=== PATIENT | male | born 1935 | race Caucasian/White ===

== ENCOUNTER 2017-01-22 21:14 | Inpatient (IN) | payer OTHER, MEDICARE ==
[~2017-01-22] VITALS: Ht 182.9 cm; Wt 67.1 kg
--- NOTE | 2017-01-22 22:17 | ED DYSPNEA/ASTHMA COMPLAINT ---
History of Present Illness General Chief Complaint: Dyspnea (COPD, CHF, Other) Stated Complaint: BIBA SOB Source: patient, old records, EMS Exam Limitations: dyspnea Vital Signs & Intake/Output Vital Signs & Intake/Output Vital Signs Date Time Temp Pulse Resp B/P B/P Pulse O2 O2 Flow FiO2 Mean Ox Delivery Rate 01/29 0625 35 01/29 0314 35 01/29 0300 93 Ventilator 35% 01/29 0148 35 01/29 0000 96 Ventilator 35% 01/29 0000 97.0 62 14 98/50 96 Ventilator 35% 01/28 2216 35 01/28 2119 70 110/57 01/28 2000 91 Ventilator 35% 01/28 1915 35 01/28 1619 35 01/28 1600 95 Ventilator 35% 01/28 1600 98.5 64 30 114/58 95 Ventilator 35% 01/28 1332 35 01/28 1200 97 Ventilator 35% 01/28 1028 64 132/64 01/28 1028 61 132/64 18 0815 35 01/28 0800 98.4 75 19 122/60 99 Ventilator 35% 01/28 0800 99 Ventilator 35% ED Intake and Output 01/29 0000 01/28 1200 Intake Total 1580 963 Output Total 1450 200 Balance 130 763 Intake, IV 360 240 Intake, Oral 0 Intake, Other 80 Intake, Tube 670 428 Feeding Intake, Tube 470 295 Irrigant Number 1 1 Bowel Movements Output, Urine 1450 200 Allergies Coded Allergies: No Known Allergies (01/22/17) Reconcile Medications Amlodipine Besylate 10 MG TABLET 1 TAB PO DAILY HTN (Reported) Aripiprazole (Abilify) 10 MG TABLET 1 TAB PO DAILY MENTAL HEALTH (Reported) Aspirin (Aspirin*) 81 MG TAB.CHEW 1 TAB PO DAILY HEART (Reported) Atorvastatin Calcium (Lipitor) 80 MG TABLET 1 TAB PO DAILY HYPERLIPIDEMIA ( Reported) Carvedilol 3.125 MG TABLET 1 TAB PO BID HTN (Reported) Cholecalciferol (Vitamin D3) (Vitamin D3) 1,000 UNIT CAPSULE 2 CAP PO DAILY SUPPLEMENT (Reported) Docusate Sodium (Colace) 100 MG CAPSULE 1 CAP PO BID CONSTIPATION (Reported) Finasteride (Proscar) 5 MG TABLET 1 TAB PO DAILY BPH (Reported) Gabapentin (Neurontin) 400 MG CAPSULE 1 CAP PO TID NEUROPATHY (Reported) Ipratropium/Albuterol Sulfate (Combivent Respimat Inhal [place]) 20 MCG-100 MCG/ ACTUATION MIST.INHAL 1 PUFF INH/JANIS Q6 RESPIRATORY (Reported) Lisinopril (Prinivil) 10 MG TABLET 1 TAB PO DAILY HTN (Reported) Nicotine (Nicotine Patch) 21 MG/24 HOUR PATCH.TD24 1 PAT TOP DAILY SMOKING CESSATION (Reported) Sennosides (Senna) 8.6 MG TABLET 2 TAB PO DAILY CONSTIPATION (Reported) Sertraline HCl (Zoloft) 100 MG TABLET 2 TAB PO DAILY MENTAL HEALTH (Reported) Tamsulosin HCl 0.4 MG CAP.ER.24H 2 CAP PO DAILY BPH (Reported) Trazodone HCl 50 MG TABLET 3 TAB PO QPM SLEEP (Reported) Triage Note: PT BIBA FROM [facility]. PT C/O DIFFICULTY BREATHING. EMS RECEIVED POOR REPORT FROM [facility] STAFF REGARDING ONSET OF SYMPTOMS BUT STATED [facility] PERFORMED CHEST X-RAY. UPON EMS ARRIVAL, PT SPO2 70% ON 4LPM. EMS PLACED PT ON 15LPM. LS DIMINISHED AND RHONCHI THROUGHOUT. DR ESCOTO AT BEDSIDE AND RESPIRATORY CALLED. Triage Nurses Notes Reviewed? yes HPI: Patient presents for evaluation of severe dyspnea. The patient himself is unable to provide any history because of clinical condition. Past History Travel History Traveled to [place] past 21 day No Medical History Any Pertinent Medical History? see below for history Surgical History Surgical History: non-contributory Psychosocial History Tobacco Use: Refused to answer (unable to provide hx) Family History Hx Contributory? No Review of Systems Review of Systems Constitutional: Reports: no symptoms. EENTM: Reports: no symptoms. Respiratory: Reports: short of breath. Cardiovascular: Reports: no symptoms. GI: Reports: no symptoms. Genitourinary: Reports: no symptoms. Musculoskeletal: Reports: no symptoms. Skin: Reports: no symptoms. Neurological/Psychological: Reports: no symptoms. Hematologic/Endocrine: Reports: no symptoms. Immunologic/Allergic: Reports: no symptoms. All Other Systems: Reviewed and Negative Physical Exam Physical Exam Respiratory: see below Comments: Gen.: Well-nourished, well-developed, severe respiratory distress. Head: Normocephalic, atraumatic. Eyes: Normal inspection bilaterally Ears: Normal inspection bilaterally Nose: Normal inspection Throat/mouth : Tacky mucosa Neck: Supple, full range of motion, no goiter Heart: Regular rate and rhythm, no murmurs rubs or gallops Lungs: Severely diminished breath sounds over the right chest, diffuse thick rhonchi and crackles over the left chest Chest: Nontender Back: Normal range of motion Abdomen: Soft, nontender, nondistended, normal bowel sounds Extremities: Normal range of motion grossly, equal radial pulses, no cyanosis clubbing or edema Neurologic: Cranial nerves grossly intact, speech is clear Skin: warm and dry Psychiatric: Unable to assess Core Measures ACS in differential dx? No Severe Sepsis Present: No Septic Shock Present: No Progress Differential Diagnosis: AMI, bronchitis, CHF, COPD, pneumonia Plan of Care: Orders Procedure Date/time Status XRY-PORTABLE CHEST XRAY 01/29 0500 Active ICU LAB BUNDLE 01/29 0500 Complete CBC WITHOUT DIFFERENTIAL 01/29 0500 Complete VENTILATOR WEANING PARAMETERS 01/28 1115 Complete Restraint- Medical 01/28 0758 Active Recio, Insertion/Removal/Asses 01/28 0758 Active PHARMACY COMMUNICATION FORM 01/28 UNK Active Current Medications Sig/Fatou Start time Last Medication Dose Stop Time Status Admin Aripiprazole 10 MG 01/28 2200 AC 01/28 (Abilify) 2117 Sertraline HCl 200 MG 0 01/28 220 AC 01/28 (Zoloft) 2118 Trazodone HCl 150 MG QPM 01/27 2200 AC 01/28 (Desyrel) 212 Ascorbic Acid 250 MG DAILY 01/27 1918 AC 01/28 (Vitamin C) 1028 Zinc Sulfate 220 MG DAILY 01/27 1918 AC 01/28 (Zinc Sulfate) 1028 Multivitamins 1 TAB DAILY 01/27 1917 AC 01/28 (Theragran Vitamins) 1028 Ampicillin Sodium/ 1,500 MG Q6 01/27 1200 AC 01/29 Sulbactam Sodium 0600 (Unasyn) Sodium Chloride 100 ML (Normal Saline 0.9%) Amlodipine Besylate 10 MG DAILY 01/26 1000 AC 01/28 (Norvasc) 1028 Carvedilol 3.125 MG BID 01/26 0130 AC 01/28 (Coreg) 211 Albuterol Sulfate 3 ML TID 01/23 1000 AC 01/28 (Proventil) 191 Ipratropium [place] 2.5 ML TID 01/23 1000 AC 01/28 (Atrovent) 192 Pantoprazole Sodium 40 MG DAILY 01/23 1000 AC 01/28 (Protonix) 1029 Guaifenesin 10 ML Q4P PRN 01/23 0615 AC (Robitussin) Heparin Sodium 5,000 UNIT Q8 01/23 0600 AC 01/29 (Porcine) 0600 Acetaminophen 650 MG Q6P PRN 01/23 001 AC (Tylenol) Acetaminophen/ 1 TAB Q6P PRN 01/23 001 AC Hydrocodone Bitart (Vicodin) Oxycodone HCl 10 MG Q6P PRN 01/23 15 AC (Roxicodone) Laboratory Tests 01/29/17 0310: Anion Gap 9, Estimated GFR > 60, Glucose 117 H, Calcium 7.8 L, Phosphorus 3.4, Magnesium 1.6, Total Bilirubin 0.5, AST 34, ALT 47, Albumin 2.5 L, CBC w Diff NO MAN DIFF REQ, RBC 3.14 L, MCV 85.3, MCH 28.7, RDW 17.8 H, MPV 7.7, Lymphocytes % 16.7 L, Absolute Granulocytes 4.1, Absolute Lymphocytes 0.9 L, Absolute Monocytes 0.4, Absolute Eosinophils 0.2, Absolute Basophils 0, PUBS MCHC 33.6 Diagnostic Imaging: Discussed w/RAD: Radiology Read. CXR Impression: PATIENT: DEEP CASTILLO PRESENT AGE: 81 PATIENT ACCOUNT NO: [id number] : 37 LOCATION: [facility] ORDERING PHYSICIAN: OBEY ESCOTO MD SERVICE DATE: 01/22/17 EXAM TYPE: RAD - XRY-PORTABLE CHEST XRAY EXAMINATION: CHEST 1 VIEW CLINICAL INFORMATION: Enteric tube placement. COMPARISON: None. TECHNIQUE: An AP view of the chest is provided. FINDINGS: The cardiac silhouette is not enlarged. An enteric tube is in place. The tip cannot be discerned. The mediastinal and hilar contours are unremarkable. There are neither pleural effusions nor pneumothoraces. There is opacification at the right lung base. There is narrowing of the acromiohumeral distances bilaterally. The osseous structures are otherwise unremarkable. IMPRESSION: Enteric tube in place. Secondary to patient positioning and exposure level, the tip cannot be identified. Infiltrate at the right lung base concerning for pneumonia. Recommendation is for a followup chest series to be obtained following treatment and/or resolution of symptoms to assure resolution of this appearance. DICTATED BY: ALEXANDRA FLEMING MD DATE/TIME DICTATED:01/22/172313 FENCE INSTALLER HELPER:PRERNA DATE/TIME TRANSCRIBED:01/22/172313 CONFIDENTIAL, DO NOT COPY WITHOUT APPROPRIATE AUTHORIZATION. <Electronically signed in Other Vendor System> SIGNED BY: ALEXANDRA FLEMING MD 01/22/172318 Initial ED EKG: NSR, rate (82), incomplete rbbb Comments: 01/22/2017 10:14:50 PM Deep has been intubated by PA my direct supervision of the entire procedure. After intubation blood pressure dropped and IV fluids are being bolused. After 1/2 L of IV fluid, patient's peripheral pulses have improved and his skin remains warm and dry with good color. Unfortunately he also remains obtunded. 01/22/2017 11:34:45 PM given the appearance of the chest x-ray I elected to cover this patient for pneumonia. He does not meet Sirs criteria for septic shock. Departure Departure Disposition: STILL A PATIENT Condition: Critical Clinical Impression Primary Impression: Respiratory failure Qualifiers: Chronicity: unspecified Respiratory failure complication: hypoxia Qualified Code: J96.91 - Respiratory failure, unspecified with hypoxia Secondary Impressions: Acute kidney injury Dehydration Hypotension Qualifiers: Hypotension type: unspecified hypotension type Qualified Code: I95.9 - Hypotension, unspecified Pneumonia Qualifiers: Pneumonia type: due to unspecified organism Laterality: right Lung location: lower lobe of lung Qualified Code: J18.1 - Lobar pneumonia, unspecified organism Referrals: UNKNOWN (PCP) Departure Forms: Customer Survey General Discharge Information Admission Note Spoke With: HELENA SIMPSON MD Documentation of Exam: Documentation of any treatments & extenuating circumstances including Concerns Regarding Discharge (functional status, medication knowledge or non-compliance, living conditions, etc.) that warrant an admission rather than observation: Patient Has suffered acute hypoxic respiratory failure requiring intubation. He Is also suffering from acute kidney injury with hypotension. He requires intensive care on a ventilator and intravenous fluids with close monitoring of vital signs and clinical condition. He will require intravenous sedation while on the ventilator. He should be treated with intravenous antibiotics given the likelihood of pneumonia seen on chest x-ray. Intake and output should be recorded and treated accordingly. Pulmonary and renal consultations should be considered. Given this patient's advanced age and multiple medical issues he will require a multiple day hospitalization. Prognosis is grave. Procedures Intubation Intubation Method: orotracheal Tube Size (cm): 8.0 Medications: ETOMIDATE Breath Sounds After Intubation: equal Intubation Complications: no complications Post Intubation Xray? Yes Critical Care Note Critical Care Note Critical Care Time: 30-74 min
[2017-01-22 22:31] LABS: ABSOLUTE BASOPHIL COUNT 0 /CUMM (0.0-0.2); ABSOLUTE EOSINOPHIL COUNT 0 /CUMM (0.0-0.7); ABSOLUTE GRANULOCYTE CT 4.5 /CUMM (1.4-6.5); ABSOLUTE LYMPH COUNT 0.4 /CUMM (1.2-3.4); ABSOLUTE MONOCYTE COUNT 0.1 /CUMM (0.10-0.60); BASOPHIL % 0.1 % (0.0-2.0); EOSINOPHIL % 0.3 % (0-5); GRANULOCYTE % 90.6 % (42.2-75.2); HEMATOCRIT 30.1 % (42-52); MEAN CORPUSCULAR HGB CONC 33.7 G/DL (33.0-37.0); MEAN PLATELET VOLUME 8.2 FL (7.4-10.4); PLATELET COUNT 144 /CUMM (130-400); RED BLOOD CELL CT 3.51 /CUMM (4.70-6.10); WHITE BLOOD CELL COUNT 4.9 /CUMM (4.8-10.8)
--- NOTE | 2017-01-22 23:19 | RADIOLOGY REPORT ---
EXAMINATION: CHEST 1 VIEW CLINICAL INFORMATION: Enteric tube placement. COMPARISON: None. TECHNIQUE: An AP view of the chest is provided. FINDINGS: The cardiac silhouette is not enlarged. An enteric tube is in place. The tip cannot be discerned. The mediastinal and hilar contours are unremarkable. There are neither pleural effusions nor pneumothoraces. There is opacification at the right lung base. There is narrowing of the acromiohumeral distances bilaterally. The osseous structures are otherwise unremarkable. IMPRESSION: Enteric tube in place. Secondary to patient positioning and exposure level, the tip cannot be identified. Infiltrate at the right lung base concerning for pneumonia. Recommendation is for a followup chest series to be obtained following treatment and/or resolution of symptoms to assure resolution of this appearance.
--- NOTE | 2017-01-23 00:13 | History & Physical ---
JAVAD CHAVES,KARTHIK 01/23/17 0013: General Information and HPI MD Statement: I have seen and personally examined ASAD CASTILLO and documented this H&P. The patient is a 81 year old M who presented with a patient stated chief complaint of []. Source of Information: patient, old records Exam Limitations: clinical condition History of Present Illness: patient is a 81 y/o male with past medical history of cerebellar stroke , BPH , insomnia, hypercholesterolemia, seizure, dementia, coronary artery disease , history of pneumonia, COPD on 2 liters oxygen BIBA from SNF with c/o of difficulty in breathing. EMS found his Spo2 was 70% on 4L of Oxygen and EMS later increased O2 to 15 L.He was intubated by ED physician. Most of the information obtained from the Daughter over the phone. He was having fever with yellowish-green sputum , followed by pathology and decreased oxygen saturation. Chest x-ray was done which showed evidence of pneumonia so he was transferred to the emergency department. Allergies/Medications Allergies: Coded Allergies: No Known Allergies (01/22/17) Past History Travel History Traveled to [place] past 21 day No Medical History Neurological: dementia, TREMORS Cardiovascular: hypertension Respiratory: COPD Renal: benign prost hyperplasia Surgical History Surgical History: unobtainable Review of Systems Review of Systems Constitutional: Denies: no symptoms. Comments cannt comment as patient is intubated Exam & Diagnostic Data Last 24 Hrs of Vital Signs/I&O Vital Signs Date Time Temp Pulse Resp B/P Pulse O2 O2 Flow FiO2 Ox Delivery Rate 01/23 0421 97.3 85 20 84/50 01/23 0304 45 01/23 0251 50 01/23 0214 84 20 82/50 95 Ventilator 50% 01/23 0127 98.4 81 20 100/50 99 Ventilator 50% 01/23 0048 50 01/23 0042 60 01/23 0039 83 20 74/62 98 Ventilator 60% 01/23 0009 72 20 68/40 96 Ventilator 60% 01/22 2308 71 20 78/44 100 Ventilator 60% 01/22 2253 70 20 78/48 99 Ventilator 60% 01/22 2242 68 20 76/42 97 Ventilator 60% 01/22 2218 80 20 70/42 98 Ventilator 60% 01/22 2201 60 01/22 2157 74 20 42/26 96 Ventilator 60% 01/22 2146 81 50/30 04/12 2136 97 Non 100% ReBreather 01/22 2134 98.6 82 24 127/89 92 Non 100% ReBreather Intake & Output 01/23 0800 01/23 0000 01/22 1600 Intake Total Output Total Balance Patient 86.183 kg Weight Physical Exam General Appearance No Acute Distress Skin No Rashes, No Breakdown, No Significant Lesion Cardiovascular Normal S1, Normal S2 Lungs inspiratory crackles Abdomen Soft, No Tenderness Neurological able to respond command Extremities No Clubbing, No Cyanosis, No Edema Vascular weak pulses Last 24 Hrs of Labs/Robert: Laboratory Tests 01/23/17 0615: Troponin I Pending 01/23/17 0615: Lactic Acid Pending 01/23/17 06: Sodium Pending, Potassium Pending, Chloride Pending, Carbon Dioxide Pending, Anion Gap Pending, BUN Pending, Creatinine Pending, BUN/Creatinine Ratio Pending , Phosphorus Pending, Magnesium Pending, Total Bilirubin Pending, Direct Bilirubin Pending, AST Pending, ALT Pending, Alkaline Phosphatase Pending, Total Protein Pending, Albumin Pending, PT Pending, INR Pending, CBC w Diff Pending, WBC Pending, RBC Pending, Hgb Pending, Hct Pending, MCV Pending, MCH Pending, RDW Pending, Plt Count Pending, MPV Pending, PUBS MCHC Pending 01/23/17 0505: pH 7.35, pCO2 29 L, pO2 77 L, HCO3 16 L, ABG O2 Sat (Measured) 93.0 L, P-50 (Temp Corrected) Y, Carboxyhemoglobin 0.2 L, O2 Concentration % 45%, Temperature 98.9, Respiration Rate 20, O2 Delivery Method ESPRIT, Vent Mode AC, Expiratory Pressure 5, Tidal Volume 550, Phlebotomy Draw Site LEFT RADIAL 01/22/172325: Urine Color YEL, Urine Clarity HAZY H, Urine pH 5.5, Ur Specific [place] 1.025, Urine Protein 30 H, Urine Ketones TRACE H, Urine Nitrite NEG, Urine Bilirubin NEG, Urine Urobilinogen 0.2, Ur Leukocyte Esterase NEG, Ur Microscopic SEDIMENT EXAMINED, Urine RBC 1-3, Urine WBC 1-3 H, Ur Epithelial Cells FEW, Urine Hemoglobin MOD H, Urine Glucose NEG 01/22/172229: pH 7.40, pCO2 29 L, pO2 76 L, HCO3 17 L, ABG O2 Sat (Measured) 94.0 L, P-50 (Temp Corrected) N, Carboxyhemoglobin 0.3 L, O2 Concentration % 60%, Temperature 98.6, Respiration Rate 20, O2 Delivery Method ESPRIT VENT, Vent Mode AC, Expiratory Pressure 5, Tidal Volume 550, Phlebotomy Draw Site RIGHT RADIAL 01/22/172217: Anion Gap 13, Estimated GFR 17 L, BUN/Creatinine Ratio 15.4, Glucose 112 H, Lactic Acid 1.5, Calcium 8.4, Iron 17 L, TIBC 248 L, Ferritin 386.0, Troponin I 0.04, Dgp-Q-Uslublqlrlo Pept 1410 H, TSH 1.900, CBC w Diff MAN DIFF ORDERED, RBC 3.51 L, MCV 86.0, MCH 29.0, RDW 17.0 H, MPV 8.2, Gran % 90.6 H, Lymphocytes % 7.9 L, Monocytes % 1.1 L, Eosinophils % 0.3, Basophils % 0.1, Absolute Granulocytes 4.5, Segmented Neutrophils 83 H, Band Neutrophils 6 H, Absolute Lymphocytes 0.4 L, Lymphocytes 8 L, Monocytes 3, Absolute Monocytes 0.1 L, Absolute Eosinophils 0, Absolute Basophils 0, Platelet Estimate ADEQUATE , Poikilocytosis 1+, Anisocytosis 1+, Ovalocytes 1+, Elliptocytes FEW, PUBS MCHC 33.7 Microbiology 01/23 0300 UPPER RESP: Surveillance Culture - RECD 01/23 0300 GI: Surveillance Culture - RECD 01/23 253 URINE ROUT: Legionella Antigen - ORD 01/23 025 URINE ROUT: Streptococcus pneumoniae Antigen (M - ORD 01/23 0225 BLOOD: Blood Culture - RECD 01/23 0210 BLOOD: Blood Culture - RECD 01/23 0143 LOWER RESP: Respiratory Culture - RECD 01/23 0143 LOWER RESP: Gram Stain - RECD 01/23 0124 BLOOD: Blood Culture - RECD 01/22 2326 URINE ROUT: Urine Culture - RECD Diagnostic Data EKG Results Normal sinus rhythm, heart rate 82, incomplete right bundle branch block CXR Results Right lung base pneumonia Endotracheal tube is approximately 6.7 millimeters above the paco Assessment/Plan Assessment: patient is a 81 y/o male with past medical history of cerebellar stroke , BPH , insomnia, hypercholesterolemia, seizure, dementia, coronary artery disease , history of pneumonia, COPD on 2 liters oxygen BIBA from SNF with c/o of difficulty in breathing. EMS found his Spo2 was 70% on 4L of Oxygen and EMS later increased O2 to 15 L.He was intubated by ED physician. Vital signs at the time of admission-temperature 98.6, pulse 82, respiratory rate 24, blood pressure 127/89, SPO2 92% on nonrebreather. Chest x-ray -right lower lobe pneumonia, endotracheal tube in place Pertinent labs -hemoglobin 10.2, hematocrit 30.1, BUN 40, creatinine 2.2 Plan - Acute hypoxemic respiratory failure secondary to Right lower lobe pneumonia, septicemia with septicemic shock - * Patient presented with cough, fever, sputum, and become hypoxemic and lethargic. * ABG showed -pH 7.40, PCO2 29, PO2 76, HCO3 17, he was intubated in the emergency department and kept on ventilator with setting of FiO2 45%, assist control mode with inspiratory/expiratory pressure -15/5, TV-550. * We admitted the patient in ICU * His blood pressure remained 70/60 after 4 liters of fluid transfusion. We put the central line and started him on levofed 5cc/hr * We started patient on injection vancomycin/ceftaz. We will adjust the dose of vancomycin according to the creatinine. * Advised to follow a strict intake output charting * Watch for vital signs * We will place pulmonology consult and follow the recommendation * TRC/embolization Acute kidney injury, probably secondary to dehydration/septicemic shock/ATN - * We will do strict intake output charting * We will regularly monitor creatinine * If needed, we will consider nephrology consult Acute coronary syndrome, to rule out demand ischemia * We will regularly monitor EKG/troponins * If needed, then we will place cardiology consult * We'll follow echocardiogram Diet -nothing by mouth,, will consider an NG tube in the morning DVT prophylaxis - ALP S/Heparin CODE status -full code As Ranked By This Provider Problem List: 1. Acute hypoxemic respiratory failure 2. Cerebellar stroke 3. Dementia 4. Right lower lobe pneumonia 5. Septicemia 6. Septicemic shock Core Measures/Miscellaneous Acute Coronary Syndrome ACS Diagnosis: No Cerebrovascular Accident CVA/TIA Diagnosis: No Congestive Heart Failure CHF Diagnosis: No Venous Thromboembolism VTE Risk Factors: Age > 40, Immobility, paresis No Mech VTE prophylaxis d/t: No contraindications No VTE Pharm Prophylaxis d/t: No contraindications VTE Diagnosis: No VTE Type: NONE VTE Confirmed by (Test): NONE Severe Sepsis Severe Sepsis Present: Yes BC x2: Yes Lactic Acid x2: Yes IV ABX Broad Spectrum: Yes NS/LR Started: Yes Septic Shock Septic Shock Present: Yes BC x2: Yes Lactic Acid: Yes IV ABX Broad Spectrum: Yes Focused Exam Completed: Yes NS/LR 30ml/kg w/in 3hrs: Yes IV Vasopressors started: Yes Miscellaneous Documentation Attending Case Discussed With: HELENA SIMPSON MD Primary Care Physician: UNKNOWN Patient sees these Specialists PILOT SAFETY INSPECTOR Level of Patient Care: Critical Care (CRI) DYLLAN THURSTON 01/23/17 0018: General Information and HPI Allergies/Medications Home Med list Amlodipine Besylate 10 MG TABLET 1 TAB PO DAILY HTN (Reported) Aripiprazole (Abilify) 10 MG TABLET 1 TAB PO DAILY MENTAL HEALTH (Reported) Aspirin (Aspirin*) 81 MG TAB.CHEW 1 TAB PO DAILY HEART (Reported) Atorvastatin Calcium (Lipitor) 80 MG TABLET 1 TAB PO DAILY HYPERLIPIDEMIA ( Reported) Carvedilol 3.125 MG TABLET 1 TAB PO BID HTN (Reported) Cholecalciferol (Vitamin D3) (Vitamin D3) 1,000 UNIT CAPSULE 2 CAP PO DAILY SUPPLEMENT (Reported) Docusate Sodium (Colace) 100 MG CAPSULE 1 CAP PO BID CONSTIPATION (Reported) Finasteride (Proscar) 5 MG TABLET 1 TAB PO DAILY BPH (Reported) Gabapentin (Neurontin) 400 MG CAPSULE 1 CAP PO TID NEUROPATHY (Reported) Ipratropium/Albuterol Sulfate (Combivent Respimat Inhal [place]) 20 MCG-100 MCG/ ACTUATION MIST.INHAL 1 PUFF INH/JANIS Q6 RESPIRATORY (Reported) Lisinopril (Prinivil) 10 MG TABLET 1 TAB PO DAILY HTN (Reported) Nicotine (Nicotine Patch) 21 MG/24 HOUR PATCH.TD24 1 PAT TOP DAILY SMOKING CESSATION (Reported) Sennosides (Senna) 8.6 MG TABLET 2 TAB PO DAILY CONSTIPATION (Reported) Sertraline HCl (Zoloft) 100 MG TABLET 2 TAB PO DAILY MENTAL HEALTH (Reported) Tamsulosin HCl 0.4 MG CAP.ER.24H 2 CAP PO DAILY BPH (Reported) Trazodone HCl 50 MG TABLET 3 TAB PO QPM SLEEP (Reported) Resident Review Statement Resident Statement: examined this patient, discussed with internal combustion engineer, agreed with internal combustion engineer, discussed with family, reviewed EMR data (avail), discussed with nursing , discussed with case mgmt, reviewed images, amended to note Other Findings: 81-year-old male was brought in from [facility] with chief complaint of difficulty breathing. History is much limited as patient was intubated shortly after arrival in the ER. and is obtained from the patient's daughter Vanna. According to the patient's daughter, Mr. Orta has a history of coronary artery disease, COPD, hypertension, BPH, carotid stenosis, dementia, history of cerebellar stroke and was recently admitted to and discharged from seen one since for pneumonia. He was on 2 L of oxygen via nasal cannula while at the facility. Apparently this morning he was found to be febrile to 100.9 and desaturated to the 70s. He was also noted to bring up increase amount of productive greenish yellow sputum. He was also found to be lethargic, and after a chest x-ray was done he was transferred to [facility] for further evaluation. Of note patient has a history of leaky valves and follows up with a die set up worker at [place]. According to ER notes, a chest x-ray was performed at the facility and upon arrival of EMS he was found to be hypoxic to 70% on 4 L of O2. EMS placed the patient on 15 L and he was found to have diminished lung sounds with rhonchi bilaterally. Vitals at the time of arrival in the ER, blood pressure 127/89, respiratory rate 24, pulse 82, afebrile, saturating 92% on 100% nonrebreather. On physical exam, he is alert, responding to commands, intubated. HEENT revealed PERRLA, dry mucous membranes. Examination of the neck did not reveal any JVD or cervical lymphadenopathy. Cardiovascular exam revealed a grade 2/6 systolic murmur heard best at right sternal border. Respiratory exam pertinent for coarse and trasnmitted breath sounds bilaterally. Abdominal exam was benign and abdomen was soft, nondistended, and nontender with bowel sounds heard in all 4 quadrants. Examination of the extremities did not reveal any edema. Neuro exam was limited and pertinent for strength 5 out of 5 in all 4 extremities however patient. Labs pertinent for an H&H of 10.2/30.1, white blood cell count of 4900, with 6 bands and a left shift, with a platelet count of 144,000. Serum chemistries revealed hyponatremia with a sodium of 134, hyperkalemia with a potassium of 5.5 , bicarbonate of 22, normal anion gap of 13, BUN elevated to 54 and creatinine of 3.5. Serum glucose was elevated to 112, calcium was within normal limits at 8.4 and first set of troponin negative at 0.04 with a proBNP of 1410. ABGs revealed in pH of 7.4, PCO2 of 29, PO2 of 76, bicarbonate of 17. Chest x-ray revealed opacification of the right lung base, well the cardiac silhouette was not enlarged. An enteric tube is in place the tip of which cannot be discerned. The mediastinal and hilar contortions are unremarkable and there was no evidence of pleural effusion or pneumothoraces. EKG showed NSR, HR: 82, ? RBBB, NH: 152ms, QTc: 430ms, no ST-T changes In the ER, patient became hypotensive to 50/30 after intubation and received 2 L of normal saline boluses after which his blood pressure came up to 78/44. He received etomidate 20 mg IV 1 and was started on a propofol drip status post intubation. Assessment and plan Admit patient to ICU. - Respiratory #Acute hypoxemic respiratory failure Most likely secondary to pneumonia (HCAP vs aspiration PNA) versus CHF exacerbation Patient is s/p intubation. Send for LRC, BCX2, and urinary antigen for Strep Pneumo, and Legionella. Start on Vancomycin and Ceftaz fro HCAP with renally adjusted dose. R/O ACS with troponins and EKG @ 6:00am and 12:00pm. CRCU consult in am. - ID - ? Sepsis 2/2 PNA - Patient is presently afebrile, does not have leukocytosis, but does have left shift and 6 bands. Of note he does have radiological evidence of consolidation suggestive of PNA. - Check lactic acid, LFTs to further evaulate for end organ injury. - Cardiovascular # Hypotension - 2/2 dehydration versus having received Propofol. - Goal MAP of 65mmHg - Resuscittae with IVF's for now, if continues to remain hypotensive, consider starting on Levophed. Consent for placement of central venous catheter was obtained from his daughter Vanna over the phone. - Hold all antihypertensive agents for now. #R/O ACS - F/U Trop and EKG @ 6:00am and midnight - Echocardiogram to evaluate for RWMA # HLP - Holding Atorvastatin 80mg daily for now - Hematology # Anemia - Most likely iron deficiency - Guaic all stools - Check iron studies, TSH - Metabolic # RUTH - 2/2 dehydration versus sepsis - Hydrate with IVF's. - F/U repeat BEP in AM - If continues to worsen, consider renal US to r/o obstructive uropathy. - Avoid all nephrotoxic agents. - Alimentary - No active issues # GERD - Protonix for prophylaxis of stress ulcers - Neurological - Alert and responding to commands. - Continue a nd titrate Propofol for sedation to maintain SAS score of 3-4 - DVT propylaxis - Heparin 5000IU TID SC Code Status Full Code (confiormed with ) Please obtain records from [facility] for patient's recent hospitalization about a month ago. HELENA SIMPSON 01/23/17 0204: Attending MD Review Statement Attending Statement Attending MD Statement: examined this patient, discuss w/resident/PA/BOOK JOGGER, agreed w/resident/PA/BOOK JOGGER, discussed with family, reviewed EMR data (avail), reviewed images, amended to note Attending Assessment/Plan: CC: acute respiratory distress PMH: CAD, CVA with cerebellar stroke followed by marlena at baseline, carotid stenosis, vascular dementia, BPH, HLD, COPD, HTN, "leaky valve" Patient was resident of [facility], one month back developed acute respiratory distress and was admitted to [facility], and was diagnosed to have Pneumonia (was not intubated), then transferred to [facility] for acute rehab. Hx is obtained from Patient's daughter. According to her , he was not recovering to his baseline, having worseing of mental status on and off, and still requiring oxygen by CO. According to W10, patient acutely desaturated and was in respiratory distress, Tmax 100.9, CXR showing infiltrates , so was sent to ER. In ER, patient was in severe respiratory distress and was intubated at arrival. BP dropped after intubation and sedation. thick/Hector sputum coming out of ET tube. Vitals: T max: 98.6, HR 82, RR 24, hypotensive, saturating 98% on vent. On Exam : intubated, A, opens eyes to verbal instruction, 2 point restrain, DANE , tremers Vs chills, RS: bilateral breath sounds CVS: S1S2,2/6 systolic murmur in Mitral area. Abdo: soft, NT, ND, BS presnet. no obvious skin rash or inflammation. perpheral pulses palpable, warm to touch Labs: WBC 4.9, N 90%, band 6. HB 10.2, K 5.5, Sr. Cr. 3.5, lact 1.5, AG 13. ProBNP 1410, Trop 0.04 UA unremarkable AB.40/29/76/17 on 60% AC 550/20/5 CXR: 1. Enteric tube in place. Secondary to patient positioning and exposure level, the tip cannot be identified. 2. Infiltrate at the right lung base concerning for pneumonia. 3. Recommendation is for a followup chest series to be obtained following treatment and/or resolution of symptoms to assure resolution of this appearance. A and P Patient presented with acute respiratory distress, was tachypneic, decreased air entry on auscultation by ER physician, was intubated immediately after arrival. Chest x-ray suggestive of pneumonia, has bandemia, fever spike and fci off 100.9. Patient was recently hospitalized for similar symptoms and was diagnosed to have pneumonia at that time as well. And he was discharged to acute rehabilitation facility. Given acute worsening of symptoms, desaturation we will treat this as a new onset infiltrates and healthcare associated pneumonia, at the same time given his "leaky valves" cardiogenic origin of dyspnea cannot be denied, patient's proBNP is elevated but it's not as remarkable given his elevated creatinine and chest x-ray does not have vascular congestion. Patient appears to be in acute kidney injury. Patient became hypotensive after intubation, probably secondary to sepsis along with decreased intravascular volume in setting of positive intrathoracic pressures. As patient is intubated currently we have room for aggressive hydration without compromising breathing. We had detailed discussion with daughter and regarding critical illness, goals of care and CODE STATUS was addressed, family was everything to be done including central line, pressors and patient is full code. Problems #1 healthcare associated pneumonia #2 acute on chronic respiratory failure #3 acute kidney injury #4 hypotension #5 history of CAD, carotid stenosis, cerebellar stroke with baseline tremors, HLD, HTN Plan: - Admit to ICU - Close monitoring of vitals, strict I's and O's - Trend lactate, troponin. - Continue current vent settings at 550/20/5 AC mode titrate FiO2 according to O2 saturation goal less than 40%, repeat ABG at 5 AM, if patient desaturated, repeat ABG at that time, repeat chest x-ray at that time. Continue respiratory toilet, Mucinex 600 twice a day, albuterol Atrovent nebulization every 4 hours scheduled, TRC - Continue propofol for sedation - IV Protonix, elevate head end of the bed, oral care - Blood culture, UA urine culture, sputum culture, strep antigen, Legionella antigen - start vancomycin, Ceftaz, renally adjusted - Continue aggressive hydration patient already received 4 L boluses, continue 5th L bolus over 2 hour, followed by 150 mL per hour if blood pressure maintaining, map of greater than 65 if patient's blood pressure is not maintained after fifth-grader patient may require central line and Levophed. - 2-D echo in a.m. - Pulmonary consult - CODE STATUS discussed with family, full code. - Please Obtain records from [facility] about his recent hospitalization TTS 1 hr.
[2017-01-23] MEDS ORDERED: NEURONTIN400 M1 PO (01:06)
[2017-01-23] MEDS ORDERED: ASPIRIN81 M4 PO (01:06)
[2017-01-23] MEDS ORDERED: ZOLOFT100 M1 PO (01:07)
[2017-01-23] MEDS ORDERED: CARVEDILOL3.125 M1 PO (01:07)
[2017-01-23] MEDS ORDERED: PRINIVIL10 M1 PO (01:08)
[2017-01-23] MEDS ORDERED: ABILIFY10 M1 PO (01:08)
[2017-01-23] MEDS ORDERED: LIPITOR80 M1 PO (01:08)
[2017-01-23] MEDS ORDERED: AMLODIPINE BES2.5 M1 PO (01:09)
[2017-01-23] MEDS ORDERED: COLACE100 M1 PO (01:09)
[2017-01-23] MEDS ORDERED: TRAZODONE HCL50 M1 PO (01:09)
[2017-01-23] MEDS ORDERED: SENNA8.6 M3 PO (01:10)
[2017-01-23] MEDS ORDERED: NICOTINE PATCH1 EAC3 TOP (01:10)
[2017-01-23] MEDS ORDERED: VITAMIN D31000 UNI1 PO (01:11)
[2017-01-23] MEDS ORDERED: TAMSULOSIN HCL0.4 M1 PO (01:11)
[2017-01-23] MEDS ORDERED: PROSCAR5 M1 PO (01:11)
[2017-01-23] MEDS ORDERED: COMBIVENT RESPIM4 GM INH/SOL (01:15)
--- NOTE | 2017-01-23 02:38 | RADIOLOGY REPORT ---
EXAMINATION: CHEST 1 VIEW CLINICAL INFORMATION: Status post intubation. Please note that the prior requisition stated that an OG tube was placed. COMPARISON: 01/22/2017. TECHNIQUE: An AP view of the chest is provided. The exam is technically limited as the left lateral costophrenic angle is excluded from view. FINDINGS: Limited examination as stated above. The cardiac silhouette is not enlarged. An endotracheal tube is in place. The tip is approximately 6 cm above the paco. The mediastinal and hilar contours are unremarkable. There are neither pleural effusions nor pneumothoraces. There is persistent airspace disease at the right lung base. There is incomplete inclusion of the left lung base. The osseous structures are unremarkable. IMPRESSION: Limited study. Tip of the endotracheal tube is approximately 6 7 m above the paco. Persistent patchy opacification at the right lung base. Please note that the prior requisition dated "OG tube placement". No OG tube is identified
[2017-01-23 03:00] VITALS: BP 84/50
--- NOTE | 2017-01-23 03:21 | Admission Certification ---
Admission Certification Certification Statement - As attending physician, I certify that at the time of - admission, based on clinical presentation, severity of - symptoms, need for further diagnostic testing and - therapeutic interventions, and risk of adverse outcomes - without in-hospital treatment, in my clinical assessment, - this patient requires an acute hospital stay for a minimum - of two nights or longer. I have also considered psychsocial - factors such as support system, advanced age, financial - issues, cognitive issues, and failed out-patient treatments, - past re-admission history, safety of patient, and lack of - compliance as applicable. Specific rationale supporting this admission is: Healthcare associated pneumonia, hypotension, acute kidney injury, acute respiratory failure
--- NOTE | 2017-01-23 04:43 | RADIOLOGY REPORT ---
EXAMINATION: CHEST 1 VIEW CLINICAL INFORMATION: Line placement. COMPARISON: Multiple prior exams are reviewed. The most recent is from the same day obtained at 0219 hours. TECHNIQUE: An AP view of the chest was obtained at 0425 hours. FINDINGS: The exam is suboptimal in that the left lung base is excluded from view. The endotracheal tube is in unchanged position. A right central venous line has been placed. The tip overlies the mid to distal SVC. The cardiac silhouette is stable. There is persistent airspace disease at the right lung base. The osseous structures are stable. IMPRESSION: Endotracheal tube in place. Interval placement of right central venous line. The tip overlies the mid to distal SVC. Persistent right lung base airspace disease.
--- NOTE | 2017-01-23 04:45 | Proc Note Internal Medicine ---
Medicine Procedure Procedure Date: 01/23/17 Medical Procedure(s): central venous cath place Pre-Operative Diagnosis: Sepsis Post-Operative Diagnosis: same Estimated Blood Loss: scant Anesthesia: local monitored anesthesi Procedure Findings: Informed consent was obtained from the patient's daughter Vanna regarding the procedure. Risks and benefits of the procedure were explained extensively, she wished to proceed. First, a timeout was obtained, patient identifying data was checked and verified by members of the team and by myself; after the proper patient and procedure and procedural site was identified, we proceeded. The surgical area was cleaned with chlorhexidine scrub. Patient was draped in sterile fashion. Using ultrasound probe, the right internal jugular vein was isolated. 5 mL of local 1% lidocaine was used to numb the skin. Sidelinger technique used. Using a syringe the right IJ was punctured under ultrasound guidance. The syringe was again confirmed by the ultrasound. Over the syringe, guidewire was placed as a syringe was removed. Skin dilator was placed over the guidewire, a small incision was made to advance the dilator. The dilator was then removed. The 3 ports of the central line were flushed to make sure that all 3 ports were working appropriately. Over the guidewire, the central line was placed and advanced up to 15 cm. The central line was then secured by 4 anchor sutures. A Biopatch was applied. 3 hubs were applied to the central line and were flushed. A dry sterile Tegaderm was applied. Blood loss was scant, the patient handled the procedure extremely well. Dr. China Noel assisted, and Dr. Cota was present during the procedure in its entiriety. A STAT chest x-ray has been obtained, to confirm appropriate line placement, it is pending. We will follow.
[2017-01-23 06:53] LABS: ABSOLUTE BASOPHIL COUNT 0 /CUMM (0.0-0.2); ABSOLUTE EOSINOPHIL COUNT 0 /CUMM (0.0-0.7); ABSOLUTE GRANULOCYTE CT 5.6 /CUMM (1.4-6.5); ABSOLUTE LYMPH COUNT 0.5 /CUMM (1.2-3.4); ABSOLUTE MONOCYTE COUNT 0.2 /CUMM (0.10-0.60); BASOPHIL % 0.2 % (0.0-2.0); EOSINOPHIL % 0.3 % (0-5); GRANULOCYTE % 87.5 % (42.2-75.2); HEMATOCRIT 27.8 % (42-52); MEAN CORPUSCULAR HGB 28.6 PG (27.0-31.0); MEAN CORPUSCULAR HGB CONC 33.2 G/DL (33.0-37.0); MEAN CORPUSCULAR VOLUME 86.2 FL (80.0-94.0); MEAN PLATELET VOLUME 8.3 FL (7.4-10.4); PLATELET COUNT 116 /CUMM (130-400); RBC DISTRIBUTION WIDTH 17.4 % (11.5-14.5); RED BLOOD CELL CT 3.23 /CUMM (4.70-6.10); WHITE BLOOD CELL COUNT 6.4 /CUMM (4.8-10.8)
--- NOTE | 2017-01-23 07:17 | Cons- CRCU ---
UZIEL CHAVES,[facility] 01/23/17 0717: General Information and HPI History of Present Illness: Mr Valdovinos is a 81 year old gentlemen with a PMH of has a history of coronary artery disease, COPD, hypertension, BPH, carotid stenosis, dementia, history of cerebellar stroke and a recent admission to [facility] approximately 4 weeks ago where he was treated for pneumonia who presented to the emergency department on 01/22/2017 after he was found to be febrile (T Max 100.9) and desaturating while at extended care facility. The patient recently has been an occupant of [facility] was admitted to [facility] approximately 4 weeks ago after he had an episode of dyspnea and pneumonia. After his treatment [facility] recuperation. During the morning of 01/22/2017, the patient's grandson found that Mr. Valdovinos had decreased level of responsiveness, he reported this to the desk and found that the patient was febrile, desaturated down to the 70's while on 4 L of oxygen and had an increased sputum production. A chest x-ray done at [facility] showed evidence of infiltrate hence prompting him to be sent to the emergency department. EMS placed the patient on 15L of supplemental Oxygen. At the time of admission, patients blood pressure was 127/89. RR: 24. NE: 82. He was Afebrile and was places on a 100% no rebreather. The patient continued to be in respiratory distress and was intubated. Secretions from the OG tube revealed Thick and yecenia sputum. Some of the patient's history was obtained from his daughter Vanna. The patient's POA is his son Deep can be reached on [phone]. Allergies/Medications Allergies: Coded Allergies: No Known Allergies (01/22/17) Home Med List: Amlodipine Besylate 10 MG TABLET 1 TAB PO DAILY HTN (Reported) Aripiprazole (Abilify) 10 MG TABLET 1 TAB PO DAILY MENTAL HEALTH (Reported) Aspirin (Aspirin*) 81 MG TAB.CHEW 1 TAB PO DAILY HEART (Reported) Atorvastatin Calcium (Lipitor) 80 MG TABLET 1 TAB PO DAILY HYPERLIPIDEMIA ( Reported) Carvedilol 3.125 MG TABLET 1 TAB PO BID HTN (Reported) Cholecalciferol (Vitamin D3) (Vitamin D3) 1,000 UNIT CAPSULE 2 CAP PO DAILY SUPPLEMENT (Reported) Docusate Sodium (Colace) 100 MG CAPSULE 1 CAP PO BID CONSTIPATION (Reported) Finasteride (Proscar) 5 MG TABLET 1 TAB PO DAILY BPH (Reported) Gabapentin (Neurontin) 400 MG CAPSULE 1 CAP PO TID NEUROPATHY (Reported) Ipratropium/Albuterol Sulfate (Combivent Respimat Inhal Mounds) 20 MCG-100 MCG/ ACTUATION MIST.INHAL 1 PUFF INH/JANIS Q6 RESPIRATORY (Reported) Lisinopril (Prinivil) 10 MG TABLET 1 TAB PO DAILY HTN (Reported) Nicotine (Nicotine Patch) 21 MG/24 HOUR PATCH.TD24 1 PAT TOP DAILY SMOKING CESSATION (Reported) Sennosides (Senna) 8.6 MG TABLET 2 TAB PO DAILY CONSTIPATION (Reported) Sertraline HCl (Zoloft) 100 MG TABLET 2 TAB PO DAILY MENTAL HEALTH (Reported) Tamsulosin HCl 0.4 MG CAP.ER.24H 2 CAP PO DAILY BPH (Reported) Trazodone HCl 50 MG TABLET 3 TAB PO QPM SLEEP (Reported) Review of Systems Review of Systems Constitutional: Reports: no symptoms. Denies: chills, diaphoresis, fever. Past History Travel History Traveled to [place] past 21 day No Medical History Neurological: dementia, TREMORS Cardiovascular: hypertension Respiratory: COPD Renal: benign prost hyperplasia Surgical History Surgical History: unobtainable Psychosocial History Where Do You Live? Extended Care Facility Who Do You Live With? spouse Smoking Status: Former Smoker (70 Pack Years) ETOH Use: heavy use, Hx of heavy Use Functional Ability ADLs Needs Assist: dressing, eating, toileting, bathing. Ambulation: non-ambulatory IADLs Needs Assist: shopping, housework, finances, food prep, telephone, transportation, medication admin. Employment History Employment: Retired Exam & Diagnostic Data Last 24 Hrs of Vital Signs/I&O Vital Signs Date Time Temp Pulse Resp B/P Pulse O2 O2 Flow FiO2 Ox Delivery Rate 01/23 0949 Ventilator 45% 01/23 08 45 01/23 08 99.1 70 20 114/70 95 Ventilator 40% 01/23 0800 95 Ventilator 40% 01/23 0602 45 01/23 0421 97.3 85 20 84/50 01/23 0400 93 Ventilator 45% 01/23 0304 45 01/23 0300 97.3 85 24 84/50 93 Ventilator 45% 01/23 0251 50 01/23 0214 84 20 82/50 95 Ventilator 50% 01/23 0127 98.4 81 20 100/50 99 Ventilator 50% 01/23 0048 50 01/23 0042 60 01/23 0039 83 20 74/62 98 Ventilator 60% 01/23 0009 72 20 68/40 96 Ventilator 60% 01/22 2308 71 20 78/44 100 Ventilator 60% 01/22 2253 70 20 78/48 99 Ventilator 60% 01/22 2242 68 20 76/42 97 Ventilator 60% 01/22 2218 80 20 70/42 98 Ventilator 60% 01/22 2201 60 01/22 2157 74 20 42/26 96 Ventilator 60% 01/22 2146 81 50/30 01/22 2136 97 Non 100% ReBreather 01/22 2134 98.6 82 24 127/89 92 Non 100% ReBreather Intake & Output 01/23 1600 01/23 0800 01/23 0000 Intake Total 1312 Output Total 555 Balance 757 Intake, IV 1312 Output, Urine 555 Patient 67.585 kg 86.183 kg Weight Physical Exam General Appearance: no apparent distress, comfortable, sedated, intubated Head: atraumatic, normal appearance Eyes: Bilateral: normal appearance. Neck: normal inspection Respiratory: normal breath sounds, chest non-tender, no respiratory distress Cardiovascular: regular rate/rhythm, systolic murmur Gastrointestinal: normal bowel sounds, soft, non-tender, no organomegaly Extremities: no edema Last 48 Hrs of Labs/Robert: Laboratory Tests 01/23/17 0615: Troponin I Cancelled 01/23/17 0615: Lactic Acid Pending 01/23/17 0615: Anion Gap 9, Estimated GFR 29 L, BUN/Creatinine Ratio 18.2, Phosphorus 3.9, Magnesium 1.9, Total Bilirubin 0.6, Direct Bilirubin 0.4, AST 15 L, ALT 29, Alkaline Phosphatase 49, Troponin I 0.06, Total Protein 5.1 L, Albumin 2.5 L, PT 15.6 H, INR 1.49 H, CBC w Diff MAN DIFF ORDERED, RBC 3.23 L, MCV 86.2, MCH 28.6, RDW 17.4 H, MPV 8.3, Gran % 87.5 H, Lymphocytes % 8.2 L, Monocytes % 3.8, Eosinophils % 0.3, Basophils % 0.2, Absolute Granulocytes 5.6, Segmented Neutrophils 73, Band Neutrophils 15 H, Absolute Lymphocytes 0.5 L, Lymphocytes 8 L, Monocytes 4, Absolute Monocytes 0.2, Absolute Eosinophils 0, Absolute Basophils 0, Platelet Estimate DECREASED, Hypochromic-Microcytic 2+, Poikilocytosis 2+, Anisocytosis 2+, Ovalocytes 2+, Elliptocytes 2+, PUBS MCHC 33.2 01/23/17 0505: pH 7.35, pCO2 29 L, pO2 77 L, HCO3 16 L, ABG O2 Sat (Measured) 93.0 L, P-50 (Temp Corrected) Y, Carboxyhemoglobin 0.2 L, O2 Concentration % 45%, Temperature 98.9, Respiration Rate 20, O2 Delivery Method ESPRIT, Vent Mode AC, Expiratory Pressure 5, Tidal Volume 550, Phlebotomy Draw Site LEFT RADIAL 01/22/17 2326: Urine Color YEL, Urine Clarity HAZY H, Urine pH 5.5, Ur Specific Schlater 1.025, Urine Protein 30 H, Urine Ketones TRACE H, Urine Nitrite NEG, Urine Bilirubin NEG, Urine Urobilinogen 0.2, Ur Leukocyte Esterase NEG, Ur Microscopic SEDIMENT EXAMINED, Urine RBC 1-3, Urine WBC 1-3 H, Ur Epithelial Cells FEW, Urine Hemoglobin MOD H, Urine Glucose NEG 01/22/17 2230: pH 7.40, pCO2 29 L, pO2 76 L, HCO3 17 L, ABG O2 Sat (Measured) 94.0 L, P-50 (Temp Corrected) N, Carboxyhemoglobin 0.3 L, O2 Concentration % 60%, Temperature 98.6, Respiration Rate 20, O2 Delivery Method ESPRIT VENT, Vent Mode AC, Expiratory Pressure 5, Tidal Volume 550, Phlebotomy Draw Site RIGHT RADIAL 01/22/17 2218: Anion Gap 13, Estimated GFR 17 L, BUN/Creatinine Ratio 15.4, Glucose 112 H, Lactic Acid 1.5, Calcium 8.4, Iron 17 L, TIBC 248 L, Ferritin 386.0, Troponin I 0.04, Ssj-H-Erihcmatpth Pept 1410 H, TSH 1.900, CBC w Diff MAN DIFF ORDERED, RBC 3.51 L, MCV 86.0, MCH 29.0, RDW 17.0 H, MPV 8.2, Gran % 90.6 H, Lymphocytes % 7.9 L, Monocytes % 1.1 L, Eosinophils % 0.3, Basophils % 0.1, Absolute Granulocytes 4.5, Segmented Neutrophils 83 H, Band Neutrophils 6 H, Absolute Lymphocytes 0.4 L, Lymphocytes 8 L, Monocytes 3, Absolute Monocytes 0.1 L, Absolute Eosinophils 0, Absolute Basophils 0, Platelet Estimate ADEQUATE , Poikilocytosis 1+, Anisocytosis 1+, Ovalocytes 1+, Elliptocytes FEW, PUBS MCHC 33.7 Microbiology 01/23 615 URINE ROUT: Legionella Antigen - COMP 01/23 615 URINE ROUT: Streptococcus pneumoniae Antigen (M - COMP Diagnostic Data CXR Results C X Ray:01/22/2017 IMPRESSION: Enteric tube in place. Secondary to patient positioning and exposure level, the tip cannot be identified. Infiltrate at the right lung base concerning for pneumonia. Recommendation is for a followup chest series to be obtained following treatment and/or resolution of symptoms to assure resolution of this appearance. Assessment/Plan Impression/Plan: Mr. cuellar is a 81-year-old gentleman with past medical history of Problem List: #Likely due to multilobar gram-negative pneumonia #Acute kidney injury #Anemia #Coronary artery disease with elevated troponins #History of COPD #History of seizure disorder #History of stroke Recio day # 1 Currently Intubated. Day One Ventilator Settings: Rate 20. Peak Flow 65 TV: 550. PEEP 5. %O2. 45 Respiratory Continue broad-spectrum antibiotics of ceftazidime and vancomycin. Vancomycin 1 g per 24 hours. ceftazidime 1 g every 12 hours,these have been renally adjusted. Viral influenza: Negative Rapid quick strep Follow-up blood cultures. Follow-up chest x-ray obtained which confirmed OG tube placement. Cardiovascular Patient had to be started again on levo fed running at 2 MCG per minute. Continue Levothroid to maintain mean arterial pressure above 65. Initial EKG did not show any ST segment changes or acute changes on EKG. initial troponins were within normal limits however repeat troponin done this evening showed elevations of 0.19. A repeat has been ordered for 6 PM. Will continue trending troponins till peak. Cardiology has been consulted. Echocardiogram is ordered to assess ejection fraction. Heme Current WBC on admission: 4.9. Repeat Value: 6.4 H&H on admission 10.2 and 30.1 respectively. Repeat 9.2 and 27.8. Monitor CBC in am. Metabolic At the time of admission the patient was hyperkalemic with a potassium level of 5.5. Upon subsequent repeat of his labs these have normalized. All electrolytes remained within normal limits. We'll continue the patient on fluids normal saline running at 150 mL per hour. We monitored his BUN and creatinine in the event of elevations but these have improved. Cr 3.5-->1.8. BUN 54-->38 We'll continue to monitor and hold off on a nephrology consultation for now. Monitor ins and outs. Daily Weights. Alimentary NPO for now. Once patient is regains mentation consider Swallow Evaluation. Neurology Patient is alert and was able to contract this commands with his daughter this a.m. He was also able to face time with his while his daughter was prestent. Patient is able to follow basic commands. Other Records from [facility] have been received and are in the chart Diet: NPO IVF: Refer to Above DVT ppx ALPS + Heparin Sub Q Code Full, records from [facility] show, this patient is a full code, I have attempted to reach the POA, however have not received any call back. I personally spoke with the daughter Vanna this evening who has agreed to have a family meeting with her mother and her brother(likely over face time) tomorrow at 2 PM. Problem List: 1. Acute hypoxemic respiratory failure 2. Acute kidney injury 3. Dehydration Consult Acknowledgment - Thank you for your consult request. Jean-Paul MCDANIEL MD 01/23/17 0858: General Information and HPI Consulting Request Date of Consult: 01/23/17 Requested By: Dr. Cota Reason for Consult: CRCU management on mechanical ventilation Source of Information: old records Exam Limitations: unable to give history, intubated Allergies/Medications Current Medications: Current Medications Sig/Fatou Start time Last Medication Dose Route Stop Time Status Admin Acetaminophen 650 MG Q6P PRN 01/23 0015 AC PO Acetaminophen/ 1 TAB Q6P PRN 01/23 0015 AC Hydrocodone Bitart PO Azithromycin 500 MG ONCE ONE 01/22 2330 CAN Sodium Chloride 250 ML IV 01/23 0029 Ceftazidime 1,000 MG Q24H 01/23 0400 AC 01/23 IV 0430 Ceftriaxone Sodium 0 .STK-MED ONE 01/23 0031 CAN .ROUTE Ceftriaxone Sodium 1,000 MG ONCE ONE 01/22 2330 CAN IV 01/22 2331 Etomidate 20 MG ONCE ONE 01/22 2230 DC 01/22 IV 01/22 2231 2303 Guaifenesin 600 MG Q12 01/23 1000 CAN PO Guaifenesin 10 ML Q4P PRN 01/23 0615 AC PO Heparin Sodium 5,000 UNIT Q8 01/23 0600 AC 01/23 (Porcine) SC 0522 Lorazepam 0 .STK-MED ONE 01/22 2150 DC .ROUTE Non-Formulary 0 SEE ADMIN CRITERIA 01/22 2315 CAN Medication ANY Norepinephrine 4 MG Q24H 01/23 0330 AC 01/23 Sodium Chloride 250 ML IV 0421 Oxycodone HCl 10 MG Q6P PRN 01/23 0015 AC PO Pantoprazole Sodium 40 MG DAILY 01/23 1000 AC IV Propofol 1,000 MG Q24H 01/22 2330 AC 01/22 N/A 100 ML IV 2350 Sodium Chloride 500 ML BOLUS ONE 01/23 0315 CAN IV 01/23 0414 Sodium Chloride 1,000 ML BOLUS ONE 01/23 0315 DC 01/23 IV 01/23 0414 0422 Sodium Chloride 1,000 ML ONCE ONE 01/23 0130 DC 01/23 IV 01/23 0329 0146 Sodium Chloride 1,000 ML BOLUS ONE 01/23 0115 CAN IV 01/23 0214 Sodium Chloride 1,000 ML BOLUS ONE 01/23 0030 DC 01/23 IV 01/23 0129 0046 Sodium Chloride 1,000 ML BOLUS ONE 01/22 2300 DC 01/22 IV 01/22 2359 2303 Sodium Chloride 1,000 ML BOLUS ONE 01/22 2230 DC 01/22 IV 01/22 2329 2303 Sodium Chloride 1,000 ML BOLUS ONE 01/22 2230 CAN IV 01/23 0029 Vancomycin HCl 1,000 MG ONCE ONE 01/23 0045 DC 01/23 Sodium Chloride 250 ML IV 01/23 0144 0459 Assessment/Plan Other Findings/Comments: I have personally seen and examined the patient. I have reviewed the case with the housestaff and agree with the resident's assessment and plan as above. The patient is a 81 year old male with an extensive past medical history including a previous cerebellar stroke, BPH, HLD, seizure disorder, CAD, previous pneumonia, COPD on home oxygen at 2 lpm. The patient is a resident of [facility]. Proximally one month ago, the patient was admitted to [facility] and diagnosed with pneumonia, noting he did not require mechanical ventilation. He was transferred to [facility] for acute rehabilitation. As per the chart, the patient did not recover back to his baseline. He was experiencing worsening of his mental status and was requiring an increased amount of oxygen. The patient was noted to acutely desaturate and was found in respiratory distress with a temperature of 100.9. A chest x-ray was done, and demonstrated bilateral infiltrates. The patient was subsequent recently sent to the emergency department. In the ED, the patient was found to be in severe respiratory distress and was intubated on arrival. The patient's blood pressure dropped postintubation and following sedation requiring low-dose Levophed. The patient received aggressive IV fluid rehydration with 5 L of normal saline, noting he was found to have acute kidney injury. The patient was pancultured and started on vancomycin and ceftazidime for hospital acquired pneumonia. The patient remains on mechanical ventilation and is arousable to voice. He remains on low- dose Levophed. He has excellent urine output. Laboratory studies show anemia which is likely delusional. The patient also has thrombocytopenia which may be related to sepsis. INR is slightly elevated. Impression: 1. Respiratory failure secondary to multilobar lobar pneumonia. Aspiration needs to be excluded once the patient is extubated. 2. Hypotension related to volume depletion and sedation. 3. Acute kidney injury. 4. Anion gap metabolic acidosis which may be related to acute kidney injury. 5. Anemia without evidence of bleeding, may be dilutional. 6. Thrombocytopenia and elevated INR, rule out DIC. 7. History of seizures. 8. History of coronary artery disease, troponins are negative 2. 9. History of chronic respiratory failure/COPD, on home oxygen at 2 L/m. 10. History of dementia. Plan: * Continue current ventilator settings. * Check a chest x-ray this morning. * Continue to titrate oxygen down to maintain saturations greater than 92%. * TRC consult requested. * Attempt to wean Levophed down to off if able. * Decrease normal saline to 150 ML per hour. Monitor urine output closely. * Continue propofol, maintain SAS at 4. * Insert and OG tube and place intermittent wall suction. * Follow-up cultures. * Continue vancomycin and ceftazidime empirically. * Check a quick flu. * Obtain old records from [facility], particularly culture data. * Check follow-up labs today at 2 PM, follow-up electrolytes as well as renal function. * We'll consult nephrology if the patient's BUN and creatinine are not improving. * Please request cardiology consult, and an echocardiogram - patient has a history of CAD. * Continue DVT and GI prophylaxis. * The patient remains critically ill and requires close follow-up. I will update patient's family when available. Consult Acknowledgment - Thank you for your consult request.
[2017-01-23 07:20] LABS: PT 15.6 SEC (9.4-12.5)
[2017-01-23 08:00] VITALS: BP 114/70
--- NOTE | 2017-01-23 10:13 | RADIOLOGY REPORT ---
EXAMINATION: XR PORTABLE CHEST CLINICAL INFORMATION: Confirm tube placement. COMPARISON: CXR from 01/23/2017 at 4:25 AM TECHNIQUE: Portable AP view of the chest was obtained. FINDINGS: The right lateral chest is excluded from the [id number]. Tip of the endotracheal tube is approximately 6 cm above the paco. The enteric tube extends below the diaphragm and into the proximal stomach. The right IJ central catheter is in stable position in the mid SVC. Again noted are patchy airspace opacities in lower lobes. The upper lobes are relatively lucent; chronic pulmonary emphysema is suspected. Cardiac silhouette is normal in size. Thoracic aorta is calcified. The visualized bones are intact. IMPRESSION: 1. Patchy airspace opacities in lower lobes are unchanged. 2. Endotracheal tube is approximately 6 cm above the paco.
--- NOTE | 2017-01-23 15:41 | Cons- Cardiology ---
General Information and HPI Consulting Request Date of Consult: 01/23/17 Requested By: HELENA SIMPSON MD Reason for Consult: positive tropnins Exam Limitations: unable to give history History of Present Illness: A 81-year-old man with past medical history of coronary artery disease, CVA with cerebellar stroke, carotid stenosis, vascular dementia, BPH s/p TURP and H/O prostate cancer, hyperlipidemia, COPD not on home oxygen and chronic active smoker, hypertension BIBA from [facility] for severe respiratory distress and was intubated in ER. He was found to be in severe sepsis secondary to multilobar pneumonia and was resuscitated with IV fluids about 5 L. He was also started on Levophed. He was also started on IV vancomycin and ceftazidime for hospital-acquired pneumonia. Please note that patient was hospitalized in [place] about one month ago and was treated for pneumonia. He was discharged to [facility] but his respiratory status was not stable. Currently patient is intubated. He is alert and awake. He is answering questions by moving his head. He is denying any chest pain. He is asking to take tube out and feeling discomfort because of Recio catheter. He is also asking for water. Medical team is trying to get hold of his son for more information. Allergies/Medications Allergies: Coded Allergies: No Known Allergies (01/22/17) Home Med List: Amlodipine Besylate 10 MG TABLET 1 TAB PO DAILY HTN (Reported) Aripiprazole (Abilify) 10 MG TABLET 1 TAB PO DAILY MENTAL HEALTH (Reported) Aspirin (Aspirin*) 81 MG TAB.CHEW 1 TAB PO DAILY HEART (Reported) Atorvastatin Calcium (Lipitor) 80 MG TABLET 1 TAB PO DAILY HYPERLIPIDEMIA ( Reported) Carvedilol 3.125 MG TABLET 1 TAB PO BID HTN (Reported) Cholecalciferol (Vitamin D3) (Vitamin D3) 1,000 UNIT CAPSULE 2 CAP PO DAILY SUPPLEMENT (Reported) Docusate Sodium (Colace) 100 MG CAPSULE 1 CAP PO BID CONSTIPATION (Reported) Finasteride (Proscar) 5 MG TABLET 1 TAB PO DAILY BPH (Reported) Gabapentin (Neurontin) 400 MG CAPSULE 1 CAP PO TID NEUROPATHY (Reported) Ipratropium/Albuterol Sulfate (Combivent Respimat Inhal [place]) 20 MCG-100 MCG/ ACTUATION MIST.INHAL 1 PUFF INH/JANIS Q6 RESPIRATORY (Reported) Lisinopril (Prinivil) 10 MG TABLET 1 TAB PO DAILY HTN (Reported) Nicotine (Nicotine Patch) 21 MG/24 HOUR PATCH.TD24 1 PAT TOP DAILY SMOKING CESSATION (Reported) Sennosides (Senna) 8.6 MG TABLET 2 TAB PO DAILY CONSTIPATION (Reported) Sertraline HCl (Zoloft) 100 MG TABLET 2 TAB PO DAILY MENTAL HEALTH (Reported) Tamsulosin HCl 0.4 MG CAP.ER.24H 2 CAP PO DAILY BPH (Reported) Trazodone HCl 50 MG TABLET 3 TAB PO QPM SLEEP (Reported) Current Medications: Current Medications Sig/Fatou Start time Last Medication Dose Route Stop Time Status Admin Acetaminophen 650 MG Q6P PRN 01/23 0015 AC PO Acetaminophen/ 1 TAB Q6P PRN 01/23 0015 AC Hydrocodone Bitart PO Albuterol Sulfate 3 ML TID 01/23 1000 AC 01/23 INH 1333 Azithromycin 500 MG ONCE ONE 01/22 2330 CAN Sodium Chloride 250 ML IV 01/23 0029 Ceftazidime 1,000 MG Q12 01/23 2200 AC IV Ceftazidime 1,000 MG Q24H 01/23 0400 DC 01/23 IV 0430 Ceftriaxone Sodium 0 .STK-MED ONE 01/23 0031 CAN .ROUTE Ceftriaxone Sodium 1,000 MG ONCE ONE 01/22 2330 CAN IV 01/22 2331 Etomidate 20 MG ONCE ONE 01/22 2230 DC 01/22 IV 01/22 2231 2303 Guaifenesin 600 MG Q12 01/23 1000 CAN PO Guaifenesin 10 ML Q4P PRN 01/23 0615 AC PO Heparin Sodium 5,000 UNIT Q8 01/23 0600 AC 01/23 (Porcine) SC 1353 Ipratropium [place] 2.5 ML TID 01/23 1000 AC 01/23 INH 1333 Lorazepam 0 .STK-MED ONE 01/22 2150 DC .ROUTE Non-Formulary 0 SEE ADMIN CRITERIA 01/22 2315 CAN Medication ANY Norepinephrine 4 MG Q24H 01/23 1445 AC Sodium Chloride 250 ML IV Norepinephrine 4 MG Q24H 01/23 0330 DC 01/23 Sodium Chloride 250 ML IV 0421 Norepinephrine 4 MG .STK-MED ONE 01/23 0327 DC IV 01/23 0328 Oxycodone HCl 10 MG Q6P PRN 01/23 0015 AC PO Pantoprazole Sodium 40 MG DAILY 01/23 1000 AC 01/23 IV 0947 Propofol 1,000 MG Q24H 01/22 2330 AC 01/22 N/A 100 ML IV 2350 Sodium Chloride 1,000 ML Q6H 01/23 1000 AC 01/23 IV 01/23 2159 1013 Sodium Chloride 500 ML BOLUS ONE 01/23 0315 CAN IV 01/23 0414 Sodium Chloride 1,000 ML BOLUS ONE 01/23 0315 DC 01/23 IV 01/23 0414 0422 Sodium Chloride 1,000 ML ONCE ONE 01/23 0130 DC 01/23 IV 01/23 0329 0146 Sodium Chloride 1,000 ML BOLUS ONE 01/23 0115 CAN IV 01/23 0214 Sodium Chloride 1,000 ML BOLUS ONE 01/23 0030 DC 01/23 IV 01/23 0129 0046 Sodium Chloride 1,000 ML BOLUS ONE 01/22 2300 DC 01/22 IV 01/22 2359 2303 Sodium Chloride 1,000 ML BOLUS ONE 01/22 2230 DC 01/22 IV 01/22 2329 2303 Sodium Chloride 1,000 ML BOLUS ONE 01/22 2230 CAN IV 01/23 0029 Vancomycin HCl 1,000 MG DAILY 01/24 1000 CAN Sodium Chloride 250 ML IV Vancomycin HCl 1,000 MG DAILY 01/24 0400 AC Sodium Chloride 250 ML IV Vancomycin HCl 1,000 MG ONCE ONE 01/23 0045 DC 01/23 Sodium Chloride 250 ML IV 01/23 0144 0459 Review of Systems Review of Systems Constitutional: Reports: see HPI. Past History Travel History Traveled to [place] past 21 day No Medical History Neurological: dementia, TREMORS Cardiovascular: hypertension Respiratory: COPD Renal: benign prost hyperplasia Surgical History Surgical History: TURP Psychosocial History Where Do You Live? Extended Care Facility Who Do You Live With? spouse Smoking Status: Current Everyday Smoker (70 Pack Years) Exam & Diagnostic Data Vital Signs and I&O Vital Signs Date Time Temp Pulse Resp B/P Pulse O2 O2 Flow FiO2 Ox Delivery Rate 01/23 1439 45 01/23 1200 95 Ventilator 45% 01/23 1133 45 01/23 0949 Ventilator 45% 01/23 0825 45 01/23 0800 99.1 70 20 114/70 95 Ventilator 40% 01/23 0800 95 Ventilator 40% 01/23 0602 45 01/23 0421 97.3 85 20 84/50 01/23 0400 93 Ventilator 45% 01/23 0304 45 01/23 0300 97.3 85 24 84/50 93 Ventilator 45% 01/23 0251 50 01/23 0214 84 20 82/50 95 Ventilator 50% 01/23 0127 98.4 81 20 100/50 99 Ventilator 50% 01/23 0048 50 01/23 0042 60 / 0039 83 20 74/62 98 Ventilator 60% 01/23 0009 72 20 68/40 96 Ventilator 60% 01/22 2308 71 20 78/44 100 Ventilator 60% 01/22 2253 70 20 78/48 99 Ventilator 60% 01/22 2242 68 20 76/42 97 Ventilator 60% 01/22 2218 80 20 70/42 98 Ventilator 60% 01/22 2201 60 01/22 2157 74 20 42/26 96 Ventilator 60% 01/22 2146 81 50/30 01/22 2136 97 Non 100% ReBreather 01/22 2134 98.6 82 24 127/89 92 Non 100% ReBreather Intake & Output 01/23 1600 01/23 0800 01/23 0000 01/22 1600 01/22 0800 01/22 0000 Intake Total 638 1312 Output Total 520 555 Balance 118 757 Intake, IV 638 1312 Output, Urine 520 555 Patient 149 lb 190 lb Weight Physical Exam General Appearance: alert, awake, intubated Head: normal appearance Neck: supple Respiratory: decreased breath sounds Cardiovascular: regular rate/rhythm, systolic murmur Gastrointestinal: normal bowel sounds, soft, non-tender Extremities: no edema Diagnostic Data EKG Results EKG shows normal sinus rhythm with right bundle branch block. No previous EKG to compare CXR Results Chest x-ray showed infiltrate at the right lung base concerning for pneumonia Assessment/Plan Assessment/Plan A 81-year-old man with past medical history of coronary artery disease, CVA with cerebellar stroke, carotid stenosis, vascular dementia, BPH, hyperlipidemia, COPD, hypertension. He is in critical care unit, intubated because of respiratory failure secondary to hospital-acquired pneumonia. He was found to be in septic shock and resuscitated with IV fluids and was started on levo fed. He has been started on IV vancomycin and Ceftazidime. Currently he is alert and awake and answering questions by moving his head. He is on low-dose of Levophed , 4 mcg. His 2 sets of troponins are negative but his third one is positive, 0.19. His EKG that was done in [place] on December 17 was reviewed. His EKGs during this admission did not show any acute ST-T wave changes. Echocardiogram 01/23/2017 Fibrocalcific degeneration is present in the aortic valve. Marked thickening and calcification of the mitral leaflets is present. There is no significant valvular stenosis but mild mitral insufficiency appears to be present. A small pericardial effusion is present. The left ventricular chamber size and systolic function appear normal. Abnormal septal motion is present. Normal left ventricular ejection fraction estimated at 60-65%. The right heart structures were not optimally assessed. Mild tricuspid insufficiency is present with an estimated RV systolic pressure of 54 mmHg. Left ventricular diastolic dysfunction is present. His troponin elevation seems most likely demand ischemia in the setting of severe sepsis secondary to hospital-acquired pneumonia. PLAN * Monitor vitals closely * Taper down levo fed to off if tolerable. keep MAP >65 mmHg * Continue fluid resuscitation with closer monitoring of I's and O's * Trend troponins until peak * Watch for any arrhythmias on cafeteria monitor * Obtain more information from patient's son about his manager billing and previous cardiac workup * Will check electrolytes daily and replete accordingly * Echocardiogram was technically difficult and very limited study due to patient 's body habitus and clinical status so it would be reasonable to get a limited echocardiogram for better picture of aortic and mitral valve when patient stabilizes. Problem List: 1. Right lower lobe pneumonia Consult Acknowledgment - Thank you for your consult request.
--- NOTE | 2017-01-23 15:50 | ECHOCARDIOGRAM REPORT ---
ASAD CASTILLO Age: 81 : 1935 Gender: M Exam Date: 01/23/2017 10:53 Exam Location: [facility] Ht (in): 72 Wt (lb): 190 BSA: 2.10 BP: 98 / 52 Ordering Physician: DYLLAN THURSTON MD Referring Physician: DYLLAN THURSTON MD Technologist: Luis Conrad Room Number: 109 Indications: RESPIRATORY FAILURE Rhythm: Sinus Technical Quality: Poor, Very technically difficult study FINDINGS Left Ventricle Left ventricle not well visualized, grossly normal. Flattened septum in systole consistent with right ventricle pressure overload. Normal left ventricular ejection fraction estimated at 60-65%. Right Ventricle Right ventricle not well visualized. Right Atrium Right atrium not well visualized, grossly normal. Left Atrium Left atrial size at the upper limits of normal. Mitral Valve Thickened mitral valve without stenosis. Trace to mild mitral regurgitation. Aortic Valve Diffuse thickening (sclerosis) of the aortic valve cusps without reduced excursion. Tricuspid Valve Tricuspid valve not well visualized. Mild tricuspid regurgitation. Right ventricular systolic pressure estimated to be elevated at 54 mmHg. Pulmonic Valve Pulmonic valve not well visualized. Pericardium Small pericardial effusion. Great Vessels Aortic root and proximal ascending aorta not well visualized, grossly normal. CONCLUSIONS 1. This was a technically difficult and very limited study due to the patient's body habitus and clinical status. 2. Fibrocalcific degeneration is present in the aortic valve. The valve was not well visualized anatomically. I suspect that there is some valvular stenosis present but this was not optimally assessed on this examination. 3. Marked thickening and calcification of the mitral leaflets is present. There is no significant valvular stenosis but mild mitral insufficiency appears to be present. 4. A small pericardial effusion is present, 5. The left ventricular chamber size and systolic function appear normal. Abnormal septal motion is present. 6. THe right heart structures were not optimally assessed. Mild tricuspid insufficiency is present with an estimated RV systolic pressure of 54 mmHg. 7. Left ventricular diastolic dysfunction is present. 8. A followup study is suggested when the patient is more stable to reassess aortic and mitral valve function. Majo Davila M.D. (Electronically Signed) Final Date: 23 January 2017 15:49 MEASUREMENTS (Male / Female) Normal Values 2D ECHO LV Diastolic Diameter PLAX 4.0 cm 4.2 - 5.9 / 3.9 - 5.3 cm LV Systolic Diameter PLAX 1.8 cm 2.1 - 4.0 cm LV Fractional Shortening PLAX 55.0 % 25 - 46 % LV Ejection Fraction 2D Teich 86.1 % IVS Diastolic Thickness 1.4 cm LVPW Diastolic Thickness 1.1 cm LV Relative Wall Thickness 0.6 RV Internal Dim ED PLAX 3.2 cm 1.9 - 3.8 cm LVOT Diameter 1.6 cm Aortic Root Diameter 2.2 cm LA Systolic Diameter LX 3.5 cm 3.0 - 4.0 / 2.7 - 3.8 cm DOPPLER AV Peak Velocity 142.0 cm/s AV Peak Gradient 8.1 mmHg AV Mean Velocity 93.1 cm/s AV Mean Gradient 4.0 mmHg AV Velocity Time Integral 26.2 cm LVOT Peak Velocity 93.6 cm/s LVOT Peak Gradient 3.5 mmHg LVOT Mean Velocity 63.8 cm/s LVOT Mean Gradient 2.0 mmHg LVOT Velocity Time Integral 18.8 cm LVOT Stroke Volume 37.8 cm AV Area Cont Eq vti 1.4 cm AV Area Cont Eq pk 1.3 cm MV Peak Velocity 226.0 cm/s MV Peak Gradient 20.4 mmHg MV Mean Velocity 89.7 cm/s MV Mean Gradient 4.0 mmHg Mitral E Point Velocity 132.0 cm/s Mitral A Point Velocity 172.0 cm/s Mitral E to A Ratio 0.8 MV PHT Velocity 149.0 cm/s MV Deceleration [place] 362.0 cm/s MV Pressure Half Time 123.5 ms MV Area PHT 1.8 cm MV Deceleration Time 405.0 ms MR Peak Velocity 472.0 cm/s MR Peak Gradient 89.1 mmHg TR Peak Velocity 334.0 cm/s TR Peak Gradient 44.6 mmHg Right Atrial Pressure 10.0 mmHg Pulmonary Artery Systolic Pressu 54.6 mmHg Right Ventricular Systolic Press 54.6 mmHg PV Peak Velocity 149.0 cm/s PV Peak Gradient 8.9 mmHg PV Mean Velocity 120.0 cm/s PV Mean Gradient 6.0 mmHg PV Velocity Time Integral 29.2 cm
[2017-01-23 16:00] VITALS: BP 102/54
[2017-01-24] VITALS: BP 106/60
[2017-01-24 05:26] LABS: ABSOLUTE BASOPHIL COUNT 0 /CUMM (0.0-0.2); ABSOLUTE EOSINOPHIL COUNT 0.1 /CUMM (0.0-0.7); ABSOLUTE GRANULOCYTE CT 4.1 /CUMM (1.4-6.5); ABSOLUTE LYMPH COUNT 0.6 /CUMM (1.2-3.4); ABSOLUTE MONOCYTE COUNT 0.2 /CUMM (0.10-0.60); BASOPHIL % 0.1 % (0.0-2.0); EOSINOPHIL % 1.9 % (0-5); GRANULOCYTE % 81.7 % (42.2-75.2); MEAN CORPUSCULAR HGB 29.1 PG (27.0-31.0); MEAN CORPUSCULAR HGB CONC 34.2 G/DL (33.0-37.0); MEAN CORPUSCULAR VOLUME 84.9 FL (80.0-94.0); MEAN PLATELET VOLUME 9.2 FL (7.4-10.4); RBC DISTRIBUTION WIDTH 17.9 % (11.5-14.5); RED BLOOD CELL CT 2.83 /CUMM (4.70-6.10)
[2017-01-24 05:30] LABS: PLATELET COUNT 100 /CUMM (130-400)
--- NOTE | 2017-01-24 06:48 | PN- Resident CRCU ---
Subjective HPI/CRCU Issues: Mr. Valdovinos was seen and examined this morning. He is resting comfortably in bed. He appears to be more alert than our previous clinical interaction however still is mildly sedated with the use of propofol. He denies the presence of any acute symptoms and discomfort. Mentions briefly that he may be experiencing some GI discomfort however is unable to elicit more information. He is able to follow commands. He denies any fever, chills, nausea, vomiting. He is currently intubated. 24 Hour Events: No Events Objective Vital Signs & I&O Last 8 Hrs of Vitals and I&O: Sas: 4 BP: 81/42 - 120/62 RR: 20-24 HR NSR T: 98-99.2 Exam General Appearance: no apparent distress, alert, sedated, intubated Head: atraumatic, normal appearance Respiratory: Increased Breath Sounds. Limited Exam due to condition Cardiovascular: regular rate/rhythm, systolic murmur Gastrointestinal: normal bowel sounds, soft, non-tender Extremities: normal inspection, normal capillary refill, no edema Current Medications: Current Medications Sig/Fatou Start time Last Medication Dose Route Stop Time Status Admin Acetaminophen 650 MG Q6P PRN 01/23 0015 AC PO Acetaminophen/ 1 TAB Q6P PRN 01/23 0015 AC Hydrocodone Bitart PO Albuterol Sulfate 3 ML TID 01/23 1000 AC 01/23 INH 1859 Ceftazidime 1,000 MG Q12 01/23 2200 AC 01/23 IV 2124 Ceftazidime 1,000 MG Q24H 01/23 0400 DC 01/23 IV 0430 Guaifenesin 10 ML Q4P PRN 01/23 0615 AC PO Heparin Sodium 5,000 UNIT Q8 01/23 0600 AC 01/24 (Porcine) SC 0537 Ipratropium [place] 2.5 ML TID 01/23 1000 AC 01/23 INH 1855 Norepinephrine 4 MG Q24H 01/23 1445 AC 01/23 Sodium Chloride 250 ML IV 1430 Norepinephrine 4 MG Q24H 01/23 0330 DC 01/23 Sodium Chloride 250 ML IV 0421 Oxycodone HCl 10 MG Q6P PRN 01/23 0015 AC PO Pantoprazole Sodium 40 MG DAILY 01/23 1000 AC 01/23 IV 0947 Propofol 1,000 MG .STK-MED ONE 01/23 1419 DC IV 01/23 1420 Propofol 1,000 MG Q24H 01/22 2330 AC 01/24 N/A 100 ML IV 0220 Sodium Chloride 1,000 ML Q6H 01/23 1000 AC 01/24 IV 0538 Vancomycin HCl 1,000 MG DAILY 01/24 1000 CAN Sodium Chloride 250 ML IV Vancomycin HCl 1,000 MG DAILY 01/24 0400 AC 01/24 Sodium Chloride 250 ML IV 0347 CXR Findings: IMPRESSION: 1. Endotracheal tube 5 cm both paco. 2. The distal portion of the orogastric tube is not clearly visualized. If placement needs to be confirmed, recommend repeat exam of the lower chest and upper abdomen with more penetration. 3. Increased bibasilar edema, atelectasis, or consolidation and suspected small bilateral pleural effusions. DICTATED BY: NED ROBERTS MD Impression/Plan Impression/Problem List Impression: Mr Valdovinos is a 81 year old gentlemen with a PMH of has a history of coronary artery disease, COPD, hypertension, BPH, carotid stenosis, dementia, history of cerebellar stroke and a recent admission to approximately 4 weeks ago where he was treated for pneumonia who presented to the emergency department on 01/22/2017 after he was found to be febrile (T Max 100.9) and desaturating while at extended care facility Problem List: #Likely due to multilobar gram-negative pneumonia #Acute kidney injury #Anemia #Coronary artery disease with elevated troponins #History of COPD #History of seizure disorder #History of stroke Recio day # 2 Currently Intubated. Day Two Ventilator Settings: Rate 20. Peak Flow 75 TV: 550. PEEP 5. %O2. 40. PSV 60 Respiratory Continue broad-spectrum antibiotics of ceftazidime and vancomycin. Vancomycin 1 g per 24 hours. Ceftazidime 1 g every 12 hours,these have been renally adjusted. Viral influenza: Negative Follow-up blood cultures. Follow-up chest x-ray obtained which confirmed OG tube placement. We attempted to extubate the patient, however ABG after two hours, showed, parameters unacceptable. Extubation, unsuccessful. Cardiovascular Patient had to be started again on levo fed running at 2 MCG per minute. Continue Levothroid to maintain mean arterial pressure above 65. Initial EKG did not show any ST segment changes or acute changes on EKG. initial troponins were within normal limits however repeat troponin showed elevations of 0.19, repeat troponins this am: 1.69-->0.12. No EKG changes A Bilaterral Doppler study was done to rule out DVT. These have been negative. A repeat has been ordered for 6 PM. Will continue trending troponins till peak. Cardiology is on board. Echo done yeaterday, A followup study is suggested when the patient is more stable to reassess aortic and mitral valve function. Currently patient off pressors. Heme Current WBC on admission: 4.9. Repeat Value: 6.4 H&H on admission 10.2 and 30.1 respectively. Repeat 9.2 and 27.8, H/H: 8.2/24.0 Patient was guaiac negative. Monitor CBC in am. Metabolic At the time of admission the patient was hyperkalemic with a potassium level of 5.5. Upon subsequent repeat of his labs these have normalized. All electrolytes remained within normal limits. We'll continue the patient on fluids normal saline running at 150 mL per hour. We monitored his BUN and creatinine in the event of elevations but these have improved. Cr 3.5-->1.8--> 1.2. BUN 54-->38-->29 We'll continue to monitor and hold off on a nephrology consultation for now. Monitor ins and outs. Daily Weights. Alimentary NPO for now. Once patient is regains mentation consider Swallow Evaluation. Neurology Patient is alert and was able to contract this commands with his daughter this a.m. He was also able to face time with his while his daughter was prestent. Patient is able to follow basic commands. Other Records from [facility] have been received and are in the chart Diet: NPO IVF: Refer to Above DVT ppx ALPS + Heparin Sub Q Code Full Code Meeting held with , daughter and son (on Facetime) . Problem List: 1. Dementia 2. Acute hypoxemic respiratory failure 3. Hypotension 4. Acute kidney injury Pain Ratin Tomorrow's Labs & Rationales: CBC ICU C-XRay Plan DVT/Prophylaxis: pharmacological
[2017-01-24 08:00] VITALS: BP 100/50
--- NOTE | 2017-01-24 08:02 | RADIOLOGY REPORT ---
EXAMINATION: XR PORTABLE CHEST CLINICAL INFORMATION: Patient currently intubated. Confirm orogastric tube placement. COMPARISON: None TECHNIQUE: Portable AP view of the chest was obtained. FINDINGS: The endotracheal tube terminates proximally 5 cm above the paco. The distal portion of the orogastric tube is not clearly visualized and location is uncertain. On the previous examination was in the proximal stomach. A right internal jugular central venous catheter again terminates in the upper SVC. The heart is normal in size. There are increased bibasilar patchy opacities which may represent edema, atelectasis, or consolidation. Generalized hazy opacity over both lower lung coley could represent small bilateral pleural effusions. Moderate degenerative changes in both shoulders are redemonstrated. IMPRESSION: 1. Endotracheal tube 5 cm both paco. 2. The distal portion of the orogastric tube is not clearly visualized. If placement needs to be confirmed, recommend repeat exam of the lower chest and upper abdomen with more penetration. 3. Increased bibasilar edema, atelectasis, or consolidation and suspected small bilateral pleural effusions.
--- NOTE | 2017-01-24 10:32 | PN- CRCU ---
Subjective HPI/Critical Care Issues: The patient is awake and alert. He remains on mechanical ventilation. His BP is now stable off pressors. The patient indicates he wants the endotracheal tube out. The patient's troponin has been trending up. Objective Current Medications: Current Medications Sig/Fatou Start time Last Medication Dose Route Stop Time Status Admin Acetaminophen 650 MG Q6P PRN 01/23 0015 AC PO Acetaminophen/ 1 TAB Q6P PRN 01/23 0015 AC Hydrocodone Bitart PO Albuterol Sulfate 3 ML TID 01/23 1000 AC 01/24 INH 0902 Ceftazidime 1,000 MG Q12 01/23 2200 AC 01/24 IV 0949 Ceftazidime 1,000 MG Q24H 01/23 0400 DC 01/23 IV 0430 Guaifenesin 10 ML Q4P PRN 01/23 0615 AC PO Heparin Sodium 25,000 UNIT Q24H 01/24 0945 AC (Porcine) IV Sodium Chloride 500 ML Heparin Sodium 5,000 UNIT Q8 01/23 0600 AC 01/24 (Porcine) SC 0537 Ipratropium [place] 2.5 ML TID 01/23 1000 AC 01/24 INH 0902 Norepinephrine 4 MG Q24H 01/23 1445 DC 01/23 Sodium Chloride 250 ML IV 1430 Norepinephrine 4 MG Q24H 01/23 0330 DC 01/23 Sodium Chloride 250 ML IV 0421 Oxycodone HCl 10 MG Q6P PRN 01/23 0015 AC PO Pantoprazole Sodium 40 MG DAILY 01/23 1000 AC 01/24 IV 0949 Propofol 1,000 MG .STK-MED ONE 01/23 1419 DC IV 01/23 1420 Propofol 1,000 MG Q24H 01/22 2330 AC 01/24 N/A 100 ML IV 0220 Sodium Chloride 1,000 ML Q6H 01/23 1000 AC 01/24 IV 0538 Vancomycin HCl 1,000 MG DAILY 01/24 1000 CAN Sodium Chloride 250 ML IV Vancomycin HCl 1,000 MG DAILY 01/24 0400 AC 01/24 Sodium Chloride 250 ML IV 0347 Vital Signs & I&O Last 24 Hrs of Vitals and I&O: Vital Signs Date Time Temp Pulse Resp B/P Pulse O2 O2 Flow FiO2 Ox Delivery Rate 01/24 0820 40 01/24 0800 98.0 58 20 100/50 97 Ventilator 40% 01/24 0800 97 Ventilator 40% 01/24 0545 40 01/24 0400 98 Ventilator 40% 01/24 0310 40 01/24 0009 40 01/24 0000 98.8 74 22 106/60 94 Ventilator 40% 01/24 0000 94 Ventilator 40% 01/23 2228 40 01/23 2000 98 Ventilator 40% 01/23 1900 40 01/23 1600 45 01/23 1600 99.2 77 22 102/54 94 Ventilator 45% 01/23 1600 94 Ventilator 45% 01/23 1439 45 01/23 1430 70 81/47 01/23 1200 95 Ventilator 45% 01/23 1133 45 Intake & Output 01/24 1600 01/24 0800 01/24 0000 Intake Total 1235 1281 Output Total 695 460 Balance 540 821 Intake, IV 1235 1281 Output, 100 Gastric Drainage Output, Urine 595 460 Physical Exam General Appearance: no apparent distress, comfortable, sedated, intubated Head: atraumatic, normal appearance Neck: normal inspection, supple Respiratory: normal breath sounds, chest non-tender, no respiratory distress Cardiovascular: regular rate/rhythm, systolic murmur Gastrointestinal: normal bowel sounds, soft, non-tender, no organomegaly Extremities: no edema Results Last 24 Hrs of Lab Results: Laboratory Tests 01/24/17 0400: Anion Gap 7, Estimated GFR 58 L, BUN/Creatinine Ratio 24.2, Troponin I 1.69 *H, CBC w Diff NO MAN DIFF REQ, RBC 2.83 L, MCV 84.9, MCH 29.1, RDW 17.9 H, MPV 9.2, Gran % 81.7 H, Lymphocytes % 11.5 L, Monocytes % 4.8, Eosinophils % 1.9, Basophils % 0.1, Absolute Granulocytes 4.1, Absolute Lymphocytes 0.6 L, Absolute Monocytes 0.2, Absolute Eosinophils 0.1, Absolute Basophils 0, PUBS MCHC 34.2 01/23/17 1805: Troponin I 0.19 *H 01/23/17 1400: Sodium Cancelled, Potassium Cancelled, Chloride Cancelled, Carbon Dioxide Cancelled, Anion Gap Cancelled, BUN Cancelled, Creatinine Cancelled, BUN/ Creatinine Ratio Cancelled 01/23/17 1400: Sodium Cancelled, Potassium Cancelled, Chloride Cancelled, Carbon Dioxide Cancelled, Anion Gap Cancelled, BUN Cancelled, Creatinine Cancelled, BUN/ Creatinine Ratio Cancelled 01/23/17 1210: Anion Gap 10, Estimated GFR 37 L, BUN/Creatinine Ratio 21.1, Troponin I 0.19 *H Impression/Plan Impression/Plan Impression/Plan: 1. Respiratory failure secondary to multilobar lobar pneumonia. Aspiration needs to be excluded once the patient is extubated. 2. Hypotension related to volume depletion and sedation. 3. Acute kidney injury. 4. Anion gap metabolic acidosis which may be related to acute kidney injury. 5. Anemia without evidence of bleeding, may be dilutional. 6. Thrombocytopenia and elevated INR, rule out DIC. 7. History of seizures. 8. History of coronary artery disease, troponins are negative 2. 9. History of chronic respiratory failure/COPD, on home oxygen at 2 L/m. 10. History of dementia. 11. Positive troponin - differential diagnosis includes demand ischemia, non-ST elevation [place], and pulmonary embolism. The patient's respiratory status is improving making PE less likely. Recommendations: * Continue current ventilator settings. * Weaning trials, will extubate if parameters are acceptable. * Continue to titrate oxygen down to maintain saturations greater than 92%. * TRC consult requested. * Monitor off pressors. * Discontinue propofol. * Insert and OG tube and place intermittent wall suction. * Follow-up cultures. * Continue vancomycin and ceftazidime empirically. * Continue DVT and GI prophylaxis. * The patient remains critically ill and requires close follow-up.
--- NOTE | 2017-01-24 10:50 | ULTRASOUND REPORT ---
EXAMINATION: US TRIPLEX LOWER EXTREMITY, BILATERAL CLINICAL INFORMATION: Increased oxygen of the margins and positive troponins. Assess for deep vein thrombosis. COMPARISON: None. TECHNIQUE: Color-flow triplex imaging with spectral analysis and compression Doppler were performed on the bilateral lower extremities. FINDINGS: Respiratory variation, normal compression and augmented flow are noted throughout the bilateral lower extremities. The visualized common femoral veins, superficial femoral veins, profunda femoral veins, popliteal vein and midcalf peroneal and posterior tibial venous segments show no evidence of deep venous thrombosis. There are no focal fluid collections or pelvis side. IMPRESSION: 1. Normal triplex scan without evidence of deep venous thrombosis involving the bilateral lower extremities. 2. There are no focal fluid collections.
--- NOTE | 2017-01-24 12:52 | PN- Cardiology ---
Subjective Subjective: The patient remains intubated but alert and responsive. No obvious new symptoms. The troponin elevation noted. The patient's ECG remains unchanged. Objective Vital Signs and I&Os Vital Signs Date Time Temp Pulse Resp B/P Pulse O2 O2 Flow FiO2 Ox Delivery Rate 01/24 1218 40 01/24 1200 93 Ventilator 40% 01/24 0820 40 01/24 0800 98.0 58 20 100/50 97 Ventilator 40% 01/24 0800 97 Ventilator 40% 01/24 0545 40 01/24 0400 98 Ventilator 40% 01/24 0310 40 01/24 0009 40 01/24 0000 98.8 74 22 106/60 94 Ventilator 40% 01/24 0000 94 Ventilator 40% 01/23 2228 40 01/23 2000 98 Ventilator 40% 01/23 1900 40 01/23 1600 45 01/23 1600 99.2 77 22 102/54 94 Ventilator 45% 01/23 1600 94 Ventilator 45% 01/23 1439 45 01/23 1430 70 81/47 Intake & Output 01/24 1600 01/24 0800 01/24 0000 01/23 1600 01/23 0800 01/23 0000 Intake Total 1235 4151 403 4315 Output Total 695 460 520 555 Balance 540 821 118 757 Intake, IV 1235 4199 909 7900 Output, 100 Gastric Drainage Output, Urine 595 460 520 555 Patient 149 lb 190 lb Weight Physical Exam: General Appearance: alert, awake, intubated Head: normal appearance Neck: supple Respiratory: decreased breath sounds Cardiovascular: regular rate/rhythm, systolic murmur Gastrointestinal: normal bowel sounds, soft, non-tender Extremities: no edema Current Medications: Current Medications Sig/Fatou Start time Last Medication Dose Route Stop Time Status Admin Acetaminophen 650 MG Q6P PRN 01/23 0015 AC PO Acetaminophen/ 1 TAB Q6P PRN 01/23 0015 AC Hydrocodone Bitart PO Albuterol Sulfate 3 ML TID 01/23 1000 AC 01/24 INH 0902 Ceftazidime 1,000 MG Q12 01/23 2200 AC 01/24 IV 0949 Ceftazidime 1,000 MG Q24H 01/23 0400 DC 01/23 IV 0430 Guaifenesin 10 ML Q4P PRN 01/23 0615 AC PO Heparin Sodium 25,000 UNIT Q24H 01/24 0945 AC 01/24 (Porcine) IV 1030 Sodium Chloride 500 ML Heparin Sodium 5,000 UNIT Q8 01/23 0600 01/24 (Porcine) SC 0537 Ipratropium [place] 2.5 ML TID 01/23 1000 01/24 INH 0902 Norepinephrine 4 MG Q24H 01/24 1215 CAN Sodium Chloride 250 ML IV Norepinephrine 4 MG Q24H 01/23 1445 DC 01/23 Sodium Chloride 250 ML IV 1430 Oxycodone HCl 10 MG Q6P PRN 01/23 0015 AC PO Pantoprazole Sodium 40 MG DAILY 01/23 1000 AC 01/24 IV 0949 Propofol 1,000 MG Q24H 01/24 1215 AC 01/24 N/A 100 ML IV 1200 Propofol 1,000 MG .STK-MED ONE 01/23 1419 DC IV 01/23 1420 Propofol 1,000 MG Q24H 01/22 2330 DC 01/24 N/A 100 ML IV 0220 Sodium Chloride 1,000 ML Q6H 01/23 1000 AC 01/24 IV 0538 Vancomycin HCl 1,000 MG DAILY 01/24 0400 AC 01/24 Sodium Chloride 250 ML IV 0347 Results Last 48 Hrs of Labs/Mics: Laboratory Tests 01/24/17 1130: pH 7.33 L, pCO2 30 L, pO2 36 *L, HCO3 16 L, ABG O2 Sat (Measured) 60.0 L, P- 50 (Temp Corrected) N, Carboxyhemoglobin 1.4 L, O2 Concentration % 40%, Temperature 98.0, O2 Delivery Method T-PIECE, Phlebotomy Draw Site RIGHT RADIAL 01/24/17 1030: Troponin I 0.12 *H 01/24/17 0400: Anion Gap 7, Estimated GFR 58 L, BUN/Creatinine Ratio 24.2, Troponin I 1.69 *H, CBC w Diff NO MAN DIFF REQ, RBC 2.83 L, MCV 84.9, MCH 29.1, RDW 17.9 H, MPV 9.2, Gran % 81.7 H, Lymphocytes % 11.5 L, Monocytes % 4.8, Eosinophils % 1.9, Basophils % 0.1, Absolute Granulocytes 4.1, Absolute Lymphocytes 0.6 L, Absolute Monocytes 0.2, Absolute Eosinophils 0.1, Absolute Basophils 0, PUBS MCHC 34.2 01/23/17 1805: Troponin I 0.19 *H 01/23/17 1400: Sodium Cancelled, Potassium Cancelled, Chloride Cancelled, Carbon Dioxide Cancelled, Anion Gap Cancelled, BUN Cancelled, Creatinine Cancelled, BUN/ Creatinine Ratio Cancelled 01/23/17 1400: Sodium Cancelled, Potassium Cancelled, Chloride Cancelled, Carbon Dioxide Cancelled, Anion Gap Cancelled, BUN Cancelled, Creatinine Cancelled, BUN/ Creatinine Ratio Cancelled 01/23/17 1210: Anion Gap 10, Estimated GFR 37 L, BUN/Creatinine Ratio 21.1, Troponin I 0.19 *H 01/23/17 0615: Troponin I Cancelled 01/23/17 0615: Lactic Acid 1.1 01/23/17 0615: Anion Gap 9, Estimated GFR 29 L, BUN/Creatinine Ratio 18.2, Phosphorus 3.9, Magnesium 1.9, Total Bilirubin 0.6, Direct Bilirubin 0.4, AST 15 L, ALT 29, Alkaline Phosphatase 49, Troponin I 0.06, Total Protein 5.1 L, Albumin 2.5 L, PT 15.6 H, INR 1.49 H, CBC w Diff MAN DIFF ORDERED, RBC 3.23 L, MCV 86.2, MCH 28.6, RDW 17.4 H, MPV 8.3, Gran % 87.5 H, Lymphocytes % 8.2 L, Monocytes % 3.8, Eosinophils % 0.3, Basophils % 0.2, Absolute Granulocytes 5.6, Segmented Neutrophils 73, Band Neutrophils 15 H, Absolute Lymphocytes 0.5 L, Lymphocytes 8 L, Monocytes 4, Absolute Monocytes 0.2, Absolute Eosinophils 0, Absolute Basophils 0, Platelet Estimate DECREASED, Hypochromic-Microcytic 2+, Poikilocytosis 2+, Anisocytosis 2+, Ovalocytes 2+, Elliptocytes 2+, PUBS MCHC 33.2 01/23/17 0505: pH 7.35, pCO2 29 L, pO2 77 L, HCO3 16 L, ABG O2 Sat (Measured) 93.0 L, P-50 (Temp Corrected) Y, Carboxyhemoglobin 0.2 L, O2 Concentration % 45%, Temperature 98.9, Respiration Rate 20, O2 Delivery Method ESPRIT, Vent Mode AC, Expiratory Pressure 5, Tidal Volume 550, Phlebotomy Draw Site LEFT RADIAL 01/22/17 2326: Urine Color YEL, Urine Clarity HAZY H, Urine pH 5.5, Ur Specific [place] 1.025, Urine Protein 30 H, Urine Ketones TRACE H, Urine Nitrite NEG, Urine Bilirubin NEG, Urine Urobilinogen 0.2, Ur Leukocyte Esterase NEG, Ur Microscopic SEDIMENT EXAMINED, Urine RBC 1-3, Urine WBC 1-3 H, Ur Epithelial Cells FEW, Urine Hemoglobin MOD H, Urine Glucose NEG 01/22/17 2230: pH 7.40, pCO2 29 L, pO2 76 L, HCO3 17 L, ABG O2 Sat (Measured) 94.0 L, P-50 (Temp Corrected) N, Carboxyhemoglobin 0.3 L, O2 Concentration % 60%, Temperature 98.6, Respiration Rate 20, O2 Delivery Method ESPRIT VENT, Vent Mode AC, Expiratory Pressure 5, Tidal Volume 550, Phlebotomy Draw Site RIGHT RADIAL 01/22/172217: Anion Gap 13, Estimated GFR 17 L, BUN/Creatinine Ratio 15.4, Glucose 112 H, Lactic Acid 1.5, Calcium 8.4, Iron 17 L, TIBC 248 L, Ferritin 386.0, Troponin I 0.04, Ucw-E-Izunqcgbcwy Pept 1410 H, TSH 1.900, CBC w Diff MAN DIFF ORDERED, RBC 3.51 L, MCV 86.0, MCH 29.0, RDW 17.0 H, MPV 8.2, Gran % 90.6 H, Lymphocytes % 7.9 L, Monocytes % 1.1 L, Eosinophils % 0.3, Basophils % 0.1, Absolute Granulocytes 4.5, Segmented Neutrophils 83 H, Band Neutrophils 6 H, Absolute Lymphocytes 0.4 L, Lymphocytes 8 L, Monocytes 3, Absolute Monocytes 0.1 L, Absolute Eosinophils 0, Absolute Basophils 0, Platelet Estimate ADEQUATE , Poikilocytosis 1+, Anisocytosis 1+, Ovalocytes 1+, Elliptocytes FEW, PUBS MCHC 33.7 Microbiology 01/23 1033 NASOPHARYN: Influenza Virus A & B Rapid Smear - COMP 01/23 615 URINE ROUT: Legionella Antigen - COMP 01/23 615 URINE ROUT: Streptococcus pneumoniae Antigen (M - COMP 01/23 300 UPPER RESP: Surveillance Culture - COMP METH RESIST STAPH AUREUS 01/23 300 GI: Surveillance Culture - COMP Assessment/Plan Assessment/Plan Assessment: 1. Elevated troponin-the patient's morning troponin is increased again. Etiology unclear. Possibilities would include demand ischemia, true ischemia, Takotsubo cardiomyopathy, occult pulmonary embolus, etc. 2. Respiratory failure related to multilobar pneumonia; rule out possible aspiration 3. Hypertension 4. Acute renal insufficiency 5. Metabolic acidosis 6. Thrombocytopenia 7. History of seizures 8. Anemia 9. History of coronary artery disease 10. History of dementia Recommendations: -For now, I would continue to trend her troponins until decreasing -The patient's repeat ECG this morning showsan can change with a persistent right bundle-branch block -For now, in the absence of a clear etiology for the elevated troponin, I would consider adding IV heparin to the regimen. This will cover the patient for occult ischemia and for the possibility of occult pulmonary embolus. -Discuss with Dr. Singh and the medical house staff. -Please repeat ECG in the morning -Further plans after the above. Continue telemetry? Yes
[2017-01-24 16:00] VITALS: BP 112/58
[2017-01-24 23:00] VITALS: BP 153/78
[2017-01-25 05:38] LABS: ABSOLUTE BASOPHIL COUNT 0 /CUMM (0.0-0.2); ABSOLUTE EOSINOPHIL COUNT 0.2 /CUMM (0.0-0.7); ABSOLUTE GRANULOCYTE CT 5.7 /CUMM (1.4-6.5); ABSOLUTE LYMPH COUNT 0.9 /CUMM (1.2-3.4); ABSOLUTE MONOCYTE COUNT 0.4 /CUMM (0.10-0.60); BASOPHIL % 0.3 % (0.0-2.0); GRANULOCYTE % 78.5 % (42.2-75.2); HEMATOCRIT 27.5 % (42-52); MEAN CORPUSCULAR HGB 28.5 PG (27.0-31.0); MEAN CORPUSCULAR HGB CONC 33.3 G/DL (33.0-37.0); MEAN CORPUSCULAR VOLUME 85.7 FL (80.0-94.0); MEAN PLATELET VOLUME 8.4 FL (7.4-10.4); PLATELET COUNT 133 /CUMM (130-400); RBC DISTRIBUTION WIDTH 18.1 % (11.5-14.5); RED BLOOD CELL CT 3.21 /CUMM (4.70-6.10); WHITE BLOOD CELL COUNT 7.3 /CUMM (4.8-10.8)
--- NOTE | 2017-01-25 06:55 | RADIOLOGY REPORT ---
EXAMINATION: CHEST 1 VIEW CLINICAL INFORMATION: Enteric tube placement. COMPARISON: Multiple prior exams are reviewed. The most recent is from 01/24/2017. TECHNIQUE: An AP view of the chest is provided. FINDINGS: The cardiac silhouette is stable. Secondary to exposure level, the tip of the endotracheal tube is difficult to discern, but is likely in unchanged position. An enteric tube is also in place. Its tip cannot be discerned. A right central venous line is in unchanged position. There is persistence bibasilar opacification, improved from prior exam. The osseous structures are stable. IMPRESSION: Lines and tubes in place as stated above. Tips of the endotracheal tube and enteric tube cannot be discerned due to exposure level. Improved aeration with persistent bibasilar opacification.
[2017-01-25 07:00] VITALS: BP 187/100
--- NOTE | 2017-01-25 07:08 | PN- Resident CRCU ---
Subjective HPI/CRCU Issues: Mr. Valdovinos was seen and examined this morning. Resting in bed. Appears anxious and has labored breathing. He is currently sedated and has been started on the propofol again. Appears to express abdominal discomfort. Denies the presence of any chest pain or any chest discomfort. 24 Hour Events: Overnight patient had a hard time getting rest. His propofol was turned off at approximately 6 AM owing to our attempt to wean the patient, anticipated for later this am. SAS 4 HR: 58-95 Blood pressure Systolic 104-192 diastolic 56-93 Respiratory rate 18-35 O2 saturations 93% to 98% Objective Vital Signs & I&O Last 8 Hrs of Vitals and I&O: SAS 4 HR: 58-95 Blood pressure Systolic 104-192 diastolic 56-93 Respiratory rate 18-35 O2 saturations 93% to 98% Intake & Output 01/25 0800 Intake Total 1124 Output Total 565 Balance 559 Intake, IV 1124 Output, 50 Gastric Drainage Output, Urine 515 Exam General Appearance: anxious, sedated, intubated Neck: normal inspection Respiratory: decreased breath sounds Cardiovascular: regular rate/rhythm, murmur (Systolic) Gastrointestinal: soft, non-tender, Decreased Breath Sounds Extremities: normal inspection, no edema Weaning Parameters NIF: 35 Minute Volume: 8.45 Resp rate: 14 Vt: 589 Heart Rate: 67 Weaning Schedule Start Time: 0920 Minute Volume: 7.43 Resp Rate: 16 Vt: 500 Heart Rate: 67 End Time: 1030 Minute Volume: 8.95 Resp Rate: 23 Vt: 385 Heart Rate: 74 Current Medications: Current Medications Sig/Fatou Start time Last Medication Dose Route Stop Time Status Admin Acetaminophen 650 MG Q6P PRN 01/23 0015 AC PO Acetaminophen/ 1 TAB Q6P PRN 01/23 0015 AC Hydrocodone Bitart PO Albuterol Sulfate 3 ML TID 01/23 1000 AC 01/24 INH 1914 Ceftazidime 1,000 MG Q12 01/23 2200 AC 01/24 IV 2200 Guaifenesin 10 ML Q4P PRN 01/23 0615 AC PO Heparin Sodium 25,000 UNIT Q24H 01/24 0945 DC 01/24 (Porcine) IV 1030 Sodium Chloride 500 ML Heparin Sodium 5,000 UNIT Q8 01/23 0600 AC 01/25 (Porcine) SC 0519 Heparin Sodium/ 25,000 UNIT Q24H 01/24 1915 DC Dextrose IV Dextrose/Water 500 ML Ipratropium [place] 2.5 ML TID 01/23 1000 AC 01/24 INH 1914 Norepinephrine 4 MG Q24H 01/24 1215 CAN Sodium Chloride 250 ML IV Norepinephrine 4 MG Q24H 01/23 1445 DC 01/23 Sodium Chloride 250 ML IV 1430 Oxycodone HCl 10 MG Q6P PRN 01/23 0015 AC PO Pantoprazole Sodium 40 MG DAILY 01/23 1000 AC 01/24 IV 0949 Propofol 1,000 MG Q24H 01/24 1215 DC 01/25 N/A 100 ML IV 0257 Propofol 1,000 MG .STK-MED ONE 01/24 1158 DC IV 01/24 1159 Propofol 1,000 MG Q24H 01/22 2330 DC 01/24 N/A 100 ML IV 0220 Sodium Chloride 1,000 ML Q6H 01/23 1000 AC 01/25 IV 0339 Vancomycin HCl 1,000 MG DAILY 01/24 0400 AC 01/24 Sodium Chloride 250 ML IV 0347 Impression/Plan Impression/Problem List Impression: Mr Valdovinos is a 81 year old gentlemen with a PMH of has a history of coronary artery disease, COPD, hypertension, BPH, carotid stenosis, dementia, history of cerebellar stroke and a recent admission to [facility] approximately 4 weeks ago where he was treated for pneumonia who presented to the emergency department on 01/22/2017 after he was found to be febrile (T Max 100.9) and desaturating while at extended care facility Problem List: #Coronary artery disease with elevated troponins possibly attributed to demand ischemia #Respiratory failure likely due to multilobar pneumonia #Acute kidney injury #Anemia #History of COPD #History of seizure disorder #History of stroke Recio day # 3 Currently Intubated. Day Three Ventilator Settings: Rate 20. Peak Flow 85 TV: 550. PEEP 5. %O2. 35. PSV 5 Respiratory Continue broad-spectrum antibiotics of ceftazidime and vancomycin. Vancomycin 1 g per 24 hours. Ceftazidime 1 g every 12 hours,these have been renally adjusted. Viral influenza: Negativ Follow-up blood cultures. Follow-up chest x-ray obtained which confirmed OG tube placement. 01/24/2017. We attempted to extubate the patient, however ABG after two hours, showed, parameters unacceptable. Extubation, unsuccessful. Cardiovascular Patient had to be started again on levo fed running at 2 MCG per minute. Initial EKG did not show any ST segment changes or acute changes on EKG. initial troponins were within normal limits however repeat troponin showed elevations of 0.19, repeat troponins 01/24/2015: 1.69-->0.12. Troponins this morning did increase from 0.40-->0.47 we'll continue to trend troponins till they plateau. 10 AM EKG didn show some T-wave changes in V3. Subsequent EKGs have not shown any diffuse changes. ProBNP 12,700. Troponin: 0.40-->0.47-->0.40 A Bilaterral Doppler study was done to rule out DVT. These have been negative. Cardiology is on board. Echo done yeaterday, A followup study is suggested when the patient is more stable to reassess aortic and mitral valve function. Currently patient off pressors. Heme Current WBC on admission: 4.9. Repeat Value: 6.4 H&H on admission 10.2 and 30.1 respectively. Repeat 9.2 and 27.8, H/H: 8.2/ 24.0. H/H: 9.1/27.5. Patient was guaiac negative. Monitor CBC in am. Metabolic At the time of admission the patient was hyperkalemic with a potassium level of 5.5. Upon subsequent repeat of his labs these have normalized. We monitored his BUN and creatinine in the event of elevations but these have improved. Cr 3.5-->1.8--> 1.2-->1.0-->0.9. BUN 54-->38-->29-->21-->18 We'll continue to monitor and hold off on a nephrology consultation for now. Normal saline at 150 mL was reduced to 50 ml per hour and subsequently changed to D5 with perhaps of bicarbonate running at 15 mL/h an additional 25 mEq of bicarbonate IV was given. Patient likely developed metabolic acidosis. BEP at 1600 to assess fluid adjustment. Monitor ins and outs. Daily Weights. Alimentary NPO for now. Consider beginning tube feeds on 01/26/2017 Once patient is regains mentation consider Swallow Evaluation. Neurology Intubated and increased somnolence this am. Patient is able to follow basic commands. Other Records from [facility] have been received and are in the chart Diet: NPO IVF: Refer to Above DVT ppx ALPS + Heparin Sub Q Code Full Code Problem List: 1. Dementia 2. Acute hypoxemic respiratory failure 3. Hypotension 4. Acute kidney injury 5. Respiratory failure Pain Ratin Tomorrow's Labs & Rationales: CBC ICU Bundle C-Xray (confirmation of tube placement) Plan DVT/Prophylaxis: pharmacological
[2017-01-25 08:00] VITALS: BP 180/90
--- NOTE | 2017-01-25 10:25 | PN- Pulmonary ---
Subjective HPI/Critical Care Issues: Patient is partially sedated on propofol fall but has been tachypnea on mechanical ventilation straight rate is in the low 30s. Chest x-ray earlier this morning shows no evidence of congestive heart failure pneumothorax or misplaced endotracheal tube not well seen. She has developed progressive hypercarbic pleurae makes metabolic acidosis secondary to normal saline volume resuscitation. Objective Current Medications: Current Medications Sig/Fatou Start time Last Medication Dose Route Stop Time Status Admin Acetaminophen 650 MG Q6P PRN 01/23 0015 AC PO Acetaminophen/ 1 TAB Q6P PRN 01/23 0015 AC Hydrocodone Bitart PO Albuterol Sulfate 3 ML TID 01/23 1000 AC 01/25 INH 0819 Ceftazidime 1,000 MG Q12 01/23 2200 AC 01/24 IV 2200 Furosemide 20 MG ONCE ONE 01/25 0945 DC 01/25 IV 01/25 0946 0940 Guaifenesin 10 ML Q4P PRN 01/23 0615 AC PO Heparin Sodium 25,000 UNIT Q24H 01/24 0945 DC 01/24 (Porcine) IV 1030 Sodium Chloride 500 ML Heparin Sodium 5,000 UNIT Q8 01/23 0600 AC 01/25 (Porcine) SC 0519 Heparin Sodium/ 25,000 UNIT Q24H 01/24 1915 DC Dextrose IV Dextrose/Water 500 ML Ipratropium [place] 2.5 ML TID 01/23 1000 AC 01/25 INH 0819 Lorazepam 0.5 MG ONCE ONE 01/25 0945 DC 01/25 IV 01/25 0946 0940 Lorazepam 0.5 MG ONCE ONE 01/25 0900 DC 01/25 IV 01/25 0901 0902 Norepinephrine 4 MG Q24H 01/24 1215 CAN Sodium Chloride 250 ML IV Oxycodone HCl 10 MG Q6P PRN 01/23 0015 AC PO Pantoprazole Sodium 40 MG DAILY 01/23 1000 AC 01/24 IV 0949 Propofol 1,000 MG Q12H 01/25 0915 AC 01/25 N/A 100 ML IV 0755 Propofol 1,000 MG Q12H 01/25 0745 DC N/A 100 ML IV Propofol 1,000 MG Q24H 01/24 1215 DC 01/25 N/A 100 ML IV 0257 Propofol 1,000 MG .STK-MED ONE 01/24 1158 DC IV 01/24 1159 Propofol 1,000 MG Q24H 01/22 2330 DC 01/24 N/A 100 ML IV 0220 Sodium Chloride 1,000 ML Q20H 01/25 0930 AC IV Sodium Chloride 1,000 ML Q6H 01/23 1000 DC 01/25 IV 0339 Vancomycin HCl 1,000 MG DAILY 01/24 0400 AC 01/24 Sodium Chloride 250 ML IV 0347 Vital Signs & I&O Last 24 Hrs of Vitals and I&O: Vital Signs Date Time Temp Pulse Resp B/P Pulse O2 O2 Flow FiO2 Ox Delivery Rate 01/25 0810 35 01/25 0700 99.5 95 30 187/100 96 Ventilator 35% 01/25 0613 35 01/25 0400 96 Ventilator 35% 01/25 0321 35 01/25 0019 35 01/25 0000 95 Ventilator 35% 01/24 2300 97.7 96 25 153/78 93 Ventilator 35% 01/24 2231 35 01/24 2000 97 Ventilator 35% 01/24 1910 35 01/24 1620 40 01/24 1600 97.8 68 24 112/58 97 Ventilator 40% 01/24 1600 97 Ventilator 40% 01/24 1409 40 01/24 1218 40 01/24 1200 93 Ventilator 40% Intake & Output 01/25 1600 01/25 0800 01/25 0000 Intake Total 1124 1248 Output Total 565 490 Balance 559 758 Intake, IV 1124 1248 Output, 50 Gastric Drainage Output, Urine 515 490 Since saturation 35% 96% exam of his chest shows equal breath sounds bilaterally. No wheezes cardiac exam shows regular S1 and S2 abdomen is soft. Ventilatory parameters appear stable other than respiratory rate Impression/Plan Impression/Plan Impression/Plan: 81-year-old gentleman status post respiratory failure septic shock for staph pneumonia has developed worsening hyperchloremic metabolic acidosis and tachypnea. Recommendations: Continue sedation. DC IV normal saline. Begin D5W one half normal saline with 1-1/2 Amps of bicarbonate per liter. At 100 mL per hour. Repeat chest x-ray chest. If there are no findings to otherwise explain tachypnea would obtain CT angiogram to exclude pulmonary embolism. Extubation is not feasible at this time
--- NOTE | 2017-01-25 10:50 | Event Note ---
Event Note Event Note: Patient tachypnea has shown troponin has elevated the 0.4. Repeat chest x-ray suggests an kasie repeat BNP ment of congestive heart failure. Patient was given Lasix and is diuresing. In view of congestive heart failure and attempt to correct his hyperchloremic metabolic acidosis fluids will be changed to D5 3 amps of bicarbonate at 50 mL an hour with 25 mEq bicarbonate push. Majo Davila MD was called regarding reinstitution of heparin. Repeat BNP. Repeat electrolytes in 6 hours for further adjustment of fluids
--- NOTE | 2017-01-25 11:04 | RADIOLOGY REPORT ---
EXAMINATION: XR PORTABLE CHEST CLINICAL INFORMATION: Shortness of breath and dyspnea. Increased O2 requirements. COMPARISON: Chest 01/25/2017 performed earlier today. TECHNIQUE: Portable AP view of the chest was obtained. FINDINGS: The heart size is borderline normal. Increased bilateral perihilar vascular markings are noted suspicious for mild congestion. There is opacification slightly greater on the right. No pleural effusion seen on this exam. A nasogastric tube tip is below the diaphragm in stomach. Endotracheal tube tip is 6.5 cm above the paco. A right subclavian catheter tip remains in SVC. No pneumothorax. IMPRESSION: Suspect mild congestion in addition to bibasilar persistent opacification slightly greater on the right. Support lines and catheters are in satisfactory position. No major change from earlier exam performed today.
--- NOTE | 2017-01-25 14:33 | PN- Cardiology ---
Subjective Subjective: Events of the last 24 hours noted. Increased respiratory distress with elevated blood pressure, now improved following diuresis, etc. Troponin again minimally elevated at 0.4. ECG without dramatic changes except for subtle changes in the anterior ST-T abnormalities. Objective Vital Signs and I&Os Vital Signs Date Time Temp Pulse Resp B/P Pulse O2 O2 Flow FiO2 Ox Delivery Rate 01/25 1120 35 01/25 0810 35 01/25 0800 99.9 98 38 180/90 95 Ventilator 35% 01/25 0800 95 Ventilator 35% 01/25 0700 99.5 95 30 187/100 96 Ventilator 35% 01/25 0613 35 01/25 0400 96 Ventilator 35% 01/25 0321 35 01/25 0019 35 01/25 0000 95 Ventilator 35% 01/24 2300 97.7 96 25 153/78 93 Ventilator 35% 01/24 2231 35 01/24 2000 97 Ventilator 35% 01/24 1910 35 01/24 1620 40 01/24 1600 97.8 68 24 112/58 97 Ventilator 40% 01/24 1600 97 Ventilator 40% Intake & Output 01/25 1600 01/25 0800 01/25 0000 01/24 1600 01/24 0800 01/24 0000 Intake Total 1124 1248 1502 1235 1281 Output Total 565 490 475 695 460 Balance 785 111 2267 540 821 Intake, IV 1124 1248 1502 1235 1281 Output, 50 100 100 Gastric Drainage Output, Urine 515 490 375 595 460 Patient 148 lb 148 lb Weight Physical Exam: General Appearance: Intubated, sedated Head: normal Neck: supple, JVP normal, carotid shows normal bilaterally Respiratory: decreased breath sounds bilaterally Cardiovascular: regular rate/rhythm, systolic murmur unchanged Gastrointestinal: normal bowel sounds, soft, non-tender Extremities: no edema Current Medications: Current Medications Sig/Fatou Start time Last Medication Dose Route Stop Time Status Admin Acetaminophen 650 MG Q6P PRN 01/23 0015 AC PO Acetaminophen/ 1 TAB Q6P PRN 01/23 0015 AC Hydrocodone Bitart PO Albuterol Sulfate 3 ML TID 01/23 1000 AC 01/25 INH 1430 Ceftazidime 1,000 MG Q12 01/23 2200 AC 01/25 IV 1023 Furosemide 20 MG ONCE ONE 01/25 0945 DC 01/25 IV 01/25 0946 0940 Guaifenesin 10 ML Q4P PRN 01/23 0615 AC PO Heparin Sodium 25,000 UNIT Q24H 01/24 0945 DC 01/24 (Porcine) IV 1030 Sodium Chloride 500 ML Heparin Sodium 5,000 UNIT Q8 01/23 0600 AC 01/25 (Porcine) SC 1427 Heparin Sodium/ 25,000 UNIT Q24H 01/24 1915 DC Dextrose IV Dextrose/Water 500 ML Ipratropium [place] 2.5 ML TID 01/23 1000 AC 01/25 INH 1430 Lorazepam 1 MG ONCE ONE 01/25 1030 DC 01/25 IV 01/25 1031 1027 Lorazepam 0.5 MG ONCE ONE 01/25 0945 DC 01/25 IV 01/25 0946 0940 Lorazepam 0.5 MG ONCE ONE 01/25 0900 DC 01/25 IV 01/25 0901 0902 Oxycodone HCl 10 MG Q6P PRN 01/23 0015 AC PO Pantoprazole Sodium 40 MG DAILY 01/23 1000 AC 01/25 IV 1023 Polyethylene Glycol 17 GM DAILY 01/25 1158 AC 01/25 PO 1427 Propofol 1,000 MG Q12H 01/25 0915 AC 01/25 N/A 100 ML IV 0755 Propofol 1,000 MG Q12H 01/25 0745 DC N/A 100 ML IV Propofol 1,000 MG Q24H 01/24 1215 DC 01/25 N/A 100 ML IV 0257 Sodium Bicarbonate 150 MEQ Q20H 01/25 1130 AC 01/25 Dextrose/Water 850 ML IV 1136 Sodium Bicarbonate 25 MEQ ONCE ONE 01/25 1100 DC 01/25 IV 01/25 1101 1100 Sodium Bicarbonate 75 MEQ Q10H 01/25 1045 CAN Dextrose/Sodium 1,000 ML IV Chloride Sodium Chloride 1,000 ML Q20H 01/25 0930 DC 01/25 IV 0930 Sodium Chloride 1,000 ML Q6H 01/23 1000 DC 01/25 IV 0339 Vancomycin HCl 1,000 MG DAILY 01/24 0400 AC 01/25 Sodium Chloride 250 ML IV 1022 Results Last 48 Hrs of Labs/Mics: Laboratory Tests 01/25/17 1010: Troponin I 0.47 *H 01/25/17 1000: pH 7.34 L, pCO2 26 L, pO2 80, HCO3 14 L, ABG O2 Sat (Measured) 95.0 L, P-50 (Temp Corrected) N, Carboxyhemoglobin 0.3 L, O2 Concentration % 35%, Respiration Rate 20, O2 Delivery Method VENT, Vent Mode AC, Expiratory Pressure 5, Tidal Volume 550, Pressure Support 0, Phlebotomy Draw Site RIGHT RADIAL 01/25/17 0500: Anion Gap 13, Estimated GFR > 60, Glucose 78, Calcium 8.5, Phosphorus 2.9, Magnesium 1.7, Total Bilirubin 0.8, AST 26, ALT 42, Troponin I 0.40 *H, Albumin 2.7 L, CBC w Diff NO MAN DIFF REQ, RBC 3.21 L, MCV 85.7, MCH 28.5, RDW 18.1 H , MPV 8.4, Gran % 78.5 H, Lymphocytes % 12.4 L, Monocytes % 5.8, Eosinophils % 3.0, Basophils % 0.3, Absolute Granulocytes 5.7, Absolute Lymphocytes 0.9 L, Absolute Monocytes 0.4, Absolute Eosinophils 0.2, Absolute Basophils 0, PUBS MCHC 33.3 01/24/17 1130: pH 7.33 L, pCO2 30 L, pO2 36 *L, HCO3 16 L, ABG O2 Sat (Measured) 60.0 L, P- 50 (Temp Corrected) N, Carboxyhemoglobin 1.4 L, O2 Concentration % 40%, Temperature 98.0, O2 Delivery Method T-PIECE, Phlebotomy Draw Site RIGHT RADIAL 01/24/17 1030: Troponin I 0.12 *H 01/24/17 0400: Anion Gap 7, Estimated GFR 58 L, BUN/Creatinine Ratio 24.2, Troponin I 1.69 *H, CBC w Diff NO MAN DIFF REQ, RBC 2.83 L, MCV 84.9, MCH 29.1, RDW 17.9 H, MPV 9.2, Gran % 81.7 H, Lymphocytes % 11.5 L, Monocytes % 4.8, Eosinophils % 1.9, Basophils % 0.1, Absolute Granulocytes 4.1, Absolute Lymphocytes 0.6 L, Absolute Monocytes 0.2, Absolute Eosinophils 0.1, Absolute Basophils 0, PUBS MCHC 34.2 01/23/17 1805: Troponin I 0.19 *H Assessment/Plan Assessment/Plan Assessment: 1. Elevated troponin-the patient's morning troponin is increased again following the events of the last 12 hours. Again, the most likely etiology is demand ischemia, however, the possibility of underlying true ischemia, etc. cannot be excluded. 2. Respiratory failure related to multilobar pneumonia; rule out possible aspiration 3. Hypertension 4. Acute renal insufficiency 5. Metabolic acidosis 6. Thrombocytopenia 7. History of seizures 8. Anemia 9. History of coronary artery disease 10. History of dementia Recommendations: -For now, I would again continue to trend troponins until decreasing -Repeat ECG later today and again in the morning -At the present time, since this is likely demand ischemia, I would hesitate to institute IV heparin, especially in view of the patient's significant anemia. -Discussed with the medical house staff -If tolerated by the patient's blood pressure, I would attempt to give Lasix 20 mg IV daily for maintenance of a negative fluid balance. -Reassess in 24 hours Continue telemetry? Yes
[2017-01-25 16:00] VITALS: BP 152/72
[2017-01-26] VITALS: BP 162/82
[2017-01-26 05:02] LABS: ABSOLUTE BASOPHIL COUNT 0 /CUMM (0.0-0.2); ABSOLUTE EOSINOPHIL COUNT 0.2 /CUMM (0.0-0.7); ABSOLUTE GRANULOCYTE CT 2.9 /CUMM (1.4-6.5); ABSOLUTE LYMPH COUNT 0.7 /CUMM (1.2-3.4); ABSOLUTE MONOCYTE COUNT 0.3 /CUMM (0.10-0.60); BASOPHIL % 0.5 % (0.0-2.0); EOSINOPHIL % 5.9 % (0-5); GRANULOCYTE % 70.1 % (42.2-75.2); HEMATOCRIT 24.8 % (42-52); MEAN CORPUSCULAR HGB CONC 34.1 G/DL (33.0-37.0); MEAN CORPUSCULAR VOLUME 84.9 FL (80.0-94.0); MEAN PLATELET VOLUME 8.3 FL (7.4-10.4); PLATELET COUNT 143 /CUMM (130-400); RBC DISTRIBUTION WIDTH 17.6 % (11.5-14.5); RED BLOOD CELL CT 2.93 /CUMM (4.70-6.10); WHITE BLOOD CELL COUNT 4.2 /CUMM (4.8-10.8)
--- NOTE | 2017-01-26 07:40 | RADIOLOGY REPORT ---
EXAMINATION: XR PORTABLE CHEST CLINICAL INFORMATION: OG-tube placement. COMPARISON: Chest 01/25/2017. TECHNIQUE: Portable AP view of the chest was obtained. FINDINGS: Both lungs are fairly somewhat with interval improvement in the patchy opacity in both lower lobes. Size is normal. Pulmonary vascularity appears normal. Position of endotracheal tube, right jugular central line is normal. Orogastric tube tip is barely visible on this exam and. The tip appears to be at the GE junction. Recommend repeat exam. IMPRESSION: Improved bibasilar opacification and congestion. Endotracheal tube and right jugular central line are in satisfactory position. The exam is underpenetrated and the orogastric tube is not well visualized however I believe the tip is at the GE junction. Recommend repeat exam with chest and abdomen as one view.
--- NOTE | 2017-01-26 07:41 | PN- Resident CRCU ---
Subjective HPI/CRCU Issues: I saw and examined Mr. Valdovinos at beside today. He is sedated and intubated. appears comfortable. expresses no discomfort. respiratory rate is decreased to 14 and and tidal volume to 500 on the vent. no overnight events reported. Patient had an episode of juanita to 47 this am. 24 Hour Events: Laboratory Tests 01/26 01/26 01/26 0430 0115 0005 Blood Gas pH (7.35 - 7.45 PH) 7.52 H pCO2 (35 - 45 TORR) 23 L pO2 (80 - 100 TORR) 75 L HCO3 (21 - 28 MEQ/L) 18 L ABG O2 Sat (Measured) (>96.0 %) 95.0 L P-50 (Temp Corrected) Y Carboxyhemoglobin (1.5 - 5.0 %) 0.3 L O2 Concentration % 35% Temperature (97.0 - 100.0 FARH) 98.3 Respiration Rate (BPM) 16 O2 Delivery Method ESPRIT Vent Mode AC Expiratory Pressure (CMH2O/P) 5 Tidal Volume (CC) 550 Chemistry Sodium (137 - 145 mmol/L) 142 142 Potassium (3.5 - 5.1 mmol/L) 4.2 3.5 Chloride (98 - 107 mmol/L) 112 H 109 H Carbon Dioxide (22 - 30 mmol/L) 20 L 20 L Anion Gap (5 - 16) 10 12 BUN (9 - 20 mg/dL) 16 17 Creatinine (0.7 - 1.2 mg/dL) 0.9 0.9 Estimated GFR (>60 ml/min) > 60 > 60 BUN/Creatinine Ratio (7 - 25 %) 18.9 Glucose (65 - 99 mg/dL) 81 Calcium (8.4 - 10.2 mg/dL) 8.3 L Phosphorus (2.5 - 4.5 mg/dL) 3.1 Magnesium (1.6 - 2.3 mg/dL) 1.4 L Total Bilirubin (0.2 - 1.3 mg/dL) 0.7 AST (17 - 59 U/L) 46 ALT (21 - 72 U/L) 54 Albumin (3.5 - 5.0 g/dL) 2.3 L Hematology CBC w Diff NO MAN DIFF REQ WBC (4.8 - 10.8 /CUMM) 4.2 L RBC (4.70 - 6.10 /CUMM) 2.93 L Hgb (14.0 - 18.0 G/DL) 8.5 L Hct (42 - 52 %) 24.8 L MCV (80.0 - 94.0 FL) 84.9 MCH (27.0 - 31.0 PG) 29.0 RDW (11.5 - 14.5 %) 17.6 H Plt Count (130 - 400 /CUMM) 143 MPV (7.4 - 10.4 FL) 8.3 Gran % (42.2 - 75.2 %) 70.1 Lymphocytes % (20.5 - 51.1 %) 16.6 L Monocytes % (1.7 - 9.3 %) 6.9 Eosinophils % (0 - 5 %) 5.9 H Basophils % (0.0 - 2.0 %) 0.5 Absolute Granulocytes (1.4 - 6.5 /CUMM) 2.9 Absolute Lymphocytes (1.2 - 3.4 /CUMM) 0.7 L Absolute Monocytes (0.10 - 0.60 /CUMM) 0.3 Absolute Eosinophils (0.0 - 0.7 /CUMM) 0.2 Absolute Basophils (0.0 - 0.2 /CUMM) 0 PUBS MCHC (33.0 - 37.0 G/DL) 34.1 Miscellaneous Phlebotomy Draw Site RIGHT RADIAL 01/25 01/25 8074 1610 Blood Gas pH (7.35 - 7.45 PH) 7.48 H pCO2 (35 - 45 TORR) 24 L pO2 (80 - 100 TORR) 74 L HCO3 (21 - 28 MEQ/L) 18 L ABG O2 Sat (Measured) (>96.0 %) 95.0 L P-50 (Temp Corrected) Y Carboxyhemoglobin (1.5 - 5.0 %) 0.2 L O2 Concentration % 35% Temperature (97.0 - 100.0 FARH) 97.8 Respiration Rate (BPM) 20 O2 Delivery Method VENT Vent Mode CMV Expiratory Pressure (CMH2O/P) 5 Tidal Volume (CC) 550 Chemistry Sodium (137 - 145 mmol/L) 141 Potassium (3.5 - 5.1 mmol/L) 3.4 L Chloride (98 - 107 mmol/L) 110 H Carbon Dioxide (22 - 30 mmol/L) 17 L Anion Gap (5 - 16) 13 BUN (9 - 20 mg/dL) 18 Creatinine (0.7 - 1.2 mg/dL) 0.9 Estimated GFR (>60 ml/min) > 60 BUN/Creatinine Ratio (7 - 25 %) 20.0 Troponin I (<0.11 ng/ml) 0.40 *H Miscellaneous Phlebotomy Draw Site RIGHT RADIAL Vital Signs Date Time Temp Pulse Resp B/P Pulse O2 O2 Flow FiO2 Ox Delivery Rate 01/26 1048 65 158/74 01/26 1048 65 158/74 01/26 1041 35 01/26 0849 35 01/26 0553 35 01/26 0400 92 Ventilator 35% Objective Vital Signs & I&O Last 8 Hrs of Vitals and I&O: max Temp 98.3 NH 56-78 BP 126/62 to 170/75 RR 16-18 vent settin/550/35/5 - SO2 93-96% I 519 O 530 Exam General Appearance: well developed/nourished, no apparent distress, sedated, intubated Head: atraumatic, normal appearance Ears, Nose, Throat: hearing grossly normal Neck: normal inspection, supple Respiratory: chest non-tender, scattered rhonchi heard on both lungs Cardiovascular: regular rate/rhythm Gastrointestinal: soft, non-tender Extremities: normal capillary refill, no edema Cranial Nerves: normal hearing, PERRL Skin: intact, warm/dry Back: normal inspection Weaning Parameters NIF: 35 Minute Volume: 8.45 Resp rate: 14 Vt: 589 Heart Rate: 67 Weaning Schedule Start Time: 0920 Minute Volume: 7.43 Resp Rate: 16 Vt: 500 Heart Rate: 67 End Time: 1030 Minute Volume: 8.95 Resp Rate: 23 Vt: 385 Heart Rate: 74 Current Medications: Current Medications Sig/Fatou Start time Last Medication Dose Route Stop Time Status Admin Acetaminophen 650 MG Q6P PRN 01/23 0015 AC PO Acetaminophen/ 1 TAB Q6P PRN 01/23 0015 AC Hydrocodone Bitart PO Albuterol Sulfate 3 ML TID 01/23 1000 AC 01/26 INH 1332 Amlodipine Besylate 10 MG DAILY 01/26 1000 AC 01/26 PO 1048 Carvedilol 3.125 MG BID 01/26 0130 AC 01/26 PO 1048 Ceftazidime 1,000 MG Q12 01/23 2200 AC 01/26 IV 1048 Furosemide 20 MG ONCE ONE 01/26 1030 DC 01/26 IV 01/26 1031 1048 Guaifenesin 10 ML Q4P PRN 01/23 0615 AC PO Heparin Sodium 5,000 UNIT Q8 01/23 0600 AC 01/26 (Porcine) SC 1323 Ipratropium [place] 2.5 ML TID 01/23 1000 AC 01/26 INH 1332 Lorazepam 1 MG ONE PRN 01/26 1245 DC 01/26 IV 01/26 1800 1255 Magnesium Sulfate 1 GM Q2H 01/26 0545 DC 01/26 Dextrose/Water 100 ML IV 01/26 0944 0729 Oxycodone HCl 10 MG Q6P PRN 01/23 0015 AC PO Pantoprazole Sodium 40 MG DAILY 01/23 1000 AC 01/26 IV 1048 Polyethylene Glycol 17 GM DAILY 01/25 1158 AC 01/26 PO 1048 Potassium Chloride 20 MEQ Q1H 01/26 0115 DC 01/26 IV 01/26 0216 0222 Propofol 1,000 MG Q12H 01/25 0915 AC 01/26 N/A 100 ML IV 0557 Sodium Bicarbonate 150 MEQ Q20H 01/25 1130 DC 01/25 Dextrose/Water 850 ML IV 1136 Vancomycin HCl 1,000 MG DAILY 01/24 0400 AC 01/26 Sodium Chloride 250 ML IV 1048 Impression/Plan Impression/Problem List Impression: Mr Valdovinos is a 81 year old gentlemen with a PMH of has a history of coronary artery disease, COPD, hypertension, BPH, carotid stenosis, dementia, history of cerebellar stroke and a recent admission to [facility] approximately 4 weeks ago where he was treated for pneumonia who presented to the emergency department on 01/22/2017 after he was found to be febrile (T Max 100.9) and desaturating while at extended care facility. Problem List: #Coronary artery disease with elevated troponins possibly attributed to demand ischemia #Respiratory failure likely due to multilobar pneumonia #Acute kidney injury #Anemia #History of COPD #History of seizure disorder #History of stroke Recio day # 5 Currently Intubated. Day 4 Ventilator Settings: Rate 14. TV: 500. PEEP 5. FiO2 35. 0 Respiratory Continue broad-spectrum antibiotics of ceftazidime and vancomycin. Vancomycin 1 g per 24 hours. Ceftazidime 1 g every 12 hours,these have been renally adjusted. Viral influenza: Negativ Follow-up blood cultures. Follow-up chest x-ray obtained which confirmed OG tube placement. 01/24/2017. We attempted to extubate the patient, however ABG after two hours, showed, parameters unacceptable. Extubation, unsuccessful. Cardiovascular Patient had to be started again on levo fed running at 2 MCG per minute. Initial EKG did not show any ST segment changes or acute changes on EKG. initial troponins were within normal limits however repeat troponin showed elevations of 0.19, repeat troponins 01/24/2015: 1.69-->0.12. Troponins this morning did increase from 0.40-->0.47 we'll continue to trend troponins till they plateau. 10 AM EKG didn show some T-wave changes in V3. Subsequent EKGs have not shown any diffuse changes. ProBNP 12,700. Troponin: 0.40-->0.47-->0.40 A Bilaterral Doppler study was done to rule out DVT. These have been negative. Cardiology is on board. Echo done yeaterday, A followup study is suggested when the patient is more stable to reassess aortic and mitral valve function. Currently patient off pressors. * repeat EKG is unremarkable * per cardiology did not start IV heparin due to anemia * received IV lasix extra dose today as he received 2650 cc yesterday Heme Current WBC on admission: 4.9. Repeat Value: 6.4 H&H on admission 10.2 and 30.1 respectively. Repeat 9.2 and 27.8, H/H: 8.2/ 24.0. H/H: 8.5/24.8 Patient was guaiac negative. * Monitor CBC in am. Metabolic At the time of admission the patient was hyperkalemic with a potassium level of 5.5. Upon subsequent repeat of his labs these have normalized. We monitored his BUN and creatinine in the event of elevations but these have improved. Cr 3.5--> 0.9. BUN 54-->20 We'll continue to monitor and hold off on a nephrology consultation for now. Normal saline at 150 mL was reduced to 50 ml per hour and subsequently changed to D5 with perhaps of bicarbonate running at 15 mL/h an additional 25 mEq of bicarbonate IV was given. Patient likely developed metabolic acidosis. BEP at 1600 to assess fluid adjustment. * Monitor ins and outs. * Daily Weights. Alimentary started tube feeds today on 01/26/2017 Once patient is regains mentation consider Swallow Evaluation. Neurology Intubated and sedated. Patient is able to follow basic commands. Other Records from [facility] have been received and are in the chart Diet: NPO IVF: Refer to Above DVT ppx ALPS + Heparin Sub Q Code Full Code Problem List: 1. Acute kidney injury 2. Pneumonia 3. Dehydration 4. Hypotension 5. Cerebellar stroke 6. Septicemia Pain Ratin Tomorrow's Labs & Rationales: CBC (leukocytosis), ICU bundle (monitor electrolytes) Plan DVT/Prophylaxis: pharmacological
[2017-01-26 08:00] VITALS: BP 150/78
--- NOTE | 2017-01-26 10:44 | PN- CRCU ---
Subjective HPI/Critical Care Issues: Tachypnea has resolved with diuresis. Perchlorate anemia is improved. Patient now has a respiratory alkalosis and minute volume is being reduced. Decision has been made not to pursue anticoagulation in view of positive troponin. Objective Current Medications: Current Medications Sig/Fatou Start time Last Medication Dose Route Stop Time Status Admin Acetaminophen 650 MG Q6P PRN 01/23 0015 AC PO Acetaminophen/ 1 TAB Q6P PRN 01/23 0015 AC Hydrocodone Bitart PO Albuterol Sulfate 3 ML TID 01/23 1000 AC 01/26 INH 0855 Amlodipine Besylate 10 MG DAILY 01/26 1000 AC PO Carvedilol 3.125 MG BID 01/26 0130 AC 01/26 PO 0202 Ceftazidime 1,000 MG Q12 01/23 2200 AC 01/25 IV 2127 Furosemide 20 MG ONCE ONE 01/26 1030 DC IV 01/26 1031 Guaifenesin 10 ML Q4P PRN 01/23 0615 AC PO Heparin Sodium 5,000 UNIT Q8 01/23 0600 AC 01/26 (Porcine) SC 0520 Ipratropium [place] 2.5 ML TID 01/23 1000 AC 01/26 INH 0855 Magnesium Sulfate 1 GM Q2H 01/26 0545 DC 01/26 Dextrose/Water 100 ML IV 01/26 0944 0729 Oxycodone HCl 10 MG Q6P PRN 01/23 0015 AC PO Pantoprazole Sodium 40 MG DAILY 01/23 1000 AC 01/25 IV 1023 Polyethylene Glycol 17 GM DAILY 01/25 1158 AC 01/25 PO 1427 Potassium Chloride 20 MEQ Q1H 01/26 0115 DC 01/26 IV 01/26 0216 0222 Potassium Chloride 40 MEQ ONCE ONE 01/25 1800 DC 01/25 PO 01/25 1801 1816 Potassium Chloride 10 MEQ Q1H 01/25 1745 DC IV 01/25 1846 Propofol 1,000 MG Q12H 01/25 0915 AC 01/26 N/A 100 ML IV 0557 Sodium Bicarbonate 150 MEQ Q20H 01/25 1130 DC 01/25 Dextrose/Water 850 ML IV 1136 Sodium Bicarbonate 25 MEQ ONCE ONE 01/25 1100 DC 01/25 IV 01/25 1101 1100 Sodium Bicarbonate 75 MEQ Q10H 01/25 1045 CAN Dextrose/Sodium 1,000 ML IV Chloride Sodium Chloride 1,000 ML Q20H 01/25 0930 DC 01/25 IV 0930 Vancomycin HCl 1,000 MG DAILY 01/24 0400 AC 01/25 Sodium Chloride 250 ML IV 1022 Vital Signs & I&O Last 24 Hrs of Vitals and I&O: Vital Signs Date Time Temp Pulse Resp B/P Pulse O2 O2 Flow FiO2 Ox Delivery Rate 01/26 0849 35 01/26 0553 35 01/26 0400 92 Ventilator 35% 01/26 0312 35 01/26 0202 60 161/71 01/26 0010 35 01/26 0000 98.3 66 16 162/82 97 Ventilator 35% 01/26 0000 97 Ventilator 35% 01/25 2224 35 01/25 2000 99 Ventilator 35% 01/25 1956 35 01/25 1622 35 01/25 1600 97.2 71 22 152/72 96 Ventilator 35% 01/25 1600 96 Ventilator 35% 01/25 1436 35 01/25 1200 97 Ventilator 35% 01/25 1120 35 Intake & Output 01/26 1600 01/26 0800 01/26 0000 Intake Total 519 481 Output Total 530 620 Balance -11 -139 Intake, IV 479 481 Intake, Oral 0 Intake, Other 40 Number 0 Bowel Movements Output, 30 20 Gastric Drainage Output, Urine 500 600 Oxygen saturation 92% 35% FiO2 to have his chest showed scattered rhonchi cardiac exam shows a regular S1 and S2 abdomen is soft nontender. Impression/Plan Impression/Plan Impression/Plan: 81-year-old gentleman status post respiratory failure septic shock for staph pneumonia has improved CHF and hyperchloremic metabolic acidosis. Recommendations: Continue sedation. Minimize the fluids. Decreased respiratory rate to 14 and tidal volume to 500cc and repeat arterial blood gases in 1-2 hours. Continue negative fluid balance. Weaning does not appear feasible at this time would begin enteral nutrition
--- NOTE | 2017-01-26 14:27 | PN- Cardiology ---
Subjective Subjective: Clinically about the same. The nurses note that the patient has slightly increased respiratory distress today. No other significant changes. No new obvious cardiac issues. Objective Vital Signs and I&Os Vital Signs Date Time Temp Pulse Resp B/P Pulse O2 O2 Flow FiO2 Ox Delivery Rate 01/26 1327 35 01/26 1048 65 158/74 01/26 1048 65 158/74 01/26 1041 35 01/26 0849 35 01/26 0553 35 01/26 0400 92 Ventilator 35% 01/26 0312 35 01/26 0202 60 161/71 01/26 0010 35 01/26 0000 98.3 66 16 162/82 97 Ventilator 35% 01/26 0000 97 Ventilator 35% 01/25 2224 35 01/25 2000 99 Ventilator 35% 01/25 1956 35 01/25 1622 35 01/25 1600 97.2 71 22 152/72 96 Ventilator 35% 01/25 1600 96 Ventilator 35% 01/25 1436 35 Intake & Output 01/26 1600 01/26 0800 01/26 0000 01/25 1600 01/25 0800 01/25 0000 Intake Total 958 694 8004 1124 1248 Output Total 340 087 1593 565 490 Balance -11 -139 -1055 559 758 Intake, IV 906 252 7049 1124 1248 Intake, Oral 0 Intake, Other 40 Number 0 Bowel Movements Output, 30 20 100 50 Gastric Drainage Output, Urine 498 002 3997 515 490 Patient 148 lb Weight Current Medications: Current Medications Sig/Fatou Start time Last Medication Dose Route Stop Time Status Admin Acetaminophen 650 MG Q6P PRN 01/23 0015 AC PO Acetaminophen/ 1 TAB Q6P PRN 01/23 0015 AC Hydrocodone Bitart PO Albuterol Sulfate 3 ML TID 01/23 1000 AC 01/26 INH 1332 Amlodipine Besylate 10 MG DAILY 01/26 1000 AC 01/26 PO 1048 Carvedilol 3.125 MG BID 01/26 0130 AC 01/26 PO 1048 Ceftazidime 1,000 MG Q12 01/23 2200 AC 01/26 IV 1048 Furosemide 20 MG ONCE ONE 01/26 1030 DC 01/26 IV 01/26 1031 1048 Guaifenesin 10 ML Q4P PRN 01/23 0615 AC PO Heparin Sodium 5,000 UNIT Q8 01/23 06 AC 01/26 (Porcine) SC 1323 Ipratropium [place] 2.5 ML TID 01/23 1000 AC 01/26 INH 1332 Lorazepam 1 MG ONE PRN 01/26 1245 AC 01/26 IV 01/26 1800 1255 Magnesium Sulfate 1 GM Q2H 01/26 0545 DC 01/26 Dextrose/Water 100 ML IV 01/26 0944 0729 Oxycodone HCl 10 MG Q6P PRN 01/23 0015 AC PO Pantoprazole Sodium 40 MG DAILY 01/23 1000 AC 01/26 IV 1048 Polyethylene Glycol 17 GM DAILY 01/25 1158 AC 01/26 PO 1048 Potassium Chloride 20 MEQ Q1H 01/26 0115 DC 01/26 IV 01/26 0216 0222 Potassium Chloride 40 MEQ ONCE ONE 01/25 1800 DC 01/25 PO 01/25 1801 1816 Potassium Chloride 10 MEQ Q1H 01/25 1745 DC IV 01/25 1846 Propofol 1,000 MG Q12H 01/25 0915 AC 01/26 N/A 100 ML IV 0557 Sodium Bicarbonate 150 MEQ Q20H 01/25 1130 DC 01/25 Dextrose/Water 850 ML IV 1136 Vancomycin HCl 1,000 MG DAILY 01/24 0400 AC 01/26 Sodium Chloride 250 ML IV 1048 Results Last 48 Hrs of Labs/Mics: Laboratory Tests 01/26/17 1210: pH 7.49 H, pCO2 28 L, pO2 73 L, HCO3 21, ABG O2 Sat (Measured) 95.0 L, P-50 (Temp Corrected) N, Carboxyhemoglobin 0.3 L, O2 Concentration % 35%, Respiration Rate 14, O2 Delivery Method VENT, Vent Mode AC, Expiratory Pressure 5, Tidal Volume 500, Pressure Support 0, Phlebotomy Draw Site RIGHT RADIAL 01/26/17 0430: Anion Gap 10, Estimated GFR > 60, Glucose 81, Calcium 8.3 L, Phosphorus 3.1, Magnesium 1.4 L, Total Bilirubin 0.7, AST 46, ALT 54, Albumin 2.3 L, CBC w Diff NO MAN DIFF REQ, RBC 2.93 L, MCV 84.9, MCH 29.0, RDW 17.6 H, MPV 8.3, Gran % 70.1, Lymphocytes % 16.6 L, Monocytes % 6.9, Eosinophils % 5.9 H, Basophils % 0.5, Absolute Granulocytes 2.9, Absolute Lymphocytes 0.7 L, Absolute Monocytes 0.3, Absolute Eosinophils 0.2, Absolute Basophils 0, PUBS MCHC 34.1 01/26/17 0115: pH 7.52 H, pCO2 23 L, pO2 75 L, HCO3 18 L, ABG O2 Sat (Measured) 95.0 L, P- 50 (Temp Corrected) Y, Carboxyhemoglobin 0.3 L, O2 Concentration % 35%, Temperature 98.3, Respiration Rate 16, O2 Delivery Method ESPRIT, Vent Mode AC, Expiratory Pressure 5, Tidal Volume 550, Phlebotomy Draw Site RIGHT RADIAL 01/26/17 0005: Anion Gap 12, Estimated GFR > 60, BUN/Creatinine Ratio 18.9 01/25/17 1845: pH 7.48 H, pCO2 24 L, pO2 74 L, HCO3 18 L, ABG O2 Sat (Measured) 95.0 L, P- 50 (Temp Corrected) Y, Carboxyhemoglobin 0.2 L, O2 Concentration % 35%, Temperature 97.8, Respiration Rate 20, O2 Delivery Method VENT, Vent Mode CMV, Expiratory Pressure 5, Tidal Volume 550, Phlebotomy Draw Site RIGHT RADIAL 01/25/17 1610: Anion Gap 13, Estimated GFR > 60, BUN/Creatinine Ratio 20.0, Troponin I 0.40 *H 01/25/17 1010: Troponin I 0.47 *H, She-I-[id number] Pept 83108 H 01/25/17 1000: pH 7.34 L, pCO2 26 L, pO2 80, HCO3 14 L, ABG O2 Sat (Measured) 95.0 L, P-50 (Temp Corrected) N, Carboxyhemoglobin 0.3 L, O2 Concentration % 35%, Respiration Rate 20, O2 Delivery Method VENT, Vent Mode AC, Expiratory Pressure 5, Tidal Volume 550, Pressure Support 0, Phlebotomy Draw Site RIGHT RADIAL 01/25/17 0500: Anion Gap 13, Estimated GFR > 60, Glucose 78, Calcium 8.5, Phosphorus 2.9, Magnesium 1.7, Total Bilirubin 0.8, AST 26, ALT 42, Troponin I 0.40 *H, Albumin 2.7 L, CBC w Diff NO MAN DIFF REQ, RBC 3.21 L, MCV 85.7, MCH 28.5, RDW 18.1 H , MPV 8.4, Gran % 78.5 H, Lymphocytes % 12.4 L, Monocytes % 5.8, Eosinophils % 3.0, Basophils % 0.3, Absolute Granulocytes 5.7, Absolute Lymphocytes 0.9 L, Absolute Monocytes 0.4, Absolute Eosinophils 0.2, Absolute Basophils 0, PUBS MCHC 33.3 Assessment/Plan Assessment/Plan Assessment: 1. Elevated troponin-the patient's morning troponin is decreasing, the most likely etiology is demand ischemia, however, the possibility of underlying true ischemia, etc. cannot be excluded. 2. Respiratory failure related to multilobar pneumonia; rule out possible aspiration 3. Hypertension 4. Acute renal insufficiency 5. Metabolic acidosis 6. Thrombocytopenia 7. History of seizures 8. Anemia 9. History of coronary artery disease 10. History of dementia Recommendations: -Repeat ECG again in the morning -At the present time, since this is likely demand ischemia, I would hesitate to institute IV heparin, especially in view of the patient's significant anemia. -Discussed with the medical house staff -If tolerated by the patient's blood pressure, I would attempt to give Lasix 20 mg IV again today for maintenance of a negative fluid balance. Despite the fact that the patient diuresed well yesterday, the patient received more than 2500 mL input. -Reassess in 24 hours Continue telemetry? Yes
[2017-01-26 16:00] VITALS: BP 130/62
[2017-01-27] VITALS: BP 164/72
[2017-01-27 06:05] LABS: ABSOLUTE BASOPHIL COUNT 0 /CUMM (0.0-0.2); ABSOLUTE EOSINOPHIL COUNT 0.3 /CUMM (0.0-0.7); ABSOLUTE GRANULOCYTE CT 3.1 /CUMM (1.4-6.5); ABSOLUTE LYMPH COUNT 0.9 /CUMM (1.2-3.4); ABSOLUTE MONOCYTE COUNT 0.4 /CUMM (0.10-0.60); BASOPHIL % 0.3 % (0.0-2.0); GRANULOCYTE % 67.2 % (42.2-75.2); HEMATOCRIT 25.5 % (42-52); MEAN CORPUSCULAR HGB 28.3 PG (27.0-31.0); MEAN CORPUSCULAR HGB CONC 33.3 G/DL (33.0-37.0); MEAN PLATELET VOLUME 7.3 FL (7.4-10.4); PLATELET COUNT 168 /CUMM (130-400); RBC DISTRIBUTION WIDTH 17.9 % (11.5-14.5); WHITE BLOOD CELL COUNT 4.7 /CUMM (4.8-10.8)
--- NOTE | 2017-01-27 06:45 | PN- Resident CRCU ---
Subjective HPI/CRCU Issues: was seen and examined this morning. He is resting comfortably in bed. He continues to be sedated. Minimally responsive however able to follow verbal commands. Overnight there were no acute events. He is currently intubated. Objective Vital Signs & I&O Last 8 Hrs of Vitals and I&O: Blood pressure: 108/57 to 182/85 Respirations 28-14 Heart rate 84-60. NSR Temperature 98.1 - 97.9 Urine output 110-450 SAS between 3 and 5propofol 6.1-12.3 Exam General Appearance: well developed/nourished, no apparent distress, sedated, intubated Head: atraumatic Neck: normal inspection Respiratory: normal breath sounds Cardiovascular: regular rate/rhythm Gastrointestinal: normal bowel sounds, soft, non-tender, Hyperactive BS+ Extremities: normal inspection, normal capillary refill, no edema Weaning Parameters NIF: 35 Minute Volume: 8.45 Resp rate: 14 Vt: 589 Heart Rate: 67 Weaning Schedule Start Time: 0920 Minute Volume: 7.43 Resp Rate: 16 Vt: 500 Heart Rate: 67 End Time: 1030 Minute Volume: 8.95 Resp Rate: 23 Vt: 385 Heart Rate: 74 Current Medications: Current Medications Sig/Fatou Start time Last Medication Dose Route Stop Time Status Admin Acetaminophen 650 MG Q6P PRN 01/23 0015 AC PO Acetaminophen/ 1 TAB Q6P PRN 01/23 0015 AC Hydrocodone Bitart PO Albuterol Sulfate 3 ML TID 01/23 1000 AC 01/27 INH 0827 Amlodipine Besylate 10 MG DAILY 01/26 1000 AC 01/26 PO 1048 Ampicillin Sodium/ 1,500 MG Q6 01/27 1200 AC Sulbactam Sodium IV Sodium Chloride 100 ML Carvedilol 3.125 MG BID 01/26 0130 AC 01/26 PO 2305 Ceftazidime 1,000 MG Q12 01/23 2200 DC 01/26 IV 2305 Guaifenesin 10 ML Q4P PRN 01/23 0615 AC PO Heparin Sodium 5,000 UNIT Q8 01/23 0600 AC 01/27 (Porcine) SC 0551 Ipratropium [place] 2.5 ML TID 01/23 1000 AC 01/27 INH 0827 Lorazepam 1 MG ONCE ONE 01/27 0015 DC 01/27 IV 01/27 0016 0026 Lorazepam 1 MG ONE PRN 01/26 1245 DC 01/26 IV 01/26 1800 1255 Magnesium Oxide 400 MG ONE ONE 01/27 0930 DC PO 01/27 0931 Magnesium Oxide 400 MG ONE ONE 01/27 0745 CAN PO 01/27 0746 Oxycodone HCl 10 MG Q6P PRN 01/23 0015 AC PO Pantoprazole Sodium 40 MG DAILY 01/23 1000 AC 01/26 IV 1048 Polyethylene Glycol 17 GM DAILY 01/25 1158 AC 01/26 PO 1048 Potassium Chloride 20 MEQ ONCE ONE 01/27 1200 CAN PO 01/27 1201 Potassium Chloride 40 MEQ ONCE ONE 01/27 0930 DC PO 01/27 0931 Potassium Chloride 20 MEQ ONCE ONE 01/27 0745 CAN PO 01/27 0746 Potassium Chloride 20 MEQ Q1H 01/27 0730 DC IV 01/27 0831 Propofol 1,000 MG Q12H 01/25 0915 DC 01/27 N/A 100 ML IV 0400 Vancomycin HCl 1,000 MG DAILY 01/24 0400 DC 01/26 Sodium Chloride 250 ML IV 1048 CXR Findings: IMPRESSION: 1. Endotracheal tube tip 5 cm above the paco. 2. Enteric tube courses into the abdomen with tip not included. 3. Right jugular central venous line is in the proximal superior vena cava. No pneumothorax is seen. 4. Mild pulmonary edema with small bilateral pleural effusions and associated bibasilar atelectatic changes. Findings are slightly progressed compared to the prior exam. DICTATED BY: ADRIEL CHAVES,EUNICE Ramirez Impression/Plan Impression/Problem List Impression: Mr Valdovinos is a 81 year old gentlemen with a PMH of has a history of coronary artery disease, COPD, hypertension, BPH, carotid stenosis, dementia, history of cerebellar stroke and a recent admission to [facility] approximately 4 weeks ago where he was treated for pneumonia who presented to the emergency department on 01/22/2017 after he was found to be febrile (T Max 100.9) and desaturating while at extended care facility. Problem List: #Respiratory failure likely due to multilobar pneumonia #Coronary artery disease with elevated troponins possibly attributed to demand ischemia #Acute kidney injury #Anemia #History of COPD #History of seizure disorder #History of stroke Recio day # 5 Currently Intubated. Day 5 Ventilator Settings: Rate 14. TV: 500. PEEP 5. FiO2 35. PSV: 6 Respiratory Continue broad-spectrum antibiotics of ceftazidime and vancomycin. Vancomycin 1 g per 24 hours. Ceftazidime 1 g every 12 hours, these have been discontinued. Patient has been started on IV Unasyn 1500 mg every 6. Viral influenza: Negative Follow-up blood cultures. Follow-up chest x-ray obtained which confirmed OG tube placement. 01/24/2017. We attempted to extubate the patient, however ABG after two hours, showed, parameters unacceptable. Extubation, unsuccessful. 01/27/2017: We attempted to extubate the patient,unsuccessful.Will attempt again in the evening. Cardiovascular Patient had to be started again on levo fed running at 2 MCG per minute. Initial EKG did not show any ST segment changes or acute changes on EKG. initial troponins were within normal limits however repeat troponin showed elevations of 0.19, repeat troponins 01/24/2015: 1.69-->0.12. Troponins this morning did increase from 0.40-->0.47 we'll continue to trend troponins till they plateau. 10 AM EKG didn show some T-wave changes in V3. Subsequent EKGs have not shown any diffuse changes. ProBNP 12,700. Troponin: 0.40-->0.47-->0.40 A Bilaterral Doppler study was done to rule out DVT. These have been negative. Cardiology is on board. Echo done yeaterday, A followup study is suggested when the patient is more stable to reassess aortic and mitral valve function. Currently patient off pressors. 01/26/2017 Heparin was not started. Attempting to keep the patient negative fluid balance. Heme Current WBC on admission: 4.9. Repeat Value: 6.4 H&H on admission 10.2 and 30.1 respectively. Repeat 9.2 and 27.8, H/H: 8.2/ 24.0. H/H: 8.5/25.5 Patient was guaiac negative. Metabolic At the time of admission the patient was hyperkalemic with a potassium level of 5.5. Upon subsequent repeat of his labs these have normalized. We monitored his BUN and creatinine in the event of elevations but these have improved. Cr 3.5--> 0.8. BUN 54-->11 We'll continue to monitor and hold off on a nephrology consultation for now. Normal saline at 150 mL was reduced to 50 ml per hour and subsequently changed to D5 with perhaps of bicarbonate running at 15 mL/h an additional 25 mEq of bicarbonate IV was given. Patient likely developed metabolic acidosis. Patient is currently off fluids. Alimentary May advance to goal rate if not extubated. Once patient is regains mentation consider Swallow Evaluation. Neurology Intubated and sedated. Patient is able to follow basic commands. Other Records from [facility] have been received and are in the chart Diet: Tube Feeds, will advance to goal if not extubated. IVF: Refer to Above DVT ppx ALPS + Heparin Sub Q Code Full Code Problem List: 1. Dementia 2. Cerebellar stroke 3. Acute hypoxemic respiratory failure 4. Hypotension 5. Dehydration 6. Acute kidney injury 7. Respiratory failure Pain Ratin Tomorrow's Labs & Rationales: CBC ICU Plan DVT/Prophylaxis: pharmacological
[2017-01-27 08:00] VITALS: BP 128/60
--- NOTE | 2017-01-27 08:49 | RADIOLOGY REPORT ---
EXAMINATION: XR PORTABLE CHEST CLINICAL INFORMATION: On ventilator. Diuresis to decrease pulmonary edema. COMPARISON: Chest x-ray dated 01/26/2017 and multiple prior chest x-rays dating back to 01/22/2017. TECHNIQUE: Portable AP semierect view of the chest was obtained. FINDINGS: Endotracheal tube is in place with tip approximately 5 cm above the paco. An enteric tube is in place and is seen coursing into the abdomen with tip not included. A right jugular central venous line is in the proximal superior vena cava. Multiple EKG leads and the enteric tube are seen coiled over the chest, limiting assessment. Evaluation is also limited due to exclusion of the right CP angle from the image. The cardiac mediastinal silhouette is within normal limits in size. Prominence of the pulmonary arteries is seen, likely accentuated by patient rotation. There is, however, also pulmonary vascular indistinctness and some mild perihilar opacity present, consistent with pulmonary edema. Hazy opacities are seen in both lung bases, consistent with small layering pleural effusions. Superimposed atelectatic changes in the lung bases are suspected. Moderate degenerative changes are noted in the left acromioclavicular joint. IMPRESSION: 1. Endotracheal tube tip 5 cm above the paco. 2. Enteric tube courses into the abdomen with tip not included. 3. Right jugular central venous line is in the proximal superior vena cava. No pneumothorax is seen. 4. Mild pulmonary edema with small bilateral pleural effusions and associated bibasilar atelectatic changes. Findings are slightly progressed compared to the prior exam.
--- NOTE | 2017-01-27 08:53 | PN- CRCU ---
Subjective HPI/Critical Care Issues: Weekend events noted. The patient remains intubated on mechanical ventilation. He is minimally arousable, on propofol. The patient's oxygen level is down to 35%. He is afebrile and hemodynamically stable. He is tolerating tube feeds well. There were no overnight events reported. Objective Current Medications: Current Medications Sig/Fatou Start time Last Medication Dose Route Stop Time Status Admin Acetaminophen 650 MG Q6P PRN 01/23 0015 AC PO Acetaminophen/ 1 TAB Q6P PRN 01/23 0015 AC Hydrocodone Bitart PO Albuterol Sulfate 3 ML TID 01/23 1000 AC 01/27 INH 0827 Amlodipine Besylate 10 MG DAILY 01/26 1000 AC 01/26 PO 1048 Carvedilol 3.125 MG BID 01/26 0130 AC 01/26 PO 2305 Ceftazidime 1,000 MG Q12 01/23 2200 AC 01/26 IV 2305 Furosemide 20 MG ONCE ONE 01/26 1030 DC 01/26 IV 01/26 1031 1048 Guaifenesin 10 ML Q4P PRN 01/23 0615 AC PO Heparin Sodium 5,000 UNIT Q8 01/23 0600 AC 01/27 (Porcine) SC 0551 Ipratropium [place] 2.5 ML TID 01/23 1000 AC 01/27 INH 0827 Lorazepam 1 MG ONCE ONE 01/27 0015 DC 01/27 IV 01/27 0016 0026 Lorazepam 1 MG ONE PRN 01/26 1245 DC 01/26 IV 01/26 1800 1255 Magnesium Oxide 400 MG ONE ONE 01/27 0745 DC PO 01/27 0746 Magnesium Sulfate 1 GM Q2H 01/26 0545 DC 01/26 Dextrose/Water 100 ML IV 01/26 0944 0729 Oxycodone HCl 10 MG Q6P PRN 01/23 0015 AC PO Pantoprazole Sodium 40 MG DAILY 01/23 1000 AC 01/26 IV 1048 Polyethylene Glycol 17 GM DAILY 01/25 1158 AC 01/26 PO 1048 Potassium Chloride 20 MEQ ONCE ONE 01/27 1200 AC PO 01/27 1201 Potassium Chloride 20 MEQ ONCE ONE 01/27 0745 DC PO 01/27 0746 Potassium Chloride 20 MEQ Q1H 01/27 0730 DC IV 01/27 0831 Propofol 1,000 MG Q12H 01/25 0915 AC 01/27 N/A 100 ML IV 0400 Vancomycin HCl 1,000 MG DAILY 01/24 0400 AC 01/26 Sodium Chloride 250 ML IV 1048 Vital Signs & I&O Last 24 Hrs of Vitals and I&O: Vital Signs Date Time Temp Pulse Resp B/P Pulse O2 O2 Flow FiO2 Ox Delivery Rate 01/27 0818 35 01/27 0536 35 01/27 0400 94 Ventilator 35% 01/27 0222 35 01/27 0000 93 Ventilator 35% 01/27 0000 97.6 70 18 164/72 93 Ventilator 35% 01/26 2305 69 148/71 01/26 2250 35 01/26 2050 38 01/26 2000 98 Ventilator 35% 01/26 1632 35 01/26 1600 97.6 65 18 130/62 93 Ventilator 35% 01/26 1327 35 01/26 1048 65 158/74 01/26 1048 65 158/74 01/26 1041 35 01/26 0849 35 Intake & Output 01/27 1600 01/27 0800 01/27 0000 Intake Total 408 399 Output Total 1260 850 Balance -852 -451 Intake, IV 182 119 Intake, Tube 226 80 Feeding Intake, Tube 0 200 Irrigant Number 0 Bowel Movements Output, Urine 1260 850 Physical Exam General Appearance: no apparent distress, comfortable, sedated, intubated Head: atraumatic, normal appearance Neck: normal inspection, supple Respiratory: normal breath sounds, chest non-tender, no respiratory distress Cardiovascular: regular rate/rhythm, systolic murmur Gastrointestinal: normal bowel sounds, soft, non-tender, no organomegaly Extremities: no edema Results Last 24 Hrs of Lab Results: Laboratory Tests 01/27/17 0530: Anion Gap 10, Estimated GFR > 60, Glucose 88, Calcium 8.2 L, Phosphorus 4.2, Magnesium 1.6, Total Bilirubin 0.6, AST 27, ALT 49, Albumin 2.4 L, CBC w Diff NO MAN DIFF REQ, RBC 3.00 L, MCV 85.0, MCH 28.3, RDW 17.9 H, MPV 7.3 L, Gran % 67.2, Lymphocytes % 18.2 L, Monocytes % 8.3, Eosinophils % 6.0 H, Basophils % 0.3, Absolute Granulocytes 3.1, Absolute Lymphocytes 0.9 L, Absolute Monocytes 0.4, Absolute Eosinophils 0.3, Absolute Basophils 0, PUBS MCHC 33.3 01/26/17 1210: pH 7.49 H, pCO2 28 L, pO2 73 L, HCO3 21, ABG O2 Sat (Measured) 95.0 L, P-50 (Temp Corrected) N, Carboxyhemoglobin 0.3 L, O2 Concentration % 35%, Respiration Rate 14, O2 Delivery Method VENT, Vent Mode AC, Expiratory Pressure 5, Tidal Volume 500, Pressure Support 0, Phlebotomy Draw Site RIGHT RADIAL Impression/Plan Impression/Plan Impression/Plan: 1. Respiratory failure secondary to multilobar lobar pneumonia, sputum culture positive for MSSA. Aspiration needs to be excluded once the patient is extubated. 2. Fluid overload, improved. 3. Acute kidney injury, resolved. 4. Positive troponin. 5. Anemia without evidence of bleeding, may be dilutional, serum iron low. 6. History of chronic respiratory failure/COPD, on home oxygen at 2 L/m. 7. History of seizures. Recommendations: * Continue current ventilator settings. * Weaning trials to continue, will extubate if parameters are acceptable. * Continue to titrate oxygen down to maintain saturations greater than 92%. * Discontinue propofol. * Continue tube feeds, advance to goal if the patient is not extubated today. * Discontinue vancomycin and ceftazidime. * Start IV Unasyn. * Continue DVT and GI prophylaxis - vent bundle at all times. * The patient remains critically ill and requires close follow-up.
--- NOTE | 2017-01-27 11:44 | PN- Cardiology ---
Subjective Subjective: The patient remains intubated. He is awake and alert on the ventilator. He is not able to give any history. Objective Vital Signs and I&Os Vital Signs Date Time Temp Pulse Resp B/P Pulse O2 O2 Flow FiO2 Ox Delivery Rate 01/27 0818 35 01/27 0800 95 Ventilator 35% 01/27 0536 35 01/27 0400 94 Ventilator 35% 01/27 0222 35 01/27 0000 93 Ventilator 35% 01/27 0000 97.6 70 18 164/72 93 Ventilator 35% 01/26 2305 69 148/71 01/26 2250 35 01/26 2050 38 01/26 2000 98 Ventilator 35% 01/26 1632 35 01/26 1600 97.6 65 18 130/62 93 Ventilator 35% 01/26 1327 35 Intake & Output 01/27 1600 01/27 0800 01/27 0000 01/26 1600 01/26 0800 01/26 0000 Intake Total 408 399 828 519 481 Output Total 0999 130 2704 530 620 Balance -852 -451 -1172 -11 -139 Intake, IV 182 119 568 479 481 Intake, Oral 0 0 Intake, Other 260 40 Intake, Tube 226 80 Feeding Intake, Tube 0 200 Irrigant Number 0 0 0 Bowel Movements Output, 200 30 20 Gastric Drainage Output, Urine 3457 029 0583 500 600 Physical Exam: Gen: NAD HEENT: normal Lungs: Movement on the ventilator, normal resp. effort Heart: RRR, S1, S2, 2/6 systolic murmur Abdomen: Soft, nontender, no masses Extremities: No clubbing, cyanosis, or edema. Neuro: Alert and oriented x 3, cranial nerves intact Current Medications: Current Medications Sig/Fatou Start time Last Medication Dose Route Stop Time Status Admin Acetaminophen 650 MG Q6P PRN 01/23 0015 AC PO Acetaminophen/ 1 TAB Q6P PRN 01/23 0015 AC Hydrocodone Bitart PO Albuterol Sulfate 3 ML TID 01/23 1000 AC 01/27 INH 0827 Amlodipine Besylate 10 MG DAILY 01/26 1000 AC 01/26 PO 1048 Ampicillin Sodium/ 1,500 MG Q6 01/27 1200 AC Sulbactam Sodium IV Sodium Chloride 100 ML Carvedilol 3.125 MG BID 01/26 0130 AC 01/26 PO 2305 Ceftazidime 1,000 MG Q12 01/23 2200 DC 01/26 IV 2305 Guaifenesin 10 ML Q4P PRN 01/23 0615 AC PO Heparin Sodium 5,000 UNIT Q8 01/23 0600 AC 01/27 (Porcine) SC 0551 Ipratropium [place] 2.5 ML TID 01/23 1000 AC 01/27 INH 0827 Lorazepam 1 MG ONCE ONE 01/27 0015 DC 01/27 IV 01/27 0016 0026 Lorazepam 1 MG ONE PRN 01/26 1245 DC 01/26 IV 01/26 1800 1255 Magnesium Oxide 400 MG ONE ONE 01/27 0930 DC PO 01/27 0931 Magnesium Oxide 400 MG ONE ONE 01/27 0745 CAN PO 01/27 0746 Oxycodone HCl 10 MG Q6P PRN 01/23 0015 AC PO Pantoprazole Sodium 40 MG DAILY 01/23 1000 AC 01/26 IV 1048 Polyethylene Glycol 17 GM DAILY 01/25 1158 AC 01/26 PO 1048 Potassium Chloride 20 MEQ ONCE ONE 01/27 1200 CAN PO 01/27 1201 Potassium Chloride 40 MEQ ONCE ONE 01/27 0930 DC PO 01/27 0931 Potassium Chloride 20 MEQ ONCE ONE 01/27 0745 CAN PO 01/27 0746 Potassium Chloride 20 MEQ Q1H 01/27 0730 DC IV 01/27 0831 Propofol 1,000 MG Q12H 01/25 0915 DC 01/27 N/A 100 ML IV 0400 Vancomycin HCl 1,000 MG DAILY 01/24 0400 DC 01/26 Sodium Chloride 250 ML IV 1048 Results Last 48 Hrs of Labs/Mics: Laboratory Tests 01/27/17 0530: Anion Gap 10, Estimated GFR > 60, Glucose 88, Calcium 8.2 L, Phosphorus 4.2, Magnesium 1.6, Total Bilirubin 0.6, AST 27, ALT 49, Albumin 2.4 L, CBC w Diff NO MAN DIFF REQ, RBC 3.00 L, MCV 85.0, MCH 28.3, RDW 17.9 H, MPV 7.3 L, Gran % 67.2, Lymphocytes % 18.2 L, Monocytes % 8.3, Eosinophils % 6.0 H, Basophils % 0.3, Absolute Granulocytes 3.1, Absolute Lymphocytes 0.9 L, Absolute Monocytes 0.4, Absolute Eosinophils 0.3, Absolute Basophils 0, PUBS MCHC 33.3 01/26/17 1210: pH 7.49 H, pCO2 28 L, pO2 73 L, HCO3 21, ABG O2 Sat (Measured) 95.0 L, P-50 (Temp Corrected) N, Carboxyhemoglobin 0.3 L, O2 Concentration % 35%, Respiration Rate 14, O2 Delivery Method VENT, Vent Mode AC, Expiratory Pressure 5, Tidal Volume 500, Pressure Support 0, Phlebotomy Draw Site RIGHT RADIAL 01/26/17 0430: Anion Gap 10, Estimated GFR > 60, Glucose 81, Calcium 8.3 L, Phosphorus 3.1, Magnesium 1.4 L, Total Bilirubin 0.7, AST 46, ALT 54, Albumin 2.3 L, CBC w Diff NO MAN DIFF REQ, RBC 2.93 L, MCV 84.9, MCH 29.0, RDW 17.6 H, MPV 8.3, Gran % 70.1, Lymphocytes % 16.6 L, Monocytes % 6.9, Eosinophils % 5.9 H, Basophils % 0.5, Absolute Granulocytes 2.9, Absolute Lymphocytes 0.7 L, Absolute Monocytes 0.3, Absolute Eosinophils 0.2, Absolute Basophils 0, PUBS MCHC 34.1 01/26/17 0115: pH 7.52 H, pCO2 23 L, pO2 75 L, HCO3 18 L, ABG O2 Sat (Measured) 95.0 L, P- 50 (Temp Corrected) Y, Carboxyhemoglobin 0.3 L, O2 Concentration % 35%, Temperature 98.3, Respiration Rate 16, O2 Delivery Method ESPRIT, Vent Mode AC, Expiratory Pressure 5, Tidal Volume 550, Phlebotomy Draw Site RIGHT RADIAL 01/26/17 0005: Anion Gap 12, Estimated GFR > 60, BUN/Creatinine Ratio 18.9 01/25/17 1845: pH 7.48 H, pCO2 24 L, pO2 74 L, HCO3 18 L, ABG O2 Sat (Measured) 95.0 L, P- 50 (Temp Corrected) Y, Carboxyhemoglobin 0.2 L, O2 Concentration % 35%, Temperature 97.8, Respiration Rate 20, O2 Delivery Method VENT, Vent Mode CMV, Expiratory Pressure 5, Tidal Volume 550, Phlebotomy Draw Site RIGHT RADIAL 01/25/17 1610: Anion Gap 13, Estimated GFR > 60, BUN/Creatinine Ratio 20.0, Troponin I 0.40 *H Recent Imaging Studies: Chest x-ray: 1. Endotracheal tube tip 5 cm above the paco. 2. Enteric tube courses into the abdomen with tip not included. 3. Right jugular central venous line is in the proximal superior vena cava. No pneumothorax is seen. 4. Mild pulmonary edema with small bilateral pleural effusions and associated bibasilar atelectatic changes. Findings are slightly progressed compared to the prior exam. Assessment/Plan Assessment/Plan Assessment: 1. Mild troponin elevation, likely demand ischemia 2. Respiratory failure related to multilobar pneumonia; rule out possible aspiration 3. Hypertension 4. Acute renal insufficiency 5. Metabolic acidosis 6. Thrombocytopenia 7. History of seizures 8. Anemia 9. History of coronary artery disease 10. History of dementia Plan: * Would give an additional 20 mg of IV Lasix today. * Monitor input and output * Check basic metabolic profile daily. Continue telemetry? Yes
[2017-01-27 15:33] VITALS: BP 130/76
[2017-01-28] VITALS: BP 100/60
[2017-01-28 04:45] LABS: ABSOLUTE BASOPHIL COUNT 0 /CUMM (0.0-0.2); ABSOLUTE EOSINOPHIL COUNT 0.2 /CUMM (0.0-0.7); ABSOLUTE GRANULOCYTE CT 3.4 /CUMM (1.4-6.5); ABSOLUTE MONOCYTE COUNT 0.4 /CUMM (0.10-0.60); BASOPHIL % 0.7 % (0.0-2.0); EOSINOPHIL % 4.4 % (0-5); GRANULOCYTE % 67.5 % (42.2-75.2); HEMATOCRIT 28.1 % (42-52); MEAN CORPUSCULAR HGB 28.4 PG (27.0-31.0); MEAN CORPUSCULAR HGB CONC 33.5 G/DL (33.0-37.0); MEAN CORPUSCULAR VOLUME 84.9 FL (80.0-94.0); MEAN PLATELET VOLUME 7.4 FL (7.4-10.4); PLATELET COUNT 179 /CUMM (130-400); RBC DISTRIBUTION WIDTH 17.3 % (11.5-14.5); RED BLOOD CELL CT 3.31 /CUMM (4.70-6.10); WHITE BLOOD CELL COUNT 5.1 /CUMM (4.8-10.8)
--- NOTE | 2017-01-28 06:55 | PN- Resident CRCU ---
Subjective HPI/CRCU Issues: Mr. Valdovinos was seen and examined this morning. He is resting comfortably in bed. Overnight there were no acute issues reported. He is off sedation. He is alert and able to follow verbal and motor commands. He is unable to elicit that he is in any pain or discomfort. He remains intubated. 24 Hour Events: No Events reported Objective Vital Signs & I&O Last 8 Hrs of Vitals and I&O: BP: 164/76-99/51 Respiratory rate: 12-35 Heart rate between 58 and 84. Normal sinus rhythm. T: 98.3. Urine output between 10-600 mL per hour. Exam General Appearance: well developed/nourished, alert, awake, intubated Neck: normal inspection Respiratory: Increased breath sounds Cardiovascular: regular rate/rhythm Gastrointestinal: normal bowel sounds, soft, non-tender Extremities: normal inspection, normal capillary refill Cranial Nerves: normal hearing Skin: intact Weaning Parameters NIF: 35 Minute Volume: 9.98 Resp rate: 20 Vt: 499 Heart Rate: 66 Weaning Schedule Start Time: 09 Minute Volume: 12.6 Resp Rate: 27 Vt: 467 Heart Rate: 67 End Time: 1033 Minute Volume: 13.4 Resp Rate: 25 Vt: 536 Heart Rate: 72 Start Time: 1033 Resp Rate: 20 Heart Rate: 71 End Time: 1105 Resp Rate: 40 Heart Rate: 72 Current Medications: Current Medications Sig/Fatou Start time Last Medication Dose Route Stop Time Status Admin Acetaminophen 650 MG Q6P PRN 01/23 0015 AC PO Acetaminophen/ 1 TAB Q6P PRN 01/23 0015 AC Hydrocodone Bitart PO Albuterol Sulfate 3 ML TID 01/23 1000 AC 01/28 INH 0811 Amlodipine Besylate 10 MG DAILY 01/26 1000 AC 01/28 PO 1028 Ampicillin Sodium/ 1,500 MG Q6 01/27 1200 AC 01/28 Sulbactam Sodium IV 0541 Sodium Chloride 100 ML Aripiprazole 10 MG DAILY 01/27 1828 AC 01/27 PO 2147 Ascorbic Acid 250 MG DAILY 01/27 1918 AC 01/28 PO 1028 Carvedilol 3.125 MG BID 01/26 0130 AC 01/28 PO 1028 Furosemide 20 MG ONCE ONE 01/27 1215 DC 01/27 IV 01/27 1216 1245 Guaifenesin 10 ML Q4P PRN 01/23 0615 AC PO Heparin Sodium 5,000 UNIT Q8 01/23 0600 AC 01/28 (Porcine) SC 0541 Ipratropium [place] 2.5 ML TID 01/23 1000 AC 01/28 INH 0811 Magnesium Oxide 400 MG ONE ONE 01/28 0900 DC 01/28 PO 01/28 0901 1028 Multivitamins 1 TAB DAILY 01/27 1917 AC 01/28 PO 1028 Oxycodone HCl 10 MG Q6P PRN 01/23 0015 AC PO Pantoprazole Sodium 40 MG DAILY 01/23 1000 AC 01/28 IV 1029 Polyethylene Glycol 17 GM DAILY 01/25 1158 AC 01/27 PO 1148 Potassium Chloride 20 MEQ Q1H 01/28 0530 DC 01/28 IV 01/28 0631 0720 Sertraline HCl 200 MG DAILY 01/27 1829 AC 01/27 PO 2148 Trazodone HCl 150 MG QPM 01/27 2200 AC 01/27 PO 2154 Zinc Sulfate 220 MG DAILY 01/27 1918 AC 01/28 PO 1028 CXR Findings: IMPRESSION: 1. Endotracheal tube tip approximately 6 cm above the paco. 2. Enteric tube tip projected over the gastric fundus in the left upper quadrant. 3. Right jugular central venous line in the SVC. 4. Improved aeration in left lung base with residual opacities most consistent with subsegmental atelectasis. DICTATED BY: ADRIEL CHAVES,UENICE Ramirez Impression/Plan Impression/Problem List Impression: Mr Valdovinos is a 81 year old gentlemen with a PMH of has a history of coronary artery disease, COPD, hypertension, BPH, carotid stenosis, dementia, history of cerebellar stroke and a recent admission to [facility] approximately 4 weeks ago where he was treated for pneumonia who presented to the emergency department on 01/22/2017 after he was found to be febrile (T Max 100.9) and desaturating while at extended care facility. Problem List: #Respiratory failure likely due to multilobar pneumonia #Coronary artery disease with elevated troponins possibly attributed to demand ischemia #Acute kidney injury #Anemia #History of COPD #History of seizure disorder #History of stroke Recio day # 6 Currently Intubated. Day 6 Ventilator Settings: Rate 14. TV: 500. PEEP 5. Peak flow is 60. PSV: 6 % O2 35. Respiratory Continue broad-spectrum antibiotics of ceftazidime and vancomycin. Vancomycin 1 g per 24 hours. Ceftazidime 1 g every 12 hours, these have been discontinued. Patient has been started on IV Unasyn 1500 mg every 6. Patient to received a total of seven days of coverage. Today is day: 6 out of 7. Viral influenza: Negative Follow-up blood cultures. Follow-up chest x-ray obtained which confirmed OG tube placement. 01/24/2017. We attempted to extubate the patient, however ABG after two hours, showed, parameters unacceptable. Extubation, unsuccessful. 01/27/2017: We attempted to extubate the patient,unsuccessful and needed to be placed back on mechanical ventilation. 01/28/2017: We attempted to extubate the patient, unsuccessful. Cardiovascular Patient had to be started again on levo fed running at 2 MCG per minute. Initial EKG did not show any ST segment changes or acute changes on EKG. initial troponins were within normal limits however repeat troponin showed elevations of 0.19, repeat troponins 01/24/2015: 1.69-->0.12. Troponins this morning did increase from 0.40-->0.47 we'll continue to trend troponins till they plateau. 10 AM EKG didn show some T-wave changes in V3. Subsequent EKGs have not shown any diffuse changes. ProBNP 12,700. Troponin: 0.40-->0.47-->0.40 A Bilaterral Doppler study was done to rule out DVT. These have been negative. Cardiology is on board. Echo done yeaterday, A followup study is suggested when the patient is more stable to reassess aortic and mitral valve function. Heme Current WBC on admission: 4.9. Repeat Value: 6.4 H&H on admission 10.2 and 30.1 respectively. Repeat 9.2 and 27.8, H/H: 8.2/ 24.0. H/H: 9.4/28.1 Patient was guaiac negative. Metabolic At the time of admission the patient was hyperkalemic with a potassium level of 5.5. Upon subsequent repeat of his labs these have normalized. We monitored his BUN and creatinine in the event of elevations but these have improved. Cr 3.5--> 0.8. BUN 54-->13. We'll continue to monitor and hold off on a nephrology consultation for now. Normal saline at 150 mL was reduced to 50 ml per hour and subsequently changed to D5 with perhaps of bicarbonate running at 15 mL/h an additional 25 mEq of bicarbonate IV was given. Patient likely developed metabolic acidosis. Patient is currently off fluids. One time IV Lasix 20 mg was adminstered in attempt to improve fluid balance, this was confirmed with the critical care tipping machine operator automatic. Alimentary Once patient is extubated consider Swallow Evaluation. Neurology Intubated and alert. We began the patient on Sertaline 200 mg and Aripiprazole 10 mg, on 01/27/2017. These were the patients home medications. Patient is able to follow basic commands. Other [facility] from [facility] have been received and are in the chart Diet: Tube Feeds, currently at goal rate. IVF: Refer to Above DVT ppx ALPS + Heparin Sub Q Code Full Code Problem List: 1. Right lower lobe pneumonia 2. Dementia 3. Cerebellar stroke 4. Acute hypoxemic respiratory failure 5. Acute kidney injury 6. Pneumonia Pain Ratin Tomorrow's Labs & Rationales: CBC: ICU Bundle: Plan DVT/Prophylaxis: pharmacological
--- NOTE | 2017-01-28 07:24 | RADIOLOGY REPORT ---
EXAMINATION: XR PORTABLE CHEST CLINICAL INFORMATION: Patient currently intubated. Please confirm orogastric tube placement. COMPARISON: Multiple prior chest x-rays, most recent of which is dated 01/27/2017. TECHNIQUE: Portable AP semierect view of the chest was obtained. FINDINGS: Endotracheal tube is in place with tip approximately 5.8 cm above the paco. Enteric tube is in place with tip projected over the gastric fundus in the left upper quadrant. Right jugular central venous line is in place with tip in the proximal SVC. Cardiovascular silhouette is within normal limits in size. Calcification of the aortic arch is seen. There is improved aeration in the left lung base with persistent mild linear opacities seen, most consistent with subsegmental atelectasis. Remainder of the lungs clear. Right CP angle excluded from exam. No significant effusion. No pneumothorax. Osteopenia and multilevel degenerative changes in the spine are noted. There may be compression deformity in the mid lumbar spine, poorly assessed on this exam. Mild gaseous distention of bowel loops in the upper abdomen is seen. IMPRESSION: 1. Endotracheal tube tip approximately 6 cm above the paco. 2. Enteric tube tip projected over the gastric fundus in the left upper quadrant. 3. Right jugular central venous line in the SVC. 4. Improved aeration in left lung base with residual opacities most consistent with subsegmental atelectasis.
[2017-01-28 08:00] VITALS: BP 122/60
--- NOTE | 2017-01-28 08:54 | PN- CRCU ---
Subjective HPI/Critical Care Issues: The patient is awake, and remains intubated, on mechanical ventilation. He is off sedation. His oxygen levels are stable on 35%. The patient trialed well yesterday on CPAP, however at the end of the trial, he became hypertensive with an increased respiratory rate, requiring that he be placed back on mechanical ventilation. He is tolerating tube feeds well. He had multiple stools yesterday but no report of diarrhea. He is following commands and denies any discomfort. Objective Current Medications: Current Medications Sig/Fatou Start time Last Medication Dose Route Stop Time Status Admin Acetaminophen 650 MG Q6P PRN 01/23 0015 AC PO Acetaminophen/ 1 TAB Q6P PRN 01/23 0015 AC Hydrocodone Bitart PO Albuterol Sulfate 3 ML TID 01/23 1000 AC 01/28 INH 0811 Amlodipine Besylate 10 MG DAILY 01/26 1000 AC 01/27 PO 1148 Ampicillin Sodium/ 1,500 MG Q6 01/27 1200 AC 01/28 Sulbactam Sodium IV 0541 Sodium Chloride 100 ML Aripiprazole 10 MG DAILY 01/27 1828 AC 01/27 PO 2147 Ascorbic Acid 250 MG DAILY 01/27 1918 AC 01/27 PO 2147 Carvedilol 3.125 MG BID 01/26 0130 AC 01/27 PO 2150 Ceftazidime 1,000 MG Q12 01/23 2200 DC 01/26 IV 2305 Furosemide 20 MG ONCE ONE 01/27 1215 DC 01/27 IV 01/27 1216 1245 Guaifenesin 10 ML Q4P PRN 01/23 0615 AC PO Heparin Sodium 5,000 UNIT Q8 01/23 0600 AC 01/28 (Porcine) SC 0541 Ipratropium [place] 2.5 ML TID 01/23 1000 AC 01/28 INH 0811 Magnesium Oxide 400 MG ONE ONE 01/27 0930 DC 01/27 PO 01/27 0931 1148 Magnesium Oxide 400 MG ONE ONE 01/27 0745 CAN PO 01/27 0746 Multivitamins 1 TAB DAILY 01/27 1917 AC 01/27 PO 2147 Oxycodone HCl 10 MG Q6P PRN 01/23 0015 AC PO Pantoprazole Sodium 40 MG DAILY 01/23 1000 AC 01/27 IV 1149 Polyethylene Glycol 17 GM DAILY 01/25 1158 AC 01/27 PO 1148 Potassium Chloride 20 MEQ Q1H 01/28 0530 DC 01/28 IV 01/28 0631 0720 Potassium Chloride 20 MEQ ONCE ONE 01/27 1200 CAN PO 01/27 1201 Potassium Chloride 40 MEQ ONCE ONE 01/27 0930 DC 01/27 PO 01/27 0931 1148 Potassium Chloride 20 MEQ ONCE ONE 01/27 0745 CAN PO 01/27 0746 Propofol 1,000 MG Q12H 01/25 0915 DC 01/27 N/A 100 ML IV 0400 Sertraline HCl 200 MG DAILY 01/27 1829 AC 01/27 PO 2148 Trazodone HCl 150 MG QPM 01/27 2200 AC 01/27 PO 2154 Vancomycin HCl 1,000 MG DAILY 01/24 0400 DC 01/26 Sodium Chloride 250 ML IV 1048 Zinc Sulfate 220 MG DAILY 01/27 1918 AC 01/27 PO 2147 Vital Signs & I&O Last 24 Hrs of Vitals and I&O: Vital Signs Date Time Temp Pulse Resp B/P Pulse O2 O2 Flow FiO2 Ox Delivery Rate 01/28 0602 35 01/28 0400 93 Ventilator 35% 01/28 0336 35 01/28 0042 35 01/28 0000 96 Ventilator 35% 01/28 0000 97.6 60 14 100/60 96 Ventilator 35% 01/27 2246 35 01/27 2150 76 140/74 01/27 2000 94 Ventilator 35% 01/27 1950 35 01/27 1640 35 01/27 1547 100 Ventilator 35% 01/27 1533 97.6 82 10 130/76 100 Ventilator 35% 01/27 1344 35 01/27 1200 98 Ventilator 35% 01/27 1148 72 140/67 01/27 1148 69 140/67 01/27 1105 35 Intake & Output 01/28 1600 01/28 0800 01/28 0000 Intake Total 963 613 Output Total 200 1300 Balance 763 -687 Intake, IV 240 100 Intake, Oral 0 Intake, Tube 428 313 Feeding Intake, Tube 295 200 Irrigant Number 1 2 Bowel Movements Output, Urine 200 1300 Physical Exam General Appearance: no apparent distress, comfortable, sedated, intubated Head: atraumatic, normal appearance Neck: normal inspection, supple Respiratory: normal breath sounds, chest non-tender, no respiratory distress Cardiovascular: regular rate/rhythm, systolic murmur Gastrointestinal: normal bowel sounds, soft, non-tender, no organomegaly Extremities: no edema Results Last 24 Hrs of Lab Results: Laboratory Tests 01/28/17 0430: Anion Gap 10, Estimated GFR > 60, BUN/Creatinine Ratio 16.3, Magnesium 1.6, CBC w Diff NO MAN DIFF REQ, RBC 3.31 L, MCV 84.9, MCH 28.4, RDW 17.3 H, MPV 7.4, Gran % 67.5, Lymphocytes % 18.9 L, Monocytes % 8.5, Eosinophils % 4.4, Basophils % 0.7, Absolute Granulocytes 3.4, Absolute Lymphocytes 1.0 L, Absolute Monocytes 0.4, Absolute Eosinophils 0.2, Absolute Basophils 0, PUBS MCHC 33.5 Diagnostic Data CXR Findings: 1. Endotracheal tube tip approximately 6 cm above the paco. 2. Enteric tube tip projected over the gastric fundus in the left upper quadrant. 3. Right jugular central venous line in the SVC. 4. Improved aeration in left lung base with residual opacities most consistent with subsegmental atelectasis. Impression/Plan Impression/Plan Impression/Plan: 1. Respiratory failure secondary to multilobar lobar pneumonia, sputum culture positive for MSSA. Aspiration needs to be excluded once the patient is extubated. 2. Fluid overload, improved. 3. Acute kidney injury, resolved. 4. Positive troponin. 5. Anemia without evidence of bleeding, may be dilutional, serum iron low. 6. History of chronic respiratory failure/COPD, on home oxygen at 2 L/m. 7. History of seizures. Recommendations: * Continue current ventilator settings. * Electrolyte repletion underway. * Weaning trials to continue, will extubate if parameters are acceptable. * Maintain oxygen saturations greater than 92%. * Monitor off sedation. * Continue tube feeds at goal. * IV Unasyn - complete 7 day course of total antibiotics. * Continue DVT and GI prophylaxis - vent bundle at all times. * If the patient is not extubated today, will get him out of bed to chair. * Continue all supportive care.
--- NOTE | 2017-01-28 12:57 | PN- Cardiology ---
Subjective Subjective: The patient remains intubated. He is off sedation. Weaning trials yesterday were unsuccessful, and he was placed back on mechanical ventilation. He is receiving tube feeds. He is awake and follows commands. Objective Vital Signs and I&Os Vital Signs Date Time Temp Pulse Resp B/P Pulse O2 O2 Flow FiO2 Ox Delivery Rate 01/28 1028 64 132/64 01/28 1028 61 132/64 01/28 0815 35 01/28 0800 98.4 75 19 122/60 99 Ventilator 35% 01/28 0800 99 Ventilator 35% 01/28 0602 35 01/28 0400 93 Ventilator 35% 01/28 0336 35 01/28 0042 35 01/28 0000 96 Ventilator 35% 01/28 0000 97.6 60 14 100/60 96 Ventilator 35% 01/27 2246 35 01/27 2150 76 140/74 01/27 2000 94 Ventilator 35% 01/27 1950 35 01/27 1640 35 01/27 1547 100 Ventilator 35% 01/27 1533 97.6 82 10 130/76 100 Ventilator 35% 01/27 1344 35 Intake & Output 01/28 1600 01/28 0800 01/28 0000 01/27 1600 01/27 0800 01/27 0000 Intake Total 963 613 382 408 399 Output Total 200 1300 1200 1260 850 Balance 763 -687 -818 -852 -451 Intake, IV 240 100 152 182 119 Intake, Oral 0 0 Intake, Other 90 Intake, Tube 428 313 140 226 80 Feeding Intake, Tube 295 200 0 200 Irrigant Number 1 2 1 0 Bowel Movements Output, Urine 200 1300 1200 1260 850 Physical Exam: Gen: NAD HEENT: normal Lungs: Movement on the ventilator, normal resp. effort Heart: RRR, S1, S2, 2/6 systolic murmur Abdomen: Soft, nontender, no masses Extremities: No clubbing, cyanosis, or edema. Neuro: Alert and oriented x 3, cranial nerves intact Current Medications: Current Medications Sig/Fatou Start time Last Medication Dose Route Stop Time Status Admin Acetaminophen 650 MG Q6P PRN 01/23 0015 AC PO Acetaminophen/ 1 TAB Q6P PRN 01/23 0015 AC Hydrocodone Bitart PO Albuterol Sulfate 3 ML TID 01/23 1000 AC 01/28 INH 0811 Amlodipine Besylate 10 MG DAILY 01/26 1000 AC 01/28 PO 1028 Ampicillin Sodium/ 1,500 MG Q6 01/27 1200 AC 01/28 Sulbactam Sodium IV 1229 Sodium Chloride 100 ML Aripiprazole 10 MG DAILY 01/27 1828 AC 01/27 PO 2147 Ascorbic Acid 250 MG DAILY 01/27 1918 AC 01/28 PO 1028 Carvedilol 3.125 MG BID 01/26 0130 AC 01/28 PO 1028 Guaifenesin 10 ML Q4P PRN 01/23 0615 AC PO Heparin Sodium 5,000 UNIT Q8 01/23 0600 AC 01/28 (Porcine) SC 0541 Ipratropium [place] 2.5 ML TID 01/23 1000 AC 01/28 INH 0811 Magnesium Oxide 400 MG ONE ONE 01/28 0900 DC 01/28 PO 01/28 0901 1028 Multivitamins 1 TAB DAILY 01/27 191 AC 01/28 PO 1028 Oxycodone HCl 10 MG Q6P PRN 01/23 0015 AC PO Pantoprazole Sodium 40 MG DAILY 01/23 1000 AC 01/28 IV 1029 Polyethylene Glycol 17 GM DAILY 01/25 1158 DC 01/27 PO 1148 Potassium Chloride 20 MEQ Q1H 01/28 0530 DC 01/28 IV 01/28 0631 0720 Sertraline HCl 200 MG DAILY 01/27 182 AC 01/27 PO 2148 Trazodone HCl 150 MG QPM 01/27 2200 AC 01/27 PO 2154 Zinc Sulfate 220 MG DAILY 01/27 191 AC 01/28 PO 1028 Results Last 48 Hrs of Labs/Mics: Laboratory Tests 01/28/17 0430: Anion Gap 10, Estimated GFR > 60, BUN/Creatinine Ratio 16.3, Magnesium 1.6, CBC w Diff NO MAN DIFF REQ, RBC 3.31 L, MCV 84.9, MCH 28.4, RDW 17.3 H, MPV 7.4, Gran % 67.5, Lymphocytes % 18.9 L, Monocytes % 8.5, Eosinophils % 4.4, Basophils % 0.7, Absolute Granulocytes 3.4, Absolute Lymphocytes 1.0 L, Absolute Monocytes 0.4, Absolute Eosinophils 0.2, Absolute Basophils 0, PUBS MCHC 33.5 01/27/17 0530: Anion Gap 10, Estimated GFR > 60, Glucose 88, Calcium 8.2 L, Phosphorus 4.2, Magnesium 1.6, Total Bilirubin 0.6, AST 27, ALT 49, Albumin 2.4 L, CBC w Diff NO MAN DIFF REQ, RBC 3.00 L, MCV 85.0, MCH 28.3, RDW 17.9 H, MPV 7.3 L, Gran % 67.2, Lymphocytes % 18.2 L, Monocytes % 8.3, Eosinophils % 6.0 H, Basophils % 0.3, Absolute Granulocytes 3.1, Absolute Lymphocytes 0.9 L, Absolute Monocytes 0.4, Absolute Eosinophils 0.3, Absolute Basophils 0, PUBS MCHC 33.3 Recent Imaging Studies: Chest x-ray: 1. Endotracheal tube tip approximately 6 cm above the paco. 2. Enteric tube tip projected over the gastric fundus in the left upper quadrant. 3. Right jugular central venous line in the SVC. 4. Improved aeration in left lung base with residual opacities most consistent with subsegmental atelectasis. Assessment/Plan Assessment/Plan Assessment: 1. Mild troponin elevation, likely demand ischemia 2. Respiratory failure related to multilobar pneumonia; rule out possible aspiration 3. Hypertension 4. Acute renal insufficiency 5. Metabolic acidosis 6. Thrombocytopenia 7. History of seizures 8. Anemia 9. History of coronary artery disease 10. History of dementia Plan: * Continue current medications. * Weaning from ventilator as per pulmonary. * Would hold Lasix today. * Repeat basic metabolic profile in the morning. Continue telemetry? Yes
[2017-01-28 16:00] VITALS: BP 114/58
[2017-01-29] VITALS: BP 98/50
[2017-01-29 03:43] LABS: ABSOLUTE BASOPHIL COUNT 0 /CUMM (0.0-0.2); ABSOLUTE EOSINOPHIL COUNT 0.2 /CUMM (0.0-0.7); ABSOLUTE GRANULOCYTE CT 4.1 /CUMM (1.4-6.5); ABSOLUTE LYMPH COUNT 0.9 /CUMM (1.2-3.4); ABSOLUTE MONOCYTE COUNT 0.4 /CUMM (0.10-0.60); HEMATOCRIT 26.8 % (42-52); MEAN CORPUSCULAR HGB 28.7 PG (27.0-31.0); MEAN CORPUSCULAR HGB CONC 33.6 G/DL (33.0-37.0); MEAN CORPUSCULAR VOLUME 85.3 FL (80.0-94.0); MEAN PLATELET VOLUME 7.7 FL (7.4-10.4); PLATELET COUNT 188 /CUMM (130-400); RBC DISTRIBUTION WIDTH 17.8 % (11.5-14.5); RED BLOOD CELL CT 3.14 /CUMM (4.70-6.10); WHITE BLOOD CELL COUNT 5.7 /CUMM (4.8-10.8)
--- NOTE | 2017-01-29 06:05 | PN- Resident CRCU ---
Subjective HPI/CRCU Issues: Mr. Valdovinos was seen and examined this morning. He is resting in bed. He appears alert and oriented. He is able to follow motor and verbal commands. Able to assess that the patient is currently pain-free. Denies any fever chills, nausea , vomiting. Mr Valdovinos is currently intubated. Objective Vital Signs & I&O Last 8 Hrs of Vitals and I&O: T: 97-98.4 HR: 60-75 SR RR: 14-34 BP: 89/49 - 156/75 %Saturation: 91-98 Urine output: Shift I: 800-1500 Shift II: 1600-2300ml Shift III: 150ml Exam General Appearance: well developed/nourished, no apparent distress, alert, awake Neck: normal inspection Respiratory: normal breath sounds, Increased Breathsounds. L>R Cardiovascular: regular rate/rhythm Gastrointestinal: normal bowel sounds, soft, non-tender Extremities: normal inspection, normal capillary refill, normal range of motion Cranial Nerves: normal hearing, normal speech Weaning Parameters NIF: 49 Minute Volume: 10.6 Resp rate: 17 Vt: 620 Heart Rate: 72 Weaning Schedule Start Time: 1909 Minute Volume: 13.9 Resp Rate: 23 Vt: 605 Heart Rate: 78 End Time: 2009 Minute Volume: 9.28 Resp Rate: 28 Vt: 330 Heart Rate: 67 Start Time: 1114 Minute Volume: 8.30 Resp Rate: 24 Vt: 340 Heart Rate: 67 End Time: 1228 Minute Volume: 8.00 Resp Rate: 26 Vt: 311 Heart Rate: 72 Current Medications: Current Medications Sig/Fatou Start time Last Medication Dose Route Stop Time Status Admin Acetaminophen 650 MG Q6P PRN 01/23 0015 AC PO Acetaminophen/ 1 TAB Q6P PRN 01/23 0015 AC Hydrocodone Bitart PO Albuterol Sulfate 3 ML TID 01/23 1000 AC 01/28 INH 191 Amlodipine Besylate 10 MG DAILY 01/26 1000 AC 01/28 PO 1028 Ampicillin Sodium/ 1,500 MG Q6 01/27 1200 AC 01/29 Sulbactam Sodium IV 0600 Sodium Chloride 100 ML Aripiprazole 10 MG 2200 01/28 2200 AC 01/28 PO 2117 Aripiprazole 10 MG DAILY 01/27 182 DC 01/27 PO 214 Ascorbic Acid 250 MG DAILY 01/27 1918 AC 01/28 PO 1028 Carvedilol 3.125 MG BID 01/26 0130 AC 01/28 PO 2119 Furosemide 20 MG ONCE ONE 01/28 1615 DC 01/28 IV 01/28 1616 1627 Guaifenesin 10 ML Q4P PRN 01/23 0615 AC PO Heparin Sodium 5,000 UNIT Q8 01/23 0600 AC 01/29 (Porcine) SC 0600 Ipratropium [place] 2.5 ML TID 01/23 1000 AC 01/28 INH 1923 Magnesium Oxide 400 MG ONE ONE 01/29 0800 DC PO 01/29 0801 Magnesium Oxide 400 MG ONE ONE 01/28 0900 DC 01/28 PO 01/28 0901 1028 Multivitamins 1 TAB DAILY 01/27 1917 AC 01/28 PO 1028 Oxycodone HCl 10 MG Q6P PRN 01/23 0015 AC PO Pantoprazole Sodium 40 MG DAILY 01/23 1000 AC 01/28 IV 1029 Phosphate 250 MG ONCE ONE 01/29 0800 DC PO 01/29 0801 Polyethylene Glycol 17 GM DAILY 01/25 1158 DC 01/27 PO 1148 Potassium Chloride 20 MEQ ONCE ONE 01/29 0800 DC PO 01/29 0801 Sertraline HCl 200 MG 2200 01/28 2200 AC 01/28 PO 2119 Sertraline HCl 200 MG DAILY 01/27 1829 DC 01/27 PO 2148 Trazodone HCl 150 MG QPM 01/27 2200 AC 01/28 PO 2122 Zinc Sulfate 220 MG DAILY 01/27 1918 AC 01/28 PO 1028 CXR Findings: IMPRESSION: 1. Endotracheal tube tip approximately 6 cm above the paco. 2. Enteric tube tip projected over the gastric fundus in the left upper quadrant. 3. Right jugular central venous line in the SVC. 4. Improved aeration in left lung base with residual opacities most consistent with subsegmental atelectasis. DICTATED BY: ADRIEL CHAVES,EUNICE Ramirez Impression/Plan Impression/Problem List Impression: Mr Valdovinos is a 81 year old gentlemen with a PMH of has a history of coronary artery disease, COPD, hypertension, BPH, carotid stenosis, dementia, history of cerebellar stroke and a recent admission to [facility] approximately 4 weeks ago where he was treated for pneumonia who presented to the emergency department on 01/22/2017 after he was found to be febrile (T Max 100.9) and desaturating while at extended care facility. Problem List: #Respiratory failure likely due to multilobar pneumonia #Coronary artery disease with elevated troponins possibly attributed to demand ischemia #Acute kidney injury #Anemia #History of COPD #History of seizure disorder #History of stroke Right IJ Line day #7 Recio day # 7 Currently Intubated. Day 7 Ventilator Settings: Rate 14. TV: 500. PEEP 5. Peak flow is 55. PSV: 6. % O2 35. Respiratory Continue broad-spectrum antibiotics of ceftazidime and vancomycin. Vancomycin 1 g per 24 hours. Ceftazidime 1 g every 12 hours, these have been discontinued. Patient has been started on IV Unasyn 1500 mg every 6. Patient to received a total of seven days of coverage. Today is day: 7 out of 7. Will discontinue antibiotics. Viral influenza: Negative Follow-up blood cultures: negative. Follow-up chest x-ray obtained which confirmed OG tube placement. 01/24/2017. We attempted to extubate the patient, however ABG after two hours, showed, parameters unacceptable. Extubation, unsuccessful. 01/27/2017: We attempted to extubate the patient,unsuccessful and needed to be placed back on mechanical ventilation. 01/28/2017: We attempted to extubate the patient, unsuccessful. 01/29/2017: We attempted to extubate the patient, did well on the T piece, ABG shortly after: pH: 7.51, pCO2: 33 HCO: 26. Patient started on Solumederol 40 mg IV Q8. Cardiovascular Since patients admission. Patient had to be started again on levo fed running at 2 MCG per minute. Initial EKG did not show any ST segment changes or acute changes on EKG. initial troponins were within normal limits however repeat troponin showed elevations of 0.19, repeat troponins 01/24/2015: 1.69-->0.12. Troponins this morning did increase from 0.40-->0.47 we'll continue to trend troponins till they plateau. 10 AM EKG didn show some T-wave changes in V3. Subsequent EKGs have not shown any diffuse changes. ProBNP 12,700. Troponin: 0.40-->0.47-->0.40 A Bilaterral Doppler study was done to rule out DVT. These have been negative. Cardiology is on board. Echo done yeaterday, A followup study is suggested when the patient is more stable to reassess aortic and mitral valve function. Heme Current WBC on admission: 4.9. Repeat Value: 6.4 H&H on admission 10.2 and 30.1 respectively. Repeat 9.2 and 27.8, H/H: 8.2/ 24.0. H/H: 9.0/26.8 Patient was guaiac negative. Metabolic At the time of admission the patient was hyperkalemic with a potassium level of 5.5. Upon subsequent repeat of his labs these have normalized. We monitored his BUN and creatinine in the event of elevations but these have improved. Cr 3.5-->0.8 . BUN 54-->14. We'll continue to monitor and hold off on a nephrology consultation for now. Normal saline at 150 mL was reduced to 50 ml per hour and subsequently changed to D5 with perhaps of bicarbonate running at 15 mL/h an additional 25 mEq of bicarbonate IV was given. Patient likely developed metabolic acidosis. Patient is currently off fluids. 01/29/2017. One time IV Lasix 20 mg was adminstered in attempt to improve fluid balance, this was confirmed with the critical care hvac/r service technician. Alimentary Once patient is extubated consider Swallow Evaluation. Neurology Intubated and alert. We began the patient on Sertaline 200 mg and Aripiprazole 10 mg, on 01/27/2017. These were the patients home medications. Continue. Patient is able to follow basic commands. Other Records from [facility] have been received and are in the chart Diet: Tube Feeds, currently at goal rate, discontinued, awaiting swallow evaluation recomendations. DVT ppx ALPS + Heparin Sub Q Code Full Code Problem List: 1. Right lower lobe pneumonia 2. Dementia 3. Acute hypoxemic respiratory failure 4. Pneumonia Pain Ratin Tomorrow's Labs & Rationales: CBC ICU C-Xray Plan DVT/Prophylaxis: pharmacological
[2017-01-29 08:00] VITALS: BP 140/80
--- NOTE | 2017-01-29 09:09 | PN- CRCU ---
Subjective HPI/Critical Care Issues: The patient remains on mechanical ventilation. The patient requested to go back on vent yesterday am after 5 minutes of CPAP. Last evening He desaturated after 1 hour of weaning and was placed back on the vent. He is awake and following commands. He continues to tolerate tube feeds well. Objective Current Medications: Current Medications Sig/Fatou Start time Last Medication Dose Route Stop Time Status Admin Acetaminophen 650 MG Q6P PRN 01/23 0015 AC PO Acetaminophen/ 1 TAB Q6P PRN 01/23 0015 AC Hydrocodone Bitart PO Albuterol Sulfate 3 ML TID 01/23 1000 AC 01/29 INH 0828 Amlodipine Besylate 10 MG DAILY 01/26 1000 AC 01/28 PO 1028 Ampicillin Sodium/ 1,500 MG Q6 01/27 1200 AC 01/29 Sulbactam Sodium IV 0600 Sodium Chloride 100 ML Aripiprazole 10 MG 0 01/28 2200 AC 01/28 PO 2118 Aripiprazole 10 MG DAILY 01/27 1828 DC 01/27 PO 2147 Ascorbic Acid 250 MG DAILY 01/27 1918 AC 01/28 PO 1028 Carvedilol 3.125 MG BID 01/26 0130 AC 01/28 PO 2119 Furosemide 20 MG ONCE ONE 01/28 1615 DC 01/28 IV 01/28 1616 1627 Guaifenesin 10 ML Q4P PRN 01/23 0615 AC PO Heparin Sodium 5,000 UNIT Q8 01/23 0600 AC 01/29 (Porcine) SC 0600 Ipratropium [place] 2.5 ML TID 01/23 1000 AC 01/29 INH 0827 Magnesium Oxide 400 MG ONE ONE 01/29 0800 DC PO 01/29 0801 Magnesium Oxide 400 MG ONE ONE 01/28 0900 DC 01/28 PO 01/28 0901 1028 Multivitamins 1 TAB DAILY 01/27 1917 AC 01/28 PO 1028 Oxycodone HCl 10 MG Q6P PRN 01/23 0015 AC PO Pantoprazole Sodium 40 MG DAILY 01/23 1000 AC 01/28 IV 1029 Phosphate 250 MG ONCE ONE 01/29 0800 DC PO 01/29 0801 Polyethylene Glycol 17 GM DAILY 01/25 1158 DC 01/27 PO 1148 Potassium Chloride 20 MEQ ONCE ONE 01/29 0800 DC PO 01/29 0801 Sertraline HCl 200 MG 2200 01/28 2200 AC 01/28 PO 2118 Sertraline HCl 200 MG DAILY 01/27 182 DC 01/27 PO 2148 Trazodone HCl 150 MG QPM 01/27 2200 AC 01/28 PO 212 Zinc Sulfate 220 MG DAILY 01/27 1918 AC 01/28 PO 1028 Vital Signs & I&O Last 24 Hrs of Vitals and I&O: Vital Signs Date Time Temp Pulse Resp B/P B/P Pulse O2 O2 Flow FiO2 Mean Ox Delivery Rate 01/29 0625 35 01/29 0314 35 01/29 0300 93 Ventilator 35% 01/29 0148 35 01/29 0000 96 Ventilator 35% 01/29 0000 97.0 62 14 98/50 96 Ventilator 35% 01/28 2216 35 01/28 2119 70 110/57 01/28 2000 91 Ventilator 35% 01/28 1915 35 01/28 1619 35 01/28 1600 95 Ventilator 35% 01/28 1600 98.5 64 30 114/58 95 Ventilator 35% 01/28 1332 35 01/28 1200 97 Ventilator 35% 01/28 1028 64 132/64 01/28 1028 61 132/64 Intake & Output 01/29 1600 01/29 0800 01/29 0000 Intake Total 897 815 Output Total 150 1200 Balance 747 -385 Intake, IV 260 120 Intake, Oral 0 Intake, Other 80 Intake, Tube 437 440 Feeding Intake, Tube 200 175 Irrigant Number 1 1 Bowel Movements Output, Urine 150 1200 Physical Exam General Appearance: no apparent distress, comfortable, sedated, intubated Head: atraumatic, normal appearance Neck: normal inspection, supple Respiratory: faint wheezing Cardiovascular: regular rate/rhythm, systolic murmur Gastrointestinal: normal bowel sounds, soft, non-tender, no organomegaly Extremities: no edema Results Last 24 Hrs of Lab Results: Laboratory Tests 01/29/17 0310: Anion Gap 9, Estimated GFR > 60, Glucose 117 H, Calcium 7.8 L, Phosphorus 3.4, Magnesium 1.6, Total Bilirubin 0.5, AST 34, ALT 47, Albumin 2.5 L, CBC w Diff NO MAN DIFF REQ, RBC 3.14 L, MCV 85.3, MCH 28.7, RDW 17.8 H, MPV 7.7, Lymphocytes % 16.7 L, Absolute Granulocytes 4.1, Absolute Lymphocytes 0.9 L, Absolute Monocytes 0.4, Absolute Eosinophils 0.2, Absolute Basophils 0, PUBS MCHC 33.6 Impression/Plan Impression/Plan Impression/Plan: 1. Respiratory failure secondary to multilobar lobar pneumonia, sputum culture positive for MSSA. R/O aspiration. 2. Fluid overload. 3. Acute kidney injury, resolved. 4. Positive troponin. 5. Anemia without evidence of bleeding, may be dilutional, serum iron low. 6. History of chronic respiratory failure/COPD, on home oxygen at 2 L/m. 7. History of seizures. Recommendations: * Weaning trials to continue, will extubate if parameters are acceptable. * Albuterol and atrovent nebs every 4 hours. * Start Solumedrol 40 mg IV q 8 hours. * Electrolyte repletion underway. * Maintain oxygen saturations greater than 92%. * Monitor off sedation. * Continue tube feeds at goal. * IV Unasyn - complete 7 day course of total antibiotics. * Continue DVT and GI prophylaxis - vent bundle at all times. * If the patient is not extubated today, will get him out of bed to chair. * Continue all supportive care.
--- NOTE | 2017-01-29 11:58 | RADIOLOGY REPORT ---
EXAMINATION: XR PORTABLE CHEST CLINICAL INFORMATION: Intubated, confirm OG tube placement. COMPARISON: 01/28/2017 TECHNIQUE: Portable AP view of the chest was obtained. FINDINGS: The endotracheal tube tip is approximately 5 cm from the paco. There is an enteric tube in place, the tip of the tube is outside the field of view of the current film but does appear to be below the level of the diaphragm. There is a right IJ approach central venous catheter with tip in the distal SVC. The cardiomediastinal silhouette is stable. There are scattered areas of atelectasis, most prominent in the lung bases. No pneumothorax is appreciated. Degenerative changes in the spine and shoulders. Diffuse osteopenia. IMPRESSION: Endotracheal tube tip approximately 5 cm from the paco. The enteric tube tip appears to be below the level of diaphragm, out of the field of view of the current film. Bibasilar atelectasis.
[2017-01-29 16:00] VITALS: BP 150/64
[2017-01-30] VITALS: BP 112/606
[2017-01-30 04:49] LABS: ABSOLUTE BASOPHIL COUNT 0 /CUMM (0.0-0.2); ABSOLUTE EOSINOPHIL COUNT 0 /CUMM (0.0-0.7); ABSOLUTE GRANULOCYTE CT 4.3 /CUMM (1.4-6.5); ABSOLUTE LYMPH COUNT 0.7 /CUMM (1.2-3.4); ABSOLUTE MONOCYTE COUNT 0.2 /CUMM (0.10-0.60); BASOPHIL % 0.4 % (0.0-2.0); EOSINOPHIL % 0.5 % (0-5); GRANULOCYTE % 81.9 % (42.2-75.2); MEAN CORPUSCULAR HGB 28.7 PG (27.0-31.0); MEAN CORPUSCULAR HGB CONC 33.5 G/DL (33.0-37.0); MEAN CORPUSCULAR VOLUME 85.7 FL (80.0-94.0); MEAN PLATELET VOLUME 8.5 FL (7.4-10.4); PLATELET COUNT 222 /CUMM (130-400); RBC DISTRIBUTION WIDTH 17.6 % (11.5-14.5); WHITE BLOOD CELL COUNT 5.2 /CUMM (4.8-10.8)
--- NOTE | 2017-01-30 06:53 | PN- Resident CRCU ---
Subjective HPI/CRCU Issues: Mr. Valdovinos was seen and examined this morning. He is resting comfortably in bed. He is alert and oriented to time place and person. He endorses no issues overnight. Occasional non productive cough and periodic dyspnea. Patient currently states that he feels great having been extubated. He denies any fever , chills, nausea, vomiting. 24 Hour Events: Patient was uncooperative at 4.00 am on. 01/30. Attempted to take off oxygen. Vitals were stable. Heart rate was sinus rhythm 60s to 80s. Objective Vital Signs & I&O Last 8 Hrs of Vitals and I&O: T: 94.6-97.9 HR: 52-83 NSR/BBB BP: 104/62-180/94 %Sat: 91-98%. 3LNC Urine: Shift I: 275 Shift II 350 Shift III: 490 Intake & Output 01/30 0800 Intake Total 50 Output Total 490 Balance -440 Intake, IV 50 Output, Urine 490 Exam General Appearance: well developed/nourished, no apparent distress, alert, awake , comfortable Neck: normal inspection Respiratory: normal breath sounds, chest non-tender, no respiratory distress Cardiovascular: regular rate/rhythm Gastrointestinal: normal bowel sounds, soft, non-tender Extremities: normal inspection, normal capillary refill Cranial Nerves: normal hearing, normal speech Skin: intact, normal color Weaning Parameters NIF: 24 Minute Volume: 9.36 Resp rate: 9 Vt: 433 Heart Rate: 71 Weaning Schedule Start Time: 0855 Minute Volume: 9.36 Resp Rate: 9 Vt: 433 Heart Rate: 71 End Time: 1014 Minute Volume: 8.76 Resp Rate: 14 Vt: 325 Heart Rate: 79 Start Time: 1015 Minute Volume: 8.30 Resp Rate: 24 Vt: 340 Heart Rate: 77 End Time: 1205 Minute Volume: 8.00 Resp Rate: 26 Vt: 311 Heart Rate: 72 Current Medications: Current Medications Sig/Fatou Start time Last Medication Dose Route Stop Time Status Admin Acetaminophen 650 MG Q6P PRN 01/23 0015 AC PO Acetaminophen/ 1 TAB Q6P PRN 01/23 0015 DC Hydrocodone Bitart PO Albuterol Sulfate 3 ML TID 01/29 1600 AC 01/29 INH 1840 Albuterol Sulfate 3 ML Q4 01/29 1400 DC INH Albuterol Sulfate 3 ML TID 01/23 1000 DC 01/29 INH 0828 Amlodipine Besylate 10 MG DAILY 01/26 1000 AC 01/29 PO 1127 Ampicillin Sodium/ 1,500 MG Q6 01/27 1200 DC 01/29 Sulbactam Sodium IV 01/29 2300 1832 Sodium Chloride 100 ML Aripiprazole 10 MG 2200 01/28 2200 AC 01/29 PO 2129 Ascorbic Acid 250 MG DAILY 01/27 1918 AC 01/29 PO 1127 Carvedilol 3.125 MG BID 01/26 0130 AC 01/29 PO 2128 Guaifenesin 10 ML Q4P PRN 01/23 0615 AC PO Heparin Sodium 5,000 UNIT Q8 01/23 0600 AC 01/30 (Porcine) SC 0519 Ipratropium [place] 2.5 ML TID 01/23 1000 AC 01/29 INH 1840 Magnesium Oxide 400 MG ONE ONE 01/29 0800 DC 01/29 PO 01/29 0801 1128 Methylprednisolone 40 MG Q8 01/29 1400 AC 01/30 IV 0519 Multivitamins 1 TAB DAILY 01/27 191 AC 01/29 PO 1127 Nicotine 14 MG DAILY 01/29 1718 AC 01/29 TOP 1831 Oxycodone HCl 10 MG Q6P PRN 01/23 0015 DC PO Pantoprazole Sodium 40 MG DAILY 01/23 1000 AC 01/29 IV 1017 Phosphate 250 MG ONCE ONE 01/29 0800 DC 01/29 PO 01/29 0801 1128 Potassium Chloride 20 MEQ ONCE ONE 01/29 0800 DC 01/29 PO 01/29 0801 1128 Sertraline HCl 200 MG 2200 01/28 2200 AC 01/29 PO 2129 Trazodone HCl 150 MG QPM 01/27 2200 AC 01/29 PO 2128 Zinc Sulfate 220 MG DAILY 01/27 1918 AC 01/29 PO 1128 Impression/Plan Impression/Problem List Impression: Mr Valdovinos is a 81 year old gentlemen with a PMH of has a history of coronary artery disease, COPD, hypertension, BPH, carotid stenosis, dementia, history of cerebellar stroke and a recent admission to [facility] approximately 4 weeks ago where he was treated for pneumonia who presented to the emergency department on 01/22/2017 after he was found to be febrile (T Max 100.9) and desaturating while at extended care facility. Problem List: #Respiratory failure likely due to multilobar pneumonia #Coronary artery disease with elevated troponins possibly attributed to demand ischemia #Acute kidney injury #Anemia #History of COPD #History of seizure disorder #History of stroke Right IJ Line day #8 --> consider d/c Bai day # 7--> consider d/c Respiratory Continue broad-spectrum antibiotics of ceftazidime and vancomycin. Vancomycin 1 g per 24 hours. Ceftazidime 1 g every 12 hours, these have been discontinued. Patient has been started on IV Unasyn 1500 mg every 6. Patient to received a total of seven days of coverage. Today is day: 7 out of 7. Will discontinue antibiotics. Viral influenza: Negative Follow-up blood cultures: negative. Follow-up chest x-ray obtained which confirmed OG tube placement. 01/24/2017. We attempted to extubate the patient, however ABG after two hours, showed, parameters unacceptable. Extubation, unsuccessful. 01/27/2017: We attempted to extubate the patient,unsuccessful and needed to be placed back on mechanical ventilation. 01/28/2017: We attempted to extubate the patient, unsuccessful. 01/29/2017: We attempted to extubate the patient, did well on the T piece, ABG shortly after: pH: 7.51, pCO2: 33 HCO: 26. Patient started on, Continue Solumederol 40 mg IV Q8. Cardiovascular Initial EKG did not show any ST segment changes or acute changes on EKG. initial troponins were within normal limits however repeat troponin showed elevations of 0.19, repeat troponins 01/24/2015: 1.69-->0.12. Troponins this morning did increase from 0.40-->0.47 we'll continue to trend troponins till they plateau. 10 AM EKG didn show some T-wave changes in V3. Subsequent EKGs have not shown any diffuse changes. ProBNP 12,700. Troponin: 0.40-->0.47-->0.40 A Bilaterral Doppler study was done to rule out DVT. These have been negative. Cardiology is on board. Echo done yeaterday, A followup study is suggested when the patient is more stable to reassess aortic and mitral valve function. Heme Current WBC on admission: 4.9. Repeat Value: 6.4 H&H on admission 10.2 and 30.1 respectively. Repeat 9.2 and 27.8, H/H: 8.2/ 24.0. H/H: 10.1/30.0 Patient was guaiac negative. Metabolic At the time of admission the patient was hyperkalemic with a potassium level of 5.5. Upon subsequent repeat of his labs these have normalized. We monitored his BUN and creatinine in the event of elevations but these have improved. Cr 3.5-->0.8 . BUN 54-->14. We will discontinue the bai today. We'll continue to monitor and hold off on a nephrology consultation for now. Normal saline at 150 mL was reduced to 50 ml per hour and subsequently changed to D5 with perhaps of bicarbonate running at 15 mL/h an additional 25 mEq of bicarbonate IV was given. Patient likely developed metabolic acidosis. Patient is currently off fluids. 01/29/2017. One time IV Lasix 20 mg was adminstered in attempt to improve fluid balance, this was confirmed with the critical care flower planter. Alimentary Patient is tolerating a by mouth intake well. He is currently being evaluated by speech therapy. They have recommended a pured and regular diet. Neurology We began the patient on Sertaline 200 mg and Aripiprazole 10 mg, on 01/27/2017. These were the patients home medications. Continue. Patient is able to follow basic commands. Other Records from [facility] have been received and are in the chart Diet: Regular Diet. DVT ppx ALPS + Heparin Sub Q Code Full Code Problem List: 1. Septicemia 2. Right lower lobe pneumonia 3. Dehydration 4. Acute kidney injury 5. Respiratory failure Pain Ratin Tomorrow's Labs & Rationales: CBC ICU Plan DVT/Prophylaxis: pharmacological ICU Plan DVT/Prophylaxis: pharmacological
[2017-01-30 08:00] VITALS: BP 164/76
--- NOTE | 2017-01-30 09:09 | PN- CRCU ---
Subjective HPI/Critical Care Issues: The patient is awake and alert. He is doing well post extubation. He denies any shortness of breath. He has a minimal cough. The patient's oxygen saturations are in the high 90s on 3 L nasal cannula. He has excellent urine output. The patient feels markedly improved and denies any new complaints. Objective Current Medications: Current Medications Sig/Fatou Start time Last Medication Dose Route Stop Time Status Admin Acetaminophen 650 MG Q6P PRN 01/23 0015 AC PO Acetaminophen/ 1 TAB Q6P PRN 01/23 0015 DC Hydrocodone Bitart PO Albuterol Sulfate 3 ML TID 01/29 1600 AC 01/30 INH 0759 Albuterol Sulfate 3 ML Q4 01/29 1400 DC INH Albuterol Sulfate 3 ML TID 01/23 1000 DC 01/29 INH 0828 Amlodipine Besylate 10 MG DAILY 01/26 1000 AC 01/29 PO 1127 Ampicillin Sodium/ 1,500 MG Q6 01/27 1200 DC 01/29 Sulbactam Sodium IV 01/29 2300 1832 Sodium Chloride 100 ML Aripiprazole 10 MG 0 01/28 2200 AC 01/29 PO 2129 Ascorbic Acid 250 MG DAILY 01/27 1918 AC 01/29 PO 1127 Carvedilol 3.125 MG BID 01/26 0130 AC 01/29 PO 2128 Guaifenesin 10 ML Q4P PRN 01/23 0615 AC PO Heparin Sodium 5,000 UNIT Q8 01/23 0600 AC 01/30 (Porcine) SC 0519 Ipratropium [place] 2.5 ML TID 01/23 1000 AC 01/30 INH 0758 Magnesium Oxide 400 MG ONE ONE 01/30 0800 DC PO 01/30 0801 Methylprednisolone 40 MG Q8 01/29 1400 AC 01/30 IV 0519 Multivitamins 1 TAB DAILY 01/27 1917 AC 01/29 PO 1127 Nicotine 14 MG DAILY 01/29 1718 AC 01/29 TOP 1831 Oxycodone HCl 10 MG Q6P PRN 01/23 0015 DC PO Pantoprazole Sodium 40 MG DAILY 01/23 1000 AC 01/29 IV 1017 Sertraline HCl 200 MG 2200 01/28 2200 AC 01/29 PO 2129 Trazodone HCl 150 MG QPM 01/27 2200 AC 01/29 PO 2128 Zinc Sulfate 220 MG DAILY 01/27 1918 AC 01/29 PO 1128 Vital Signs & I&O Last 24 Hrs of Vitals and I&O: Vital Signs Date Time Temp Pulse Resp B/P B/P Pulse O2 O2 Flow FiO2 Mean Ox Delivery Rate 01/30 0400 95 Nasal 3.0L Cannula 01/30 0000 96 Nasal 3.0L Cannula 01/30 0000 96.6 54 20 112/606 96 Nasal 3.0L Cannula 01/29 2128 74 20 146/71 01/29 2000 94 Nasal 3.0L Cannula 01/29 1840 94 Nasal 3.0L Cannula 01/29 1600 95 Nasal 3.0L Cannula 01/29 1600 97.6 80 22 150/64 94 Nasal 3.0L Cannula 01/29 1326 94 Nasal 2.0L Cannula 01/29 1219 95 Aerosol 35% Mask 01/29 1200 95 Aerosol 35% Mask 01/29 1127 72 155/75 01/29 1127 72 155/75 01/29 0908 35 Intake & Output 01/30 1600 01/30 0800 01/30 0000 Intake Total 50 190 Output Total 490 350 Balance -440 -160 Intake, IV 50 100 Intake, Oral 90 Output, Urine 490 350 Physical Exam General Appearance: no apparent distress, comfortable, sedated, intubated Head: atraumatic, normal appearance Neck: normal inspection, supple Respiratory: faint wheezing Cardiovascular: regular rate/rhythm, systolic murmur Gastrointestinal: normal bowel sounds, soft, non-tender, no organomegaly Extremities: no edema Impression/Plan Impression/Plan Impression/Plan: 1. Respiratory failure, improved, now off mechanical ventilation. 2. Fluid overload. 3. Acute kidney injury, resolved. 4. Positive troponin. 5. Anemia without evidence of bleeding, may be dilutional, serum iron low. 6. History of chronic respiratory failure/COPD, on home oxygen at 2 L/m. 7. History of seizures. 8. Hypertension with fluctuations in blood pressure. Recommendations: * Discontinue IJ and Recio catheter. * Wean supplemental oxygen down to off if able. Keep saturations greater than 92%. * Albuterol and atrovent nebs every 4 hours. * Continue Solumedrol 40 mg IV q 8 hours. * IV Unasyn - complete 7 day course of total antibiotics. * PT consult, out of bed to chair. * Advance diet as tolerated, maintain the patient on aspiration precautions. * Change Protonix to oral form. * Continue DVT prophylaxis. * Downgrade to telemetry.
[2017-01-30 16:00] VITALS: BP 160/80
--- NOTE | 2017-01-30 16:44 | PN- Cardiology ---
Subjective Subjective: Extubated and sitting comfortably in bed. He denies any specific complaints and is feeling better. Objective Vital Signs and I&Os Vital Signs Date Time Temp Pulse Resp B/P B/P Pulse O2 O2 Flow FiO2 Mean Ox Delivery Rate 01/30 0905 80 164/76 01/30 0904 80 164/76 01/30 0815 96 Nasal 3.0L Cannula 01/30 0800 95 Nasal 2.0L Cannula 01/30 0800 98.0 78 18 164/76 95 Nasal 2.0L Cannula 01/30 0400 95 Nasal 3.0L Cannula 01/30 0000 96 Nasal 3.0L Cannula 01/30 0000 96.6 54 20 112/606 96 Nasal 3.0L Cannula 01/29 2128 74 20 146/71 01/29 2000 94 Nasal 3.0L Cannula 01/29 1840 94 Nasal 3.0L Cannula Intake & Output 01/30 1600 01/30 0800 01/30 0000 01/29 1600 01/29 0800 01/29 0000 Intake Total 300 50 190 346 897 815 Output Total 700 490 350 808 995 6391 Balance -400 -440 -160 71 747 -385 Intake, IV 50 100 171 260 120 Intake, Oral 300 90 0 0 Intake, Other 120 80 Intake, Tube 55 437 440 Feeding Intake, Tube 200 175 Irrigant Number 1 1 1 1 Bowel Movements Output, Urine 700 490 350 [phone] Physical Exam: General Appearance: alert, awake, comfortable Head: normal appearance Neck: supple, JVP normal, Carotids normal bilaterally Respiratory: Bilateral rhonchi Cardiovascular: regular rate/rhythm, systolic murmur unchanged Gastrointestinal: normal bowel sounds, soft, non-tender Extremities: no edema Current Medications: Current Medications Sig/Fatou Start time Last Medication Dose Route Stop Time Status Admin Acetaminophen 650 MG Q6P PRN 01/23 0015 AC PO Acetaminophen/ 1 TAB Q6P PRN 01/23 15 DC Hydrocodone Bitart PO Albuterol Sulfate 3 ML TID 01/29 1600 AC 01/30 INH 1340 Amlodipine Besylate 10 MG DAILY 01/26 1000 AC 01/30 PO 0905 Ampicillin Sodium/ 1,500 MG Q6 01/27 1200 DC 01/29 Sulbactam Sodium IV 01/29 2300 1832 Sodium Chloride 100 ML Aripiprazole 10 MG 0 01/28 220 AC 01/29 PO 2129 Ascorbic Acid 250 MG DAILY 01/27 1918 AC 01/30 PO 0905 Carvedilol 3.125 MG BID 01/26 0130 AC 01/30 PO 0904 Guaifenesin 10 ML Q4P PRN 01/23 0615 AC PO Heparin Sodium 5,000 UNIT Q8 01/23 0600 AC 01/30 (Porcine) SC 0519 Ipratropium [place] 2.5 ML TID 01/23 1000 AC 01/30 INH 1340 Magnesium Oxide 400 MG ONE ONE 01/30 0800 DC 01/30 PO 01/30 0801 0904 Methylprednisolone 40 MG Q8 01/29 1400 AC 01/30 IV 0519 Multivitamins 1 TAB DAILY 01/27 1917 AC 01/30 PO 0904 Nicotine 14 MG DAILY 01/29 1718 AC 01/30 TOP 0904 Omeprazole 40 MG DAILY AC 01/31 0700 AC PO Oxycodone HCl 10 MG Q6P PRN 01/23 0015 DC PO Pantoprazole Sodium 40 MG DAILY 01/23 1000 DC 01/30 IV 0905 Sertraline HCl 200 MG 2200 01/28 2200 AC 01/29 PO 2129 Trazodone HCl 150 MG QPM 01/27 2200 AC 01/29 PO 2128 Zinc Sulfate 220 MG DAILY 01/27 191 AC 01/30 PO 0905 Results Last 48 Hrs of Labs/Mics: Laboratory Tests 01/30/17 0340: Anion Gap 8, Estimated GFR > 60, Glucose 108 H, Calcium 8.5, Phosphorus 4.1, Magnesium 1.9, Total Bilirubin 0.6, AST 43, ALT 51, Albumin 3.1 L, CBC w Diff NO MAN DIFF REQ, RBC 3.50 L, MCV 85.7, MCH 28.7, RDW 17.6 H, MPV 8.5, Gran % 81.9 H, Lymphocytes % 13.9 L, Monocytes % 3.3, Eosinophils % 0.5, Basophils % 0.4, Absolute Granulocytes 4.3, Absolute Lymphocytes 0.7 L, Absolute Monocytes 0.2, Absolute Eosinophils 0, Absolute Basophils 0, PUBS MCHC 33.5 01/29/17 1138: pH 7.51 H, pCO2 33 L, pO2 76 L, HCO3 26, ABG O2 Sat (Measured) 95.0 L, P-50 (Temp Corrected) N, Carboxyhemoglobin 0.2 L, O2 Concentration % 35%, Temperature 97.0, O2 Delivery Method T-PIECE, Phlebotomy Draw Site LEFT RADIAL 01/29/17 0310: Anion Gap 9, Estimated GFR > 60, Glucose 117 H, Calcium 7.8 L, Phosphorus 3.4, Magnesium 1.6, Total Bilirubin 0.5, AST 34, ALT 47, Albumin 2.5 L, CBC w Diff NO MAN DIFF REQ, RBC 3.14 L, MCV 85.3, MCH 28.7, RDW 17.8 H, MPV 7.7, Lymphocytes % 16.7 L, Absolute Granulocytes 4.1, Absolute Lymphocytes 0.9 L, Absolute Monocytes 0.4, Absolute Eosinophils 0.2, Absolute Basophils 0, PUBS MCHC 33.6 Assessment/Plan Assessment/Plan Assessment: 1. Elevated troponin-likely related to demand ischemia. 2. Respiratory failure related to multilobar pneumonia; rule out possible aspiration 3. Hypertension 4. Acute renal insufficiency 5. Metabolic acidosis 6. Thrombocytopenia 7. History of seizures 8. Anemia 9. History of coronary artery disease 10. History of dementia Recommendations: -Continue to monitor for now. - COntinue current respiratory care. - Followup labs pending Continue telemetry? Yes
[2017-01-30 20:00] VITALS: BP 130/80
[2017-01-30 23:14] VITALS: BP 120/82
--- NOTE | 2017-01-31 07:34 | PN- Housestaff ---
ALLYN CHAVES,AIDAN 01/31/17 0733: Subjective Follow-up For: Acute hypoxic respiratory failure NSTEMI Tele-Events Since Last Visit: sinus chachoay, sinus rhythm 58-68, PVC's Subjective: I saw and examined the patient today morning He is lying in the bed. Appears communicting and answering questions appropriately. He offersn no complaints, denies any pain/shortness of breath. However in the evening I noticed he is very confused, further nurse informed that he was not oriented well throughout the day. Review of Systems Constitutional: Reports: see HPI. Comments: ROS negative except the above. Objective Last 24 Hrs of Vital Signs/I&O Vital Signs Date Time Temp Pulse Resp B/P B/P Pulse O2 O2 Flow FiO2 Mean Ox Delivery Rate 01/31 0000 95 Nasal 2.0L Cannula 01/30 2314 97.9 62 20 120/82 92 Nasal 1.5L Cannula 01/30 2133 81 18 130/80 01/31 2000 96.8 87 18 130/80 92 Nasal 2.0L Cannula 01/30 2000 92 Nasal 2.0L Cannula 01/30 1911 95 Nasal 2.0L Cannula 01/30 1600 94 Head Box 2.0L () 01/30 1600 98.0 78 22 160/80 94 Nasal 2.0L Cannula 01/30 0905 80 164/76 01/30 0904 80 164/76 01/30 0815 96 Nasal 3.0L Cannula 01/30 0800 95 Nasal 2.0L Cannula 01/30 0800 98.0 78 18 164/76 95 Nasal 2.0L Cannula Intake & Output 01/31 0800 01/31 0000 01/30 1600 Intake Total 300 Output Total 750 700 Balance -750 -400 Intake, Oral 300 Number 1 Bowel Movements Output, Urine 750 700 Physical Exam General Appearance: Alert, Cooperative Skin: No Rashes, No Breakdown HEENT: Atraumatic, PERRLA, EOMI Neck: Supple Cardiovascular: Normal S1, Normal S2 Lungs: Clear to Auscultation, Normal Air Movement Abdomen: Normal Bowel Sounds, Soft, No Tenderness Neurological: Normal Tone, Sensation Intact, Cranial Nerves 3-12 NL Extremities: No Clubbing, No Cyanosis, No Edema Current Medications: Current Medications Sig/Fatou Start time Last Medication Dose Route Stop Time Status Admin Acetaminophen 650 MG Q6P PRN 01/23 0015 AC PO Albuterol Sulfate 3 ML TID 01/29 1600 AC 01/30 INH 1907 Amlodipine Besylate 10 MG DAILY 01/26 1000 AC 01/30 PO 0905 Aripiprazole 10 MG 01/28 2200 AC 01/30 PO 2131 Ascorbic Acid 250 MG DAILY 01/27 1918 AC 01/30 PO 0905 Carvedilol 3.125 MG BID 01/26 0130 AC 01/30 PO 2133 Guaifenesin 10 ML Q4P PRN 01/23 0615 AC PO Heparin Sodium 5,000 UNIT Q8 01/23 0600 AC 01/31 (Porcine) SC 0658 Ipratropium [place] 2.5 ML TID 01/23 1000 AC 01/30 INH 1907 Magnesium Oxide 400 MG ONE ONE 01/30 0800 DC 01/30 PO 01/30 0801 0904 Methylprednisolone 40 MG Q8 01/29 1400 AC 01/31 IV 0658 Multivitamins 1 TAB DAILY 01/27 1917 AC 01/30 PO 0904 Nicotine 14 MG DAILY 01/29 1718 AC 01/30 TOP 0904 Omeprazole 40 MG DAILY AC 01/31 0700 AC PO Pantoprazole Sodium 40 MG DAILY 01/23 1000 DC 01/30 IV 0905 Sertraline HCl 200 MG 0 01/28 2200 AC 01/30 PO 2133 Trazodone HCl 150 MG QPM 01/27 2200 AC 01/30 PO 2132 Zinc Sulfate 220 MG DAILY 01/27 191 AC 01/30 PO 0905 Last 24 Hrs of Lab/Robert Results Last 24 Hrs of Labs/Mics: Laboratory Tests 01/31/17 0635: Sodium Pending, Potassium Pending, Chloride Pending, Carbon Dioxide Pending, Anion Gap Pending, BUN Pending, Creatinine Pending, Glucose Pending, Calcium Pending, Phosphorus Pending, Magnesium Pending, Total Bilirubin Pending, AST Pending, ALT Pending, Albumin Pending, CBC w Diff Pending, WBC Pending, RBC Pending, Hgb Pending, Hct Pending, MCV Pending, MCH Pending, RDW Pending, Plt Count Pending, MPV Pending, PUBS MCHC Pending Lines/Diet/Fluids Lines: peripheral lines Assessment/Plan Assessment: Mr Valdovinos is a 81 year old gentlemen with a PMH of has a history of CAD, COPD, HTN, BPH, carotid stenosis, dementia, history of cerebellar stroke and a recent admission to [facility] approximately 4 weeks ago where he was treated for pneumonia presented to the ER on 01/22/2017 after he was found to be febrile (T Max 100.9) and desaturating while at extended care facility. Initially admitted to ICU requiring intubation for acute hypoxic respiratory failure secondary to multilobar pneumonia requiring central line with pressors and arterial line. It was intially complicated with hypotension secondary to sedation (etomidate) followed by aggressvie hydration leading to fluid overload and demand ischaemia (trops elevated in a flat curve max of 0.47). Fluid overload is corrected with IV diuresis, D5 and bicarbonate IV. Cardiology was consulted and they deffred IV heparin in view its secondary to demand. His cultures grew MRSA - treated with IV vanco and IV ceftaz followed by IV unasyn for a total of 7days. Hypotension resulted in hypoperfusion of kidneys with eventual Acute kidney injury which was eventually corrected with fluids. Weaning trials are succesful on 01/29/17. Transfered to [facility] overnight Plan Acute hypoxic respiratory failure secondary to multilobar pneumonia * Currently on 2-3L oxygen, trying to wean off * OFF antibiotics (completed 7day course). * Today converted IV solumedrol to oral prednisone 40mg reducing 10mg at a time every day. * trying to wean off oxygen * Pulmonary on board. Plan to discharge to [facility] Chronic and stable conditions CAD - continue Aspirin 81mg, carvedilol 3.125mg BID Depression - Sertraline 200mg and Aripiprazole 10mg Hypertension - On amlodipine 10mg and lisinopril 10mg daily BPH - continue finasteride and tamsulosin daily COPD - TRC and nebs - Ipratropium/Albuterol Diet - started on ground and thin liquids today DVT Prophylaxis * SC heparin 5000units Code Status * Full code Problem List: 1. Respiratory failure 2. Pneumonia 3. Acute kidney injury 4. Dehydration 5. Hypotension 6. Acute hypoxemic respiratory failure 7. Cerebellar stroke Pain Ratin Pain Location: n/a Pain Goal: Pain 4 or less Pain Plan: tylenol prn Tomorrow's Labs & Rationales: bep to monitor GLADYS Brown MD 01/31/17 1125: Attending MD Review Statement Attending Statement Attending MD Statement: examined this patient, discuss w/resident/PA/METAL FABRICATING INSPECTOR, agreed w/resident/PA/METAL FABRICATING INSPECTOR, reviewed EMR data (avail) Attending Assessment/Plan: 81M PMH cerebellar stroke, BPH , HLD, seizure, dementia, CAD, COPD on 2L home oxygen admitted initially to ICU with acute hypoxemic respiratory failure requiring intubation and mechanical ventilation, now extubated, with bilateral lower lobe pneumonia and sputum cultures growing MSSA, treated initially with Vancomycin and Ceftazidime followed by Unasyn alone, completed 7 days of antibiotic therapy, now on IV Solumedrol and stable. Today patient reports he feels well, breathing is comfortable, no complaints. He is saturating well on 2L NC. Lungs are clear to auscultation. Plan - Continue on telemetry - Follow pulmonary recommendations - Discontinue Solumedrol - Start Prednisone 40mg daily - TRC/nebulizer treatments - No further antibiotics - Continue home medications - PT eval - DVT PPx
[2017-01-31 07:37] LABS: ABSOLUTE BASOPHIL COUNT 0 /CUMM (0.0-0.2); ABSOLUTE EOSINOPHIL COUNT 0 /CUMM (0.0-0.7); ABSOLUTE GRANULOCYTE CT 5.2 /CUMM (1.4-6.5); ABSOLUTE MONOCYTE COUNT 0.3 /CUMM (0.10-0.60); BASOPHIL % 0.3 % (0.0-2.0); EOSINOPHIL % 0.5 % (0-5); GRANULOCYTE % 79.4 % (42.2-75.2); MEAN CORPUSCULAR HGB 28.5 PG (27.0-31.0); MEAN CORPUSCULAR HGB CONC 33.3 G/DL (33.0-37.0); MEAN CORPUSCULAR VOLUME 85.6 FL (80.0-94.0); MEAN PLATELET VOLUME 7.8 FL (7.4-10.4); PLATELET COUNT 333 /CUMM (130-400); RBC DISTRIBUTION WIDTH 17.3 % (11.5-14.5); RED BLOOD CELL CT 4.16 /CUMM (4.70-6.10); WHITE BLOOD CELL COUNT 6.5 /CUMM (4.8-10.8)
[2017-01-31 08:02] LABS: HEMATOCRIT 35.6 % (42-52)
--- NOTE | 2017-01-31 08:09 | Transfer of Care Summary ---
Hospital Course Course Hospital Course: Mr Valdovinos is a 81 year old gentlemen with a PMH of has a history of coronary artery disease, COPD, hypertension, BPH, carotid stenosis, dementia, history of cerebellar stroke and a recent admission to [facility] approximately 4 weeks ago where he was treated for pneumonia who presented to the emergency department on 01/22/2017 after he was found to be febrile (T Max 100.9) and desaturating while at extended care facility. The following is his Problem List: #Respiratory failure likely due to multilobar pneumonia #Coronary artery disease with elevated troponins possibly attributed to demand ischemia #Acute kidney injury #Resolved #Anemia #History of COPD #History of seizure disorder #History of stroke Respiratory Patient was initially on ceftazidime and vancomycin. He was subsequently changed to IV Unasyn and administered for a total of 7 days of antibiotics. was the last antibiotic administration. Viral influenza: Negative. Blood cultures: negative. Patient was attempted to be extubated on multiple attempts. We were successful at extubation on 01/29/2007. We have continued the patient on Solu-Medrol 40 mg IV every 8. Cardiovascular Initial EKG did not show any ST segment changes or acute changes on EKG. the patient did have some positive troponins and was followed closely with cardiology. He was initially started on IV heparin however discontinued owing to his troponins due to demand ischemia. A bilateral Doppler study was also done to rule out DVT. A follow up Echo when the patient is more stable to reassess aortic and mitral valve function. Heme Patient's H&H remained stable. A guaiac test was done which was negative. Metabolic At the time of admission the patient was hyperkalemic with a potassium level of 5.5. Upon subsequent repeat of his labs these normalized. The patient did have evidence of a RUTH on admission however upon further repeat seems that any renal failure has resolved. On 01/25/2017 the patient developed metabolic acidosis owing to fluid overload. He was diuresed with 20 mg of Lasix and his fluids were switched from normal saline to D5 with bicarbonate. Neurology We began the patient on Sertaline 200 mg and Aripiprazole 10 mg, on 01/27/2017. These were the patients home medications. Please continue. The team may want to consider a psychiatry consult to ensure these medications effacious. Other The patient was recenlty discharged from [facility] approximately one month ago. Records from [facility] have been received and are in the patients chart Diet: Regular Diet. DVT ppx ALPS + Heparin Sub Q Code Full Code Assessment/Plan: Mr Valdovinos is a 81 year old gentlemen with a PMH of has a history of coronary artery disease, COPD, hypertension, BPH, carotid stenosis, dementia, history of cerebellar stroke and a recent admission to [facility] approximately 4 weeks ago where he was treated for pneumonia who presented to the emergency department on 01/22/2017 after he was found to be febrile (T Max 100.9) and desaturating while at extended care facility. At the time of admission the patient had to be intubated and was treated for multilobar pneumonia with vancomycin and ceftazidime. Following a prolonged intubation the patient was successfully extubated 01/29/2017. His antibiotics have been switched. He is currently now on the telemetry service monitoring for any arrhythmias. Follow up: 1)We have continued the patient on Solu-Medrol 40 mg IV every 8. 2) A follow up Echo when the patient is more stable to reassess aortic and mitral valve function. 3) The team may want to consider a psychiatry consult to ensure his mood stabilizing medications are effacious. Patient's Francia can be kept informed of progress on [phone].
[2017-01-31 08:42] VITALS: BP 160/70
--- NOTE | 2017-01-31 09:16 | PN- Pulmonary ---
Subjective HPI/Critical Care Issues: The patient is awake and appears comfortable. He is much more oriented today. The patient reports that he is feeling well. He is less short of breath. He denies any chest pain, chest congestion, sputum production, nausea, vomiting or abdominal pain. He offers no new complaints today. Objective Current Medications: Current Medications Sig/Fatou Start time Last Medication Dose Route Stop Time Status Admin Acetaminophen 650 MG Q6P PRN 01/23 0015 AC PO Albuterol Sulfate 3 ML TID 01/29 1600 AC 01/31 INH 0826 Amlodipine Besylate 10 MG DAILY 01/26 1000 AC 01/31 PO 0903 Aripiprazole 10 MG 2200 01/28 2200 AC 01/30 PO 2131 Ascorbic Acid 250 MG DAILY 01/27 191 AC 01/31 PO 0903 Carvedilol 3.125 MG BID 01/26 0130 AC 01/31 PO 0902 Guaifenesin 10 ML Q4P PRN 01/23 0615 AC PO Heparin Sodium 5,000 UNIT Q8 01/23 0600 AC 01/31 (Porcine) SC 0658 Ipratropium [place] 2.5 ML TID 01/23 1000 AC 01/31 INH 0826 Methylprednisolone 40 MG Q8 01/29 1400 AC 01/31 IV 0658 Multivitamins 1 TAB DAILY 01/27 1917 AC 01/31 PO 0903 Nicotine 14 MG DAILY 01/29 1718 AC 01/31 TOP 0902 Omeprazole 40 MG DAILY AC 01/31 0700 AC PO Pantoprazole Sodium 40 MG DAILY 01/23 1000 DC 01/30 IV 0905 Sertraline HCl 200 MG 0 01/28 2200 AC 01/30 PO 2133 Trazodone HCl 150 MG QPM 01/27 2200 AC 01/30 PO 2132 Zinc Sulfate 220 MG DAILY 01/27 191 AC 01/31 PO 0903 Vital Signs & I&O Last 24 Hrs of Vitals and I&O: Vital Signs Date Time Temp Pulse Resp B/P B/P Pulse O2 O2 Flow FiO2 Mean Ox Delivery Rate 01/31 0903 154/70 01/31 0902 154/70 01/31 0842 98.0 75 20 160/70 94 Nasal 2.0L Cannula 01/31 0831 95 Nasal 2.0L Cannula 01/31 0808 94 Nasal 3.0L Cannula 01/31 0000 95 Nasal 2.0L Cannula 01/304 97.9 62 20 120/82 92 Nasal 1.5L Cannula 01/303 81 18 130/80 01/31 2000 96.8 87 18 130/80 92 Nasal 2.0L Cannula 01/31 2000 92 Nasal 2.0L Cannula 01/30 1911 95 Nasal 2.0L Cannula 01/30 1600 94 Head Box 2.0L () 01/31 1600 98.0 78 22 160/80 94 Nasal 2.0L Cannula Intake & Output 01/31 1600 01/31 0800 01/31 0000 Intake Total Output Total 175 750 Balance -175 -750 Number 1 Bowel Movements Output, Urine 175 750 Physical Exam General Appearance: no apparent distress, comfortable, sedated, intubated Head: atraumatic, normal appearance Neck: normal inspection, supple Respiratory: faint wheezing Cardiovascular: regular rate/rhythm, systolic murmur Gastrointestinal: normal bowel sounds, soft, non-tender, no organomegaly Extremities: no edema Results Last 24 Hrs of Lab Results: Laboratory Tests 01/31/17 0635: Anion Gap 11, Estimated GFR > 60, Glucose 94, Calcium 9.1, Phosphorus 4.9 H, Magnesium 2.1, Total Bilirubin 0.7, AST 45, ALT 58, Albumin 3.6, CBC w Diff NO MAN DIFF REQ, RBC 4.16 L, MCV 85.6, MCH 28.5, RDW 17.3 H, MPV 7.8, Gran % 79.4 H, Lymphocytes % 15.9 L, Monocytes % 3.9, Eosinophils % 0.5, Basophils % 0.3, Absolute Granulocytes 5.2, Absolute Lymphocytes 1.0 L, Absolute Monocytes 0.3, Absolute Eosinophils 0, Absolute Basophils 0, PUBS MCHC 33.3 Impression/Plan Impression/Plan Impression/Plan: 1. Respiratory failure, improved, now off mechanical ventilation. 2. Fluid overload. 3. Acute kidney injury, resolved. 4. Positive troponin. 5. Anemia without evidence of bleeding, may be dilutional, serum iron low. 6. History of chronic respiratory failure/COPD, on home oxygen at 2 L/m. 7. History of seizures. 8. Hypertension with fluctuations in blood pressure. Recommendations: * Wean supplemental oxygen down to off if able. Keep saturations greater than 92%. * Albuterol and atrovent nebs every 4 hours. * Change to Prednisone 40 mg daily and taper off rapidly. Decrease by 10 mg daily, down to off. * Antibiotic course completed, monitor off antibiotics. * PT/increase activity, out of bed to chair. * Diet as tolerated, maintain the patient on aspiration precautions. * Continue DVT prophylaxis. * Telemetry monitoring.
[2017-01-31 16:03] VITALS: BP 152/80
--- NOTE | 2017-01-31 16:55 | Patient Discharge Instructions ---
Discharge Instructions General Discharge Information You were seen/treated for: Pneumonia requiring intubation NSTEMI Acute kidney injury Special Instructions: Please follow up with your in a week Please follow up with your PCP in a week Diet Recommended Diet: Heart Healthy Activity Activity Self Limited: Yes Acute Coronary Syndrome Inclusion Criteria At DC or during hospital stay patient has or had the following: ACS DIAGNOSIS No Discharge Core Measures Meds if any: Prescribed or Continued at Discharge Meds if any: NOT Prescribed or Continued at Discharge Congestive Heart Failure Inclusion Criteria At DC or during hospital stay patient has or had the following: CHF DIAGNOSIS No Discharge Core Measures Meds if any: Prescribed or Continued at Discharge Meds if any: NOT Prescribed or Continued at Discharge Cerebrovascular accident Inclusion Criteria At DC or during hospital stay patient has or had the following: CVA/TIA Diagnosis No Discharge Core Measures Meds if any: Prescribed or Continued at Discharge Meds if any: NOT Prescribed or Continued at Discharge Venous thromboembolism Inclusion Criteria VTE Diagnosis No VTE Type NONE VTE Confirmed by (Test) NONE Discharge Core Measures - Per Current guidelines, there needs to be overlap - treatment for the first 5 days of Warfarin therapy. - If discharged on Warfarin prior to 5 days of - overlap therapy, the patient will need to be - assessed for post discharge needs including - *Post discharge parental anticoagulation - *Warfarin and/or parental anticoagulation education - *Follow up date to check INR post discharge At least 5 days overlap therapy as Inpatient No Meds if any: Prescribed or Continued at Discharge Note: Overlap Therapy is Warfarin and Anticoagulant Meds if any: NOT Prescribed or Continued at Discharge
[2017-02-01 01:39] VITALS: BP 134/90
[2017-02-01 08:17] LABS: ABSOLUTE BASOPHIL COUNT 0 /CUMM (0.0-0.2); ABSOLUTE EOSINOPHIL COUNT 0.1 /CUMM (0.0-0.7); ABSOLUTE GRANULOCYTE CT 3.7 /CUMM (1.4-6.5); ABSOLUTE LYMPH COUNT 1.5 /CUMM (1.2-3.4); ABSOLUTE MONOCYTE COUNT 0.5 /CUMM (0.10-0.60); BASOPHIL % 0.3 % (0.0-2.0); EOSINOPHIL % 2.3 % (0-5); GRANULOCYTE % 62.8 % (42.2-75.2); HEMATOCRIT 31.7 % (42-52); MEAN CORPUSCULAR HGB 28.6 PG (27.0-31.0); MEAN CORPUSCULAR HGB CONC 33.7 G/DL (33.0-37.0); MEAN CORPUSCULAR VOLUME 84.9 FL (80.0-94.0); MEAN PLATELET VOLUME 7.7 FL (7.4-10.4); PLATELET COUNT 292 /CUMM (130-400); RBC DISTRIBUTION WIDTH 17.5 % (11.5-14.5); RED BLOOD CELL CT 3.73 /CUMM (4.70-6.10); WHITE BLOOD CELL COUNT 5.8 /CUMM (4.8-10.8)
[2017-02-01 08:24] VITALS: BP 152/72
--- NOTE | 2017-02-01 08:52 | PN- Housestaff ---
Subjective Follow-up For: Acute hypoxic respiratory failure, 2/2 PNA NSTEMI Complaints: no complaints Tele-Events Since Last Visit: sr, sb, hr 54-61, pr 0.18, bbb Subjective: patient followed up today, offers no complaints, doesn't seem to be confused, no events overnight Review of Systems Constitutional: Reports: no symptoms. Objective Last 24 Hrs of Vital Signs/I&O Vital Signs Date Time Temp Pulse Resp B/P B/P Pulse O2 O2 Flow FiO2 Mean Ox Delivery Rate 02/01 1506 97.9 64 18 152/72 02/01 0830 64 152/72 02/01 0829 64 152/72 02/01 0828 64 152/72 02/01 0824 97.9 54 18 152/72 93 Nasal 2.0L Cannula 02/01 0800 Nasal 2.0L Cannula 02/01 0740 99 Nasal 4.0L Cannula 02/01 0139 97.8 78 20 134/90 97 Nasal 4.0L Cannula 02/01 0000 95 Nasal 3.0L Cannula Intake & Output 02/01 1600 02/01 0800 02/01 0000 Intake Total 240 240 240 Output Total Balance 240 240 240 Intake, Oral 240 240 240 Physical Exam General Appearance: Alert, Oriented X3, Cooperative, No Acute Distress Other Physical Findings: Skin: No Rashes, No Breakdown HEENT: Atraumatic, PERRLA, EOMI Neck: Supple Cardiovascular: Normal S1, Normal S2 Lungs: Clear to Auscultation, Normal Air Movement Abdomen: Normal Bowel Sounds, Soft, No Tenderness Neurological: Normal Tone, Sensation Intact, Cranial Nerves 3-12 NL Extremities: No Clubbing, No Cyanosis, No Edema Current Medications: Current Medications Sig/Fatou Start time Last Medication Dose Route Stop Time Status Admin Acetaminophen 650 MG Q6P PRN 01/23 0015 DCD PO Albuterol Sulfate 3 ML TID 01/29 1600 DCD 02/01 INH 1348 Amlodipine Besylate 10 MG DAILY 01/26 1000 DCD 02/01 PO 0829 Aripiprazole 10 MG 2200 01/28 2200 DCD 01/31 PO 204 Ascorbic Acid 250 MG DAILY 01/27 1918 DCD 02/01 PO 0830 Aspirin 81 MG DAILY 02/01 1000 DCD 02/01 PO 0828 Carvedilol 3.125 MG BID 01/26 0130 DCD 02/01 PO 0828 Ferrous Sulfate 325 MG BID 02/01 1104 DCD 02/01 PO 1310 Guaifenesin 10 ML Q4P PRN 01/23 0615 DCD PO Heparin Sodium 5,000 UNIT Q8 01/23 0600 DCD 02/01 (Porcine) SC 1309 Ipratropium [place] 2.5 ML TID 01/23 1000 DCD 02/01 INH 1348 Lisinopril 10 MG DAILY 02/01 1000 DCD 02/01 PO 0830 Multivitamins 1 TAB DAILY 01/27 191 DCD 02/01 PO 0830 Nicotine 14 MG DAILY 01/29 1718 DCD 02/01 TOP 0829 Omeprazole 40 MG DAILY AC 01/31 0700 DCD 02/01 PO 0625 Prednisone 10 MG DAILY 02/07 1000 CAN PO 02/09 0959 Prednisone 20 MG DAILY 02/05 1000 CAN PO 02/07 0959 Prednisone 10 MG DAILY 02/04 1000 DCD PO 02/04 1001 Prednisone 30 MG DAILY 02/03 1000 CAN PO 02/05 0959 Prednisone 20 MG DAILY 02/03 1000 DCD PO 02/03 1001 Prednisone 30 MG DAILY 02/02 1000 DCD PO 02/02 1001 Prednisone 40 MG DAILY 02/01 1000 CAN PO 02/03 0959 Prednisone 40 MG DAILY 02/01 1000 CAN PO 02/05 0959 Prednisone 40 MG DAILY 02/01 1000 DC 02/01 PO 02/01 1001 0830 Sertraline HCl 200 MG 2200 01/28 2200 DCD 01/31 PO 2044 Trazodone HCl 150 MG QPM 01/27 2200 DCD 01/31 PO 2045 Zinc Sulfate 220 MG DAILY 01/27 1918 DCD 02/01 PO 0830 Last 24 Hrs of Lab/Robert Results Last 24 Hrs of Labs/Mics: Laboratory Tests 02/01/17 1120: PT 14.1 H, INR 1.35 H 02/01/17 0640: Anion Gap 9, Estimated GFR > 60, BUN/Creatinine Ratio 16.0, CBC w Diff NO MAN DIFF REQ, RBC 3.73 L, MCV 84.9, MCH 28.6, RDW 17.5 H, MPV 7.7, Gran % 62.8, Lymphocytes % 25.5, Monocytes % 9.1, Eosinophils % 2.3, Basophils % 0.3, Absolute Granulocytes 3.7, Absolute Lymphocytes 1.5, Absolute Monocytes 0.5, Absolute Eosinophils 0.1, Absolute Basophils 0, PUBS MCHC 33.7 Assessment/Plan Assessment: Mr Valdovinos is a 81 year old gentlemen with a PMH of has a history of coronary artery disease, COPD, hypertension, BPH, carotid stenosis, dementia, history of cerebellar stroke and a recent admission to [facility] approximately 4 weeks ago where he was treated for pneumonia who presented to the emergency department on 01/22/2017 after he was found to be febrile (T Max 100.9) and desaturating while at extended care facility. The following is his Problem List: #Respiratory failure likely due to multilobar pneumonia #Coronary artery disease with elevated troponins possibly attributed to demand ischemia #Acute kidney injury #Resolved #Anemia #History of COPD #History of seizure disorder #History of stroke Acute hypoxic respiratory failure secondary to multilobar pneumonia Patient was initially on ceftazidime and vancomycin. He was subsequently changed to IV Unasyn and administered for a total of 7 days of antibiotics. was the last antibiotic administration. Viral influenza: Negative. Blood cultures: negative. Patient was attempted to be extubated on multiple attempts. We were successful at extubation on 01/29/2007. Patient received IV steroids and later was changed to oral steroids. He is doing better and can be discharged to [facility] today with further plans of care as instructed in discharge instructions and W10. Patient is to take additional steroids for 3 more days as instructed. COPD - TRC and nebs - Ipratropium/Albuterol Anemia hb- 10.7, hct 31.7, but low iron, also low tibc, so patient started on ferrous sulfate upon discharge as well CAD, ruled out ACS Initial EKG did not show any ST segment changes or acute changes on EKG. the patient did have some positive troponins and was followed closely with cardiology. He was initially started on IV heparin however discontinued owing to his troponins due to demand ischemia. A bilateral Doppler study was also done to rule out DVT. A follow up Echo when the patient was more stable to reassess aortic and mitral valve function. Continue Aspirin 81mg, carvedilol 3.125mg BID HTN- On amlodipine 10mg and lisinopril 10mg daily RUTH, resolved At the time of admission the patient was hyperkalemic with a potassium level of 5.5. Upon subsequent repeat of his labs these normalized. The patient did have evidence of a RUTH on admission however upon further repeat seems that any renal failure has resolved. On 01/25/2017 the patient developed metabolic acidosis owing to fluid overload. He was diuresed with 20 mg of Lasix and his fluids were switched from normal saline to D5 with bicarbonate. BPH - continue finasteride and tamsulosin daily Depression We began the patient on Sertaline 200 mg and Aripiprazole 10 mg, on 01/27/2017. These were the patients home medications. Please continue. Of note, the patient was recenlty discharged from [facility] approximately one month ago. Records from [facility] were reviewed. Diet: Regular Diet. DVT ppx: ALPS + Heparin Sub Q Code: Full Code Problem List: 1. Acute hypoxemic respiratory failure 2. Pneumonia 3. CAD (coronary artery disease) 4. COPD (chronic obstructive pulmonary disease) 5. Depression 6. HTN (hypertension) 7. BPH (benign prostatic hyperplasia) Pain Ratin Pain Location: - Pain Goal: Pain 4 or less Pain Plan: prn Tomorrow's Labs & Rationales: -
[2017-02-01] MEDS ORDERED: FERROUS SULFAT325 M2 PO (11:06)
--- NOTE | 2017-02-01 11:37 | PN- Pulmonary ---
Subjective HPI/Critical Care Issues: pt seen and examined doing well no complaints this am afebrile mildly hypertensive Objective Current Medications: Current Medications Sig/Fatou Start time Last Medication Dose Route Stop Time Status Admin Acetaminophen 650 MG Q6P PRN 01/23 0015 AC PO Albuterol Sulfate 3 ML TID 01/29 1600 AC 02/01 INH 0735 Amlodipine Besylate 10 MG DAILY 01/26 1000 AC 02/01 PO 0829 Aripiprazole 10 MG 2200 01/28 2200 AC 01/31 PO 2045 Ascorbic Acid 250 MG DAILY 01/27 1918 AC 02/01 PO 0830 Aspirin 81 MG DAILY 02/01 1000 AC 02/01 PO 0828 Carvedilol 3.125 MG BID 01/26 0130 AC 02/01 PO 0828 Ferrous Sulfate 325 MG BID 02/01 1104 AC PO Guaifenesin 10 ML Q4P PRN 01/23 0615 AC PO Heparin Sodium 5,000 UNIT Q8 01/23 0600 AC 02/01 (Porcine) SC 0626 Ipratropium [place] 2.5 ML TID 01/23 1000 AC 02/01 INH 0735 Lisinopril 10 MG DAILY 02/01 1000 AC 02/01 PO 0830 Multivitamins 1 TAB DAILY 01/27 1917 AC 02/01 PO 0830 Nicotine 14 MG DAILY 01/29 1718 AC 02/01 TOP 0829 Omeprazole 40 MG DAILY AC 01/31 0700 AC 02/01 PO 0625 Prednisone 10 MG DAILY 02/07 1000 CAN PO 02/09 0959 Prednisone 20 MG DAILY 02/05 1000 CAN PO 02/07 0959 Prednisone 10 MG DAILY 02/04 1000 AC PO 02/04 1001 Prednisone 30 MG DAILY 02/03 1000 CAN PO 02/05 0959 Prednisone 20 MG DAILY 02/03 1000 AC PO 02/03 1001 Prednisone 30 MG DAILY 02/02 1000 AC PO 02/02 1001 Prednisone 40 MG DAILY 02/01 1000 CAN PO 02/03 0959 Prednisone 40 MG DAILY 02/01 1000 CAN PO 02/05 0959 Prednisone 40 MG DAILY 02/01 1000 DC 02/01 PO 02/01 1001 0830 Sertraline HCl 200 MG 2200 01/280 AC 01/31 PO 2044 Trazodone HCl 150 MG QPM 01/27 2200 AC 01/31 PO 2045 Zinc Sulfate 220 MG DAILY 01/27 1918 AC 02/01 PO 0830 Vital Signs & I&O Last 24 Hrs of Vitals and I&O: Vital Signs Date Time Temp Pulse Resp B/P B/P Pulse O2 O2 Flow FiO2 Mean Ox Delivery Rate 02/01 0830 64 152/72 02/01 0829 64 152/72 02/01 0828 64 152/72 02/01 0824 97.9 54 18 152/72 93 Nasal 2.0L Cannula 02/01 0800 Nasal 2.0L Cannula 02/01 0740 99 Nasal 4.0L Cannula 02/01 0139 97.8 78 20 134/90 97 Nasal 4.0L Cannula 02/01 0000 95 Nasal 3.0L Cannula 01/31 2045 74 150/80 01/31 1958 95 Nasal 2.0L Cannula 01/31 1715 94 Nasal 3.0L Cannula 01/31 1603 98.0 87 18 152/80 93 Nasal 2.5L Cannula Intake & Output 02/01 1600 02/01 0800 02/01 0000 Intake Total 240 240 Output Total Balance 240 240 Intake, Oral 240 240 Exam Other Physical Findings: gen awake and comfortable heent ncat cvs s1, s2, +murmur lungs rare rhonchi abd soft bs+ ext without edema Results Last 24 Hrs of Lab Results: Laboratory Tests 02/01/17 1120: PT Pending, INR Pending 02/01/17 0640: Anion Gap 9, Estimated GFR > 60, BUN/Creatinine Ratio 16.0, CBC w Diff NO MAN DIFF REQ, RBC 3.73 L, MCV 84.9, MCH 28.6, RDW 17.5 H, MPV 7.7, Gran % 62.8, Lymphocytes % 25.5, Monocytes % 9.1, Eosinophils % 2.3, Basophils % 0.3, Absolute Granulocytes 3.7, Absolute Lymphocytes 1.5, Absolute Monocytes 0.5, Absolute Eosinophils 0.1, Absolute Basophils 0, PUBS MCHC 33.7 Impression/Plan Impression/Plan Impression/Plan: Impression 81 year old man * Improved acute on chronic respiratory failure secondary to fluid overload * anemia * COPD appears stablized, on home oxygen 2LNC per chart * htn Plan - trc/nebs - reduce o2 as needed, assess home o2 needs - out of bed and assess strength for dc planning/PT - prednisone taper as ordered DVT prophylaxis at all times
[2017-02-01 11:56] LABS: PT 14.1 SEC (9.4-12.5)
--- NOTE | 2017-02-01 13:51 | Discharge Summary ---
See Addendum Visit Information Visit Dates Admission Date: 01/22/17 Discharge Date: 02/01/17 Hospital Course Course Attending Physician: LARISSA CHAVES,GLADYS Primary Care Physician: UNKNOWN Hospital Course: Mr Valdovinos is a 81 year old gentlemen with a PMH of has a history of coronary artery disease, COPD, hypertension, BPH, carotid stenosis, dementia, history of cerebellar stroke and a recent admission to [facility] approximately 4 weeks ago where he was treated for pneumonia who presented to the emergency department on 01/22/2017 after he was found to be febrile (T Max 100.9) and desaturating while at extended care facility. The following is his Problem List: #Respiratory failure likely due to multilobar pneumonia #Coronary artery disease with elevated troponins possibly attributed to demand ischemia #Acute kidney injury #Resolved #Anemia #History of COPD #History of seizure disorder #History of stroke Respiratory Patient was initially on ceftazidime and vancomycin. He was subsequently changed to IV Unasyn and administered for a total of 7 days of antibiotics. was the last antibiotic administration. Viral influenza: Negative. Blood cultures: negative. Patient was attempted to be extubated on multiple attempts. We were successful at extubation on 01/29/2007. Patient received IV steroids and later was changed to oral steroids. Patient is to take additional steroids for 3 more days as instructed. Cardiovascular Initial EKG did not show any ST segment changes or acute changes on EKG. the patient did have some positive troponins and was followed closely with cardiology. He was initially started on IV heparin however discontinued owing to his troponins due to demand ischemia. A bilateral Doppler study was also done to rule out DVT. A follow up Echo when the patient was more stable to reassess aortic and mitral valve function. Hematologic Patient's H&H remained stable. A guaiac test was done which was negative. Metabolic At the time of admission the patient was hyperkalemic with a potassium level of 5.5. Upon subsequent repeat of his labs these normalized. The patient did have evidence of a RUTH on admission however upon further repeat seems that any renal failure has resolved. On 01/25/2017 the patient developed metabolic acidosis owing to fluid overload. He was diuresed with 20 mg of Lasix and his fluids were switched from normal saline to D5 with bicarbonate. Neurology We began the patient on Sertaline 200 mg and Aripiprazole 10 mg, on 01/27/2017. These were the patients home medications. Please continue. Other The patient was recenlty discharged from [facility] approximately one month ago. Records from [facility] were reviewed. Diet: Regular Diet. DVT ppx: ALPS + Heparin Sub Q Code: Full Code Allergies: Coded Allergies: No Known Allergies (01/22/17) Significant Procedures: Latest chest x-ray; IMPRESSION: Endotracheal tube tip approximately 5 cm from the paco. The enteric tube tip appears to be below the level of diaphragm, out of the field of view of the current film. Bibasilar atelectasis. DICTATED BY: PAM CHAVES,DEYSI Kasper DATE/TIME DICTATED:01/29/17849 MACHINE LEARNING INTERN:PRERNA DATE/TIME TRANSCRIBED:01/29/17849 CONCLUSIONS 1. This was a technically difficult and very limited study due to the patient's body habitus and clinical status. 2. Fibrocalcific degeneration is present in the aortic valve. The valve was not well visualized anatomically. I suspect that there is some valvular stenosis present but this was not optimally assessed on this examination. 3. Marked thickening and calcification of the mitral leaflets is present. There is no significant valvular stenosis but mild mitral insufficiency appears to be present. 4. A small pericardial effusion is present, 5. The left ventricular chamber size and systolic function appear normal. Abnormal septal motion is present. 6. THe right heart structures were not optimally assessed. Mild tricuspid insufficiency is present with an estimated RV systolic pressure of 54 mmHg. 7. Left ventricular diastolic dysfunction is present. 8. A followup study is suggested when the patient is more stable to reassess aortic and mitral valve function. Disposition Summary Disposition Principal Diagnosis: 1. Respiratory failure, improved, now off mechanical ventilation. 2. Fluid overload. 3. Acute kidney injury, resolved. 4. Positive troponin. 5. Anemia without evidence of bleeding, may be dilutional, serum iron low. 6. History of chronic respiratory failure/COPD, on home oxygen at 2 L/m. 7. History of seizures. 8. Hypertension with fluctuations in blood pressure. Additional Diagnosis: as above Discharge Disposition: SNF Discharge Instructions General Discharge Information Code Status: Full Code Patient's Diet: Regular diet Patient's Activity: As tolerated Follow-Up Instructions/Appts: Please follow up with your in a week. Please follow up with your PCP in a week. History done to emergency if symptoms worsen. Medications at Discharge Discharge Medications: Continue taking these medications: Aspirin (Aspirin*) 81 MG TAB.CHEW 1 Tablet ORAL DAILY Days = 30 Comments: Last Taken: 02/01/17 Time: 08 Gabapentin (Neurontin) 400 MG CAPSULE 1 Capsule ORAL THREE TIMES DAILY Days = 30 Comments: Last Taken: NOT GIVEN IN HOSPITAL Time: Sertraline HCl (Zoloft) 100 MG TABLET 2 Tablet ORAL DAILY Days = 30 Comments: Last Taken: 01/31/17 Time: 2044 Carvedilol (Carvedilol) 3.125 MG TABLET 1 Tablet ORAL TWICE DAILY Days = 30 Comments: Last Taken: 02/01/17 Time: 829 Lisinopril (Prinivil) 10 MG TABLET 1 Tablet ORAL DAILY Days = 30 Comments: Last Taken: 02/01/17 Time: 829 Atorvastatin Calcium (Lipitor) 80 MG TABLET 1 Tablet ORAL DAILY Days = 30 Comments: Last Taken: NOT GIVEN IN HOSPITAL Time: Aripiprazole (Abilify) 10 MG TABLET 1 Tablet ORAL DAILY Days = 30 Comments: Last Taken: 01/31/17 Time: 2044 Amlodipine Besylate (Amlodipine Besylate) 10 MG TABLET 1 Tablet ORAL DAILY Days = 30 Comments: Last Taken: 02/01/17 Time: 829 Trazodone HCl (Trazodone HCl) 50 MG TABLET 3 Tablet ORAL Every night Days = 30 Comments: Last Taken: 01/31/17 Time: 2044 Docusate Sodium (Colace) 100 MG CAPSULE 1 Capsule ORAL TWICE DAILY Days = 30 Comments: Last Taken: NOT GIVEN IN HOSPITAL Time: Sennosides (Senna) 8.6 MG TABLET 2 Tablet ORAL DAILY Days = 30 Comments: Last Taken: NOT GIVEN IN HOSPITAL Time: Nicotine (Nicotine Patch) 21 MG/24 HOUR PATCH.TD24 1 Patch On the skin DAILY Days = 30 Comments: Last Taken: 02/01/17 Time: 0830 Finasteride (Proscar) 5 MG TABLET 1 Tablet ORAL DAILY Days = 30 Comments: Last Taken: NOT GIVEN IN HOSPITAL Time: Tamsulosin HCl (Tamsulosin HCl) 0.4 MG CAP.ER.24H 2 Capsule ORAL DAILY Days = 30 Comments: Last Taken: NOT GIVEN IN HOSPITAL Time: Cholecalciferol (Vitamin D3) (Vitamin D3) 1,000 UNIT CAPSULE 2 Capsule ORAL DAILY Days = 30 Comments: Last Taken: NOT GIVEN IN HOSPITAL Time: Ipratropium/Albuterol Sulfate (Combivent Respimat Inhal [place]) 20 MCG-100 MCG/ ACTUATION MIST.INHAL 1 PUFF Inhale Solution EVERY SIX HOURS Days = 30 Comments: Last Taken: NOT GIVEN IN HOSPITAL Time: Start taking the following new medications: Ferrous Sulfate (Ferrous Sulfate) 325 MG (65 MG IRON) TABLET.DR 1 Tablet ORAL TWICE DAILY Qty = 60 No Refills Comments: Last Taken: 02/01/17 Time: 1310 Prednisone (Prednisone) 10 MG TABLET 1 Tablet ORAL SEE INSTRUCTIONS Qty = 6 No Refills Instructions: TAKE THREE TABS ON 02/02/17, THEN TAKE TWO TABS ON 02/03/17, THEN TAKE ONE TAB ON 02/04/17, THEN STOP. Comments: Last Taken: 02/01/17 Time: 0830 Copies To: VIOLETA CHAVES,Jean-Paul SRIVASTAVA Attending MD Review Statement Documenting Attending: ARELIS CHAVES,CESILIA Powell Other Findings: please see my separate attending note for more details
[2017-02-01] MEDS ORDERED: PREDNISONE10 M2 PO (14:05)
[2017-02-01 15:06] VITALS: BP 152/72
--- NOTE | 2017-02-01 17:46 | PN- Att Addend ---
Attending MD Review Statement Attending Statement Attending MD Statement: examined this patient, discuss w/resident/PA/CATTLE SPRAYER, agreed w/resident/PA/CATTLE SPRAYER, reviewed EMR data (avail), discussed w/case mgmt Attending Assessment/Plan: Laboratory Tests 02/01/17 1120: PT 14.1 H, INR 1.35 H 02/01/17 0640: Anion Gap 9, Estimated GFR > 60, BUN/Creatinine Ratio 16.0, CBC w Diff NO MAN DIFF REQ, RBC 3.73 L, MCV 84.9, MCH 28.6, RDW 17.5 H, MPV 7.7, Gran % 62.8, Lymphocytes % 25.5, Monocytes % 9.1, Eosinophils % 2.3, Basophils % 0.3, Absolute Granulocytes 3.7, Absolute Lymphocytes 1.5, Absolute Monocytes 0.5, Absolute Eosinophils 0.1, Absolute Basophils 0, PUBS MCHC 33.7 Vital Signs Date Time Temp Pulse Resp B/P B/P Pulse O2 O2 Flow FiO2 Mean Ox Delivery Rate 02/01 1506 97.9 64 18 152/72 02/01 0830 64 152/72 02/01 0829 64 152/72 02/01 0828 64 152/72 02/01 0824 97.9 54 18 152/72 93 Nasal 2.0L Cannula 02/01 0800 Nasal 2.0L Cannula 02/01 0740 99 Nasal 4.0L Cannula 02/01 0139 97.8 78 20 134/90 97 Nasal 4.0L Cannula 02/01 0000 95 Nasal 3.0L Cannula 01/31 2045 74 150/80 01/31 1958 95 Nasal 2.0L Cannula Patient seen and examined at bedside. Discussed with patient family at bedside the care plan. Patient is being discharged back to subacute rehabilitation today further rehabilitation. Patient was admitted to the hospital for bilateral lower lobe pneumonia and acute hypoxic respiratory failure. It seems to be resolving and the patient will be discharged in stable condition. Patient was also found to have low serum iron and and so was started on iron supplementation at the time of discharge.
== END 2017-02-01 16:35 | DRG 870 ==
LOC: ENRESERVDT → ENRESERVTM → ERH 21:14 → ERHI 23:47 → 1NO 23:47 → CRI 23:47 → 1NO 01-30 22:12 → ENPENDDIS 02-01 14:10 → 1NO 02-01 16:35
PROVIDERS: Emergency Medicine; Internal Medicine; Internal Medicine Infectious Disease; Ophthalmology; Student in an Organized Health Care Education/Training Program; ADMIT Internal Medicine
PROC: 5A1955Z Respiratory Ventilation, Greater than 96 Consecutive Hours (ICD-10-PCS; principal; 2017-01-22)
PROC: 0BH17EZ Insertion of Endotracheal Airway into Trachea, Via Natural or Artificial Opening (ICD-10-PCS; principal; 2017-01-22)
PROC: 02HV33Z Insertion of Infusion Device into Superior Vena Cava, Percutaneous Approach (ICD-10-PCS; 2017-01-23)
DX: A41.9 Sepsis, unspecified organism (principal); J96.21 Acute and chronic respiratory failure with hypoxia; R65.21 Severe sepsis with septic shock; J15.20 Pneumonia due to staphylococcus, unspecified; E87.2 Acidosis; J44.9 Chronic obstructive pulmonary disease, unspecified; D69.6 Thrombocytopenia, unspecified; N17.9 Acute kidney failure, unspecified; F03.90 Unspecified dementia, unspecified severity, without behavioral disturbance, psychotic disturbance, mood disturbance, and anxiety; I24.8 Other forms of acute ischemic heart disease; I51.81 Takotsubo syndrome; I95.9 Hypotension, unspecified; N40.0 Benign prostatic hyperplasia without lower urinary tract symptoms; E78.00 Pure hypercholesterolemia, unspecified; I25.10 Atherosclerotic heart disease of native coronary artery without angina pectoris; I10 Essential (primary) hypertension; I65.29 Occlusion and stenosis of unspecified carotid artery; Z86.73 Personal history of transient ischemic attack (TIA), and cerebral infarction without residual deficits; Z87.891 Personal history of nicotine dependence
CPT/HCPCS: 1NP; 87184; CCU; ERO; 36415; 81001; 82436; 87040; 87070; 87071; 87086; 87147; 87449; 87450; 87804; 87804-59; 93005; 93010; 93306; 93970; 94799; 96361; 96374; 97110-GO; 97161-GP; 97530-GO; 99291; J0401; J0456; J0696; J0713; J1644; J1940; J2060; J2920; J3370; J3490; J7040; J7042; J7060; J7512

== ENCOUNTER 2017-03-06 13:07 | Inpatient (IN) | payer OTHER, MEDICARE ==
[~2017-03-06] VITALS: Ht 165.1 cm; Wt 69.6 kg
[~2017-03-06 13:07] MED LIST: ABILIFY10 M1 PO; AMLODIPINE BES2.5 M1 PO; ASPIRIN81 M4 PO; CARVEDILOL3.125 M1 PO; COLACE100 M1 PO; COMBIVENT RESPIM4 GM INH/SOL; FERROUS SULFAT325 M2 PO; LIPITOR80 M1 PO; NEURONTIN400 M1 PO; NICOTINE PATCH1 EAC3 TOP; PREDNISONE10 M2 PO; PRINIVIL10 M1 PO; PROSCAR5 M1 PO; SENNA8.6 M3 PO; TAMSULOSIN HCL0.4 M1 PO; TRAZODONE HCL50 M1 PO; VITAMIN D31000 UNI1 PO; ZOLOFT100 M1 PO
--- NOTE | 2017-03-06 13:10 | NUR ---
PT BIBA FROM ECF WITH C/O LEFT SIDED FACIAL DROOP AND LEFT SIDED DEFICIT. PT LAST SEEN NORMAL AT 1130. PER ECF, PT WAS UNRESPONSIVE AND SLUMPED OVER IN CHAIR WHEN FOUND AT 1300. UPON ARRIVAL IN ED, PT TAKEN DIRECTLY TO CT SCAN THEN PLACED IN RM [address] ESCOTO AT BEDSIDE. IN ED, PT ANSWERING YES AND NO APPROPRIATELY, WHEN TOLD TO SMILE AND SHOW HIS TEETH PT STATES "I DON'T HAVE ANY TEETH".
--- NOTE | 2017-03-06 13:19 | ED NEURO DEFICIT/STROKE ---
History of Present Illness General Chief Complaint: Neuro Symptoms/ Deficit Stated Complaint: BIBA FOR CVA Source: EMS Exam Limitations: unable to give history Vital Signs & Intake/Output Vital Signs & Intake/Output Vital Signs Date Time Temp Pulse Resp B/P B/P Pulse O2 O2 Flow FiO2 Mean Ox Delivery Rate 03/07 1036 95 Nasal 3.0L Cannula 03/07 0800 96.1 66 25 120/60 96 Nasal 3.0L Cannula 03/07 0800 94 Nasal 3.0L Cannula 03/07 0611 87 Nasal 5.0L Cannula 03/07 0400 92 Nasal 3.0L Cannula 03/07 0000 94 Nasal 3.0L Cannula 03/07 0000 97.2 62 19 92/62 94 Nasal 3.0L Cannula 03/06 2216 Nasal 2.0L Cannula 03/06 2123 99 Nasal 4.0L Cannula 03/06 2020 95.9 61 16 87/52 100 Nasal 4.0L Cannula 03/06 1809 66 20 83/48 96 Nasal 4.0L Cannula 03/06 1651 97.2 73 20 74/41 95 Nasal 4.0L Cannula 03/06 1525 78 18 78/44 95 Nasal 4.0L Cannula 03/06 1501 79/40 03/06 1430 81/47 03/06 1415 70 20 86/50 93 03/06 1400 98.0 72 20 83/46 94 Nasal 4.0L Cannula 03/06 1338 18 93 Nasal 5.0L Cannula 03/06 1328 98.2 66 20 74/48 91 Nasal 5.0L Cannula ED Intake and Output 03/07 0000 03/06 1200 Intake Total 1142.9 Output Total 250 Balance 892.9 Intake, IV 1142.9 Intake, Oral 0 Number 0 Bowel Movements Output, Urine 250 Patient 153 lb Weight Weight Bed scale Measurement Method Allergies Coded Allergies: No Known Allergies (01/22/17) Reconcile Medications Amlodipine Besylate 2.5 MG TABLET 1 TAB PO DAILY HTN (Reported) Aripiprazole (Abilify) 10 MG TABLET 1 TAB PO DAILY MENTAL HEALTH (Reported) Aspirin (Aspirin*) 81 MG TAB.CHEW 1 TAB PO DAILY HEART (Reported) Atorvastatin Calcium (Lipitor) 80 MG TABLET 1 TAB PO 1700 CHOLESTEROL ( Reported) Carvedilol 3.125 MG TABLET 1 TAB PO BID HTN (Reported) Finasteride (Proscar) 5 MG TABLET 1 TAB PO DAILY BPH (Reported) Gabapentin (Neurontin) 400 MG CAPSULE 1 CAP PO TID NEUROPATHY (Reported) Ipratropium/Albuterol Sulfate (Combivent Respimat Inhal [place]) 20 MCG-100 MCG/ ACTUATION MIST.INHAL 1 PUFF INH/JANIS Q6 RESPIRATORY (Reported) Lisinopril (Prinivil) 10 MG TABLET 1 TAB PO DAILY HTN (Reported) Sertraline HCl (Zoloft) 100 MG TABLET 2 TAB PO DAILY MENTAL HEALTH (Reported) Tamsulosin HCl 0.4 MG CAP.ER.24H 2 CAP PO DAILY BPH (Reported) Tramadol HCl 50 MG TABLET 1 TAB PO TIDPRN PRN PRIOR TO CPI [place] (Reported) Trazodone HCl 50 MG TABLET 3 TAB PO QPM SLEEP (Reported) Triage Nurses Notes Reviewed? yes HPI: Patient presents for evaluation of an episode of unresponsiveness and the possibility of a CVA. The patient himself is unable to provide substantial history. According to the ECF documentation patient was found unresponsive in his wheelchair after last being seen just after 11:00 this morning. According to EMS he was "unresponsive" when they arrived but began responding during transit. Upon presentation to the emergency deartment the patient appears alert and is interactive with examination and questioning. He denies and acute medical complaint currently. Admittedly he often has a somewhat blank stare with no tremors or signs of seizures. Past History Medical History Any Pertinent Medical History? see below for history Neurological: dementia, TREMORS Cardiovascular: hypertension Respiratory: COPD Renal: benign prost hyperplasia History of MRSA: Yes History of VRE: No History of CDIFF: No Influenza Vaccine: 07/13/16 Surgical History Surgical History: non-contributory Psychosocial History Who do you live with Other (see notes) What is your primary language Swedish Family History Hx Contributory? No Review of Systems Review of Systems Constitutional: Reports: no symptoms. EENTM: Reports: no symptoms. Respiratory: Reports: no symptoms. Cardiovascular: Reports: no symptoms. GI: Reports: no symptoms. Genitourinary: Reports: no symptoms. Musculoskeletal: Reports: no symptoms. Skin: Reports: no symptoms. Neurological/Psychological: Reports: no symptoms. Hematologic/Endocrine: Reports: no symptoms. Immunologic/Allergic: Reports: no symptoms. All Other Systems: Reviewed and Negative Physical Exam Physical Exam General Appearance: SEE BELOW Cranial Nerves: SEE BELOW Comments: Gen.: Well-nourished, well-developed, no acute respiratory distress. Head: Normocephalic, atraumatic. Eyes: Normal inspection bilaterally Ears: Normal inspection bilaterally Nose: Normal inspection Throat/mouth : Tacky mucosa, poor dentition Neck: Supple, full range of motion, no goiter Heart: Regular rate and rhythm, systolic murmur throughout precordium Lungs: Clear to auscultation bilaterally with normal air entry Chest: Nontender Back: Normal range of motion Abdomen: Soft, nontender, nondistended, normal bowel sounds Extremities: Normal range of motion grossly, equal radial pulses with slow upstroke, no cyanosis clubbing or edema, no Babinski sign Neurologic: Cranial nerves grossly intact, speech is clear Skin: warm and dry Psychiatric: Calm, cooperative, no apparent delusions or hallucinations Core Measures CVA/TIA Diagnosis: No Severe Sepsis Present: No Septic Shock Present: No Progress Differential Diagnosis: SYNCOPE, cva, DEHYDRATION, ACIDOSIS/ELECTROLYTE ABNORMALITY Plan of Care: Orders Procedure Date/time Status CBC WITHOUT DIFFERENTIAL 03/08 0500 Active BASIC ELECTROLYTES PLUS BUN&CR 03/08 0500 Active Nothing by Mouth 03/07 B Active Transfer patient to 03/07 0921 Active PHARMACY COMMUNICATION FORM 03/07 0908 Active THERAPIST ORDERS 03/07 0644 Complete THERAPIST ORDERS 03/07 0613 Complete THERAPIST ORDERS 03/07 0605 Complete MAGNESIUM 03/07 0500 Complete HEPATIC FUNCTION PANEL 03/07 0500 Complete CBC WITHOUT DIFFERENTIAL 03/07 0500 Complete BASIC ELECTROLYTES PLUS BUN&CR 03/07 0500 Complete ECHOCARDIOGRAM 03/07 UNK Active RT: Evaluation 03/06 2214 Active TROPONIN LEVEL 03/06 2100 Complete BASIC ELECTROLYTES PLUS BUN&CR 03/06 2100 Complete EKG 03/06 2100 Active Wound Care/Dressing 03/06 2000 Active Weight 03/06 2000 Complete VTE Mechanical Prophylaxis 03/06 2000 Active Vital Signs 03/06 2000 Active Turn and Reposition 03/06 2000 Active Drains/Tubes 03/06 2000 Complete Teach/Educate 03/06 2000 Active Skin Integrity Protocol 03/06 2000 Active Skin/Pressure Ulcer Assess (Sk 03/06 2000 Active Precautions 03/06 2000 Active Pain Treatment and Response 03/06 2000 Active Nutritional Intake, Monitor 03/06 2000 Active Isolation 03/06 2000 Active CIWA 03/06 2000 Complete Patient Care Conference 03/06 2000 Active Activity/Ambulation 03/06 2000 Active VRE ACTIVE SURVIELLANCE 03/06 175 Active ACTIVE SURVEILLANCE NARES 03/06 1758 Active TROPONIN LEVEL 03/06 1700 Complete PROTHROMBIN TIME 03/06 1700 Complete MAGNESIUM 03/06 1700 Complete HEPATIC FUNCTION PANEL 03/06 1700 Complete BASIC ELECTROLYTES PLUS BUN&CR 03/06 1700 Complete EKG 03/06 1700 Active TRC EVALUATION (GEN) 03/06 1641 Active Pathway - chart 03/06 1641 Active House Staff 03/06 1641 Active Patient Data 03/06 1641 Active Vital Signs 03/06 1634 Active Code Status 03/06 1634 Active Add-on Test (ER Only) 03/06 1633 Active Add-on Test (ER Only) 03/06 1616 Active Patient Data 03/06 1603 Active Admit to inpatient 03/06 1559 Active CULTURE,URINE 03/06 1534 Active STREP PNEUMO URINARY ANTIGEN 03/06 1534 Active LEGIONELLA URINARY ANTIGEN 03/06 1534 Active LOWER RESPIRATORY CULTURE 03/06 1534 Active BLOOD CULTURE 03/06 1529 Active LACTIC ACID 03/06 1529 Complete PHOSPHORUS 03/06 1337 Complete MAGNESIUM 03/06 1337 Complete B-TYPE NATRIURETIC PEP (BNP) 03/06 1337 Complete Saline Lock 03/06 1334 Active URINE DRUG SCREEN FOR ER ONLY 03/06 1334 Complete URINALYSIS 03/06 1334 Complete TSH REFLEX 03/06 1334 Complete TROPONIN LEVEL 03/06 1334 Complete ETHANOL 03/06 1334 Complete COMPREHENSIVE METABOLIC PANEL 03/06 1334 Complete CBC WITHOUT DIFFERENTIAL 03/06 1334 Complete EKG 03/06 1334 Active FingerStick- Glucose 03/06 1309 Complete SWALLOW EVALUATION 03/06 UNK Active OXYGEN SETUP CHG 03/06 UNK Complete OXYGEN 03/06 UNK Complete OXYGEN TRANSPORT 03/06 UNK Complete OXYGEN SETUP (GEN) 03/06 UNK Complete VTE Mechanical Prophylaxis 03/06 UNK Active Vital Signs 03/06 UNK Complete Precautions 03/06 UNK Active Intake & Output 03/06 UNK Active Hemoccult 03/06 UNK Active Recio, Insertion/Removal/Asses 03/06 UNK Active Current Medications Sig/Fatou Start time Last Medication Dose Stop Time Status Admin Vancomycin HCl 1,000 MG DAILY@1700 03/07 1700 AC Sodium Chloride 250 ML (Normal Saline 0.9%) Aripiprazole 10 MG DAILY 03/07 1000 AC (Abilify) Aspirin 81 MG DAILY 03/07 1000 AC (Aspirin) Sertraline HCl 200 MG DAILY 03/07 1000 AC (Zoloft) Sodium Chloride 1,000 ML Q13H 03/07 0745 AC 03/07 (Normal Saline 0.9%) 0806 Ceftazidime 1,000 MG IQ8 03/07 0000 AC 03/07 (Fortaz) 0740 Albuterol Sulfate 3 ML Q4P PRN 03/06 2245 AC (Proventil) Gabapentin 400 MG TID 03/06 2200 AC (Neurontin) Heparin Sodium 5,000 UNIT Q8 03/06 2200 AC 03/07 (Porcine) 0638 Trazodone HCl 150 MG QPM 03/06 2200 CAN (Desyrel) Atorvastatin Calcium 80 MG 1700 03/06 1700 AC (Lipitor) Gentamicin Sulfate 80 MG ONCE ONE 03/06 1600 CAN (Gentamicin) 03/06 1629 Dextrose/Water 100 ML (D5W) Laboratory Tests 03/07/17 0356: Anion Gap 9, Estimated GFR > 60, BUN/Creatinine Ratio 35.0 H, Magnesium 2.1, Total Bilirubin 0.4, Direct Bilirubin 0.3, AST 18, ALT 29, Alkaline Phosphatase 62, Total Protein 5.3 L, Albumin 2.5 L, CBC w Diff NO MAN DIFF REQ, RBC 2.95 L, MCV 86.5, MCH 28.8, RDW 18.9 H, MPV 8.6, Gran % 76.8 H, Lymphocytes % 15.5 L, Monocytes % 4.7, Eosinophils % 2.7, Basophils % 0.3, Absolute Granulocytes 5.9, Absolute Lymphocytes 1.2, Absolute Monocytes 0.4, Absolute Eosinophils 0.2, Absolute Basophils 0, PUBS MCHC 33.3 03/06/17 2100: Anion Gap 9, Estimated GFR 58 L, BUN/Creatinine Ratio 30.8 H, Troponin I 0.35 *H 03/06/17 1829: Lactic Acid Cancelled 03/06/17 1645: Lactic Acid 0.9 03/06/17 1645: Anion Gap 9, Estimated GFR 49 L, BUN/Creatinine Ratio 30.0 H, Magnesium 2.2, Total Bilirubin 0.3, Direct Bilirubin 0.3, AST 18, ALT 38, Alkaline Phosphatase 62, Troponin I 0.38 *H, Total Protein 5.4 L, Albumin 2.6 L, PT 13.6 H, INR 1.30 H 03/06/17 1421: Urine Opiates Screen 114.00, Methadone Screen 43, Barbiturate Screen < 60, Ur Phencyclidine Scrn < 6.00, Amphetamines Screen < 100, U Benzodiazepines Scrn 137 , Urine Cocaine Screen < 50, Urine Cannabis Screen < 5.00, Urinalysis LIGHT H, Urine Color YEL, Urine Clarity CLEAR, Urine pH 6.0, Ur Specific [place] 1.025, Urine Protein TRACE H, Urine Ketones NEG, Urine Nitrite NEG, Urine Bilirubin NEG, Urine Urobilinogen 0.2, Ur Leukocyte Esterase NEG, Ur Microscopic SEDIMENT EXAMINED, Urine RBC RARE, Urine WBC RARE, Ur Epithelial Cells FEW, Urine Crystals RARE [place] OX, Urine Bacteria FEW H, Hyaline Casts MOD H, Urine Mucus FEW, Urine Hemoglobin NEG, Urine Glucose NEG 03/06/17 1337: Anion Gap 9, Estimated GFR 45 L, BUN/Creatinine Ratio 29.3 H, Glucose 100 H, Calcium 8.5, Phosphorus 4.8 H, Magnesium 2.3, Total Bilirubin 0.5, AST 23, ALT 35, Alkaline Phosphatase 71, Troponin I 0.31 *H, Get-W-Lwswagadrzj Pept 2840 H, Total Protein 6.2 L, Albumin 3.2 L, Globulin 3.0, Albumin/Globulin Ratio 1.1, TSH &T3 &Free T4 Intrp 1.770, CBC w Diff MAN DIFF ORDERED, RBC 3.35 L, MCV 85.1 , MCH 28.7, RDW 18.3 H, MPV 8.1, Gran % 84.8 H, Lymphocytes % 6.6 L, Monocytes % 8.2, Eosinophils % 0.1, Basophils % 0.3, Absolute Granulocytes 10.3 H, Segmented Neutrophils 74, Band Neutrophils 16 H, Absolute Lymphocytes 0.8 L , Lymphocytes 5 L, Monocytes 5, Absolute Monocytes 1.0 H, Absolute Eosinophils 0, Absolute Basophils 0, Platelet Estimate ADEQUATE, Polychromasia 1+, Hypochromic-Microcytic 1+, Poikilocytosis 2+, Anisocytosis 1+, Ovalocytes 1+, Fco Cells RARE, PUBS MCHC 33.7, Fld Total RBCs Counted 100, Serum Alcohol < 10.0 Microbiology 03/06 2100 UPPER RESP: Surveillance Culture - RECD 03/06 2100 GI: Surveillance Culture - RECD 03/06 1720 BLOOD: Blood Culture - RECD 03/06 1645 BLOOD: Blood Culture - RECD 03/06 1641 URINE ROUT: Urine Culture - CAN Cancelled: Cancelled via OE: Per Decision 03/06 1610 URINE ROUT: Legionella Antigen - RES 03/06 1610 URINE ROUT: Streptococcus pneumoniae Antigen (M - RES 03/06 1610 URINE ROUT: Urine Culture - RES 03/06 1534 LOWER RESP: Respiratory Culture - COLB 03/06 153 LOWER RESP: Gram Stain - COLB Diagnostic Imaging: Discussed w/RAD: CT Scan. Radiology Impression: PATIENT: ASAD CASTILLO PRESENT AGE: 81 PATIENT ACCOUNT NO: [id number] : 37 LOCATION: [facility] ORDERING PHYSICIAN: MANDO BOLDEN MD SERVICE DATE: 03/06/17 EXAM TYPE: CAT - CT HEAD WO IV CONTRAST EXAMINATION: CT HEAD WITHOUT CONTRAST CLINICAL INFORMATION: Slurred speech. Assess for CVA. COMPARISON: None. TECHNIQUE: Contiguous axial imaging was performed from the skull base to vertex without intravenous administration of contrast. DLP: 633.7 mGy-cm FINDINGS: There is no evidence of acute intracranial hemorrhage or definite acute territorial infarction. There are sequelae of an age-indeterminate infarct in the posteromedial right cerebellar hemisphere. 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 There is extensive low attenuation in the periventricular and subcortical white matter, consistent with chronic microvascular ischemic disease. No abnormal mass effect or midline shift is seen. Overall, nathan to white matter differentiation is well preserved. No extra- axial fluid collections are identified. The ventricles and sulci commensurately prominent consistent with moderate diffuse volume loss. There appear to be sequelae of bilateral lens extractions. The osseous structures and soft tissues are normal. There are moderate atheromatous calcifications of the cavernous internal carotid and vertebral arteries bilaterally. The visualized mastoid air cells appear well-aerated. There is a small cyst in the left posterolateral sphenoid sinus. IMPRESSION: 1. There are no acute bleeds, collections or masses. 2. There are sequelae of an age-indeterminate infarct in the posteromedial right cerebellar hemisphere. 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 3. An acute infarct cannot be excluded on the basis of this study. 4. This critical result was discussed with Mando Bolden by telephone on 03/06/2017 at 1:20 PM and it was ascertained that the content and urgency of the report was understood at the time of direct communication. DICTATED BY: KAMRAN RICARDO MD DATE/TIME DICTATED:03/06/171318 GEOTHERMAL SYSTEM INSTALLER:RPERNA DATE/TIME TRANSCRIBED:03/06/171318 CONFIDENTIAL, DO NOT COPY WITHOUT APPROPRIATE AUTHORIZATION. <Electronically signed in Other Vendor System> SIGNED BY: KAMRAN RICARDO MD 03/06/17 1328 CXR Impression: PATIENT: ASAD CASTILLO PRESENT AGE: 81 PATIENT ACCOUNT NO: [id number] : 37 LOCATION: [facility] ORDERING PHYSICIAN: MANDO BOLDEN MD SERVICE DATE: 03/06/17 EXAM TYPE: RAD - XRY-PORTABLE CHEST XRAY EXAMINATION: XR PORTABLE CHEST CLINICAL INFORMATION: CHF with left lethargy. COMPARISON: 01/29/2017 TECHNIQUE: Portable frontal view of the chest was obtained. FINDINGS: Compared to the previous study, all tubes have been removed. There is mild cardiac enlargement. There may be some mild CHF with upper zone redistribution and interstitial edema. Increased opacity in the right infrahilar area and in the retrocardiac region medially could be superimposed infiltrates or edema. IMPRESSION: Cardiomegaly with question of mild CHF and superimposed infiltrates. DICTATED BY: DAMION APPLE MD DATE/TIME DICTATED:1410 GEOTHERMAL SYSTEM INSTALLER:PRERNA DATE/TIME TRANSCRIBED:03/06/171410 CONFIDENTIAL, DO NOT COPY WITHOUT APPROPRIATE AUTHORIZATION. <Electronically signed in Other Vendor System> SIGNED BY: DAMION APPLE MD 03/06/17 1538 Initial ED EKG: NSR, RBBB Prior EKG: unchanged Comments: I Do not feel the patient is a candidate for TPA given the improving symptoms and the lack of focal neurologic findings upon presentation. His presentation I feel is more consistent with a syncopal episode as opposed to a CVA. 03/06/2017 1:19:18 PM PER RADIOLOGIST: PRIOR INFARCTS, OTHERWISE NO APPARENT ACUTE FINDINGS. 03/06/2017 3:23:24 PM patient's troponin is elevated and continues to be hypotensive after a liter of IV fluids. There appears to be no clinical focus of infection at this point so I doubt septic shock. Patient's creatinine is elevated above baseline raising the suspicion of dehydration. Patient's EKG shows no ST segment elevations consistent with acute myocardial infarction. 03/06/2017 3:45:59 PM patient's case discussed with Dr. Marcelo. Patient to be admitted to the intensive care unit. Blood cultures, lactic acid have been ordered. Since my discussion with Dr. Marcelo, patient's chest x-ray report has returned. Patient's chest x-ray raises the possibility of infiltrates. I will order antibiotics as well. Departure Departure Disposition: STILL A PATIENT Condition: Guarded Clinical Impression Primary Impression: Hypotension Qualifiers: Hypotension type: other hypotension type Qualified Code: I95.89 - Other hypotension Secondary Impressions: Acute kidney injury Anemia Qualifiers: Anemia type: unspecified type Qualified Code: D64.9 - Anemia, unspecified Bandemia Dehydration Referrals: MAX PARNELL MD (PCP/Family) Departure Forms: Customer Survey General Discharge Information Admission Note Spoke With: DAVID MARCELO MD Documentation of Exam: Documentation of any treatments & extenuating circumstances including Concerns Regarding Discharge (functional status, medication knowledge or non-compliance, living conditions, etc.) that warrant an admission rather than observation: Patient presents lethargic with low blood pressure. Chest x-ray reveals infiltrates potentially signifying pneumonia, and subsequent septic shock. Patient also shows acute kidney injury raises the possibility of dehydration. Has been initiated with IV fluid boluses and antibiotics. I feel this patient cannot be treated as an outpatient under the circumstances and now requires intensive unit care with close clinical monitoring of clinical condition and vital signs. Culture results should be monitored and treated accordingly. IV fluid should be administered and renal functions monitored. Given this patient' s advanced age and multiple medical comorbidities I feel his treatment in recovery will be prolonged and complicated. He will require a multiple day hospitalization. Critical Care Note Critical Care Note Critical Care Time: 30-74 min
--- NOTE | 2017-03-06 13:28 | CT SCAN REPORT ---
EXAMINATION: CT HEAD WITHOUT CONTRAST CLINICAL INFORMATION: Slurred speech. Assess for CVA. COMPARISON: None. TECHNIQUE: Contiguous axial imaging was performed from the skull base to vertex without intravenous administration of contrast. DLP: 633.7 mGy-cm FINDINGS: There is no evidence of acute intracranial hemorrhage or definite acute territorial infarction. There are sequelae of an age-indeterminate infarct in the posteromedial right cerebellar hemisphere. 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 There is extensive low attenuation in the periventricular and subcortical white matter, consistent with chronic microvascular ischemic disease. No abnormal mass effect or midline shift is seen. Overall, nathan to white matter differentiation is well preserved. No extra-axial fluid collections are identified. The ventricles and sulci commensurately prominent consistent with moderate diffuse volume loss. There appear to be sequelae of bilateral lens extractions. The osseous structures and soft tissues are normal. There are moderate atheromatous calcifications of the cavernous internal carotid and vertebral arteries bilaterally. The visualized mastoid air cells appear well-aerated. There is a small cyst in the left posterolateral sphenoid sinus. IMPRESSION: 1. There are no acute bleeds, collections or masses. 2. There are sequelae of an age-indeterminate infarct in the posteromedial right cerebellar hemisphere. 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 3. An acute infarct cannot be excluded on the basis of this study. 4. This critical result was discussed with Mando Bolden by telephone on 03/06/2017 at 1:20 PM and it was ascertained that the content and urgency of the report was understood at the time of direct communication.
--- NOTE | 2017-03-06 13:39 | NUR ---
IV INITIATED, LABS DRAWN AND SENT. PCXR AT BEDSIDE.
[2017-03-06 13:42] LABS: ABSOLUTE BASOPHIL COUNT 0 /CUMM (0.0-0.2); ABSOLUTE EOSINOPHIL COUNT 0 /CUMM (0.0-0.7); ABSOLUTE GRANULOCYTE CT 10.3 /CUMM (1.4-6.5); ABSOLUTE LYMPH COUNT 0.8 /CUMM (1.2-3.4); BASOPHIL % 0.3 % (0.0-2.0); EOSINOPHIL % 0.1 % (0-5); GRANULOCYTE % 84.8 % (42.2-75.2); HEMATOCRIT 28.5 % (42-52); MEAN CORPUSCULAR HGB 28.7 PG (27.0-31.0); MEAN CORPUSCULAR HGB CONC 33.7 G/DL (33.0-37.0); MEAN CORPUSCULAR VOLUME 85.1 FL (80.0-94.0); MEAN PLATELET VOLUME 8.1 FL (7.4-10.4); PLATELET COUNT 223 /CUMM (130-400); RBC DISTRIBUTION WIDTH 18.3 % (11.5-14.5); RED BLOOD CELL CT 3.35 /CUMM (4.70-6.10); WHITE BLOOD CELL COUNT 12.2 /CUMM (4.8-10.8)
--- NOTE | 2017-03-06 13:52 | NUR ---
PT HAS SORE TO BUTTOCKS WHICH IS COVERED WITH DRESSING PLACED BY ECF. PT ALSO HAS ? SKIN TEAR ON LEFT FOREARM WHICH IS COVERED BY DRESSING PLACED BY ECF. EKG COMPLETED AND SHOWN TO DR ESCOTO
--- NOTE | 2017-03-06 14:10 | NUR ---
URINE SPECIMEN REQUESTED. PT HAS URINAL IN PLACE
[2017-03-06] MEDS ORDERED: TRAMADOL HCL50 M1 PO (14:11)
--- NOTE | 2017-03-06 14:16 | NUR ---
CRITICAL TEST RESULTS [id number] ASAD CASTILLO 81 M TESTS AND RESULTS: TROPONIN 0.31 Results received and read back by: BLANCA RUSSELL Results received date and time: 03/06/17 1416 The following provider was notified of the results, and read the results back: Notified date and time: 03/06/17 at 1416
--- NOTE | 2017-03-06 14:21 | NUR ---
PT STRAIGHT CATHED FOR 100 CC DARK YELLOW URINE. SPECIMEN SENT TO LAB. PT TOLERATED WELL
--- NOTE | 2017-03-06 14:54 | NUR ---
DR ESCOTO AWARE OF PT'S BP. REST OF 500 BOLUS INFUSING
--- NOTE | 2017-03-06 15:07 | NUR ---
REQUESTED OF MD TO ADMIT PT, AWAITS CALL TO/FROM CARDS AND THEN HOSPITALIST.
--- NOTE | 2017-03-06 15:38 | RADIOLOGY REPORT ---
EXAMINATION: XR PORTABLE CHEST CLINICAL INFORMATION: CHF with left lethargy. COMPARISON: 01/29/2017 TECHNIQUE: Portable frontal view of the chest was obtained. FINDINGS: Compared to the previous study, all tubes have been removed. There is mild cardiac enlargement. There may be some mild CHF with upper zone redistribution and interstitial edema. Increased opacity in the right infrahilar area and in the retrocardiac region medially could be superimposed infiltrates or edema. IMPRESSION: Cardiomegaly with question of mild CHF and superimposed infiltrates.
--- NOTE | 2017-03-06 15:50 | NUR ---
ICU HOUSESTAFF IN TO SEE PT. 2ND LITER NS HUNG BOLUS. GILES INSERTED WITHOUT DIFF. PT ALERT ORIENTED, PER DR. RIDER WILL CHANGE LAB REDRAW TO 1630 INSTEAD OF 1530, 1700 AND 1830.
--- NOTE | 2017-03-06 15:52 | History & Physical ---
JAI CHAVES,BETHANY 03/06/17 1552: General Information and HPI MD Statement: I have seen and personally examined DEEP VALDOVINOS and documented this H&P. The patient is a 81 year old M who presented with a patient stated chief complaint of unresponsiveness. Source of Information: old records, W10, [facility] Exam Limitations: clinical condition, confusion, poor historian History of Present Illness: Mr. Valdovinos is a 81 year old male with PMH CAD, CVA with cerebellar stroke followed by baseline tremors, carotid stenosis, history of seizures, vascular dementia, BPH, HLD, COPD on 2 L home O2, anemia, essential HTN, "leaky valve" and major depressive disorder who was transported from [facility] this afternoon due to an episode of unresponsiveness. [facility] was contacted to provide this history as patient's clinical condition and history of dementia are limitations. According to the Nurse Roberta from [facility], patient was last seen well around 11 AM this morning. After lunch around 12:30 PM, the JOCKEY AGENT noticed that Deep was unresponsive to voice, tactile stimuli or shaking. Eye exam revealed fixed pupils; neuro exam was otherwise unremarkable at that time. During this episode, his oxygen saturations were noted to be low to 88%. EMS was contacted, noticed further dropping of his oxyge saturations to the 70's and increased his O2 via nasal cannula from 2 L to 3 L. Patient was noted to become more interactive on his ride to the hopsital and is altert on present history taking. Of note, [facility] reports patient recently was treated for pneumonia. Review of systems is limited due to patient condition but patient denied all questions, including no chest pain, shortness of breath, fever or buring on urination. Patient is not independant at [facility] ([facility] and requires assitance for ADLs/IADLs. He is non-ambulatory at baseline. He tolerates a mechanical soft diet with nectar thickened liquids. Patient was previously admitted to [place] on January 23 of this year for acute hypoxic respiratory failure and sepsis secondary to multilobular pneumonia at which time he was intubated. He was discharged to a long-term facility. Of note, reports that patient has baseline non- reactive pupils. Code status of DNR/DNI confirmed with family and patient WILL NOT HAVE CENTRAL LINE/PRESSORS. Allergies/Medications Allergies: Coded Allergies: No Known Allergies (01/22/17) Home Med list Amlodipine Besylate 2.5 MG TABLET 1 TAB PO DAILY HTN (Reported) Aripiprazole (Abilify) 10 MG TABLET 1 TAB PO DAILY MENTAL HEALTH (Reported) Aspirin (Aspirin*) 81 MG TAB.CHEW 1 TAB PO DAILY HEART (Reported) Atorvastatin Calcium (Lipitor) 80 MG TABLET 1 TAB PO 1700 CHOLESTEROL ( Reported) Carvedilol 3.125 MG TABLET 1 TAB PO BID HTN (Reported) Finasteride (Proscar) 5 MG TABLET 1 TAB PO DAILY BPH (Reported) Gabapentin (Neurontin) 400 MG CAPSULE 1 CAP PO TID NEUROPATHY (Reported) Ipratropium/Albuterol Sulfate (Combivent Respimat Inhal Manteca) 20 MCG-100 MCG/ ACTUATION MIST.INHAL 1 PUFF INH/JANIS Q6 RESPIRATORY (Reported) Lisinopril (Prinivil) 10 MG TABLET 1 TAB PO DAILY HTN (Reported) Sertraline HCl (Zoloft) 100 MG TABLET 2 TAB PO DAILY MENTAL HEALTH (Reported) Tamsulosin HCl 0.4 MG CAP.ER.24H 2 CAP PO DAILY BPH (Reported) Tramadol HCl 50 MG TABLET 1 TAB PO TIDPRN PRN PRIOR TO CPI TX (Reported) Trazodone HCl 50 MG TABLET 3 TAB PO QPM SLEEP (Reported) Compliance With Home Meds: UNKNOWN Past History Travel History Traveled to [place] past 21 day No Medical History Neurological: dementia, TREMORS Cardiovascular: hypertension Respiratory: COPD Renal: benign prost hyperplasia History of MRSA: Yes History of VRE: No History of CDIFF: No Influenza Vaccine: 07/13/16 Surgical History Surgical History: non-contributory Past Family/Social History Psychosocial History Where do you live? [facility] Who Do You Live With? spouse Primary Language: Slovak Functional Ability ADLs Needs Assist: dressing, eating, toileting, bathing. Ambulation: non-ambulatory IADLs Needs Assist: shopping, housework, finances, food prep, telephone, transportation, medication admin. Review of Systems Review of Systems Constitutional: Reports: see HPI. Denies: fever. EENTM: Denies: visual changes, nasal congestion. Cardiovascular: Denies: chest pain, palpitations. Respiratory: Denies: cough, short of breath. GI: Denies: abdominal pain, nausea, changes in stool. Genitourinary: Denies: dysuria. Exam & Diagnostic Data Last 24 Hrs of Vital Signs/I&O Vital Signs Date Time Temp Pulse Resp B/P B/P Pulse O2 O2 Flow FiO2 Mean Ox Delivery Rate 03/06 1525 78 18 78/44 95 Nasal 4.0L Cannula 03/06 1501 79/40 03/06 1430 81/47 03/06 1415 70 20 86/50 93 03/06 1400 98.0 72 20 83/46 94 Nasal 4.0L Cannula 03/06 1338 18 93 Nasal 5.0L Cannula 03/06 1328 98.2 66 20 74/48 91 Nasal 5.0L Cannula Intake & Output 03/06 1600 03/06 0800 03/06 0000 Intake Total 1000 Output Total 100 Balance 900 Intake, IV 1000 Output, Urine 100 Patient 141 lb Weight Weight Bed scale Measurement Method Physical Exam General Appearance Lethargic and disoriented Skin No Significant Lesion Skin Temp/Moisture Exam: Warm/Dry Sepsis Skin Exam (color): Normal for Ethnicity HEENT Atraumatic, EOMI, Dry mucous membranes, Pinpoint pupils mildly reactive Neck Supple, No JVD, No thryomegaly Lymphatic Cervical nl Cardiovascular Regular Rate, Normal S1, Normal S2, +Systolic murmur Lungs Normal Air Movement, Rhonchi bilateral bases, no wheezing Abdomen Normal Bowel Sounds, Soft, No Tenderness, No Masses Neurological Normal Tone, No facial dropp, all extremities moving, unable to comply with neurological exam/muscle strength testing 2/2 clinical condition Extremities No Clubbing, No Cyanosis, No Edema, No Tenderness/Swelling Vascular Pulses Symmetrical Last 24 Hrs of Labs/Robert: Laboratory Tests 03/06/17 1421: Urine Opiates Screen 114.00, Methadone Screen 43, Barbiturate Screen < 60, Ur Phencyclidine Scrn < 6.00, Amphetamines Screen < 100, U Benzodiazepines Scrn 137 , Urine Cocaine Screen < 50, Urine Cannabis Screen < 5.00, Urinalysis LIGHT H, Urine Color YEL, Urine Clarity CLEAR, Urine pH 6.0, Ur Specific Edwards 1.025, Urine Protein TRACE H, Urine Ketones NEG, Urine Nitrite NEG, Urine Bilirubin NEG, Urine Urobilinogen 0.2, Ur Leukocyte Esterase NEG, Ur Microscopic SEDIMENT EXAMINED, Urine RBC RARE, Urine WBC RARE, Ur Epithelial Cells FEW, Urine Crystals RARE CA OX, Urine Bacteria FEW H, Hyaline Casts MOD H, Urine Mucus FEW, Urine Hemoglobin NEG, Urine Glucose NEG 03/06/17 1337: Anion Gap 9, Estimated GFR 45 L, BUN/Creatinine Ratio 29.3 H, Glucose 100 H, Calcium 8.5, Total Bilirubin 0.5, AST 23, ALT 35, Alkaline Phosphatase 71, Troponin I 0.31 *H, Total Protein 6.2 L, Albumin 3.2 L, Globulin 3.0, Albumin/ Globulin Ratio 1.1, TSH &T3 &Free T4 Intrp 1.770, CBC w Diff MAN DIFF ORDERED, RBC 3.35 L, MCV 85.1, MCH 28.7, RDW 18.3 H, MPV 8.1, Gran % 84.8 H, Lymphocytes % 6.6 L, Monocytes % 8.2, Eosinophils % 0.1, Basophils % 0.3, Absolute Granulocytes 10.3 H, Segmented Neutrophils 74, Band Neutrophils 16 H, Absolute Lymphocytes 0.8 L, Lymphocytes 5 L, Monocytes 5, Absolute Monocytes 1.0 H, Absolute Eosinophils 0, Absolute Basophils 0, Platelet Estimate ADEQUATE , Polychromasia 1+, Hypochromic-Microcytic 1+, Poikilocytosis 2+, Anisocytosis 1 +, Ovalocytes 1+, Fco Cells RARE, PUBS MCHC 33.7, Fld Total RBCs Counted 100, Serum Alcohol < 10.0 Microbiology 03/06 1534 URINE ROUT: Legionella Antigen - ORD 03/06 153 URINE ROUT: Streptococcus pneumoniae Antigen (M - ORD 03/06 153 URINE ROUT: Urine Culture - ORD 03/06 153 LOWER RESP: Respiratory Culture - ORD 03/06 153 LOWER RESP: Gram Stain - ORD 03/06 152 BLOOD: Blood Culture - ORD 03/06 152 BLOOD: Blood Culture - ORD Diagnostic Data EKG Results NSR HR 66 bpm, RBBB. CXR Results IMPRESSION: Cardiomegaly with question of mild CHF and superimposed infiltrates. Other Results CT Head: IMPRESSION: 1. There are no acute bleeds, collections or masses. 2. There are sequelae of an age-indeterminate infarct in the posteromedial right cerebellar hemisphere. 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 3. An acute infarct cannot be excluded on the basis of this study. Assessment/Plan Assessment: Mr. Valdovinos is a 81 year old male with PMH CAD, CVA with cerebellar stroke followed by baseline tremors, carotid stenosis, history of seizures, vascular dementia, BPH, HLD, COPD on 2 L home O2, anemia, essential HTN, "leaky valve" and major depressive disorder who was transported from [facility] this afternoon due to an episode of unresponsiveness. Patient was noted to be hypoxic , hypotensive and altered on arrival to the emergency room. In the ED: Vital signs showed T 98.2, HR 66, RR 20, BP 74/48, O2 91% on 5 L NC. Labs were significant for WBC 12.2 with 16 bands and 84.8% granulocytes, H&H 9.6 /28.5, Plt 223, Na 136, K 5.4, Cl 104, HCO3 22, BUN 44/1.5, Glu 100, AST 23, ALT 71, Trop 0.31, TSH 1.77, UA unremarkable, Utox normal. CXR showed cardiomegaly with questionable mild CHF and superimposed infiltrates. Head CT showed no acute bleeds/massess. Age indeterminate infarct in posteromedial right cerebellar hemisphere and chronic infarcts bilaterally. EKG showed NSR HR 66 bpm and RBBB. Patient is admitted to the ICU and the following is the management: 1. Severe sepsis with leukocytosis and bandemia * Source likely pulmonary (aspiration pneumonia as he has experienced this before vs HCAP), however abdominal remains on the differentia * WBC 12.2 with 16 bands, hypotension, hypoxia on admission * 2 liter boluses given now after patient has received 700 cc bolus in ED * Panculture, follow up results * IV ceftazidime 1 g Q8 and IV vancomycin Q12 * Aspiration precuations * Continue supplemental O2 as needed to maintain O2 saturation >92% * Monitor for fevers 2. Acute on chronic hypoxic respiratory failure * O2 sat dropped to 70's at nursing facility and noted to be low to 91% on 5 L ( only on 2 at home) * 2/2 pneumonia, aspiration vs HCAP * Antibiotics as above, follow up culture results * Continue supplemental O2 * TRC evaluation 3. Hyperkalemia * K 5.4 on admission, likely 2/2 RUTH * Continue IVF * Trend ICU bundle * No EKG changes appreciated, continuous bus monitor 4. RUTH * Likely prerenal with hypovolemia 2/2 sepsis * Continue hydration * Hold nephrotoxins * Monitor renal function closely 5. Positive troponin * First troponin 0.[address]/T changes from prior EKG * Trend trop/ekg, next at 5 pm and 11 pm * Cardiology consult with Dr. Lola MD who has seen patient in the past * Note, patient had a recent echo 01/23/17 which showed fibrocalcific degeneration of aortic valve, normal LV function, abnormal septal motion, left ventricular systolic dysfunction * Continue ASA 81 mg PO daily, lipitor 80 mg PO daily 6. Encephalopathy in the setting of vascular dementia * Likely 2/2 severe sepsis and hypotension * Monitor closely * Keep NPO while patient altered * Hold trazodone while mental status below baseline 7. History of HTN * Hold antihypertensives in setting of sepsis with hypotension * Fluid hydration * Vital signs Q shift DNR/DNI NPO DVTP: Heparin SC and ALPS As Ranked By This Provider Problem List: 1. Anemia Qualifiers Anemia type: unspecified type Qualified Code: D64.9 - Anemia, unspecified 2. Bandemia 3. BPH (benign prostatic hyperplasia) 4. HTN (hypertension) 5. Depression 6. COPD (chronic obstructive pulmonary disease) 7. CAD (coronary artery disease) 8. Dementia 9. Cerebellar stroke 10. Acute hypoxemic respiratory failure 11. Hypotension Qualifiers Hypotension type: other hypotension type Qualified Code: I95.89 - Other hypotension 12. Dehydration 13. Acute kidney injury Core Measures/Miscellaneous Acute Coronary Syndrome ACS Diagnosis: No Cerebrovascular Accident CVA/TIA Diagnosis: No Congestive Heart Failure CHF Diagnosis: No Venous Thromboembolism VTE Risk Factors: Acute medical illness, Age > 40, Immobility, paresis No [facility] VTE prophylaxis d/t: No contraindications No VTE Pharm Prophylaxis d/t: No contraindications VTE Diagnosis: No VTE Type: NONE VTE Confirmed by (Test): NONE Severe Sepsis Severe Sepsis Present: No BC x2: Yes Lactic Acid x2: Yes IV ABX Broad Spectrum: Yes Septic Shock Septic Shock Present: No BC x2: Yes Lactic Acid: Yes IV ABX Broad Spectrum: Yes Focused Exam Completed: Yes NS/LR 30ml/kg w/in 3hrs: Yes IV Vasopressors started: Yes Miscellaneous Documentation Attending Case Discussed With: Dr. Davian MD Primary Care Physician: MAX PARNELL MD Patient sees these Specialists [facility]kn Level of Patient Care: Critical Care (CRI) RAINER CHAVES,WIN 03/06/17 1632: Resident Review Statement Resident Statement: examined this patient, discussed with campus recruiting internship Other Findings: This is a 81-year-old gentleman whose medical issues include previous cerebellar stroke, BPH, hypercholesterolemia, seizure, dementia, CAD, previous admission at [facility] in December 2016 where he was intubated secondary to hypoxic respiratory failure pneumonia who currently lives in a residential presents to the emergency room via ambulance for altered mental status. Due to the patient' s advanced dementia and current medical illnesses, the history was obtained from the residential staff who stated that the patient was altered after breakfast and was hypoxic placed on nasal cannula with slight improvement in his oxygen saturations and subsequently was brought to the emergency room for evaluation. There was some concern for stroke however a CAT scan of the head was negative. Assessment- 1. Severe sepsis, likely secondary to aspiration pneumonia 2. Leukocytosis with bandemia likely secondary to the above 3. Hyponatremia 4. Hyperkalemia 5. Acute kidney injury 6. Positive troponin, likely secondary to demand ischemia 7. U tox positive for opiates 8. Hypotension secondary to sepsis 9. History of hyperlipidemia 10. History of anxiety and depression 11. History of dementia Plan- ICU admission Vitals per protocol Recio catheter placement Panculture IV vancomycin and Fortaz IV fluid resuscitation Check labs after fluid resuscitation Check thyroid studies, magnesium Trend troponin and EKG TRC evaluation Hold antihypertensive medications Subcutaneous heparin for DVT prophylaxis Nothing by mouth for now, pending swallow eval DNR/DNI Goals of care meeting was held at bedside with patient's Mrs. Francia Valdovinos , Jerad Marcelo MD and myself. Both the patient and Mrs. Valdovinos came to the conclusion that Mr. Valdovinos should be treated only with IV fluids and antibiotics, he is DNR/DNI, they do not want to pursue central line or pressors. JERAD MARCELO MD 03/06/17 1706: Attending MD Review Statement Attending Statement Attending MD Statement: examined this patient, discuss w/resident/PA/DIRECTOR OF OCCUPATIONAL HEALTH, agreed w/resident/PA/DIRECTOR OF OCCUPATIONAL HEALTH, discussed with family, reviewed EMR data (avail), discussed with nursing, discussed with case mgmt, reviewed images, amended to note Attending Assessment/Plan: Impression 81 year old man * hypotension - hypovolemia or severe sepsis * ams improved - likely due to volume depletion * ruth - prerenal most likely cause * troponinemia - can be demand ischemia Plan -discussion was held with patient, and housestaff -dnr/dni, no pressors or central lines or surgical intervetion -broad spectrum abx -cardiology input -repeat echo -f/u all labs -f/u all imaging -iv hydration TTS 45 min
--- NOTE | 2017-03-06 16:20 | NUR ---
ICU STAFF IN SPEAKING WITH . PT TO CT.
--- NOTE | 2017-03-06 16:50 | NUR ---
LABS DRAWN LACTIC, TROP, LYTES, CBC AND PTT WEELL 1ST BLOOD CULTURES. DR. BRYSON IN ROOM.
--- NOTE | 2017-03-06 16:51 | NUR ---
REMAINS ALERT, MENTATING NO CP LUNGS WITH SCATTERED RHONCHI, BP REMAIBNS LOW 74/42 AFTER 2ND LITER NS HUNG. MENTATING WELL. URIMETER WITH 18CCS OUT,.
[2017-03-06 16:58] LABS: PT 13.6 SEC (9.4-12.5)
--- NOTE | 2017-03-06 17:06 | CT SCAN REPORT ---
EXAMINATION: CT CHEST WITHOUT CONTRAST CT ABDOMEN AND PELVIS WITHOUT CONTRAST CLINICAL INFORMATION: Sepsis of unknown origin. Aspiration pneumonia. COMPARISON: Portable chest 03/06/2017. TECHNIQUE: Multidetector volumetric CT imaging of the chest, abdomen and pelvis was obtained without IV contrast. No oral contrast. Coronal and sagittal reformatted images performed at CT scanner. DLP: 490.58 mGy-cm. FINDINGS: CT CHEST: LUNGS: There is bibasilar airspace disease, greater on right than left lung lower lobe. There is emphysematous lucency of lungs. MEDIASTINUM: There is mediastinal lymphadenopathy. Enlarged lymph node measuring 1.5 cm at the level of the paco in the pretracheal retrovascular space. Subcarinal lymph node measuring 1.2 cm. Shotty lymph nodes at the AP window. There is vascular wall calcifications of the aorta and the origin of great vessels. Calcification of the mitral valve annulus. Calcification of the coronary arteries. PLEURA: There is no pleural effusion. No pleural mass or thickening. AXILLA: No lymphadenopathy. CT ABDOMEN AND PELVIS: LIVER, GALLBLADDER, AND BILIARY TREE: The liver is normal in size, shape, and attenuation. No focal hepatic lesion or biliary ductal dilatation is present. The gallbladder is unremarkable with no evidence of radiopaque gallstones, gallbladder wall thickening, or obvious pericholecystic inflammatory changes. PANCREAS: No acute change of the pancreas. No mass. No pancreatic duct dilatation. SPLEEN: Spleen normal in size and contour. No focal lesion. ADRENAL GLANDS: Adrenal glands are normal in size. No focal mass. KIDNEYS AND URETERS: There is mild cortical thinning of the kidneys. There is vascular calcification of the renal arteries. There is a pedunculated cyst at the lower pole of the right kidney measuring 5.5 cm and a cyst at the medial upper pole of left kidney measuring 1.6 cm. No renal or ureteral calculus. No hydronephrosis. BLADDER: Recio catheter within the bladder. GASTROINTESTINAL TRACT: Large volume of stool scattered throughout the colon. No acute change of the bowel. There is diverticula of the left colon but no diverticulitis. No bowel wall thickening or edema. No bowel obstruction. The appendix is not seen. There is no inflammation of the mesentery. MESENTERY: No focal inflammation. No free fluid. No free air. ABDOMINAL WALL: No significant hernia is appreciated. LYMPH NODES: Normal. VASCULAR: Extensive vascular calcifications of the aorta and major branch vessels. 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 PELVIC VISCERA: Unremarkable. OSSEOUS STRUCTURES: Multilevel degenerative change of the spine with disc height narrowing and endplate spurs and facet joint arthrosis. IMPRESSION: 1. Bibasilar airspace disease right greater than left. There is mediastinal lymphadenopathy, could be reactive. 2. No acute abnormality of the abdomen or pelvis. Diverticulosis of colon but no acute change of the bowel.
--- NOTE | 2017-03-06 17:09 | NUR ---
EKG DONE AND PLACED IN CHART SERO PAGED AND AWARE
--- NOTE | 2017-03-06 18:20 | NUR ---
CRITICAL TEST RESULTS [id number] ASAD CASTILLO 81 M TESTS AND RESULTS: TROP 0.38 Results received and read back by: DUKE HEIN Results received date and time: 03/06/171840 DR. RIDER AWARE AT 1840
--- NOTE | 2017-03-06 18:32 | NUR ---
AWAITS ICU BED. 1ST ADMISSION AWAITS BED.
--- NOTE | 2017-03-06 19:55 | NUR ---
PT HAS A BED 104-01
--- NOTE | 2017-03-06 20:17 | NUR ---
REPORT GIVEN TO MAC SERRANO ON CRITICAL CARE.
--- NOTE | 2017-03-06 21:47 | NUR ---
AT 2056 PT ARRIVED FROM ER AWAKE ORIENTED TO PERSON, PLACE, KNEW IT WAS 2016 BUT NOT MONTH AND DAY, ABLE TO FOLLOW COMMANDS, STRONG HAND GRASPS, SLIGHT LEFT SIDED FACIAL DROOP NOTED, SPEECH IS CLEAR. HR SB W/BBB 58, MANUAL BP 88/62 NO IVF HANGING ON ARRIVAL, NOTIFIED MD HALL AND NS @100ML HANGING. PT ON 4LNC SAT 98% IEW NOTED BILATERALLY WITH NPC, NO DISTRESS NOTED. GILES IN PLACE WITH CLEAR NESTOR COLORED URINE. PT WITH DRESSING TO COCCYX AND LEFT FOREARM FROM [facility]CF WILL MEASURE AND PLACE WOUND CONSULT, NO OTHER SKIN BREAKDOWN NOTED. FAMILY AT BEDSIDE AND DISCUSSED POC. PT GIVEN CALL ESCOTO INSTRUCTIONS.
--- NOTE | 2017-03-06 23:17 | NUR ---
PT MANUAL BP 82/60 HR 60'S. PT EASILY AROUSABLE. NOTIFIED MD HALL, NORMAL SALINE 500ML OVER 1 HOUR ORDERED.
[2017-03-07] VITALS: BP 92/62
[2017-03-07 05:12] LABS: ABSOLUTE BASOPHIL COUNT 0 /CUMM (0.0-0.2); ABSOLUTE EOSINOPHIL COUNT 0.2 /CUMM (0.0-0.7); ABSOLUTE GRANULOCYTE CT 5.9 /CUMM (1.4-6.5); ABSOLUTE LYMPH COUNT 1.2 /CUMM (1.2-3.4); ABSOLUTE MONOCYTE COUNT 0.4 /CUMM (0.10-0.60); BASOPHIL % 0.3 % (0.0-2.0); EOSINOPHIL % 2.7 % (0-5); GRANULOCYTE % 76.8 % (42.2-75.2); HEMATOCRIT 25.5 % (42-52); MEAN CORPUSCULAR HGB 28.8 PG (27.0-31.0); MEAN CORPUSCULAR HGB CONC 33.3 G/DL (33.0-37.0); MEAN CORPUSCULAR VOLUME 86.5 FL (80.0-94.0); MEAN PLATELET VOLUME 8.6 FL (7.4-10.4); PLATELET COUNT 177 /CUMM (130-400); RBC DISTRIBUTION WIDTH 18.9 % (11.5-14.5); RED BLOOD CELL CT 2.95 /CUMM (4.70-6.10); WHITE BLOOD CELL COUNT 7.7 /CUMM (4.8-10.8)
--- NOTE | 2017-03-07 06:32 | NUR ---
AFTER NS BOLUS PT MANUAL BP 92/62, CONTINUE WITH MAINTENANCE IVF NS @100ML/HR.
--- NOTE | 2017-03-07 06:33 | NUR ---
PT BP OVERNIGHT 100'S TO 118'S. THIS AM PT BEGAN TO DESAT TO 85%, INCREASED 02 FROM 3LNC TO 5LNC WITH NO CHANGE, PT NOT IN ANY DISTRESS OR C/O OF DIFFICULTY BREATHING. RESPIRTORY TO BEDSIDE PT PLACED ON 50% VM SAT INCREASED TO 95-97%. LUNGS ARE RHONCHEROUS WITH SCATTERED WHEEZING, PT COUGHED UP MODERATE AMOUNT OF THICK YELLOW SPUTUM AND SUCTIONED OUT WITH YANKOUR, PLACED PT BACK ON 3LNC AND 02 SAT REMAINS AT 94-95%.
--- NOTE | 2017-03-07 06:54 | PN- Resident CRCU ---
Subjective HPI/CRCU Issues: Patient seen and examined at bedside this AM. He reports he feels well and denies any complaints. He does believe it is 1971 but is oriented to place. He has been afebrile overnight and no events reported by evening team. 24 Hour Events: hospital monitor shows no overnight events. Vital signs last 24 hours: T 96.4-97.2, HR 56-70, RR 18-25, BP 74-118/46-62, O2 88-99% on 3 L NC. Total intake: 1249 cc last 24 hours Total output last 24 hours: 500 cc Objective Vital Signs & I&O Last 8 Hrs of Vitals and I&O: T 96.4-97.2, HR 56-70, RR 18-25, BP 74-118/46-62, O2 88-99% on 3 L NC. Exam General Appearance: well developed/nourished, no apparent distress, awake, comfortable Head: atraumatic, normal appearance Ears, Nose, Throat: normal ENT inspection, moist mucus membranes Neck: normal inspection, full range of motion Respiratory: no respiratory distress, Rhonchi bilateral bases Cardiovascular: regular rate/rhythm, systolic murmur Gastrointestinal: normal bowel sounds, soft, non-tender Extremities: normal inspection, no edema Cranial Nerves: normal hearing, normal speech Skin: normal color, warm/dry Nutrition Nutrition: NPO Current Medications: Current Medications Sig/Fatou Start time Last Medication Dose Route Stop Time Status Admin Albuterol Sulfate 3 ML Q4P PRN 03/06 2245 AC INH Aripiprazole 10 MG DAILY 03/07 1000 AC PO Aspirin 81 MG DAILY 03/07 1000 AC PO Aspirin 325 MG ONCE ONE 03/06 1645 DC PO 03/06 1646 Atorvastatin Calcium 80 MG 1700 03/06 1700 AC PO Ceftazidime 1,000 MG IQ8 03/07 0000 AC 03/07 IV 0740 Ceftazidime 0 .STK-MED ONE 03/06 1721 DC .ROUTE Ceftazidime 1,000 MG ONCE ONE 03/06 1600 DC 03/06 IV 03/06 1601 1700 Gabapentin 400 MG TID 03/06 2200 AC PO Gentamicin Sulfate 80 MG ONCE ONE 03/06 1600 CAN Dextrose/Water 100 ML IV 03/06 1629 Heparin Sodium 5,000 UNIT Q8 03/06 2200 AC 03/07 (Porcine) SC 0638 Sertraline HCl 200 MG DAILY 03/07 1000 AC PO Sodium Chloride 1,000 ML Q13H 03/07 0745 AC 03/07 IV 0806 Sodium Chloride 500 ML BOLUS ONE 03/06 2315 DC / IV 03/07 0014 2311 Sodium Chloride 1,000 ML ONCE ONE 03/06 1645 DC / IV 03/07 0244 2112 Sodium Chloride 1,000 ML BOLUS ONE 03/06 1530 DC / IV 03/06 1629 1553 Sodium Chloride 1,000 ML BOLUS ONE 03/06 1530 DC 05/ IV 03/06 1629 1655 Sodium Chloride 500 ML BOLUS ONE 03/06 1500 DC / IV 03/06 1559 1502 Sodium Chloride 500 ML BOLUS ONE 03/06 1500 DC 03/06 IV 03/06 1729 1502 Trazodone HCl 150 MG QPM 03/06 2200 CAN PO Vancomycin HCl 1,000 MG Q24 03/07 1000 AC Sodium Chloride 250 ML IV Vancomycin HCl 1,000 MG ONCE ONE 03/06 1600 DC 03/06 Sodium Chloride 250 ML IV 03/[address] Scan Findings: Chest/abdomen/pelvis CT: IMPRESSION: 1. Bibasilar airspace disease right greater than left. There is mediastinal lymphadenopathy, could be reactive. 2. No acute abnormality of the abdomen or pelvis. Diverticulosis of colon but no acute change of the bowel. Head cT: IMPRESSION: 1. There are no acute bleeds, collections or masses. 2. There are sequelae of an age-indeterminate infarct in the posteromedial right cerebellar hemisphere. 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 3. An acute infarct cannot be excluded on the basis of this study. Impression/Plan Impression/Problem List Impression: Mr. Valdovinos is a 81 year old male with PMH CAD, CVA with cerebellar stroke followed by baseline tremors, carotid stenosis, history of seizures, vascular dementia, BPH, HLD, COPD on 2 L home O2, anemia, essential HTN, "leaky valve" and major depressive disorder who was transported from [facility] this afternoon due to an episode of unresponsiveness. Patient was noted to be hypoxic , hypotensive and altered on arrival to the emergency room. In the ED: Vital signs showed T 98.2, HR 66, RR 20, BP 74/48, O2 91% on 5 L NC. Labs were significant for WBC 12.2 with 16 bands and 84.8% granulocytes, H&H 9.6 /28.5, Plt 223, Na 136, K 5.4, Cl 104, HCO3 22, BUN 44/1.5, Glu 100, AST 23, ALT 71, Trop 0.31, TSH 1.77, UA unremarkable, Utox normal. CXR showed cardiomegaly with questionable mild CHF and superimposed infiltrates. Head CT showed no acute bleeds/massess. Age indeterminate infarct in posteromedial right cerebellar hemisphere and chronic infarcts bilaterally. EKG showed NSR HR 66 bpm and RBBB. Patient is admitted to the ICU and the following is the management: 1. Severe sepsis with leukocytosis and bandemia * WBC 12.2 with 16 bands, hypotension, hypoxia on admission * Source likely pulmonary (aspiration pneumonia as he has experienced this before vs HCAP), as CT chest showed bibasilar airspace disease R>L * Continue IVF with NS at 75 cc/h * Panculture, follow up results (NGTD) * IV ceftazidime 1 g Q8 and IV vancomycin Q12 for broad spectrum coverage pending culture results * Aspiration precuations * Continue supplemental O2 as needed to maintain O2 saturation >92% * Monitor for fevers 2. Acute on chronic hypoxic respiratory failure * O2 sat dropped to 70's at nursing facility and noted to be low to 91% on 5 L ( only on 2 at home) * 2/2 pneumonia, aspiration vs HCAP * Antibiotics as above, follow up culture results * Continue supplemental O2 * TRC evaluation 3. Hyperkalemia, IMPROVED * K 5.4 on admission, likely 2/2 RUTH * Continue IVF * Trend ICU bundle * No EKG changes appreciated, continuous awake overnight monitor 4. RUTH, IMPROVED * Likely prerenal with hypovolemia 2/2 sepsis * Continue hydration * Hold nephrotoxins * Monitor renal function closely 5. Positive troponin * Likely demand supply mismatch in the setting of sepsis * Troponins 0.31--> 0.39--> 0.[address]/T changes from prior EKG * Cardiology consult with Dr. Lola MD who has seen patient in the past, f/u recommendations * Note, patient had a recent echo 01/23/17 which showed fibrocalcific degeneration of aortic valve, normal LV function, abnormal septal motion, left ventricular systolic dysfunction * Repeat echo in setting of hypotension * Continue ASA 81 mg PO daily, lipitor 80 mg PO daily 6. Encephalopathy in the setting of vascular dementia, IMPROVING * Likely 2/2 severe sepsis and hypotension * Swallow eval pending, follow up recommendations * Hold trazodone while mental status below baseline 7. History of HTN * Hold antihypertensives in setting of sepsis with hypotension * Fluid hydration * Vital signs Q shift DNR/DNI NPO DVTP: Heparin SC and ALPS Problem List: 1. Anemia 2. Bandemia 3. BPH (benign prostatic hyperplasia) 4. HTN (hypertension) 5. Depression 6. COPD (chronic obstructive pulmonary disease) 7. CAD (coronary artery disease) 8. Hypotension 9. Pneumonia Pain Ratin Tomorrow's Labs & Rationales: CBC (leukocytosis, anemia) BEP (hyperchloremia) Plan DVT/Prophylaxis: pharmacological (Heparin SC)
[2017-03-07 08:00] VITALS: BP 120/60
--- NOTE | 2017-03-07 09:00 | Admission Certification ---
Admission Certification Certification Statement - As attending physician, I certify that at the time of - admission, based on clinical presentation, severity of - symptoms, need for further diagnostic testing and - therapeutic interventions, and risk of adverse outcomes - without in-hospital treatment, in my clinical assessment, - this patient requires an acute hospital stay for a minimum - of two nights or longer. I have also considered psychsocial - factors such as support system, advanced age, financial - issues, cognitive issues, and failed out-patient treatments, - past re-admission history, safety of patient, and lack of - compliance as applicable. Specific rationale supporting this admission is: hypotension - hypovolemia vs severe sepsis, icu monitoring
--- NOTE | 2017-03-07 09:04 | PN- CRCU ---
See Addendum Subjective HPI/Critical Care Issues: pt seen and examined afebrile hemodynamically stable after hydration 96% on 3LNC on broad spectrum abx wbc resolved creatinine resolved Objective Current Medications: Current Medications Sig/Fatou Start time Last Medication Dose Route Stop Time Status Admin Albuterol Sulfate 3 ML Q4P PRN 03/06 2245 AC INH Aripiprazole 10 MG DAILY 03/07 1000 AC PO Aspirin 81 MG DAILY 03/07 1000 AC PO Aspirin 325 MG ONCE ONE 03/06 1645 DC PO 03/06 1646 Atorvastatin Calcium 80 MG 1700 03/06 1700 AC PO Ceftazidime 1,000 MG IQ8 03/07 0000 AC 03/07 IV 0740 Ceftazidime 0 .STK-MED ONE 03/06 1721 DC .ROUTE Ceftazidime 1,000 MG ONCE ONE 03/06 1600 DC 03/06 IV 03/06 1601 1700 Gabapentin 400 MG TID 03/06 2200 AC PO Gentamicin Sulfate 80 MG ONCE ONE 03/06 1600 CAN Dextrose/Water 100 ML IV 03/06 1629 Heparin Sodium 5,000 UNIT Q8 03/06 2200 AC 03/07 (Porcine) SC 0638 Sertraline HCl 200 MG DAILY 03/07 1000 AC PO Sodium Chloride 1,000 ML Q13H 03/07 0745 AC 03/07 IV 0806 Sodium Chloride 500 ML BOLUS ONE 03/06 2315 DC 03/06 IV 03/07 0014 2311 Sodium Chloride 1,000 ML ONCE ONE 03/06 1645 DC 03/06 IV 03/07 0244 2112 Sodium Chloride 1,000 ML BOLUS ONE 03/06 1530 DC 03/06 IV 03/06 1629 1553 Sodium Chloride 1,000 ML BOLUS ONE 03/06 1530 DC 03/06 IV 03/06 1629 1655 Sodium Chloride 500 ML BOLUS ONE 03/06 1500 DC 03/06 IV 03/06 1559 1502 Sodium Chloride 500 ML BOLUS ONE 03/06 1500 DC 03/06 IV 03/06 1729 1502 Trazodone HCl 150 MG QPM 03/06 2200 CAN PO Vancomycin HCl 1,000 MG Q24 03/07 1000 AC Sodium Chloride 250 ML IV Vancomycin HCl 1,000 MG ONCE ONE 03/06 1600 DC 03/06 Sodium Chloride 250 ML IV 03/06 1659 1718 Vital Signs & I&O Last 24 Hrs of Vitals and I&O: Vital Signs Date Time Temp Pulse Resp B/P B/P Pulse O2 O2 Flow FiO2 Mean Ox Delivery Rate 03/07 0800 96.1 66 25 120/60 96 Nasal 3.0L Cannula 03/07 0800 94 Nasal 3.0L Cannula 03/07 0611 87 Nasal 5.0L Cannula 03/07 0400 92 Nasal 3.0L Cannula 03/07 0000 94 Nasal 3.0L Cannula 03/07 0000 97.2 62 19 92/62 94 Nasal 3.0L Cannula 03/06 2216 Nasal 2.0L Cannula 03/06 2123 99 Nasal 4.0L Cannula 03/06 2020 95.9 61 16 87/52 100 Nasal 4.0L Cannula 03/06 1809 66 20 83/48 96 Nasal 4.0L Cannula 03/06 1651 97.2 73 20 74/41 95 Nasal 4.0L Cannula 03/06 1525 78 18 78/44 95 Nasal 4.0L Cannula 03/06 1501 79/40 03/06 1430 81/47 03/06 1415 70 20 86/50 93 03/06 1400 98.0 72 20 83/46 94 Nasal 4.0L Cannula 03/06 1338 18 93 Nasal 5.0L Cannula 03/06 1328 98.2 66 20 74/48 91 Nasal 5.0L Cannula Intake & Output 03/07 1600 03/07 0800 03/07 0000 Intake Total 1105.6 142.9 Output Total 350 150 Balance 755.6 -7.1 Intake, IV 1105.6 142.9 Intake, Oral 0 0 Number 0 0 Bowel Movements Output, Urine 350 150 Patient 153 lb Weight Weight Bed scale Measurement Method Exam Other Physical Findings: gen awake and alert heent ncat cvs s1, s2 lungs rare rhonchi abd soft bs+ ext without edema Results Last 24 Hrs of Lab Results: Laboratory Tests 03/07/17 0356: Anion Gap 9, Estimated GFR > 60, BUN/Creatinine Ratio 35.0 H, Magnesium 2.1, Total Bilirubin 0.4, Direct Bilirubin 0.3, AST 18, ALT 29, Alkaline Phosphatase 62, Total Protein 5.3 L, Albumin 2.5 L, CBC w Diff NO MAN DIFF REQ, RBC 2.95 L, MCV 86.5, MCH 28.8, RDW 18.9 H, MPV 8.6, Gran % 76.8 H, Lymphocytes % 15.5 L, Monocytes % 4.7, Eosinophils % 2.7, Basophils % 0.3, Absolute Granulocytes 5.9, Absolute Lymphocytes 1.2, Absolute Monocytes 0.4, Absolute Eosinophils 0.2, Absolute Basophils 0, PUBS MCHC 33.3 03/06/17 2100: Anion Gap 9, Estimated GFR 58 L, BUN/Creatinine Ratio 30.8 H, Troponin I 0.35 *H 03/06/17 1829: Lactic Acid Cancelled 03/06/17 1645: Lactic Acid 0.9 03/06/17 1645: Anion Gap 9, Estimated GFR 49 L, BUN/Creatinine Ratio 30.0 H, Magnesium 2.2, Total Bilirubin 0.3, Direct Bilirubin 0.3, AST 18, ALT 38, Alkaline Phosphatase 62, Troponin I 0.38 *H, Total Protein 5.4 L, Albumin 2.6 L, PT 13.6 H, INR 1.30 H 03/06/17 1421: Urine Opiates Screen 114.00, Methadone Screen 43, Barbiturate Screen < 60, Ur Phencyclidine Scrn < 6.00, Amphetamines Screen < 100, U Benzodiazepines Scrn 137 , Urine Cocaine Screen < 50, Urine Cannabis Screen < 5.00, Urinalysis LIGHT H, Urine Color YEL, Urine Clarity CLEAR, Urine pH 6.0, Ur Specific [place] 1.025, Urine Protein TRACE H, Urine Ketones NEG, Urine Nitrite NEG, Urine Bilirubin NEG, Urine Urobilinogen 0.2, Ur Leukocyte Esterase NEG, Ur Microscopic SEDIMENT EXAMINED, Urine RBC RARE, Urine WBC RARE, Ur Epithelial Cells FEW, Urine Crystals RARE CA OX, Urine Bacteria FEW H, Hyaline Casts MOD H, Urine Mucus FEW, Urine Hemoglobin NEG, Urine Glucose NEG 03/06/17 1337: Anion Gap 9, Estimated GFR 45 L, BUN/Creatinine Ratio 29.3 H, Glucose 100 H, Calcium 8.5, Phosphorus 4.8 H, Magnesium 2.3, Total Bilirubin 0.5, AST 23, ALT 35, Alkaline Phosphatase 71, Troponin I 0.31 *H, Asb-B-Nbwomqujghl Pept 2840 H, Total Protein 6.2 L, Albumin 3.2 L, Globulin 3.0, Albumin/Globulin Ratio 1.1, TSH &T3 &Free T4 Intrp 1.770, CBC w Diff MAN DIFF ORDERED, RBC 3.35 L, MCV 85.1 , MCH 28.7, RDW 18.3 H, MPV 8.1, Gran % 84.8 H, Lymphocytes % 6.6 L, Monocytes % 8.2, Eosinophils % 0.1, Basophils % 0.3, Absolute Granulocytes 10.3 H, Segmented Neutrophils 74, Band Neutrophils 16 H, Absolute Lymphocytes 0.8 L , Lymphocytes 5 L, Monocytes 5, Absolute Monocytes 1.0 H, Absolute Eosinophils 0, Absolute Basophils 0, Platelet Estimate ADEQUATE, Polychromasia 1+, Hypochromic-Microcytic 1+, Poikilocytosis 2+, Anisocytosis 1+, Ovalocytes 1+, Carbon Cells RARE, PUBS MCHC 33.7, Fld Total RBCs Counted 100, Serum Alcohol < 10.0 Impression/Plan Impression/Plan Impression/Plan: Impression 81 year old man * hypotension - hypovolemia or severe sepsis - likely underlying pneumonia suggested by bibasilar airspace disease * ams improved - likely due to volume depletion * jamarcus - RESOLVED - likely from dehydration * troponinemia - can be demand ischemia Plan -discussion was held with patient, and housestaff -dnr/dni, no pressors or central lines or surgical intervetion -broad spectrum abx -cardiology input -repeat echo -f/u all labs -iv hydration -will require repeat imaging in future TTS 35 min DG to tele
--- NOTE | 2017-03-07 10:33 | NUR ---
@0800-PT AWAKE, ALERT. ORIENTED TO PERSON ONLY. FORGETFUL AND PULLING AT O2 TUBING. FOLLOWS SOME COMMANDS. AFEBRILE. CONT ON NC 3L-O2SAT 94%. RHONCHI. PROD COUGH. NSR HR 60S. BP STABLE. IVF CHANGED TO NS INFUSING AT 75ML/HR. ECHO ORD FOR THIS AM. GILES IN PLACE, ADEQUATE OUTPUT. SPECIALTY MATTRESS ORD FOR OPEN AREA NOTED TO COCCYX-NEW DUODERM PLACED. SKIN TEAR NOTED TO LFA-PREHOSP. NEW BACITRACIN DSG APPLIED. AWAITING SWALLOW EVAL THIS AM. NPO AT THIS TIME. BM X 2, GUIAC NEG. IV ABX ADMINISTERED. CONT TO MONITOR, CALL ESCOTO WITHIN REACH.
--- NOTE | 2017-03-07 10:37 | NUR ---
@0900-PT DOWNGRADED TO TELE.
--- NOTE | 2017-03-07 12:46 | NUR ---
@1100-PT BECOMING MORE FORGETFUL, ATTEMPTING TO GET OOB, PULL AT O2 TUBING AND GILES CATH. REORIENTED. BED ALARM IN PLACE. HOUSESTAFF AWARE. WILL REACH OUT TO . CONT TO MONITOR. PT UNABLE TO TAKE AM MEDS DUE TO NPO PENDING SWALLOW EVAL. CALL ESCOTO WITHIN REACH.
--- NOTE | 2017-03-07 12:52 | Cons- Cardiology ---
General Information and HPI Consulting Request Date of Consult: 03/07/17 Requested By: DAVID BRYSON MD Reason for Consult: Hypertension; elevated troponin Source of Information: old records Exam Limitations: dementia History of Present Illness: The patient is a 81-year-old white male. His past history significant for coronary artery disease, prior cerebellar stroke, carotid artery disease, prior history of seizures, dementia, hyperlipidemia, COPD, hypertension, etc. The patient is currently a resident of [facility]. He was transported to [place] and admitted following an episode of unresponsiveness. At that time, his oxygen saturations were noted to be low. He was apparently being treated for pneumonia at the [facility]. As far as we can discern, there was no evidence of any other cardiovascular symptoms. The patient was admitted to the ICU for further treatment and evaluation of sepsis with probable pneumonia, hypotension, acute renal insufficiency and mildly elevated troponin. l Allergies/Medications Allergies: Coded Allergies: No Known Allergies (01/22/17) Home Med List: Amlodipine Besylate 2.5 MG TABLET 1 TAB PO DAILY HTN (Reported) Aripiprazole (Abilify) 10 MG TABLET 1 TAB PO DAILY MENTAL HEALTH (Reported) Aspirin (Aspirin*) 81 MG TAB.CHEW 1 TAB PO DAILY HEART (Reported) Atorvastatin Calcium (Lipitor) 80 MG TABLET 1 TAB PO 1700 CHOLESTEROL ( Reported) Carvedilol 3.125 MG TABLET 1 TAB PO BID HTN (Reported) Finasteride (Proscar) 5 MG TABLET 1 TAB PO DAILY BPH (Reported) Gabapentin (Neurontin) 400 MG CAPSULE 1 CAP PO TID NEUROPATHY (Reported) Ipratropium/Albuterol Sulfate (Combivent Respimat Inhal [place]) 20 MCG-100 MCG/ ACTUATION MIST.INHAL 1 PUFF INH/JANIS Q6 RESPIRATORY (Reported) Lisinopril (Prinivil) 10 MG TABLET 1 TAB PO DAILY HTN (Reported) Sertraline HCl (Zoloft) 100 MG TABLET 2 TAB PO DAILY MENTAL HEALTH (Reported) Tamsulosin HCl 0.4 MG CAP.ER.24H 2 CAP PO DAILY BPH (Reported) Tramadol HCl 50 MG TABLET 1 TAB PO TIDPRN PRN PRIOR TO CPI [place] (Reported) Trazodone HCl 50 MG TABLET 3 TAB PO QPM SLEEP (Reported) Past History Travel History Traveled to [place] past 21 day No Medical History Neurological: dementia, TREMORS INSOMNIA EENT: NONE Cardiovascular: CAD, hypertension, CEREBELLAR STROKE SYNDROM HYPERCHOLESTEROLEMIA STENOSIS Respiratory: COPD, 02 DEPENDENT Gastrointestinal: NONE Hepatic: NONE Renal: benign prost hyperplasia Musculoskeletal: NONE Psychiatric: MAJOR DEPRESSIVE DISORDER Endocrine: NONE Blood Disorders: anemia Cancer(s): NONE Surgical History Surgical History: non-contributory Psychosocial History Where Do You Live? [facility] Who Do You Live With? spouse Primary Language: Lao Smoking Status: Former Smoker Functional Ability ADLs Needs Assist: dressing, eating, toileting, bathing. Ambulation: non-ambulatory IADLs Needs Assist: shopping, housework, finances, food prep, telephone, transportation, medication admin. Exam & Diagnostic Data Vital Signs and I&O Vital Signs Date Time Temp Pulse Resp B/P B/P Pulse O2 O2 Flow FiO2 Mean Ox Delivery Rate 03/07 1036 95 Nasal 3.0L Cannula 03/07 0800 96.1 66 25 120/60 96 Nasal 3.0L Cannula 03/07 0800 94 Nasal 3.0L Cannula 03/07 0611 87 Nasal 5.0L Cannula 03/07 0400 92 Nasal 3.0L Cannula 03/07 0000 94 Nasal 3.0L Cannula 03/07 0000 97.2 62 19 92/62 94 Nasal 3.0L Cannula 03/06 2216 Nasal 2.0L Cannula 03/06 2123 99 Nasal 4.0L Cannula 03/06 2020 95.9 61 16 87/52 100 Nasal 4.0L Cannula 03/06 1809 66 20 83/48 96 Nasal 4.0L Cannula 03/06 1651 97.2 73 20 74/41 95 Nasal 4.0L Cannula 03/06 1525 78 18 78/44 95 Nasal 4.0L Cannula 03/06 1501 79/40 03/06 1430 81/47 03/06 1415 70 20 86/50 93 03/06 1400 98.0 72 20 83/46 94 Nasal 4.0L Cannula 03/06 1338 18 93 Nasal 5.0L Cannula 03/06 1328 98.2 66 20 74/48 91 Nasal 5.0L Cannula Intake & Output 03/07 1600 03/07 0800 03/07 0000 03/06 1600 03/06 0800 03/06 0000 Intake Total 1105.6 142.9 1000 Output Total 350 150 100 Balance 755.6 -7.1 900 Intake, IV 1105.6 142.9 1000 Intake, Oral 0 0 Number 0 0 Bowel Movements Output, Urine 350 150 100 Patient 153 lb 141 lb Weight Weight Bed scale Bed scale Measurement Method Physical Exam: General Appearance Lethargic and disoriented Skin No Significant Lesion but arousable HEENT Atraumatic, EOMI, Dry mucous membranes, Pinpoint pupils mildly reactive Neck Supple, No JVD, No thryomegaly, carotids normal bilaterally Cardiovascular Regular Rate, Normal S1, Normal S2, 2/6 Systolic murmur Lungs Normal Air Movement, Rhonchi bilateral bases, no wheezing Abdomen Normal Bowel Sounds, Soft, No Tenderness, No Masses Neurological Normal/grossly nonfocal Extremities No Clubbing, No Cyanosis, No Edema, No Tenderness/Swelling Vascular Pulses Symmetrical Labs/Robert Results: Laboratory Tests 03/07 03/06 03/06 0356 2100 1829 Chemistry Sodium (137 - 145 mmol/L) 141 138 Potassium (3.5 - 5.1 mmol/L) 4.5 4.7 Chloride (98 - 107 mmol/L) 112 H 110 H Carbon Dioxide (22 - 30 mmol/L) 19 L 18 L Anion Gap (5 - 16) 9 9 BUN (9 - 20 mg/dL) 35 H 37 H Creatinine (0.7 - 1.2 mg/dL) 1.0 1.2 Estimated GFR (>60 ml/min) > 60 58 L BUN/Creatinine Ratio (7 - 25 %) 35.0 H 30.8 H Lactic Acid Cancelled Magnesium (1.6 - 2.3 mg/dL) 2.1 Total Bilirubin (0.2 - 1.3 mg/dL) 0.4 Direct Bilirubin (< 0.4 mg/dL) 0.3 AST (17 - 59 U/L) 18 ALT (21 - 72 U/L) 29 Alkaline Phosphatase (< 127 U/L) 62 Troponin I (<0.11 ng/ml) 0.35 *H Total Protein (6.3 - 8.2 g/dL) 5.3 L Albumin (3.5 - 5.0 g/dL) 2.5 L Hematology CBC w Diff NO MAN DIFF REQ WBC (4.8 - 10.8 /CUMM) 7.7 RBC (4.70 - 6.10 /CUMM) 2.95 L Hgb (14.0 - 18.0 G/DL) 8.5 L Hct (42 - 52 %) 25.5 L MCV (80.0 - 94.0 FL) 86.5 MCH (27.0 - 31.0 PG) 28.8 RDW (11.5 - 14.5 %) 18.9 H Plt Count (130 - 400 /CUMM) 177 MPV (7.4 - 10.4 FL) 8.6 Gran % (42.2 - 75.2 %) 76.8 H Lymphocytes % (20.5 - 51.1 %) 15.5 L Monocytes % (1.7 - 9.3 %) 4.7 Eosinophils % (0 - 5 %) 2.7 Basophils % (0.0 - 2.0 %) 0.3 Absolute Granulocytes (1.4 - 6.5 /CUMM) 5.9 Absolute Lymphocytes (1.2 - 3.4 /CUMM) 1.2 Absolute Monocytes (0.10 - 0.60 /CUMM) 0.4 Absolute Eosinophils (0.0 - 0.7 /CUMM) 0.2 Absolute Basophils (0.0 - 0.2 /CUMM) 0 PUBS MCHC (33.0 - 37.0 G/DL) 33.3 03/06 03/06 03/06 1645 1645 1421 Chemistry Sodium (137 - 145 mmol/L) 137 Potassium (3.5 - 5.1 mmol/L) 4.7 Chloride (98 - 107 mmol/L) 108 H Carbon Dioxide (22 - 30 mmol/L) 19 L Anion Gap (5 - 16) 9 BUN (9 - 20 mg/dL) 42 H Creatinine (0.7 - 1.2 mg/dL) 1.4 H Estimated GFR (>60 ml/min) 49 L BUN/Creatinine Ratio (7 - 25 %) 30.0 H Lactic Acid (0.7 - 2.1 mmol/L) 0.9 Magnesium (1.6 - 2.3 mg/dL) 2.2 Total Bilirubin (0.2 - 1.3 mg/dL) 0.3 Direct Bilirubin (< 0.4 mg/dL) 0.3 AST (17 - 59 U/L) 18 ALT (21 - 72 U/L) 38 Alkaline Phosphatase (< 127 U/L) 62 Troponin I (<0.11 ng/ml) 0.38 *H Total Protein (6.3 - 8.2 g/dL) 5.4 L Albumin (3.5 - 5.0 g/dL) 2.6 L Coagulation PT (9.4 - 12.5 SEC) 13.6 H INR (0.90 - 1.17) 1.30 H Toxicology Urine Opiates Screen (>2000 NG/ML) 114.00 Methadone Screen (>300 NG/ML) 43 Barbiturate Screen (>200 NG/ML) < 60 Ur Phencyclidine Scrn (>25 NG/ML) < 6.00 Amphetamines Screen (>1000 NG/ML) < 100 U Benzodiazepines Scrn (>200 NG/ML) 137 Urine Cocaine Screen (>300 NG/ML) < 50 Urine Cannabis Screen (>50 NG/ML) < 5.00 Urines Urinalysis LIGHT H Urine Color (YEL,AMB,STR) YEL Urine Clarity (CLEAR) CLEAR Urine pH (5.0 - 8.0) 6.0 Ur Specific [place] (1.001 - 1.035) 1.025 Urine Protein (NEG,<30 MG/DL) TRACE H Urine Ketones (NEG) NEG Urine Nitrite (NEG) NEG Urine Bilirubin (NEG) NEG Urine Urobilinogen (0.1 - 1.0 EU/dl) 0.2 Ur Leukocyte Esterase (NEG) NEG Ur Microscopic SEDIMENT EXAMINED Urine RBC (0 - 5 /HPF) RARE Urine WBC (0 - 2 /HPF) RARE Ur Epithelial Cells (NONE,FEW) FEW Urine Crystals RARE CA OX Urine Bacteria (NEG/NONE) FEW H Hyaline Casts (0/LPF) MOD H Urine Mucus (FEW,NONE) FEW Urine Hemoglobin (NEG) NEG Urine Glucose (N MG/DL) NEG 03/06 1337 Chemistry Sodium (137 - 145 mmol/L) 136 L Potassium (3.5 - 5.1 mmol/L) 5.4 H Chloride (98 - 107 mmol/L) 104 Carbon Dioxide (22 - 30 mmol/L) 22 Anion Gap (5 - 16) 9 BUN (9 - 20 mg/dL) 44 H Creatinine (0.7 - 1.2 mg/dL) 1.5 H Estimated GFR (>60 ml/min) 45 L BUN/Creatinine Ratio (7 - 25 %) 29.3 H Glucose (65 - 99 mg/dL) 100 H Calcium (8.4 - 10.2 mg/dL) 8.5 Phosphorus (2.5 - 4.5 mg/dL) 4.8 H Magnesium (1.6 - 2.3 mg/dL) 2.3 Total Bilirubin (0.2 - 1.3 mg/dL) 0.5 AST (17 - 59 U/L) 23 ALT (21 - 72 U/L) 35 Alkaline Phosphatase (< 127 U/L) 71 Troponin I (<0.11 ng/ml) 0.31 *H Oug-I-Exxhfrpiyhm Pept (<125 pg/mL) 2840 H Total Protein (6.3 - 8.2 g/dL) 6.2 L Albumin (3.5 - 5.0 g/dL) 3.2 L Globulin (1.9 - 4.2 gm/dL) 3.0 Albumin/Globulin Ratio (1.1 - 2.2 %) 1.1 TSH &T3 &Free T4 Intrp (0.27 - 4.20 uIU/mL) 1.770 Hematology CBC w Diff MAN DIFF ORDERED WBC (4.8 - 10.8 /CUMM) 12.2 H RBC (4.70 - 6.10 /CUMM) 3.35 L Hgb (14.0 - 18.0 G/DL) 9.6 L Hct (42 - 52 %) 28.5 L MCV (80.0 - 94.0 FL) 85.1 MCH (27.0 - 31.0 PG) 28.7 RDW (11.5 - 14.5 %) 18.3 H Plt Count (130 - 400 /CUMM) 223 MPV (7.4 - 10.4 FL) 8.1 Gran % (42.2 - 75.2 %) 84.8 H Lymphocytes % (20.5 - 51.1 %) 6.6 L Monocytes % (1.7 - 9.3 %) 8.2 Eosinophils % (0 - 5 %) 0.1 Basophils % (0.0 - 2.0 %) 0.3 Absolute Granulocytes (1.4 - 6.5 /CUMM) 10.3 H Segmented Neutrophils (42.2 - 75.2 %) 74 Band Neutrophils (0.0 - 5.0 %) 16 H Absolute Lymphocytes (1.2 - 3.4 /CUMM) 0.8 L Lymphocytes (20.5 - 51.1 %) 5 L Monocytes (1.7 - 9.3 %) 5 Absolute Monocytes (0.10 - 0.60 /CUMM) 1.0 H Absolute Eosinophils (0.0 - 0.7 /CUMM) 0 Absolute Basophils (0.0 - 0.2 /CUMM) 0 Platelet Estimate (ADEQUATE) ADEQUATE Polychromasia 1+ Hypochromic-Microcytic 1+ Poikilocytosis 2+ Anisocytosis 1+ Ovalocytes 1+ Fco Cells RARE PUBS MCHC (33.0 - 37.0 G/DL) 33.7 Other Body Source Fld Total RBCs Counted (%) 100 Toxicology Serum Alcohol (<10 MG/DL) < 10.0 Diagnostic Data Other Results Chest CT: IMPRESSION: 1. Bibasilar airspace disease right greater than left. There is mediastinal lymphadenopathy, could be reactive. 2. No acute abnormality of the abdomen or pelvis. Diverticulosis of colon but no acute change of the bowel. Assessment/Plan Assessment/Plan Assessment: 1. Mildly elevated troponin-at the moment, in the absence of any other acute findings, I suspect this is related to underlying sepsis and demand ischemia. 2. Acute on chronic hypoxic respiratory failure 3. Sepsis with probable pneumonia, possible aspiration 4. Hyperkalemia 5. Acute renal insufficiency-likely related to dehydration and sepsis 6. Dementia with mental status changes 7. History of hypertension 8. Normocytic anemia . COPD 10. History of cerebellar stroke Recommendations: -For now, I will continue management as per the medical team. -Echocardiogram pending -Once stable, the patient should likely be monitor on [address] [place] [address] telemetry for now. -Further plans after the echocardiogram is reviewed. -At the moment, I do not believe any aggressive intervention is necessary in this patient's case. Consult Acknowledgment - Thank you for your consult request.
--- NOTE | 2017-03-07 14:01 | ECHOCARDIOGRAM REPORT ---
ASAD CASTILLO Age: 81 : 1935 Gender: M Exam Date: 03/07/2017 11:57 Exam Location: [facility] Ht (in): 65 Wt (lb): 153 BSA: 1.80 BP: / Ordering Physician: BETHANY VERGARA MD Referring Physician: BETHANY VERGARA MD Technologist: Elie Gomez EVELIO Room Number: 104 Indications: HYPOTENSION Rhythm: Sinus Technical Quality: Fair, Technically difficult study FINDINGS Left Ventricle Normal size left ventricle. No obvious regional wall motion abnormalities. Normal left ventricular ejection fraction estimated at 55-60%. Right Ventricle Mild right ventricular dilatation. Right Atrium Mild right atrial dilatation. Left Atrium Left atrial dilatation. Mitral Valve Severe thickening/calcification of the anterior mitral valve leaflet. Mitral annular calcification. Mild mitral stenosis. Aortic Valve Trileaflet aortic valve. Diffuse thickening of the aortic valve cusps with reduced excursion. [id number] aortic stenosis. Mild aortic regurgitation. Tricuspid Valve Tricuspid valve not well visualized, grossly normal. Moderate-to- severe tricuspid regurgitation. Right ventricular systolic pressure estimated to be elevated at 60 mmHg. Pulmonic Valve Pulmonic valve not well visualized, grossly normal. Pericardium Minimal pericardial effusion (normal variant). Great Vessels Aortic root and proximal ascending aorta not well visualized, grossly normal. CONCLUSIONS 1. This was a technically difficult and limited study due to the patient's body habitus. 2. Fibrocalcific degeneration is present with moderate to severe aortic stenosis (PG 50 mmHg; MG 30 mmHg; WREO 0.8 cm2) and mild aortic insufficiency. 3. Significant thickening and calcification of the mitral leaflets is present with anular calcification and mild mitral stenosis (PDG 16 mmHg; MDG 6 mmHg; MVA 1.8 cm2) with mild mitral insufficiency and left atrial enlargement. 4. A physiologic pericardial effusion is present. 5. The left ventricular chamber size and systolic function are normal with no obvious resting wall motion abnormalities. 6. Mild enlargement of the right heart chambers is noted with mild tricuspid insufficiency and pulmonary hypertension with an estimated RV systolic pressure of 60 mmHg. Majo Davila M.D. (Electronically Signed) Final Date: 07 Mar 2017 13:59 MEASUREMENTS (Male / Female) Normal Values 2D ECHO LV Diastolic Diameter PLAX 4.5 cm 4.2 - 5.9 / 3.9 - 5.3 cm LV Systolic Diameter PLAX 3.0 cm 2.1 - 4.0 cm LV Fractional Shortening PLAX 33.3 % 25 - 46 % LV Ejection Fraction 2D Teich 62.1 % IVS Diastolic Thickness 1.1 cm LVPW Diastolic Thickness 1.0 cm LV Relative Wall Thickness 0.5 RV Internal Dim ED PLAX 3.5 cm 1.9 - 3.8 cm LVOT Diameter 1.7 cm Aortic Root Diameter 2.7 cm LA Systolic Diameter LX 2.8 cm 3.0 - 4.0 / 2.7 - 3.8 cm Ascending Aorta Diameter 2.5 cm IVC Diameter Expiration 2.4 cm DOPPLER AV Peak Velocity 361.0 cm/s AV Peak Gradient 52.1 mmHg AV Mean Velocity 250.0 cm/s AV Mean Gradient 29.0 mmHg AV Velocity Time Integral 83.3 cm AI Deceleration Vermilion 453.0 cm/s AI Peak Velocity 410.0 cm/s AI Pressure Half Time 265.0 ms AI Peak Gradient 67.2 mmHg LVOT Peak Velocity 83.5 cm/s LVOT Peak Gradient 2.8 mmHg LVOT Mean Velocity 58.0 cm/s LVOT Mean Gradient 2.0 mmHg LVOT Velocity Time Integral 29.9 cm LVOT Stroke Volume 67.9 cm AV Area Cont Eq vti 0.8 cm AV Area Cont Eq pk 0.5 cm MV Peak Velocity 200.0 cm/s MV Peak Gradient 16.0 mmHg MV Mean Velocity 110.0 cm/s MV Mean Gradient 6.0 mmHg Mitral E Point Velocity 156.0 cm/s Mitral A Point Velocity 187.0 cm/s Mitral E to A Ratio 0.8 MV PHT Velocity 176.0 cm/s MV Deceleration Vermilion 628.0 cm/s MV Pressure Half Time 84.1 ms MV Area PHT 2.6 cm MV Deceleration Time 486.0 ms TR Peak Velocity 376.0 cm/s TR Peak Gradient 56.6 mmHg Right Atrial Pressure 10.0 mmHg Pulmonary Artery Systolic Pressu 66.6 mmHg Right Ventricular Systolic Press 66.6 mmHg PV Peak Velocity 131.0 cm/s PV Peak Gradient 6.9 mmHg PV Mean Velocity 81.8 cm/s PV Mean Gradient 3.0 mmHg PV Velocity Time Integral 26.9 cm LV E' Lateral Velocity 5.2 cm/s Mitral E to LV E' Lateral Ratio 30.2 LV E' Septal Velocity 6.8 cm/s Mitral E to LV E' Septal Ratio 22.9
--- NOTE | 2017-03-07 15:03 | NUR ---
@1400-PT RESTLES, AGITATED. PULLED OUT IV SITE, PULLED OFF O2 TUBING, ATTEMPTING TO GET OOB. NEW IV SITE PLACED. BILAT WRIST RESTRAINTS PLACED AT THIS TIME, HOUSESTAFF AT BEDSIDE TO ASSESS. AM MEDS ADMINISTERED CRUSHED WITH APPLESAUCE AFTER PUREED DIET AND HONEY THICK APPROVED BY SPEECH THERAPIST. DISCUSSED POC WITH OVER PHONE. CONT TO MONITOR, CALL ESCOTO WITHIN REACH.
[2017-03-07 16:00] VITALS: BP 130/80
[2017-03-07 18:57] VITALS: BP 102/56
[2017-03-08 00:49] VITALS: BP 110/54
[2017-03-08 08:00] VITALS: BP 108/56
[2017-03-08 08:26] LABS: ABSOLUTE BASOPHIL COUNT 0 /CUMM (0.0-0.2); ABSOLUTE EOSINOPHIL COUNT 0.3 /CUMM (0.0-0.7); ABSOLUTE GRANULOCYTE CT 5.2 /CUMM (1.4-6.5); ABSOLUTE LYMPH COUNT 1.4 /CUMM (1.2-3.4); ABSOLUTE MONOCYTE COUNT 0.4 /CUMM (0.10-0.60); BASOPHIL % 0.4 % (0.0-2.0); GRANULOCYTE % 70.9 % (42.2-75.2); HEMATOCRIT 26.1 % (42-52); MEAN CORPUSCULAR HGB 28.4 PG (27.0-31.0); MEAN CORPUSCULAR HGB CONC 32.8 G/DL (33.0-37.0); MEAN CORPUSCULAR VOLUME 86.6 FL (80.0-94.0); MEAN PLATELET VOLUME 8.4 FL (7.4-10.4); PLATELET COUNT 192 /CUMM (130-400); RBC DISTRIBUTION WIDTH 18.9 % (11.5-14.5); RED BLOOD CELL CT 3.02 /CUMM (4.70-6.10); WHITE BLOOD CELL COUNT 7.3 /CUMM (4.8-10.8)
--- NOTE | 2017-03-08 10:12 | PN- Housestaff ---
Subjective Follow-up For: Sepsis Elevated troponin PNA Tele-Events Since Last Visit: Sinus bradycardia with heart rate of 57-67 Subjective: Seen and examined at bedside. Patient does appear a little bit drowsy but he is alert and oriented to person place and time. He states that his feeling much better denies any shortness of breath, chest pain, palpitation, fever, chills, abdominal pain or dysuria. Overnight event of decrease urine output of 200 mL noted, there was a brief pause on IV, however was restarted. Review of Systems Constitutional: Reports: no symptoms. Objective Last 24 Hrs of Vital Signs/I&O Vital Signs Date Time Temp Pulse Resp B/P B/P Pulse O2 O2 Flow FiO2 Mean Ox Delivery Rate 03/08 1739 97.6 56 20 148/76 96 Nasal 3.0L Cannula 03/08 1600 94 Nasal 3.0L Cannula 03/08 1432 62 152/80 03/08 0800 94 Nasal 3.0L Cannula 03/08 0800 97.0 60 20 108/56 94 Nasal 2.5L Cannula 03/08 0049 97.6 58 22 110/54 95 Nasal Cannula 03/08 0000 96 Nasal 3.0L Cannula 03/07 1935 96 Nasal 2.0L Cannula 03/07 1857 98.1 63 22 102/56 96 Nasal 3.0L Cannula Intake & Output 03/08 1600 03/08 0800 03/08 0000 Intake Total 840 520 720 Output Total 450 200 400 Balance 390 320 320 Intake, IV 600 400 600 Intake, Oral 240 120 120 Number 0 Bowel Movements Output, Urine 450 200 400 Patient 69.598 kg Weight Physical Exam General Appearance: Alert, Oriented X3, Cooperative Other Physical Findings: Head: atraumatic, normal appearance Ears, Nose, Throat: normal ENT inspection, moist mucus membranes Neck: normal inspection, full range of motion Respiratory: no respiratory distress, Rhonchi bilateral bases Cardiovascular: regular rate/rhythm, systolic murmur Gastrointestinal: normal bowel sounds, soft, non-tender Extremities: normal inspection, no edema Cranial Nerves: normal hearing, normal speech Skin: normal color, warm/dry Current Medications: Current Medications Sig/Fatou Start time Last Medication Dose Route Stop Time Status Admin Albuterol Sulfate 3 ML Q4P PRN 03/06 2245 AC INH Aripiprazole 10 MG DAILY 03/07 1000 AC 03/08 PO 0935 Aspirin 81 MG DAILY 03/07 1000 AC 03/08 PO 0935 Atorvastatin Calcium 80 MG 1700 03/06 1700 AC 03/08 PO 1621 Ceftazidime 1,000 MG IQ8 03/07 0000 AC 03/08 IV 1621 Gabapentin 400 MG TID 03/06 2200 AC 03/08 PO 1621 Heparin Sodium 5,000 UNIT Q8 03/06 2200 AC 03/08 (Porcine) SC 1625 Sertraline HCl 200 MG DAILY 03/07 1000 AC 03/08 PO 0935 Sodium Chloride 1,000 ML Q13H 03/07 0745 AC 03/08 IV 1616 Tramadol HCl 50 MG TID PRN 03/07 1400 AC 03/07 PO 2053 Trazodone HCl 50 MG TID 03/07 1600 AC 03/08 PO 162 Vancomycin HCl 1,000 MG DAILY@17003/07 1700 AC 03/08 Sodium Chloride 250 ML IV 1621 Last 24 Hrs of Lab/Robert Results Last 24 Hrs of Labs/Mics: Laboratory Tests 03/08/17 0630: Anion Gap 9, Estimated GFR > 60, BUN/Creatinine Ratio 24.4, CBC w Diff NO MAN DIFF REQ, RBC 3.02 L, MCV 86.6, MCH 28.4, RDW 18.9 H, MPV 8.4, Gran % 70.9, Lymphocytes % 18.7 L, Monocytes % 6.0, Eosinophils % 4.0, Basophils % 0.4, Absolute Granulocytes 5.2, Absolute Lymphocytes 1.4, Absolute Monocytes 0.4, Absolute Eosinophils 0.3, Absolute Basophils 0, PUBS MCHC 32.8 L Assessment/Plan Assessment: This is a 81 year old male with PMH CAD, CVA with cerebellar stroke followed by baseline tremors, carotid stenosis, history of seizures, vascular dementia, BPH, HLD, COPD on 2 L home O2, anemia, essential HTN, "leaky valve" and major depressive disorder who was transported from [facility] this afternoon due to an episode of unresponsiveness. Patient was noted to be hypoxic , hypotensive and altered on arrival to the emergency room. In the ED: Vital signs showed T 98.2, HR 66, RR 20, BP 74/48, O2 91% on 5 L NC. Labs were significant for WBC 12.2 with 16 bands and 84.8% granulocytes, H&H 9.6 /28.5, Plt 223, Na 136, K 5.4, Cl 104, HCO3 22, BUN 44/1.5, Glu 100, AST 23, ALT 71, Trop 0.31, TSH 1.77, UA unremarkable, Utox normal. CXR showed cardiomegaly with questionable mild CHF and superimposed infiltrates. Head CT showed no acute bleeds/massess. Age indeterminate infarct in posteromedial right cerebellar hemisphere and chronic infarcts bilaterally. EKG showed NSR HR 66 bpm and RBBB. Patient is admitted to the ICU and spent 3 daysand then transferred to telemetry. The following issues are being addressed: 1. Severe sepsis with leukocytosis and bandemia * Source of infection is respiratory, she is currently being treated with ceftaz and vancomycin. White blood count down trended. 2. Acute on chronic hypoxic respiratory failure * Secondary to PNA. Patient seems to show symptomatic relief, continue ceftaz and vancomycin to adequately cover hcap. Will taper O2 as tolerated. 3. Echo findings His echo is remarkable to moderate aortic stenosis, not severe to require urgent intervention as of now. Patient will be closely following up with Dr. Davila for continuous evaluation and possible aortic valve replacement. Problem List: 1. Acute hypoxemic respiratory failure 2. Pneumonia Pain Ratin Pain Location: none Pain Goal: Remain pain free Pain Plan: per pathway Tomorrow's Labs & Rationales: BEP CBC
--- NOTE | 2017-03-08 13:09 | Cons- Psychiatry ---
Psychiatric Consult Date of Consult: 03/08/17 Reason for Consult: Agitation Allergies: Coded Allergies: No Known Allergies (01/22/17) Past History Past Medical History Neurological: dementia, TREMORS INSOMNIA EENT: NONE Cardiovascular: CAD, hypertension, CEREBELLAR STROKE SYNDROM HYPERCHOLESTEROLEMIA STENOSIS Respiratory: COPD, 02 DEPENDENT Gastrointestinal: NONE Hepatic: NONE Renal: benign prost hyperplasia Musculoskeletal: NONE Psychiatric: MAJOR DEPRESSIVE DISORDER Endocrine: NONE Blood Disorders: anemia Cancer(s): NONE Past Surgical History Surgical History: non-contributory Assessment/Plan Impression: Chief complaint: Unresponsive to interview HPI: This 81-year-old man with a complicated past medical history inclusive of vascular dementia and cerebellar strokes, current shelter resident, who presented to the [facility] emergency room for altered mental status, per chart, he was unresponsive. On arrival he presented with leukocytosis, troponin leak, acute kidney injury, and hypotension. Had a recent admission to [facility] in December and January for acute hypoxic respiratory failure and sepsis secondary to pneumonia requiring intubation and was subsequently discharged to a snf. Psychiatry was consulted due to episodes of agitation. On my assessment today the patient was in soft restraints and lying supine. He was initially unresponsive to my arrival. With physical stimulation and he opened his eyes, however he was not able to converse with me. Past medical history: Per chart: CAD, CVA with cerebellar stroke followed by baseline tremors, carotid stenosis, history of seizures, vascular dementia, BPH, HLD, COPD on 2 L home O2, anemia, essential HTN, "leaky valve" and major depressive disorder Past psychiatric history largely unknown aside from vascular dementia. Per notes he is not independent at baseline requires assistance for all ADLs and IADLs. He is nonambulatory at baseline. Relevant psychiatric medications: Abilify 10 mg daily, sertraline 200 mg daily, trazodone 150 mg nightly Social and family history largely unknown Relevant labs and studies: Today's vitals: Afebrile, pulse in the 60s, respiratory rate 20, normotensive Echocardiography CONCLUSIONS 1. This was a technically difficult and limited study due to the patient's body habitus. 2. Fibrocalcific degeneration is present with moderate to severe aortic stenosis (PG 50 mmHg; MG 30 mmHg; WERO 0.8 cm2) and mild aortic insufficiency. 3. Significant thickening and calcification of the mitral leaflets is present with anular calcification and mild mitral stenosis (PDG 16 mmHg; MDG 6 mmHg; MVA 1.8 cm2) with mild mitral insufficiency and left atrial enlargement. 4. A physiologic pericardial effusion is present. 5. The left ventricular chamber size and systolic function are normal with no obvious resting wall motion abnormalities. 6. Mild enlargement of the right heart chambers is noted with mild tricuspid insufficiency and pulmonary hypertension with an estimated RV systolic pressure of [address] scan head IMPRESSION: 1. There are no acute bleeds, collections or masses. 2. There are sequelae of an age-indeterminate infarct in the posteromedial right cerebellar hemisphere. 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 3. An acute infarct cannot be excluded on the basis of this study. Mental status exam: This is an elderly man largely unresponsive lying supine on hospital bed arms in soft restraints: He is not alert, not oriented, only reactive to physical stimulus, so was unable to produce any spontaneous speech and therefore mood was unable to be assessed, affect was flat, no thought was produced, cognition was unable to be assessed a/recs: 81-year-old man with vascular dementia with limited function at baseline , currently convalescing from a recent severe pneumonia episode requiring intubation at [facility], returns with evidence of sepsis, demand ischemia , and mental status changes. Psychiatry was consulted for agitation. On my examination the patient was largely unresponsive with the overall picture consistent with delirium on dementia. No agitation was demonstrated. for recurrence of agitation, would largely favor a non-pharmacological approach. Which includes continuing to treat the patient's medical concerns, including maintenance of normal electrolytes, reduction of pain, reduction of polypharmacy if possible. Continue to normalize sleep-wake cycles. Might consider reduction of psychotropic medications however would require a better understanding of why this patient is on sertraline and Abilify. Agree with 3 times a day dosing of trazodone, which can oftentimes be helpful with agitation in dementia. Thank you for this consult.
--- NOTE | 2017-03-08 14:02 | PN- Cardiology ---
Objective Vital Signs and I&Os Vital Signs Date Time Temp Pulse Resp B/P B/P Pulse O2 O2 Flow FiO2 Mean Ox Delivery Rate 03/08 0800 94 Nasal 3.0L Cannula 03/08 0800 97.0 60 20 108/56 94 Nasal 2.5L Cannula 03/08 0049 97.6 58 22 110/54 95 Nasal Cannula 03/08 0000 96 Nasal 3.0L Cannula 03/07 1935 96 Nasal 2.0L Cannula 03/07 1857 98.1 63 22 102/56 96 Nasal 3.0L Cannula 03/07 1600 95 Nasal 3.0L Cannula 03/07 1600 97.1 86 22 130/80 95 Nasal 3.0L Cannula Intake & Output 03/08 1600 03/08 0800 03/08 0000 03/07 1600 03/07 0800 03/07 0000 Intake Total 520 399 951 4640.6 142.9 Output Total 200 400 350 350 150 Balance 320 320 430 755.6 -7.1 Intake, IV 400 896 702 1516.6 142.9 Intake, Oral 120 120 60 0 0 Number 4 0 0 Bowel Movements Output, Urine 200 400 350 350 150 Patient 153 lb 153 lb Weight Weight Bed scale Measurement Method Current Medications: Current Medications Sig/Fatou Start time Last Medication Dose Route Stop Time Status Admin Albuterol Sulfate 3 ML Q4P PRN 03/06 2245 AC INH Aripiprazole 10 MG DAILY 03/07 1000 AC 03/08 PO 0935 Aspirin 81 MG DAILY 03/07 1000 AC 03/08 PO 0935 Atorvastatin Calcium 80 MG 1700 03/06 1700 AC 03/07 PO 1630 Ceftazidime 1,000 MG IQ8 03/07 0000 AC 03/08 IV 0802 Gabapentin 400 MG TID 03/06 2200 AC 03/08 PO 0935 Heparin Sodium 5,000 UNIT Q8 03/06 2200 AC 03/08 (Porcine) SC 0607 Sertraline HCl 200 MG DAILY 03/07 1000 AC 03/08 PO 0935 Sodium Chloride 1,000 ML Q13H 03/07 0745 AC 03/07 IV 2233 Tramadol HCl 50 MG TID PRN 03/07 1400 AC 03/07 PO 2053 Trazodone HCl 50 MG TID 03/07 1600 AC 03/08 PO 0935 Vancomycin HCl 1,000 MG DAILY@1700 03/07 1700 AC 05/26 Sodium Chloride 250 ML IV 1629 Results Last 48 Hrs of Labs/Mics: Laboratory Tests 03/08/17 0630: Anion Gap 9, Estimated GFR > 60, BUN/Creatinine Ratio 24.4, CBC w Diff NO MAN DIFF REQ, RBC 3.02 L, MCV 86.6, MCH 28.4, RDW 18.9 H, MPV 8.4, Gran % 70.9, Lymphocytes % 18.7 L, Monocytes % 6.0, Eosinophils % 4.0, Basophils % 0.4, Absolute Granulocytes 5.2, Absolute Lymphocytes 1.4, Absolute Monocytes 0.4, Absolute Eosinophils 0.3, Absolute Basophils 0, PUBS MCHC 32.8 L 03/07/17 0356: Anion Gap 9, Estimated GFR > 60, BUN/Creatinine Ratio 35.0 H, Magnesium 2.1, Total Bilirubin 0.4, Direct Bilirubin 0.3, AST 18, ALT 29, Alkaline Phosphatase 62, Total Protein 5.3 L, Albumin 2.5 L, CBC w Diff NO MAN DIFF REQ, RBC 2.95 L, MCV 86.5, MCH 28.8, RDW 18.9 H, MPV 8.6, Gran % 76.8 H, Lymphocytes % 15.5 L, Monocytes % 4.7, Eosinophils % 2.7, Basophils % 0.3, Absolute Granulocytes 5.9, Absolute Lymphocytes 1.2, Absolute Monocytes 0.4, Absolute Eosinophils 0.2, Absolute Basophils 0, PUBS MCHC 33.3 03/06/17 2100: Anion Gap 9, Estimated GFR 58 L, BUN/Creatinine Ratio 30.8 H, Troponin I 0.35 *H 03/06/17 1829: Lactic Acid Cancelled 03/06/17 1645: Lactic Acid 0.9 03/06/17 1645: Anion Gap 9, Estimated GFR 49 L, BUN/Creatinine Ratio 30.0 H, Magnesium 2.2, Total Bilirubin 0.3, Direct Bilirubin 0.3, AST 18, ALT 38, Alkaline Phosphatase 62, Troponin I 0.38 *H, Total Protein 5.4 L, Albumin 2.6 L, PT 13.6 H, INR 1.30 H 03/06/17 1421: Urine Opiates Screen 114.00, Methadone Screen 43, Barbiturate Screen < 60, Ur Phencyclidine Scrn < 6.00, Amphetamines Screen < 100, U Benzodiazepines Scrn 137 , Urine Cocaine Screen < 50, Urine Cannabis Screen < 5.00, Urinalysis LIGHT H, Urine Color YEL, Urine Clarity CLEAR, Urine pH 6.0, Ur Specific [place] 1.025, Urine Protein TRACE H, Urine Ketones NEG, Urine Nitrite NEG, Urine Bilirubin NEG, Urine Urobilinogen 0.2, Ur Leukocyte Esterase NEG, Ur Microscopic SEDIMENT EXAMINED, Urine RBC RARE, Urine WBC RARE, Ur Epithelial Cells FEW, Urine Crystals RARE [place] OX, Urine Bacteria FEW H, Hyaline Casts MOD H, Urine Mucus FEW, Urine Hemoglobin NEG, Urine Glucose NEG Microbiology 03/06 2100 UPPER RESP: Surveillance Culture - COMP 03/06 2100 GI: Surveillance Culture - COMP 03/06 1610 URINE ROUT: Legionella Antigen - COMP 03/06 1610 URINE ROUT: Streptococcus pneumoniae Antigen (M - COMP 03/06 1610 URINE ROUT: Urine Culture - COMP Assessment/Plan Assessment/Plan Assessment: 1. Mildly elevated troponin-at the moment, in the absence of any other acute findings, I suspect this is related to underlying sepsis and demand ischemia. 2. Acute on chronic hypoxic respiratory failure 3. Sepsis with probable pneumonia, possible aspiration 4. Hyperkalemia 5. Acute renal insufficiency-likely related to dehydration and sepsis 6. Dementia with mental status changes 7. History of hypertension 8. Normocytic anemia 9. COPD 10. History of cerebellar stroke 11. Moderate to severe aortic stenosis on echocardiogram with pulmonary hypertension Recommendations: -Continue current medical management for now. -In view of the patient's other comorbidities, I do not believe that further intervention is required at the present time. Once the patient is more stable, I would consider a repeat echocardiogram in several weeks to better assess the patient's baseline aortic valve function however. Continue telemetry? Yes
[2017-03-08 14:32] VITALS: BP 152/80
--- NOTE | 2017-03-08 16:55 | PN- Att Addend ---
Attending MD Review Statement Attending Statement Attending MD Statement: examined this patient, discuss w/resident/PA/BURIAL VAULT SETTER, agreed w/resident/PA/BURIAL VAULT SETTER, reviewed EMR data (avail), discussed w/nursing, discussed w/ case mgmt Attending Assessment/Plan: Laboratory Tests 03/08/17 0630: Anion Gap 9, Estimated GFR > 60, BUN/Creatinine Ratio 24.4, CBC w Diff NO MAN DIFF REQ, RBC 3.02 L, MCV 86.6, MCH 28.4, RDW 18.9 H, MPV 8.4, Gran % 70.9, Lymphocytes % 18.7 L, Monocytes % 6.0, Eosinophils % 4.0, Basophils % 0.4, Absolute Granulocytes 5.2, Absolute Lymphocytes 1.4, Absolute Monocytes 0.4, Absolute Eosinophils 0.3, Absolute Basophils 0, PUBS MCHC 32.8 L Vital Signs Date Time Temp Pulse Resp B/P B/P Pulse O2 O2 Flow FiO2 Mean Ox Delivery Rate 03/08 1432 62 152/80 03/08 0800 94 Nasal 3.0L Cannula 03/08 0800 97.0 60 20 108/56 94 Nasal 2.5L Cannula 03/08 0049 97.6 58 22 110/54 95 Nasal Cannula 03/08 0000 96 Nasal 3.0L Cannula 03/07 1935 96 Nasal 2.0L Cannula 03/07 1857 98.1 63 22 102/56 96 Nasal 3.0L Cannula Patient seen and examined at bedside. Discussed with patient the care plan. Patient was low drowsy this morning at the time of exam. Patient currently being treated for sepsis secondary to pneumonia and currently is on vancomycin and ceftazidime. Discussed with line pilot the care plan. His white count is better and is down to 7.3 from 12.2 at admission. Patient on echo showed moderate to severe aortic stenosis with pulmonary pressures of 66 mm of Hg. Patient will need a follow-up with cardiology to assess the need for aortic valve replacement once his acute issues are resolved.
[2017-03-08 17:39] VITALS: BP 148/76
[2017-03-09 01:07] VITALS: BP 140/72
[2017-03-09 08:01] LABS: ABSOLUTE BASOPHIL COUNT 0 /CUMM (0.0-0.2); ABSOLUTE EOSINOPHIL COUNT 0.3 /CUMM (0.0-0.7); ABSOLUTE GRANULOCYTE CT 3.7 /CUMM (1.4-6.5); ABSOLUTE LYMPH COUNT 1.1 /CUMM (1.2-3.4); ABSOLUTE MONOCYTE COUNT 0.4 /CUMM (0.10-0.60); BASOPHIL % 0.4 % (0.0-2.0); EOSINOPHIL % 5.8 % (0-5); GRANULOCYTE % 66.1 % (42.2-75.2); HEMATOCRIT 25.9 % (42-52); MEAN CORPUSCULAR HGB 28.4 PG (27.0-31.0); MEAN CORPUSCULAR HGB CONC 32.8 G/DL (33.0-37.0); MEAN CORPUSCULAR VOLUME 86.6 FL (80.0-94.0); MEAN PLATELET VOLUME 7.9 FL (7.4-10.4); PLATELET COUNT 183 /CUMM (130-400); RBC DISTRIBUTION WIDTH 18.9 % (11.5-14.5); RED BLOOD CELL CT 2.99 /CUMM (4.70-6.10); WHITE BLOOD CELL COUNT 5.6 /CUMM (4.8-10.8)
[2017-03-09 08:06] VITALS: BP 149/62
--- NOTE | 2017-03-09 09:27 | PN- Housestaff ---
Subjective Follow-up For: Sepsis Elevated troponin PNA Tele-Events Since Last Visit: SB in 50s Subjective: Patient seen and examined. Resting comfortably in bed. He feels not good because he didn't like the food this morning. Otherwise no complaints. Denies any headache, chest discomfort, palpitations, dypsnea, lightheadedness, dizziness, abdominal pain, n/v/c/d.No events reported overnight. Review of Systems Constitutional: Reports: see HPI. Objective Last 24 Hrs of Vital Signs/I&O Vital Signs Date Time Temp Pulse Resp B/P B/P Pulse O2 O2 Flow FiO2 Mean Ox Delivery Rate 03/09 0806 97.9 59 18 149/62 95 Nasal 3.5L Cannula 03/09 0800 Nasal 3.0L Cannula 03/09 0758 95 Nasal 2.0L Cannula 03/09 0107 98.2 58 20 140/72 96 Nasal Cannula 03/09 0000 96 Nasal 3.0L Cannula 03/08 1739 97.6 56 20 148/76 96 Nasal 3.0L Cannula 03/08 1600 94 Nasal 3.0L Cannula 03/08 1432 62 152/80 Intake & Output 03/09 1600 03/09 0800 03/09 0000 Intake Total 700 1330 Output Total 275 550 Balance 425 780 Intake, IV 600 850 Intake, Oral 100 480 Number 0 Bowel Movements Output, Urine 275 550 Physical Exam General Appearance: Alert, Cooperative, No Acute Distress Other Physical Findings: Head: atraumatic, normal appearance Ears, Nose, Throat: normal ENT inspection, moist mucus membranes Neck: normal inspection, full range of motion Respiratory: no respiratory distress, Rhonchi bilateral bases Cardiovascular: regular rate/rhythm, systolic murmur Gastrointestinal: normal bowel sounds, soft, non-tender Extremities: normal inspection, no edema Cranial Nerves: normal hearing, normal speech Skin: normal color, warm/dry Current Medications: Current Medications Sig/Fatou Start time Last Medication Dose Route Stop Time Status Admin Albuterol Sulfate 3 ML Q4P PRN 03/06 2245 AC INH Aripiprazole 10 MG DAILY 03/07 1000 AC 03/09 PO 0952 Aspirin 81 MG DAILY 03/07 1000 AC 03/09 PO 0952 Atorvastatin Calcium 80 MG 1700 03/06 1700 AC 03/08 PO 1621 Ceftazidime 1,000 MG IQ8 03/07 0000 AC 03/09 IV 0951 Gabapentin 400 MG TID 03/06 2200 AC 03/09 PO 0952 Heparin Sodium 5,000 UNIT Q8 03/06 2200 AC 03/09 (Porcine) SC 0625 Sertraline HCl 200 MG DAILY 03/07 1000 AC 03/09 PO 0953 Sodium Chloride 1,000 ML Q13H 03/07 0745 DC 03/09 IV 0952 Tramadol HCl 50 MG TID PRN 03/07 1400 AC 03/07 PO 2053 Trazodone HCl 50 MG TID 03/07 1600 AC 03/09 PO 0952 Vancomycin HCl 1,000 MG DAILY@1700 03/07 1700 AC 03/08 Sodium Chloride 250 ML IV 1621 Last 24 Hrs of Lab/Robert Results Last 24 Hrs of Labs/Mics: Laboratory Tests 03/09/17 0620: Anion Gap 9, Estimated GFR > 60, BUN/Creatinine Ratio 16.7, CBC w Diff NO MAN DIFF REQ, RBC 2.99 L, MCV 86.6, MCH 28.4, RDW 18.9 H, MPV 7.9, Gran % 66.1, Lymphocytes % 20.0 L, Monocytes % 7.7, Eosinophils % 5.8 H, Basophils % 0.4, Absolute Granulocytes 3.7, Absolute Lymphocytes 1.1 L, Absolute Monocytes 0.4, Absolute Eosinophils 0.3, Absolute Basophils 0, PUBS MCHC 32.8 L Assessment/Plan Assessment: This is a 81 year old male with PMH CAD, CVA with cerebellar stroke followed by baseline tremors, carotid stenosis, history of seizures, vascular dementia, BPH, HLD, COPD on 2 L home O2, anemia, essential HTN, "leaky valve" and major depressive disorder who was transported from [facility] this afternoon due to an episode of unresponsiveness. Patient was noted to be hypoxic , hypotensive and altered on arrival to the emergency room. 1. Severe sepsis with leukocytosis and bandemia Source likely pulmonary (aspiration pneumonia as he has experienced this before vs HCAP), however abdominal remains on the differential. WBC 12.2 with 16 bands, hypotension, hypoxia on admission. * Panculture, follow up results * Cont ceftaz and vancomycin * CBC daily, trend WBC - improving * Aspiration precuations * Continue supplemental O2 as needed to maintain O2 saturation >92% * Monitor for fevers 2. Acute on chronic hypoxic respiratory failure O2 sat dropped to 70's at nursing facility and noted to be low to 91% on 5 L ( only on 2 at home). 2/2 pneumonia, aspiration vs HCAP. * Antibiotics as above, follow up culture results * Continue supplemental O2 * TRC evaluation 3. Hyperkalemia K 5.4 on admission, likely 2/2 RUTH. No EKG changes appreciated * Discontinue IVF * BEP daily, trend K * Continuous desk monitor 4. RUTH * Likely prerenal with hypovolemia 2/2 sepsis * Continue hydration * Hold nephrotoxins * Monitor renal function closely 5. Positive troponin Troponin 0.31 -> 0.38 -> 0.35. No ST/T changes from prior EKG. Note, patient had a recent echo 01/23/17 which showed fibrocalcific degeneration of aortic valve, normal LV function, abnormal septal motion, left ventricular systolic dysfunction * Appreciate cardio recs * Continue ASA 81 mg PO daily, lipitor 80 mg PO daily 6. Encephalopathy in the setting of vascular dementia Likely 2/2 severe sepsis and hypotension * Monitor closely * Hold trazodone while mental status below baseline 7. History of HTN * Hold antihypertensives in setting of sepsis with hypotension * Discontinue IV hydration * Vital signs Q shift DNR/DNI NPO DVTP: Heparin SC and ALPS His echo is remarkable to moderate aortic stenosis, not severe to require urgent intervention as of now. Patient will be closely following up with Dr. Davila for continuous evaluation and possible aortic valve replacement. Problem List: 1. BPH (benign prostatic hyperplasia) 2. HTN (hypertension) 3. Depression 4. COPD (chronic obstructive pulmonary disease) 5. CAD (coronary artery disease) 6. Right lower lobe pneumonia 7. Dementia Pain Ratin Pain Location: 0 Pain Goal: Remain pain free Pain Plan: Mild path Tomorrow's Labs & Rationales: CBC BEP BEP
--- NOTE | 2017-03-09 13:07 | PN- Att Addend ---
Attending MD Review Statement Attending Statement Attending MD Statement: examined this patient, discuss w/resident/PA/DEPUTY BAILIFF, agreed w/resident/PA/DEPUTY BAILIFF, reviewed EMR data (avail), discussed w/nursing Attending Assessment/Plan: Laboratory Tests 03/09/17 0620: Anion Gap 9, Estimated GFR > 60, BUN/Creatinine Ratio 16.7, CBC w Diff NO MAN DIFF REQ, RBC 2.99 L, MCV 86.6, MCH 28.4, RDW 18.9 H, MPV 7.9, Gran % 66.1, Lymphocytes % 20.0 L, Monocytes % 7.7, Eosinophils % 5.8 H, Basophils % 0.4, Absolute Granulocytes 3.7, Absolute Lymphocytes 1.1 L, Absolute Monocytes 0.4, Absolute Eosinophils 0.3, Absolute Basophils 0, PUBS MCHC 32.8 L Vital Signs Date Time Temp Pulse Resp B/P B/P Pulse O2 O2 Flow FiO2 Mean Ox Delivery Rate 03/09 0806 97.9 59 18 149/62 95 Nasal 3.5L Cannula 03/09 0800 Nasal 3.0L Cannula 03/09 0758 95 Nasal 2.0L Cannula 03/09 0107 98.2 58 20 140/72 96 Nasal Cannula 03/09 0000 96 Nasal 3.0L Cannula 03/08 1739 97.6 56 20 148/76 96 Nasal 3.0L Cannula 03/08 1600 94 Nasal 3.0L Cannula 03/08 1432 62 152/80 Patient seen and examined at bedside. Discussed with patient the care plan. Patient was low drowsy this morning at the time of exam. Patient currently being treated for sepsis secondary to pneumonia and currently is on vancomycin and ceftazidime. Discussed with event decorator the care plan. His white count is better and is down to 5.6 from 12.2 at admission. Patient feels his breathing is better today. Patient on echo showed moderate to severe aortic stenosis with pulmonary pressures of 66 mm of Hg. Patient will need a follow-up with cardiology to assess the need for aortic valve replacement once his acute issues are resolved.
[2017-03-09 15:49] VITALS: BP 150/70
[2017-03-09 22:37] VITALS: BP 150/66
[2017-03-10 08:10] VITALS: BP 158/88
--- NOTE | 2017-03-10 08:23 | PN- Housestaff ---
Subjective Follow-up For: 1.Sepsis 2.Elevated troponin 3.PNA Tele-Events Since Last Visit: Normal sinus rhythm, heart rate 61-79, some PVCs and PACs Subjective: Afebrile, heart rate 150s/70s, saturating well on 3 L of oxygen. Patient is laying on bed looks relaxed and comfortable. Patient denies any current active complaints. The nurse reported that he tried to pull out his IV constantly when he gets confused. Review of Systems Constitutional: Reports: no symptoms. Objective Last 24 Hrs of Vital Signs/I&O Vital Signs Date Time Temp Pulse Resp B/P B/P Pulse O2 O2 Flow FiO2 Mean Ox Delivery Rate 03/10 1226 95 Nasal 2.0L Cannula 03/10 0810 98.4 73 20 158/88 92 Nasal 3.0L Cannula 03/10 0000 Nasal 3.0L Cannula 03/09 2237 97.7 62 18 150/66 93 Nasal 3.0L Cannula 03/09 1549 97.4 62 18 150/70 91 Intake & Output 03/10 1600 03/10 0800 03/10 0000 Intake Total 0 490 Output Total 500 400 Balance -500 90 Intake, IV 0 10 Intake, Oral 0 480 Number 1 Bowel Movements Output, Urine 500 400 Physical Exam General Appearance: Alert, Oriented X3, Cooperative, No Acute Distress HEENT: Atraumatic, PERRLA, EOMI, Mucous Membr. moist/pink Cardiovascular: Regular Rate, Normal S1, Normal S2, No Murmurs Lungs: diminished air entry over both lungs Abdomen: Normal Bowel Sounds, Soft, No Tenderness Neurological: Normal Speech Extremities: No Clubbing, No Cyanosis, No Edema Current Medications: Current Medications Sig/Fatou Start time Last Medication Dose Route Stop Time Status Admin Albuterol Sulfate 3 ML Q4P PRN 03/06 2245 AC INH Aripiprazole 10 MG DAILY 03/07 1000 AC 03/10 PO 0910 Aspirin 81 MG DAILY 03/07 1000 AC 03/10 PO 0910 Atorvastatin Calcium 80 MG 1700 03/06 1700 AC 03/09 PO 1700 Ceftazidime 1,000 MG IQ8 03/07 0000 AC 03/10 IV 0910 Gabapentin 400 MG TID 03/06 2200 AC 03/10 PO 0913 Heparin Sodium 5,000 UNIT Q8 03/06 2200 AC 03/10 (Porcine) SC 1504 Sertraline HCl 200 MG DAILY 03/07 1000 AC 03/10 PO 0910 Tramadol HCl 50 MG TID PRN 03/07 1400 AC 03/07 PO 2052 Trazodone HCl 50 MG TID 03/07 1600 AC 03/10 PO 09 Vancomycin HCl 1,000 MG DAILY@1700 03/07 1700 AC 03/09 Sodium Chloride 250 ML IV 1700 Assessment/Plan Assessment: This is a 81 year old male with PMH CAD, CVA with cerebellar stroke followed by baseline tremors, carotid stenosis, history of seizures, vascular dementia, BPH, HLD, COPD on 2 L home O2, anemia, essential HTN, "leaky valve" and major depressive disorder who was transported from [facility] this afternoon due to an episode of unresponsiveness. Patient was noted to be hypoxic , hypotensive and altered on arrival to the emergency room. 1. Acute on chronic hypoxic respiratory failure 2/2 Severe sepsis because of pneumonia Source likely pulmonary (aspiration pneumonia as he has experienced this before vs HCAP), however abdominal remains on the differential. On admission his WBC 12.2 with 16 bands, hypotension, and hypoxia. * Cont ceftaz and vancomycin * Follow up cultures * Aspiration precuations * Continue puree diet with honey liquid 2. Hyperkalemia * Resolved, NTD 3. RUTH * Results, NTD 4. Positive troponin Troponin 0.31 -> 0.38 -> 0.35. No ST/T changes from prior EKG. Note, patient had a recent echo 01/23/17 which showed fibrocalcific degeneration of aortic valve, normal LV function, abnormal septal motion, left ventricular systolic dysfunction * ASA 81 mg PO daily * Lipitor 80 mg PO daily 5. Encephalopathy in the setting of vascular dementia Likely 2/2 recent infection, pain hospitalized, and old age * Monitor closely DNR/DNI NPO DVTP: Heparin SC and ALPS Problem List: 1. Pneumonia Pain Ratin Pain Location: NA Pain Goal: Remain pain free Pain Plan: See A&P Tomorrow's Labs & Rationales: BEP
--- NOTE | 2017-03-10 13:52 | PN- Cardiology ---
Subjective Subjective: Clinically about the same. The patient remains alert but confused. No new issues noted. Objective Vital Signs and I&Os Vital Signs Date Time Temp Pulse Resp B/P B/P Pulse O2 O2 Flow FiO2 Mean Ox Delivery Rate 03/10 1226 95 Nasal 2.0L Cannula 03/10 0810 98.4 73 20 158/88 92 Nasal 3.0L Cannula 03/10 0000 Nasal 3.0L Cannula 03/09 2237 97.7 62 18 150/66 93 Nasal 3.0L Cannula 03/09 1549 97.4 62 18 150/70 91 Intake & Output 03/10 1600 03/10 0800 03/10 0000 03/09 1600 03/09 0800 03/09 0000 Intake Total 0 337 241 4149 Output Total 500 400 350 275 550 Balance -500 90 -350 425 780 Intake, IV 0 10 600 850 Intake, Oral 0 480 100 480 Number 1 0 Bowel Movements Output, Urine 500 400 350 275 550 Current Medications: Current Medications Sig/Fatou Start time Last Medication Dose Route Stop Time Status Admin Albuterol Sulfate 3 ML Q4P PRN 03/06 2245 AC INH Aripiprazole 10 MG DAILY 03/07 1000 AC 03/10 PO 0910 Aspirin 81 MG DAILY 03/07 1000 AC 03/10 PO 0910 Atorvastatin Calcium 80 MG 1700 03/06 1700 AC 03/09 PO 1700 Ceftazidime 1,000 MG IQ8 03/07 0000 AC 03/10 IV 0910 Gabapentin 400 MG TID 03/06 2200 AC 03/10 PO 0913 Heparin Sodium 5,000 UNIT Q8 03/06 2200 AC 03/10 (Porcine) SC 0633 Sertraline HCl 200 MG DAILY 03/07 1000 AC 03/10 PO 0910 Tramadol HCl 50 MG TID PRN 03/07 1400 AC 03/07 PO 2053 Trazodone HCl 50 MG TID 03/07 1600 AC 03/10 PO 0913 Vancomycin HCl 1,000 MG DAILY@1700 03/07 1700 AC 03/09 Sodium Chloride 250 ML IV 1700 Results Last 48 Hrs of Labs/Mics: Laboratory Tests 03/09/17 0620: Anion Gap 9, Estimated GFR > 60, BUN/Creatinine Ratio 16.7, CBC w Diff NO MAN DIFF REQ, RBC 2.99 L, MCV 86.6, MCH 28.4, RDW 18.9 H, MPV 7.9, Gran % 66.1, Lymphocytes % 20.0 L, Monocytes % 7.7, Eosinophils % 5.8 H, Basophils % 0.4, Absolute Granulocytes 3.7, Absolute Lymphocytes 1.1 L, Absolute Monocytes 0.4, Absolute Eosinophils 0.3, Absolute Basophils 0, PUBS MCHC 32.8 L Assessment/Plan Assessment/Plan Assessment: 1. Mildly elevated troponin-at the moment, in the absence of any other acute findings, I suspect this is related to underlying sepsis and demand ischemia. 2. Acute on chronic hypoxic respiratory failure 3. Sepsis with probable pneumonia, possible aspiration 4. Hyperkalemia 5. Acute renal insufficiency-likely related to dehydration and sepsis 6. Dementia with mental status changes 7. History of hypertension 8. Normocytic anemia 9. COPD 10. History of cerebellar stroke 11. Moderate to severe aortic stenosis on echocardiogram with pulmonary hypertension Recommendations: -Continue current medical management for now. -In view of the patient's other comorbidities, I do not believe that further intervention is required at the present time. Once the patient is more stable, I would consider a repeat echocardiogram in several weeks to better assess the patient's baseline aortic valve function however. -Continue as per the medical team.
--- NOTE | 2017-03-10 14:30 | PN- Att Addend ---
Attending MD Review Statement Attending Statement Attending MD Statement: examined this patient, discuss w/resident/PA/[employer] SOLUTION ARCHITECT, agreed w/resident/PA/[employer] SOLUTION ARCHITECT, reviewed EMR data (avail), discussed w/nursing Attending Assessment/Plan: Vital Signs Date Time Temp Pulse Resp B/P B/P Pulse O2 O2 Flow FiO2 Mean Ox Delivery Rate 03/10 1226 95 Nasal 2.0L Cannula 03/10 0810 98.4 73 20 158/88 92 Nasal 3.0L Cannula 03/10 0000 Nasal 3.0L Cannula 03/09 2237 97.7 62 18 150/66 93 Nasal 3.0L Cannula 03/09 1549 97.4 62 18 150/70 91 Patient seen and examined at bedside. Patient is little confused today so we have ordered a sitter .Patient currently being treated for sepsis secondary to pneumonia and currently is on vancomycin and ceftazidime day 4. Discussed with employment legal assistant the care plan. Patient on echo showed moderate to severe aortic stenosis with pulmonary pressures of 66 mm of Hg. Patient will need a follow-up with cardiology to assess the need for aortic valve replacement once his acute issues are resolved. RUTH- resolved. Acute hypoxic respiratory failure secondary to pneumonia- resolving , cont with abx. Patient was intubated on previous admission in January of this year. Dysphagia- on [facility] soft diet and honey thick liquids. Pt non ambulatory at [facility] - Was at [facility] prior to admission. Will get PT consult in planning for discharge. Delirium-unclear etiology. Likely a combination of being in the hospital and the above acute illness. We will monitor closely for deterioration.
[2017-03-10 15:54] VITALS: BP 168/86
[2017-03-10 22:27] VITALS: BP 142/88
[2017-03-11 07:55] LABS: ABSOLUTE BASOPHIL COUNT 0 /CUMM (0.0-0.2); ABSOLUTE EOSINOPHIL COUNT 0.3 /CUMM (0.0-0.7); ABSOLUTE GRANULOCYTE CT 4.1 /CUMM (1.4-6.5); ABSOLUTE LYMPH COUNT 1.2 /CUMM (1.2-3.4); ABSOLUTE MONOCYTE COUNT 0.4 /CUMM (0.10-0.60); BASOPHIL % 0.2 % (0.0-2.0); EOSINOPHIL % 4.7 % (0-5); GRANULOCYTE % 68.2 % (42.2-75.2); HEMATOCRIT 27.6 % (42-52); MEAN CORPUSCULAR HGB 28.6 PG (27.0-31.0); MEAN CORPUSCULAR HGB CONC 33.2 G/DL (33.0-37.0); MEAN PLATELET VOLUME 7.9 FL (7.4-10.4); PLATELET COUNT 202 /CUMM (130-400); RBC DISTRIBUTION WIDTH 18.1 % (11.5-14.5); RED BLOOD CELL CT 3.21 /CUMM (4.70-6.10)
[2017-03-11 08:00] VITALS: BP 148/70
--- NOTE | 2017-03-11 08:08 | PN- Housestaff ---
TYSON CHAVES,USMAN 03/11/17 0807: Subjective Follow-up For: PNA Hypoxic respiratory failure Tele-Events Since Last Visit: Sinus rhythm with heart rates ranging from 53-65 and some PVCs Subjective: Seen and examined at bedside. Switched sitter to monitoring specialist. He reports that his feeling better and does not endorse any acute complaints including shortness of breath,cp/palpitation,fever/chills,nasuea/vomitig. No acute overnight on telemetry event reported by nursing staff. Review of Systems Constitutional: Reports: no symptoms. Objective Last 24 Hrs of Vital Signs/I&O Vital Signs Date Time Temp Pulse Resp B/P B/P Pulse O2 O2 Flow FiO2 Mean Ox Delivery Rate 03/11 0944 138/70 03/11 0841 96 Nasal 2.0L Cannula 03/11 08 97.0 80 20 148/70 94 Nasal Cannula 03/10 2227 97.8 60 20 142/88 94 Nasal Cannula 03/10 1600 Nasal 2.0L Cannula 03/10 1554 98.3 71 20 168/86 94 Nasal 2.0L Cannula Intake & Output 03/11 1600 03/11 0800 03/11 0000 Intake Total 350 Output Total 850 Balance -500 Intake, Oral 350 Number 0 Bowel Movements Output, Urine 850 Physical Exam General Appearance: Alert, Oriented X3, Cooperative Other Physical Findings: HEENT: Atraumatic, PERRLA, EOMI, Mucous Membr. moist/pink Cardiovascular: Regular Rate, Normal S1, Normal S2, No Murmurs Lungs: diminished air entry over both lungs Abdomen: Normal Bowel Sounds, Soft, No Tenderness Neurological: Normal Speech Extremities: No Clubbing, No Cyanosis, No Edema Current Medications: Current Medications Sig/Fatou Start time Last Medication Dose Route Stop Time Status Admin Albuterol Sulfate 3 ML Q4P PRN 03/06 2245 AC INH Amlodipine Besylate 2.5 MG DAILY 03/11 1000 AC 03/11 PO 0944 Aripiprazole 10 MG DAILY 03/07 1000 AC 03/11 PO 0943 Aspirin 81 MG DAILY 03/07 1000 AC 03/11 PO 0945 Atorvastatin Calcium 80 MG 1700 03/06 1700 AC 03/10 PO 1610 Carvedilol 3.125 MG BID 03/11 1000 CAN PO Ceftazidime 1,000 MG IQ8 03/07 0000 AC 03/11 IV 0944 Gabapentin 400 MG TID 03/06 2200 AC 03/11 PO 0943 Heparin Sodium 5,000 UNIT Q8 03/06 2200 AC 03/11 (Porcine) SC 0600 Sertraline HCl 200 MG DAILY 03/07 1000 AC 03/11 PO 0943 Tramadol HCl 50 MG TID PRN 03/07 1400 AC 03/10 PO 2034 Trazodone HCl 50 MG TID 03/07 1600 AC 03/11 PO 0943 Vancomycin HCl 1,000 MG DAILY@1700 03/07 1700 AC 03/10 Sodium Chloride 250 ML IV 1610 Last 24 Hrs of Lab/Robert Results Last 24 Hrs of Labs/Mics: Laboratory Tests 03/11/17 0620: Anion Gap 9, Estimated GFR > 60, BUN/Creatinine Ratio 11.3, CBC w Diff NO MAN DIFF REQ, RBC 3.21 L, MCV 86.0, MCH 28.6, RDW 18.1 H, MPV 7.9, Gran % 68.2, Lymphocytes % 20.0 L, Monocytes % 6.9, Eosinophils % 4.7, Basophils % 0.2, Absolute Granulocytes 4.1, Absolute Lymphocytes 1.2, Absolute Monocytes 0.4, Absolute Eosinophils 0.3, Absolute Basophils 0, PUBS MCHC 33.2 Assessment/Plan Assessment: This is a 81 year old male with PMH CAD, CVA with cerebellar stroke followed by baseline tremors, carotid stenosis, history of seizures, vascular dementia, BPH, HLD, COPD on 2 L home O2, anemia, essential HTN, "leaky valve" and major depressive disorder who was transported from [facility] this afternoon due to an episode of unresponsiveness. Patient was noted to be hypoxic , hypotensive and altered on arrival to the emergency room. 1. Acute on chronic hypoxic respiratory failure 2/2 Severe sepsis because of pneumonia Source likely pulmonary (aspiration pneumonia as he has experienced this before vs HCAP), however abdominal remains on the differential. On admission his WBC 12.2 with 16 bands, hypotension, and hypoxia. * Cont ceftaz and vancomycin DAY 6, last doses tomorrow * Follow up cultures are negative. * Aspiration precuations * Continue puree diet with honey liquid 2. Hyperkalemia * Resolved, NTD 3. RUTH * Results, NTD 4. Positive troponin Troponin 0.31 -> 0.38 -> 0.35. No ST/T changes from prior EKG. Note, patient had a recent echo 01/23/17 which showed fibrocalcific degeneration of aortic valve, normal LV function, abnormal septal motion, left ventricular systolic dysfunction * ASA 81 mg PO daily * Lipitor 80 mg PO daily 5. Encephalopathy in the setting of vascular dementia Likely 2/2 recent infection, pain hospitalized, and old age * Monitor closely DNR/DNI NPO DVTP: Heparin SC and ALPS Problem List: 1. Pneumonia 2. Respiratory failure Pain Ratin Pain Location: none Pain Goal: Remain pain free Pain Plan: PER PATHWAY Tomorrow's Labs & Rationales: BEP SEB CHAVES,IRVIN 03/11/17 1226: Attending MD Review Statement Attending Statement Attending MD Statement: examined this patient, discuss w/resident/PA/IDENTIFICATION TECHNICIAN, agreed w/resident/PA/IDENTIFICATION TECHNICIAN, reviewed EMR data (avail), discussed with nursing, discussed with case mgmt, reviewed images, amended to note Attending Assessment/Plan: Patient seen and examined, denies any complaints. Patient was transferred out of ICU where he was admitted with the hypotension, suspected gram-negative/ MRSA pneumonia. Currently blood pressure has been stabilized and patient is getting treated with IV antibiotics. Last dose of antibiotics is tomorrow. Vital Signs Date Time Temp Pulse Resp B/P B/P Pulse O2 O2 Flow FiO2 Mean Ox Delivery Rate 03/11 0944 138/70 03/11 0841 96 Nasal 2.0L Cannula 03/11 0800 97.0 80 20 148/70 94 Nasal Cannula 03/10 2227 97.8 60 20 142/88 94 Nasal Cannula 03/10 1600 Nasal 2.0L Cannula 03/10 1554 98.3 71 20 168/86 94 Nasal 2.0L Cannula on exam; awake, nad cv; s1,s2, rrr, + systolic murmur resp; clear abd; soft, nt, bs+ ext; no edema Laboratory Tests 03/11 0620 Chemistry Sodium (137 - 145 mmol/L) 142 Potassium (3.5 - 5.1 mmol/L) 3.7 Chloride (98 - 107 mmol/L) 107 Carbon Dioxide (22 - 30 mmol/L) 26 Anion Gap (5 - 16) 9 BUN (9 - 20 mg/dL) 9 Creatinine (0.7 - 1.2 mg/dL) 0.8 Estimated GFR (>60 ml/min) > 60 BUN/Creatinine Ratio (7 - 25 %) 11.3 Hematology CBC w Diff NO MAN DIFF REQ WBC (4.8 - 10.8 /CUMM) 6.0 RBC (4.70 - 6.10 /CUMM) 3.21 L Hgb (14.0 - 18.0 G/DL) 9.2 L Hct (42 - 52 %) 27.6 L MCV (80.0 - 94.0 FL) 86.0 MCH (27.0 - 31.0 PG) 28.6 RDW (11.5 - 14.5 %) 18.1 H Plt Count (130 - 400 /CUMM) 202 MPV (7.4 - 10.4 FL) 7.9 Gran % (42.2 - 75.2 %) 68.2 Lymphocytes % (20.5 - 51.1 %) 20.0 L Monocytes % (1.7 - 9.3 %) 6.9 Eosinophils % (0 - 5 %) 4.7 Basophils % (0.0 - 2.0 %) 0.2 Absolute Granulocytes (1.4 - 6.5 /CUMM) 4.1 Absolute Lymphocytes (1.2 - 3.4 /CUMM) 1.2 Absolute Monocytes (0.10 - 0.60 /CUMM) 0.4 Absolute Eosinophils (0.0 - 0.7 /CUMM) 0.3 Absolute Basophils (0.0 - 0.2 /CUMM) 0 PUBS MCHC (33.0 - 37.0 G/DL) 33.2 A/P; 81 year old male with PMH CAD, CVA with cerebellar stroke followed by baseline tremors, carotid stenosis, history of seizures, vascular dementia, BPH, HLD, ch resp failue, COPD on 2 L home O2, anemia, essential HTN, depression, admitted with acute resp failure, sepsis 2/2 to suspected G-ve/mrsa pneumonia as well as hypotension. Currently blood pressure stabilizing patient has been treated with antibiotics. Last dose of antibiotics will be tomorrow. RUTH has been resolved. Recommend continue all present medications. DVt px; Hep sq. Will Dc 1:1 sitter and pt will have monitoring specialist for safety. D/W Psych.
--- NOTE | 2017-03-11 08:57 | Discharge Summary ---
Visit Information Visit Dates Admission Date: 03/06/17 Discharge Date: 03/12/17 Hospital Course Course Attending Physician: IRVIN GROVES Primary Care Physician: PARMJIT CHAVES,[facility] Hospital Course: This is a 81-year-old male with past medical history of coronary artery disease, CVA with cerebellar stroke followed by baseline tremor, carotid stenosis, history of seizure, vascular dementia, BPH, hyperlipidemia, COPD on 2 L of home oxygen, anemia, essential hypertension,"leaky valve and major depressive disorder, was brought in from [facility] due to an episode of unresponsiveness. He was noted to be hypoxic and hypotensive and altered on arrival to the emergency room. Vitals in the emergency department temperature of 98.2, heart rate of 66, respiration of 20, blood pressure was low at 74/48, he was 91% saturating on 5 L of nasal cannula. Relevant labs he had a white count of 12.2 with 16 bands, H/H9.6/28.5, electrolytes are within normal limits except potassium was high at 5.4, BUN/ creatinine 44/1.5, glucose of 100, liver function tests within normal limits, troponin was positive at 0.31, a UA was unremarkable and U tox was negative. Chest x-ray showed cardiomegaly and questionable mild CHF with superimposed infiltrates. Head CT showed no acute bleed/masses and age indeterminate posterior medial right cerebellar hemisphere infarct and chronic infarcts bilaterally. EKG showed normal sinus rhythm with a rate of 66, right bundle branch block. The patient was initially admitted to ICU for severe sepsis with leukocytosis and bandemia. Problem list along with assessment and plan #1 Severe sepsis with leukocytosis and bandemia 2/2 HCAP pneumonia He had a white count with 16 bands on presentation with hypotension and hypoxia on admission. CT chest showed bibasilar airspace disease right more than left side. He was treated with IV fluids, IV ceftazidime 1 g every 8 and IV vancomycin every 12 for Hospital acquired pneumonia complete an entire course of total of 7 days, which he completed while in the hospital.Urine streptococcal and Legionella antigen were negative.Cultures did not grow anything. Of note patient has some evidence of congestion on the chest x-ray, however the EF is normal and this was not thought to be CHF. #2 Acute on chronic hypoxic respiratory failure O2 sat dropped to 70's at nursing facility and noted to be low to 91% on 5 L ( only on 2 at home) 2/2 pneumonia.This improved during hospital stay and he is back to his baseline of 2 L of nasal cannula oxygen. TRC nebulizations were continued, the antibiotic treatment was completed and he was back to his baseline. He will need a repeat chest x-ray in 2 weeks after discharge as per pulmonology and follow-up with Dr. Marcelo as outpatient. #3 Hyperkalemia/no ekg changes He was noted to have a potassium of 5.4, this was thought to be secondary to RUTH , IV fluid supplementation was continued and potassium was regularly monitored, Kayexalate was given as necessary, he was kept on the security monitor and no EKG changes secondary to hyperkalemia were noted. Potassium was back to baseline on discharge. #4 Acute Kidney Failure - prerenal Acute kidney failure was thought to be secondary to hypoperfusion/hypovolemia and was thought to be prerenal in nature. This improved with IV hydration and his kidney function was back to baseline. #5 Positive Troponin 2/2 to demand ischemia Initially on admission patient may without any ST/T segment changes, his EKG and troponin were ended, the troponin was thought to be secondary to demand ischemia. Cardiology was consult had an echocardiogram which showed normal size left ventricle, no obvious regional wall motion abnormalities, normal left ventricle ejection fraction estimated to be 55-60%. Aspirin 81 mg daily and Lipitor 80 mg daily were continued while in the hospital. Patient is to follow- up with Dr. Davila in 2 weeks after discharge. He also needs to repeat echocardiogram in a few weeks after discharge to better assess the patient's baseline aortic valve function. #6 Encephalopathy 2/2 to sepsis Encephalopathy was thought to be secondary to severe sepsis and hypotension, patient was initially kept nothing by mouth while altered, the mental status improved and was back to baseline with treatment of the underlying sepsis secondary to pneumonia. #7 History of hypertension. Initially on admission due to his hypotension and his antihypertensives were held, IV hydration was continued he was discharged on his home medications. Allergies: Coded Allergies: No Known Allergies (01/22/17) Significant Procedures: SERVICE DATE: 03/07/17- EXAM TYPE: CARD - ECHOCARDIOGRAM ASAD CASTILLO Age: 81 : 1935 Gender: M Exam Date: 03/07/2017 11:57 Exam Location: [facility] Ht (in): 65 Wt (lb): 153 BSA: 1.80 BP: / Ordering Physician: BETHANY VERGARA MD Referring Physician: BETHANY VERGARA MD Technologist: Elie Gomez EVELIO Room Number: 104 Indications: HYPOTENSION Rhythm: Sinus Technical Quality: Fair, Technically difficult study FINDINGS Left Ventricle Normal size left ventricle. No obvious regional wall motion abnormalities. Normal left ventricular ejection fraction estimated at 55-60%. Right Ventricle Mild right ventricular dilatation. Right Atrium Mild right atrial dilatation. Left Atrium Left atrial dilatation. Mitral Valve Severe thickening/calcification of the anterior mitral valve leaflet. Mitral annular calcification. Mild mitral stenosis. Aortic Valve Trileaflet aortic valve. Diffuse thickening of the aortic valve cusps with reduced excursion. [id number] aortic stenosis. Mild aortic regurgitation. Tricuspid Valve Tricuspid valve not well visualized, grossly normal. Moderate-to- severe tricuspid regurgitation. Right ventricular systolic pressure estimated to be elevated at 60 mmHg. Pulmonic Valve Pulmonic valve not well visualized, grossly normal. Pericardium Minimal pericardial effusion (normal variant). Great Vessels Aortic root and proximal ascending aorta not well visualized, grossly normal. CONCLUSIONS 1. This was a technically difficult and limited study due to the patient's body habitus. 2. Fibrocalcific degeneration is present with moderate to severe aortic stenosis (PG 50 mmHg; MG 30 mmHg; WERO 0.8 cm2) and mild aortic insufficiency. 3. Significant thickening and calcification of the mitral leaflets is present with anular calcification and mild mitral stenosis (PDG 16 mmHg; MDG 6 mmHg; MVA 1.8 cm2) with mild mitral insufficiency and left atrial enlargement. 4. A physiologic pericardial effusion is present. 5. The left ventricular chamber size and systolic function are normal with no obvious resting wall motion abnormalities. 6. Mild enlargement of the right heart chambers is noted with mild tricuspid insufficiency and pulmonary hypertension with an estimated RV systolic pressure of 60 mmHg. Majo Davila M.D. (Electronically Signed) Final Date: 07 Mar 2017 13:59 MEASUREMENTS (Male / Female) Normal Values 2D ECHO LV Diastolic Diameter PLAX 4.5 cm 4.2 - 5.9 / 3.9 - 5.3 cm LV Systolic Diameter PLAX 3.0 cm 2.1 - 4.0 cm LV Fractional Shortening PLAX 33.3 % 25 - 46 % LV Ejection Fraction 2D Teich 62.1 % IVS Diastolic Thickness 1.1 cm LVPW Diastolic Thickness 1.0 cm LV Relative Wall Thickness 0.5 RV Internal Dim ED PLAX 3.5 cm 1.9 - 3.8 cm LVOT Diameter 1.7 cm Aortic Root Diameter 2.7 cm LA Systolic Diameter LX 2.8 cm 3.0 - 4.0 / 2.7 - 3.8 cm Ascending Aorta Diameter 2.5 cm IVC Diameter Expiration 2.4 cm DOPPLER AV Peak Velocity 361.0 cm/s AV Peak Gradient 52.1 mmHg AV Mean Velocity 250.0 cm/s AV Mean Gradient 29.0 mmHg AV Velocity Time Integral 83.3 cm AI Deceleration Clinch 453.0 cm/s AI Peak Velocity 410.0 cm/s AI Pressure Half Time 265.0 ms AI Peak Gradient 67.2 mmHg LVOT Peak Velocity 83.5 cm/s LVOT Peak Gradient 2.8 mmHg LVOT Mean Velocity 58.0 cm/s LVOT Mean Gradient 2.0 mmHg LVOT Velocity Time Integral 29.9 cm LVOT Stroke Volume 67.9 cm AV Area Cont Eq vti 0.8 cm AV Area Cont Eq pk 0.5 cm MV Peak Velocity 200.0 cm/s MV Peak Gradient 16.0 mmHg MV Mean Velocity 110.0 cm/s MV Mean Gradient 6.0 mmHg Mitral E Point Velocity 156.0 cm/s Mitral A Point Velocity 187.0 cm/s Mitral E to A Ratio 0.8 MV PHT Velocity 176.0 cm/s MV Deceleration Clinch 628.0 cm/s MV Pressure Half Time 84.1 ms MV Area PHT 2.6 cm MV Deceleration Time 486.0 ms TR Peak Velocity 376.0 cm/s TR Peak Gradient 56.6 mmHg Right Atrial Pressure 10.0 mmHg Pulmonary Artery Systolic Pressu 66.6 mmHg Right Ventricular Systolic Press 66.6 mmHg PV Peak Velocity 131.0 cm/s PV Peak Gradient 6.9 mmHg PV Mean Velocity 81.8 cm/s PV Mean Gradient 3.0 mmHg PV Velocity Time Integral 26.9 cm LV E' Lateral Velocity 5.2 cm/s Mitral E to LV E' Lateral Ratio 30.2 LV E' Septal Velocity 6.8 cm/s Mitral E to LV E' Septal Ratio 22.9 SERVICE DATE: 03/06/17 EXAM TYPE: CAT - CT ABD & PELVIS W/O IV CONTRAS; CT CHEST WO IV CONTRAST IMPRESSION: 1. Bibasilar airspace disease right greater than left. There is mediastinal lymphadenopathy, could be reactive. 2. No acute abnormality of the abdomen or pelvis. Diverticulosis of colon but no acute change of the bowel. SERVICE DATE: 03/06/17 EXAM TYPE: RAD - XRY-PORTABLE CHEST XRAY FINDINGS: Compared to the previous study, all tubes have been removed. There is mild cardiac enlargement. There may be some mild CHF with upper zone redistribution and interstitial edema. Increased opacity in the right infrahilar area and in the retrocardiac region medially could be superimposed infiltrates or edema. IMPRESSION: Cardiomegaly with question of mild CHF and superimposed infiltrates. SERVICE DATE: 03/06/17 EXAM TYPE: CAT - CT HEAD WO IV CONTRAST IMPRESSION: 1. There are no acute bleeds, collections or masses. 2. There are sequelae of an age-indeterminate infarct in the posteromedial right cerebellar hemisphere. 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 3. An acute infarct cannot be excluded on the basis of this study. Disposition Summary Disposition Principal Diagnosis: 1. Severe Sepsis 2/2 to hospital acquired pnuemonia. 2. Acute hypoxic respiratory failure 2/2 to pnuemonia 3. Acute kidney Injury - prerenal 4. Hyperkalemia - resolved. Additional Diagnosis: 5. Demand ischemia 6.Encephalopathy 7.H/o Hypertension Discharge Disposition: SNF Discharge Instructions General Discharge Information Code Status: Do Not Resucitate/Intubat Patient's Diet: heart healthy diet Patient's Activity: as tolerated Follow-Up Instructions/Appts: Follow-up with the primary care practitioner within 1 week of discharge. Please follow up with cardiology Dr. Davila in 2 weeks of discharge. Please follow up with pulmonary doctor Dr. Marcelo after discharge. He will need a repeat echocardiogram as outpatient per cardiology. Please repeat chest x-ray in 2 weeks to see resolution of the pneumonia and lung findings. Please continue taking medications as prescribed. Medications at Discharge Discharge Medications: Stop taking the following medications: Lisinopril (Prinivil) 10 MG TABLET ORAL DAILY Days = 30 Continue taking these medications: Aspirin (Aspirin*) 81 MG TAB.CHEW 1 Tablet ORAL DAILY Days = 30 Comments: Last Taken: 03/12/17 Time: 0900 Gabapentin (Neurontin) 400 MG CAPSULE 1 Capsule ORAL THREE TIMES DAILY Days = 30 Comments: Last Taken: 03/12/17 Time: 1600 Sertraline HCl (Zoloft) 100 MG TABLET 2 Tablet ORAL DAILY Days = 30 Comments: Last Taken: 03/12/17 Time: 0900 Carvedilol (Carvedilol) 3.125 MG TABLET 1 Tablet ORAL TWICE DAILY Days = 30 Comments: Last Taken: 03/12/17 Time: 0900 Atorvastatin Calcium (Lipitor) 80 MG TABLET 1 Tablet ORAL 5 PM Days = 30 Comments: Last Taken: 03/11/17 Time: 1600 Aripiprazole (Abilify) 10 MG TABLET 1 Tablet ORAL DAILY Days = 30 Comments: Last Taken: 03/12/17 Time: 0900 Amlodipine Besylate (Amlodipine Besylate) 2.5 MG TABLET 1 Tablet ORAL DAILY Comments: Last Taken: 03/12/17 Time: 0900 Trazodone HCl (Trazodone HCl) 50 MG TABLET 3 Tablet ORAL Every night Days = 30 Comments: Last Taken: 03/12/17 Time: 0900 Finasteride (Proscar) 5 MG TABLET 1 Tablet ORAL DAILY Days = 30 Comments: Last Taken: NOT GIVEN IN HOSPITAL Time: Tamsulosin HCl (Tamsulosin HCl) 0.4 MG CAP.ER.24H 2 Capsule ORAL DAILY Days = 30 Comments: Last Taken: NOT GIVEN IN HOSPITAL Time: Ipratropium/Albuterol Sulfate (Combivent Respimat Inhal [place]) 20 MCG-100 MCG/ ACTUATION MIST.INHAL 1 PUFF Inhale Solution EVERY SIX HOURS Days = 30 Comments: Last Taken: NOT GIVEN IN HOSPITAL Time: Tramadol HCl (Tramadol HCl) 50 MG TABLET 1 Tablet ORAL THREE TIMES A DAY NEEDED as needed for PRIOR TO CPI [place] Comments: Last Taken: 03/10/17 Time: 2034 Copies To: PARMJIT CHAVES,MAX; KRISTIN CHAVES,Devang BINGHAM; ADELAIDE CHAVES,DAVID Shine MD Review Statement Documenting Attending: IRVIN GRIGSBY MD
--- NOTE | 2017-03-11 10:02 | PN- Psychiatry ---
See Addendum Assessment/Plan Impression: Identifying Info: 81-year single male with a complicated past medical history inclusive of vascular dementia and cerebellar strokes, current skilled nursing resident, who presented to the [facility] emergency room for altered mental status. Subsequently diagnosed with sepsis due to pneumonia. Consult requested for agitation and confusion. SUBJECTIVE "Worried about meeting my mother... I just don't know how I feel." Patient denies any mood disturbance but is able to identify that he takes Zoloft and abilify for his mood and states she's been on it for several years. He is unsure who is prescriber is. He is able tos ate his former residence. Unable to name place or date. Brief ROS Gait: OOB +2 Sleep: Adequate Appetite: Adequate OBJECTIVE Mental Status Exam Presentation/Appearance: Cooperative with evaluation to best of his ability. Hospital garb. Orientation: Oriented to self only Sensorium: Awake and alert Eye contact: Appropriate Affect: Blunted Mood: "I'm alright" Depression: Denies Anxiety: Denies Thought Content: - Denies SI/HI, AH/VH, PI. States and also believes they will not kill themselves. - Denies Hopeless/Helpless Thoughts Thought Process: Confused at times Associations: Did not assess Speech: Normal toen, some latency in response Judgment: Impaired Insight: Impaired Cognition: Memory: Short-term deficits, long-term appears more intact Attention/Concentration: Fair a present Fund of Knowledge: did not assess Abstractions:Did not assess MMSE: Did not assess Per nursing report the patient was confused and restless this AM. ASSESSMENT 81-year single male with a complicated past medical history inclusive of vascular dementia and cerebellar strokes presents with altered mental status in the context of pneumonia, hyperkalemia, and RUTH. At present he is calm and cooperative lying in bed. He would benefit from supportive measures to try to decrease confusion and improve sleep. Diagnosis Vascular dementia Delirium due to multiple etiologies, resolving Unspecified mood disorder A total of 30 minutes was spent with the patient with more than 50% of the time spent in counseling and/or coordination of care. Suggestion: 1. Continue sitter for safety due to confusion and fall risk. Continue to reassess the need for this intervention. 2. Please continue to avoid benzodiazepines, opioid analgesics, and meds with strong anticholinergic properties as much as possible to prevent further confusion. 3. Please initiate the following nonpharmacologic interventions: -Avoid nursing and medical procedures during sleep hours whenever possible - Cluster at night interventions that must be completed as much as possible to minimize sleep disruption - Decrease noise patient area during sleeping hours - Reduce lighting at night - Ensure patient has any sensory aids close by that he regularly uses 4. Please continue psychotropics as currently ordered. Thank you for including psychiatry in this case we will continue to follow. Subjective Subjective: as above Objective Last 24 Hrs of Vital Signs/I&O Current Medications Sig/Fatou Start time Last Medication Dose Route Stop Time Status Admin Albuterol Sulfate 3 ML Q4P PRN 03/06 2245 AC INH Amlodipine Besylate 2.5 MG DAILY 03/11 1000 AC 03/11 PO 0944 Aripiprazole 10 MG DAILY 03/07 1000 AC 03/11 PO 0943 Aspirin 81 MG DAILY 03/07 1000 AC 03/11 PO 0945 Atorvastatin Calcium 80 MG 1700 03/06 1700 AC 03/10 PO 1610 Carvedilol 3.125 MG BID 03/11 1000 CAN PO Ceftazidime 1,000 MG IQ8 03/07 0000 AC 03/11 IV 0944 Gabapentin 400 MG TID 03/06 2200 AC 03/11 PO 0943 Heparin Sodium 5,000 UNIT Q8 03/06 2200 AC 03/11 (Porcine) SC 0600 Sertraline HCl 200 MG DAILY 03/07 1000 AC 03/11 PO 0943 Tramadol HCl 50 MG TID PRN 03/07 1400 AC 03/10 PO 2034 Trazodone HCl 50 MG TID 03/07 1600 AC 03/11 PO 0943 Vancomycin HCl 1,000 MG DAILY@1700 03/07 1700 AC 03/10 Sodium Chloride 250 ML IV 1610 Laboratory Tests 03/11/17 0620: Anion Gap 9, Estimated GFR > 60, BUN/Creatinine Ratio 11.3, CBC w Diff NO MAN DIFF REQ, RBC 3.21 L, MCV 86.0, MCH 28.6, RDW 18.1 H, MPV 7.9, Gran % 68.2, Lymphocytes % 20.0 L, Monocytes % 6.9, Eosinophils % 4.7, Basophils % 0.2, Absolute Granulocytes 4.1, Absolute Lymphocytes 1.2, Absolute Monocytes 0.4, Absolute Eosinophils 0.3, Absolute Basophils 0, PUBS MCHC 33.2 Vital Signs Date Time Temp Pulse Resp B/P B/P Pulse O2 O2 Flow FiO2 Mean Ox Delivery Rate 03/11 0944 138/70 03/11 0841 96 Nasal 2.0L Cannula 03/11 08 97.0 80 20 148/70 94 Nasal Cannula 03/10 2227 97.8 60 20 142/88 94 Nasal Cannula 03/10 1600 Nasal 2.0L Cannula 03/10 1554 98.3 71 20 168/86 94 Nasal 2.0L Cannula 03/10 1226 95 Nasal 2.0L Cannula Intake & Output 03/11 1600 03/11 0800 03/11 0000 Intake Total 350 Output Total 850 Balance -500 Intake, Oral 350 Number 0 Bowel Movements Output, Urine 850
--- NOTE | 2017-03-11 10:40 | PN- Cardiology ---
Subjective Subjective: Patient is awake and alert, but he is confused. No shortness of breath. No chest pain. No palpitations. No diaphoresis. No lightheadedness or dizziness. Objective Vital Signs and I&Os Vital Signs Date Time Temp Pulse Resp B/P B/P Pulse O2 O2 Flow FiO2 Mean Ox Delivery Rate 03/11 0944 138/70 03/11 0841 96 Nasal 2.0L Cannula 03/11 0800 97.0 80 20 148/70 94 Nasal Cannula 03/10 2227 97.8 60 20 142/88 94 Nasal Cannula 03/10 1600 Nasal 2.0L Cannula 03/10 1554 98.3 71 20 168/86 94 Nasal 2.0L Cannula 03/10 1226 95 Nasal 2.0L Cannula Intake & Output 03/11 0803/11 0000 03/10 0000 Intake Total 350 240 0 490 Output Total 850 1200 500 400 Balance -500 -960 -500 90 Intake, IV 0 10 Intake, Oral 350 240 0 480 Number 0 1 Bowel Movements Output, Urine 850 1200 500 400 Physical Exam: Gen: NAD HEENT: normal Lungs: Scattered rhonchi, normal resp. effort Heart: RRR, S1, S2, 2/6 systolic murmur Abdomen: Soft, nontender, no masses Extremities: No clubbing, cyanosis, or edema. Neuro: Alert and oriented x 3, cranial nerves intact Current Medications: Current Medications Sig/Fatou Start time Last Medication Dose Route Stop Time Status Admin Albuterol Sulfate 3 ML Q4P PRN 03/06 2245 AC INH Amlodipine Besylate 2.5 MG DAILY 03/11 1000 AC 03/11 PO 0944 Aripiprazole 10 MG DAILY 03/07 1000 AC 03/11 PO 0943 Aspirin 81 MG DAILY 03/07 1000 AC 03/11 PO 0945 Atorvastatin Calcium 80 MG 1700 03/06 1700 AC 03/10 PO 1610 Carvedilol 3.125 MG BID 03/11 1000 CAN PO Ceftazidime 1,000 MG IQ8 03/07 0000 AC 03/11 IV 0944 Gabapentin 400 MG TID 03/06 2200 AC 03/11 PO 0943 Heparin Sodium 5,000 UNIT Q8 03/06 2200 AC 03/11 (Porcine) SC 0600 Sertraline HCl 200 MG DAILY 03/07 1000 AC 03/11 PO 0943 Tramadol HCl 50 MG TID PRN 03/07 1400 AC 03/10 PO 2034 Trazodone HCl 50 MG TID 03/07 1600 AC 03/11 PO 0943 Vancomycin HCl 1,000 MG DAILY@1700 03/07 1700 AC 03/10 Sodium Chloride 250 ML IV 1610 Results Last 48 Hrs of Labs/Mics: Laboratory Tests 03/11/17 0620: Anion Gap 9, Estimated GFR > 60, BUN/Creatinine Ratio 11.3, CBC w Diff NO MAN DIFF REQ, RBC 3.21 L, MCV 86.0, MCH 28.6, RDW 18.1 H, MPV 7.9, Gran % 68.2, Lymphocytes % 20.0 L, Monocytes % 6.9, Eosinophils % 4.7, Basophils % 0.2, Absolute Granulocytes 4.1, Absolute Lymphocytes 1.2, Absolute Monocytes 0.4, Absolute Eosinophils 0.3, Absolute Basophils 0, PUBS MCHC 33.2 Recent Imaging Studies: Echocardiogram: 1. This was a technically difficult and limited study due to the patient's body habitus. 2. Fibrocalcific degeneration is present with moderate to severe aortic stenosis (PG 50 mmHg; MG 30 mmHg; WERO 0.8 cm2) and mild aortic insufficiency. 3. Significant thickening and calcification of the mitral leaflets is present with anular calcification and mild mitral stenosis (PDG 16 mmHg; MDG 6 mmHg; MVA 1.8 cm2) with mild mitral insufficiency and left atrial enlargement. 4. A physiologic pericardial effusion is present. 5. The left ventricular chamber size and systolic function are normal with no obvious resting wall motion abnormalities. 6. Mild enlargement of the right heart chambers is noted with mild tricuspid insufficiency and pulmonary hypertension with an estimated RV systolic pressure of 60 mmHg. Assessment/Plan Assessment/Plan Assessment: 1. Pneumonia 2. Moderate to severe aortic stenosis with pulmonary hypertension 3. Mild troponin elevation, likely secondary to demand ischemia Plan: * Continue current cardiac medications. * Follow with Dr. Davila in one to 2 weeks after discharge. * Repeat echocardiogram in a few weeks after discharge. Continue telemetry? Yes
--- NOTE | 2017-03-11 10:57 | PN- Pulmonary ---
Subjective HPI/Critical Care Issues: pt seen and examined somewhat confused hemodynamically stable on vanco/ceftaz Objective Current Medications: Current Medications Sig/Fatou Start time Last Medication Dose Route Stop Time Status Admin Albuterol Sulfate 3 ML Q4P PRN 03/06 2245 AC INH Amlodipine Besylate 2.5 MG DAILY 03/11 1000 AC 03/11 PO 0944 Aripiprazole 10 MG DAILY 03/07 1000 AC 03/11 PO 0943 Aspirin 81 MG DAILY 03/07 1000 AC 03/11 PO 0945 Atorvastatin Calcium 80 MG 1700 03/06 1700 AC 03/10 PO 1610 Carvedilol 3.125 MG BID 03/11 1000 CAN PO Ceftazidime 1,000 MG IQ8 03/07 0000 AC 03/11 IV 0944 Gabapentin 400 MG TID 03/06 2200 AC 03/11 PO 0943 Heparin Sodium 5,000 UNIT Q8 03/06 2200 AC 03/11 (Porcine) SC 0600 Sertraline HCl 200 MG DAILY 03/07 1000 AC 03/11 PO 0943 Tramadol HCl 50 MG TID PRN 03/07 1400 AC 03/10 PO 2034 Trazodone HCl 50 MG TID 03/07 1600 AC 03/11 PO 0943 Vancomycin HCl 1,000 MG DAILY@1700 03/07 1700 AC 03/10 Sodium Chloride 250 ML IV 1610 Vital Signs & I&O Last 24 Hrs of Vitals and I&O: Vital Signs Date Time Temp Pulse Resp B/P B/P Pulse O2 O2 Flow FiO2 Mean Ox Delivery Rate 03/11 0944 138/70 03/11 0841 96 Nasal 2.0L Cannula 03/11 08 97.0 80 20 148/70 94 Nasal Cannula 03/10 2227 97.8 60 20 142/88 94 Nasal Cannula 03/10 1600 Nasal 2.0L Cannula 03/10 1554 98.3 71 20 168/86 94 Nasal 2.0L Cannula 03/10 1226 95 Nasal 2.0L Cannula Intake & Output 03/11 1600 03/11 0800 03/11 0000 Intake Total 350 Output Total 850 Balance -500 Intake, Oral 350 Number 0 Bowel Movements Output, Urine 850 Exam Other Physical Findings: gen confused heent ncat cvs s1, s2, systolic murmur lungs rare rhonchi abd soft bs+ ext without edema Results Last 24 Hrs of Lab Results: Laboratory Tests 03/11/17 0620: Anion Gap 9, Estimated GFR > 60, BUN/Creatinine Ratio 11.3, CBC w Diff NO MAN DIFF REQ, RBC 3.21 L, MCV 86.0, MCH 28.6, RDW 18.1 H, MPV 7.9, Gran % 68.2, Lymphocytes % 20.0 L, Monocytes % 6.9, Eosinophils % 4.7, Basophils % 0.2, Absolute Granulocytes 4.1, Absolute Lymphocytes 1.2, Absolute Monocytes 0.4, Absolute Eosinophils 0.3, Absolute Basophils 0, PUBS MCHC 33.2 Impression/Plan Impression/Plan Impression/Plan: Impression 81 year old man * hypotension - hypovolemia or severe sepsis - likely underlying pneumonia suggested by bibasilar airspace disease * ams improved - likely due to volume depletion * jamarcus - RESOLVED - likely from dehydration * troponinemia - can be demand ischemia Plan -dnr/dni, no pressors or central lines or surgical intervetion -complete course of abx -cardiology input -repeat echo per caridiogy -f/u all labs -iv hydration -will require repeat imaging in future - recommend CXR in 2 wks of dc call with any questions
--- NOTE | 2017-03-11 11:04 | NUR ---
PT IS NOT ATTEMPTING TO AMBUALTE NOR IS HE PULLING AT HIS LINES. PT SAFETY MONITOR HAS BEEN DISCONTINUED AT THIS TIME PEDRO MARY, DR MCLEAN, AND KERRY ARE AWARE.
--- NOTE | 2017-03-11 13:53 | Patient Discharge Instructions ---
Discharge Instructions General Discharge Information Special Instructions: Follow with Dr. Davila in one to 2 weeks after discharge. Repeat echocardiogram in a few weeks after discharge. Please repeat cxray in 2 weeks after discharge. Acute Coronary Syndrome Inclusion Criteria At DC or during hospital stay patient has or had the following: ACS DIAGNOSIS No Discharge Core Measures Meds if any: Prescribed or Continued at Discharge Meds if any: NOT Prescribed or Continued at Discharge Congestive Heart Failure Inclusion Criteria At DC or during hospital stay patient has or had the following: CHF DIAGNOSIS No Discharge Core Measures Meds if any: Prescribed or Continued at Discharge Meds if any: NOT Prescribed or Continued at Discharge Cerebrovascular accident Inclusion Criteria At DC or during hospital stay patient has or had the following: CVA/TIA Diagnosis No Discharge Core Measures Meds if any: Prescribed or Continued at Discharge Meds if any: NOT Prescribed or Continued at Discharge Venous thromboembolism Inclusion Criteria VTE Diagnosis No VTE Type NONE VTE Confirmed by (Test) NONE Discharge Core Measures - Per Current guidelines, there needs to be overlap - treatment for the first 5 days of Warfarin therapy. - If discharged on Warfarin prior to 5 days of - overlap therapy, the patient will need to be - assessed for post discharge needs including - *Post discharge parental anticoagulation - *Warfarin and/or parental anticoagulation education - *Follow up date to check INR post discharge At least 5 days overlap therapy as Inpatient No Meds if any: Prescribed or Continued at Discharge Note: Overlap Therapy is Warfarin and Anticoagulant Meds if any: NOT Prescribed or Continued at Discharge
[2017-03-11 15:30] VITALS: BP 132/80
--- NOTE | 2017-03-11 16:33 | NUR ---
wound care: requested by nursing to evaluate pt for skin alteration [facility] - pt seen in bed - size woods mattress currently in place and functioning - pt noted wtih a superficial stage 2 pressure injury 0.3 x 0.2 cm clean pink dermal fill wtih periwound slightly macerated - no c/o - no undermining or tunneling recommendation: apply moisture barrier qs adn prn please - cont use of size woods mattress and encourage side lying positioning q 2 hours
[2017-03-11 23:00] VITALS: BP 128/78
--- NOTE | 2017-03-12 07:59 | PN- Housestaff ---
TYSON CHAVES,USMAN 03/12/17 0759: Subjective Follow-up For: PNA Subjective: Seen and examined at bedside. Sitter no longer in place. Does not endorse any acute complaints, no fever/chills,shortness of breath, chest pain, or palpitation. No acute o/n reported by nursing staff. Review of Systems Constitutional: Reports: no symptoms. Objective Last 24 Hrs of Vital Signs/I&O Vital Signs Date Time Temp Pulse Resp B/P B/P Pulse O2 O2 Flow FiO2 Mean Ox Delivery Rate 03/12 1212 97.7 62 18 138/70 03/12 0900 62 138/70 03/12 0900 62 138/70 03/12 0822 97.7 62 18 138/70 91 Nasal 2.0L Cannula 03/12 08 91 Nasal 2.0L Cannula 03/12 0000 95 Nasal 2.0L Cannula 03/11 2300 98.4 50 16 128/78 95 Nasal 2.0L Cannula 03/11 2130 66 132/80 03/11 1700 97 Nasal 2.0L Cannula Intake & Output 03/12 1600 03/12 0800 03/12 0000 Intake Total 300 300 140 Output Total 250 350 290 Balance 50 -50 -150 Intake, Oral 300 300 140 Output, Urine 250 350 290 Physical Exam General Appearance: Alert, Oriented X3, Cooperative Cardiovascular: Normal S1, Normal S2 Lungs: Normal Air Movement Abdomen: Normal Bowel Sounds, Soft, No Tenderness Extremities: No Edema, Normal Pulses, No Tenderness/Swelling Assessment/Plan Assessment: This is a 81 year old male with PMH CAD, CVA with cerebellar stroke followed by baseline tremors, carotid stenosis, history of seizures, vascular dementia, BPH, HLD, COPD on 2 L home O2, anemia, essential HTN, "leaky valve" and major depressive disorder who was transported from [facility] this afternoon due to an episode of unresponsiveness. Patient was noted to be hypoxic , hypotensive and altered on arrival to the emergency room. 1. Acute on chronic hypoxic respiratory failure 2/2 Severe sepsis because of pneumonia Source likely pulmonary (aspiration pneumonia as he has experienced this before vs HCAP), however abdominal remains on the differential. On admission his WBC 12.2 with 16 bands, hypotension, and hypoxia. * Cont ceftaz and vancomycin DAY 7, last doses today * Follow up cultures are negative. * Aspiration precuations * Continue puree diet with honey liquid 2. Hyperkalemia * Resolved, NTD 3. RUTH * Results, NTD 4. Positive troponin Troponin 0.31 -> 0.38 -> 0.35. No ST/T changes from prior EKG. Note, patient had a recent echo 01/23/17 which showed fibrocalcific degeneration of aortic valve, normal LV function, abnormal septal motion, left ventricular systolic dysfunction * ASA 81 mg PO daily * Lipitor 80 mg PO daily 5. Encephalopathy in the setting of vascular dementia Likely 2/2 recent infection, pain hospitalized, and old age * Monitor closely DNR/DNI NPO DVTP: Heparin SC and ALPS Problem List: 1. Pneumonia Pain Ratin Pain Location: none Pain Goal: Remain pain free Pain Plan: per pain pathway Tomorrow's Labs & Rationales: none-discharge SEB CHAVES,IRVIN 03/12/17 1227: Attending MD Review Statement Attending Statement Attending MD Statement: examined this patient, discuss w/resident/PA/DAIRY MACHINE OPERATOR FARMWORKER, agreed w/resident/PA/DAIRY MACHINE OPERATOR FARMWORKER, reviewed EMR data (avail), discussed with nursing, discussed with case mgmt, reviewed images, amended to note Attending Assessment/Plan: Patient seen and examined, denies any complaints. One-to-one sitter was discontinued yesterday. Last day of antibiotics is today. After patient received his antibiotics, he can be discharged back to his rehabilitation. Please clarify about the Recio catheter to see if this was a chronic Recio or if it was inserted on this admission. If this is not a chronic Recio catheter, this should be taken out before patient leaves. Patient be continued on the rest of his home medications except that his lisinopril was discontinued as patient's blood pressure was not running that high. He did come in with acute kidney injury which is now resolved. Lisinopril can be resumed as an outpatient if his blood pressure starts to run high.
[2017-03-12 08:00] LABS: ABSOLUTE BASOPHIL COUNT 0 /CUMM (0.0-0.2); ABSOLUTE EOSINOPHIL COUNT 0.3 /CUMM (0.0-0.7); ABSOLUTE GRANULOCYTE CT 3.2 /CUMM (1.4-6.5); ABSOLUTE LYMPH COUNT 1.2 /CUMM (1.2-3.4); ABSOLUTE MONOCYTE COUNT 0.4 /CUMM (0.10-0.60); BASOPHIL % 0.2 % (0.0-2.0); EOSINOPHIL % 6.3 % (0-5); GRANULOCYTE % 62.3 % (42.2-75.2); HEMATOCRIT 27.8 % (42-52); MEAN CORPUSCULAR HGB 28.8 PG (27.0-31.0); MEAN CORPUSCULAR HGB CONC 33.5 G/DL (33.0-37.0); MEAN CORPUSCULAR VOLUME 85.7 FL (80.0-94.0); MEAN PLATELET VOLUME 7.6 FL (7.4-10.4); PLATELET COUNT 208 /CUMM (130-400); RBC DISTRIBUTION WIDTH 18.4 % (11.5-14.5); RED BLOOD CELL CT 3.24 /CUMM (4.70-6.10); WHITE BLOOD CELL COUNT 5.1 /CUMM (4.8-10.8)
[2017-03-12 08:22] VITALS: BP 138/70
[2017-03-12 12:12] VITALS: BP 138/70
== END 2017-03-12 12:40 | DRG 871 ==
LOC: ERH 13:07 → 1NO 15:59 → CRI 15:59 → ERHI 15:59 → ENRESERV 19:44 → ENTRNSPT 20:21 → CRI 20:39 → CMPTRNSPT 03-07 07:29 → 1NO 03-07 18:30 → ENPENDDIS 03-12 10:59 → 1NO 03-12 12:40
PROVIDERS: Emergency Medicine; Internal Medicine; Student in an Organized Health Care Education/Training Program; ADMIT Internal Medicine Critical Care Medicine
DX: A41.9 Sepsis, unspecified organism (principal); J69.0 Pneumonitis due to inhalation of food and vomit; J96.21 Acute and chronic respiratory failure with hypoxia; G93.40 Encephalopathy, unspecified; N17.9 Acute kidney failure, unspecified; I24.8 Other forms of acute ischemic heart disease; Z99.81 Dependence on supplemental oxygen; E87.5 Hyperkalemia; J44.9 Chronic obstructive pulmonary disease, unspecified; I65.29 Occlusion and stenosis of unspecified carotid artery; F01.50 Vascular dementia, unspecified severity, without behavioral disturbance, psychotic disturbance, mood disturbance, and anxiety; R65.20 Severe sepsis without septic shock; I10 Essential (primary) hypertension; I25.10 Atherosclerotic heart disease of native coronary artery without angina pectoris; Z86.73 Personal history of transient ischemic attack (TIA), and cerebral infarction without residual deficits; N40.0 Benign prostatic hyperplasia without lower urinary tract symptoms; E78.5 Hyperlipidemia, unspecified; F32.9 Major depressive disorder, single episode, unspecified
CPT/HCPCS: 1NP; CCU; 36415; 74176; 80307; 81001; 82436; 87040; 87070; 87086; 87449; 87450; 93005; 93010; 93306; 96360; 97110-GO; 97161-GP; 97530-GO; 99291; G0480; J0401; J0713; J1580; J1644; J3370; J3490; J7040

== ENCOUNTER 2017-03-14 18:37 | Emergency (ER) | payer OTHER, MEDICARE ==
[~2017-03-14] VITALS: Ht 165.1 cm; Wt 72.6 kg
[~2017-03-14 18:37] MED LIST changes: +TRAMADOL HCL50 M1 PO
--- NOTE | 2017-03-14 18:40 | ED MVC/FALL/TRAUMA COMPLAINT ---
History of Present Illness General Chief Complaint: Fall Stated Complaint: BIBA FOR FALL Source: patient, old records Exam Limitations: no limitations Vital Signs & Intake/Output Vital Signs & Intake/Output Vital Signs Date Time Temp Pulse Resp B/P B/P Pulse O2 O2 Flow FiO2 Mean Ox Delivery Rate 03/146 97.2 68 18 142/65 96 Nasal 4.0L Cannula 03/14 2053 97.1 64 18 144/69 96 Room Air 03/14 1852 91 Room Air 03/14 1852 98.0 71 18 165/77 91 Nasal 4.0L Cannula ED Intake and Output 03/15 0000 03/14 1200 Intake Total Output Total Balance Patient 160 lb Weight Weight Reported by Patient Measurement Method Allergies Coded Allergies: No Known Allergies (01/22/17) Reconcile Medications Amlodipine Besylate 2.5 MG TABLET 1 TAB PO DAILY HTN (Reported) Aripiprazole (Abilify) 10 MG TABLET 1 TAB PO DAILY MENTAL HEALTH (Reported) Aspirin (Aspirin*) 81 MG TAB.CHEW 1 TAB PO DAILY HEART (Reported) Atorvastatin Calcium (Lipitor) 80 MG TABLET 1 TAB PO 1700 CHOLESTEROL ( Reported) Carvedilol 3.125 MG TABLET 1 TAB PO BID HTN (Reported) Finasteride (Proscar) 5 MG TABLET 1 TAB PO DAILY BPH (Reported) Gabapentin (Neurontin) 400 MG CAPSULE 1 CAP PO TID NEUROPATHY (Reported) Ipratropium/Albuterol Sulfate (Combivent Respimat Inhal [place]) 20 MCG-100 MCG/ ACTUATION MIST.INHAL 1 PUFF INH/JANIS Q6 RESPIRATORY (Reported) Sertraline HCl (Zoloft) 100 MG TABLET 2 TAB PO DAILY MENTAL HEALTH (Reported) Tamsulosin HCl 0.4 MG CAP.ER.24H 2 CAP PO DAILY BPH (Reported) Tramadol HCl 50 MG TABLET 1 TAB PO TIDPRN PRN PRIOR TO CPI [place] (Reported) Trazodone HCl 50 MG TABLET 3 TAB PO QPM SLEEP (Reported) Triage Nurses Notes Reviewed? yes Onset: Abrupt Duration: constant Timing: single episode today Severity: moderate Severity Numbers: 5 Method of Injury: direct blow, fall Loss of Consciousness: no loss of consciousness HPI: Patient is a 81-year-old with a past medical history of coronary artery disease, CVA with cerebellar stroke, carotid stenosis, seizures, vascular dementia, BPH, hyperlipidemia COPD on 2 L of home O2, hypertension, depressive disorder who is brought in by ambulance from [facility] for concerns of a fall and which EMS state that the staff noted patient to be kneeling and his residency and subsequent fell forward striking his face to the ground. No loss of consciousness had occurred patient did suffer a laceration to his forehead. Patient currently claims of mild headache denies any neck pain blurred vision abdominal pain Patient currently is alert and oriented it is noted that nursing staff talk to staff over at patient's F in which they were concerned of patient climbing from his bed to the ground and which she was in a kneeling position where he subsequently fell and struck the face to the ground. No loss of consciousness had occurred Nursing staff also states the patient has a history of left upper extremity paresis and patient's is unable ambulate for a due to CVA (PRAKASH QUEZADA) Past History Travel History Traveled to [place] past 21 day No Medical History Any Pertinent Medical History? see below for history Neurological: dementia, TREMORS INSOMNIA EENT: NONE Cardiovascular: CAD, hypertension, CEREBELLAR STROKE SYNDROM HYPERCHOLESTEROLEMIA STENOSIS Respiratory: COPD, 02 DEPENDENT Gastrointestinal: NONE Hepatic: NONE Renal: benign prost hyperplasia Musculoskeletal: NONE Psychiatric: MAJOR DEPRESSIVE DISORDER Endocrine: NONE Blood Disorders: anemia Cancer(s): NONE History of MRSA: Yes History of VRE: No History of CDIFF: No Influenza Vaccine: 07/13/16 Surgical History Surgical History: non-contributory Psychosocial History Who do you live with Other (see notes) What is your primary language Yakut Family History Hx Contributory? No (PRAKASH QUEZADA) Review of Systems Review of Systems Constitutional: Reports: no symptoms. Eyes: Reports: no symptoms. Ears, Nose, Throat, Mouth: Reports: no symptoms. Respiratory: Reports: no symptoms. Cardiovascular: Reports: no symptoms. Gastrointestinal/Abdominal: Reports: no symptoms. Genitourinary: Reports: no symptoms. Musculoskeletal: Reports: see HPI. Skin: Reports: see HPI. Neurological/Psychological: Reports: see HPI, headache. All Other Systems: Reviewed and Negative (PRAKASH QUEZADA) Physical Exam Physical Exam General Appearance: no apparent distress, alert, comfortable Head: evidence of injury Comments: Well-developed well-nourished person in no acute distress HEENT: Normal EENT exam, extraocular motion intact, no nystagmus. Pupils equally round and reactive to light and accommodation. Nose is atraumatic. External auditory canal and Tympanic membranes clear. Pharynx normal. No swelling or edema. Neck: No central spinous pain Back: No central spinous pain Cardiovascular: Regular rate and rhythms no murmurs rubs or gallops, normal JVP Respiratory: Chest nontender. No respiratory distress.breath sounds clear to auscultation bilaterally Abdomen: Soft, nontender nondistended, no appreciable organomegaly. Normal bowel sounds. No ascites Extremity: No edema, no calf tenderness to palpation, normal and equal pulses. Neuro: Alert oriented x3, cranial nerves II through XII grossly intact. Skin: No appreciable rash on exposed skin, skin is warm and dry. Psych: Mood and affect is normal, memory and judgment is normal. Diagram Head: 1) 1.5 cm subcutaneous linear laceration Core Measures ACS in differential dx? No Severe Sepsis Present: No Septic Shock Present: No (TITO MOY,PRAKASH) Progress Differential Diagnosis: aoritic dissection, abd injury, C/T/L spine injury, ext injury, ICH, pelvis injury, pnemothorax, spinal cord injury Plan of Care: Orders Procedure Date/time Status EKG 03/14 1903 Active BLOOD CULTURE 03/14 1853 Active TROPONIN LEVEL 03/14 1853 Complete COMPREHENSIVE METABOLIC PANEL 03/14 1853 Complete CBC WITHOUT DIFFERENTIAL 03/14 1853 Complete Laboratory Tests 03/14/171901: CBC w Diff NO MAN DIFF REQ, RBC 3.76 L, MCV 86.5, MCH 28.4, RDW 19.6 H, MPV 7.0 L, Gran % 76.5 H, Lymphocytes % 15.6 L, Monocytes % 4.4, Eosinophils % 3.1, Basophils % 0.4, Absolute Granulocytes 5.7, Absolute Lymphocytes 1.2, Absolute Monocytes 0.3, Absolute Eosinophils 0.2, Absolute Basophils 0, PUBS MCHC 32.8 L 03/14/171899: Anion Gap 11, Estimated GFR > 60, BUN/Creatinine Ratio 18.9, Glucose 111 H, Calcium 8.8, Total Bilirubin 0.4, AST 21, ALT 34, Alkaline Phosphatase 75, Troponin I 0.03, Total Protein 6.6, Albumin 3.5, Globulin 3.1, Albumin/Globulin Ratio 1.1 Microbiology 03/14 1952 BLOOD: Blood Culture - RECD 03/14 1906 BLOOD: Blood Culture - RECD Patient currently is resting comfortable at bedside patient is alert and oriented and shows no neurological deficit as compared to his baseline per house staff at facility. Patient has no central spinous tenderness CT scan were all unremarkable. Patient will be treated for concerns of FOREhead laceration discussed disposition plan with Dr. Davila who agrees (TITO MOY,PRAKASH) Diagnostic Imaging: Viewed by Me: CT Scan. Radiology Impression: no acute abnormality, no fracture Initial ED EKG: normal intervals, normal p-waves, normal QRS complex, sINUS RHYTHM 69 BPM Prior EKG: unchanged Comments: PATIENT: ASAD CASTILLO PRESENT AGE: 81 PATIENT ACCOUNT NO: [id number] : 37 LOCATION: [facility] ORDERING PHYSICIAN: PRAKASH MOY SERVICE DATE: 03/14/17 EXAM TYPE: CAT - CT CHEST WO IV CONTRAST EXAMINATION: CT CHEST WITHOUT CONTRAST CLINICAL INFORMATION: Fall. Laceration of forehead. Dementia. COMPARISON: CT chest 03/06/2017 TECHNIQUE: Multidetector volumetric CT imaging of the chest was done. Axial MIP volume rendering provided. Sagittal and coronal reformatted images were obtained. DLP: 308.15 mGy-cm FINDINGS: LUNGS: Bibasilar atelectasis/infiltrate at both lung bases. Bibasilar airspace disease has slightly improved since the CAT scan of 03/06/2017. There is marked emphysematous lucency of lungs. MEDIASTINUM: Shotty subcentimeter lymph nodes in the pretracheal retrovascular space and AP window and subcarinal. Lymph nodes unchanged since CAT scan 03/06/2017. These could be reactive to airspace disease. There is vascular wall calcifications of aorta. Vascular calcification of coronary arteries. There is calcification of the mitral valve annulus. PLEURA: Small dependent bilateral pleural effusions. Volume of the pleural effusions has increased since CAT scan of 03/06/2017. AXILLA: No lymphadenopathy. UPPER ABDOMEN: 1.6 cm pedunculated cyst at the upper pole of left kidney. Adrenal glands normal. Visualized portions of liver, spleen, and pancreas are unremarkable. OSSEOUS STRUCTURES: No acute abnormality. No fracture. Multilevel degenerative change of the spine with disc height narrowing and endplate spurs of the vertebrae. Degenerative spurs of the right and left humeral head at the glenohumeral joint. IMPRESSION: Dependent infiltrate/atelectasis at lung bases with small bilateral pleural effusions. Shotty mediastinal lymph nodes . Marked emphysematous change of lungs. PATIENT: ASAD CASTILLO PRESENT AGE: 81 PATIENT ACCOUNT NO: [id number] : 37 LOCATION: [facility] ORDERING PHYSICIAN: PRAKASH MOY SERVICE DATE: 03/14/17 EXAM TYPE: CAT - CT CERV SPINE WO IV CONTRAST; CT HEAD WO IV CONTRAST EXAMINATION: CT HEAD WITHOUT CONTRAST CT CERVICAL SPINE WITHOUT CONTRAST CLINICAL INFORMATION: Fall. Laceration of forehead. COMPARISON: CT head 03/06/2017 TECHNIQUE: Imaging was performed from the skull base to vertex without intravenous administration of contrast. In addition, helical noncontrast CT imaging was acquired through the cervical spine and source images were reviewed along with axial reconstructions and sagittal and coronal MPRs. DLP: 891.75 mGy-cm FINDINGS: HEAD: No intracranial mass, hemorrhage, or midline shift is visualized. There is atrophy with prominence of the ventricles and the sulci and hypodensity of the periventricular white matter due to chronic small vessel ischemic disease. There is lacunar infarct in the bilateral basal ganglia and right heath radiata. Stable old right cerebellar infarct. There is vascular calcifications of the internal carotid arteries and vertebral arteries bilaterally. No extra-axial collections are identified. The paranasal sinuses and mastoid air cells are well aerated. CERVICAL SPINE: There is no evidence of acute cervical spine fracture. No prevertebral soft tissue swelling. There is marked degenerative change of the spine with disc height narrowing and endplate spurs and facet joint arthrosis. No significant disc height narrowing C5-C6. The facet joint disease is most significant at the upper cervical spine bilaterally. Limited assessment of the lung apices is unremarkable. There is heavy vascular calcification of the carotid artery bifurcation involving the right and left carotid vessels IMPRESSION: 1. No acute intracranial pathology. 2. No CT evidence of acute cervical spine fracture or traumatic subluxation. Degenerative disc disease of cervical spine. DICTATED BY: DWIGHT ABDI MD DATE/TIME DICTATED:03/14/171946 PHOTONICS ENGINEER:PRERNA DATE/TIME TRANSCRIBED:03/14/171946 (TITO MOY,PRAKASH) Departure Departure Disposition: HOME OR SELF CARE Condition: Stable Clinical Impression Primary Impression: Forehead laceration Referrals: MAX PARNELL MD (PCP/Family) Additional Instructions: W-10 DICTATED INSTRUCTIONS Departure Forms: Customer Survey General Discharge Information (PRAKASH QUEZADA) PA/BUSINESS SUPPORT PROFESSIONAL Co-Sign Statement Statement: ED Attending supervision documentation- [] I saw and evaluated the patient. I have also reviewed all the pertinent lab results and diagnostic results. I agree with the findings and the plan of care as documented in the PA's/BUSINESS SUPPORT PROFESSIONAL's documentation. [X] I have reviewed the ED Record and agree with the PA's/BUSINESS SUPPORT PROFESSIONAL's documentation. [] Additions or exceptions (if any) to the PAs/BUSINESS SUPPORT PROFESSIONAL's note and plan are summarized below: [] (LYDIA CHAVES,SONIYA Ramirez) Procedures Laceration/Wound Repair Laceration/Wound Repair: Wound Location: head Wound's Depth, Shape: linear, subcutaneous Wound Length (cm): 1.5 Wound Explored: clean, no foreign body removed, irrigated extensively Irrigated w/ Saline (ccs): 360 Betadine Prep? Yes Anesthesia: 1% lidocaine Volume Anesthetic (ccs): 5 Wound Debrided: minimal Wound Repaired With: sutures Suture Size/Type: 4:0 Number of Sutures: 4 Layer Closure? No Progress: Margins were revised the suture placement bacitracin was then applied (PRAKASH QUEZADA)
[2017-03-14 19:14] LABS: ABSOLUTE BASOPHIL COUNT 0 /CUMM (0.0-0.2); ABSOLUTE EOSINOPHIL COUNT 0.2 /CUMM (0.0-0.7); ABSOLUTE GRANULOCYTE CT 5.7 /CUMM (1.4-6.5); ABSOLUTE LYMPH COUNT 1.2 /CUMM (1.2-3.4); ABSOLUTE MONOCYTE COUNT 0.3 /CUMM (0.10-0.60); BASOPHIL % 0.4 % (0.0-2.0); EOSINOPHIL % 3.1 % (0-5); GRANULOCYTE % 76.5 % (42.2-75.2); HEMATOCRIT 32.5 % (42-52); MEAN CORPUSCULAR HGB 28.4 PG (27.0-31.0); MEAN CORPUSCULAR HGB CONC 32.8 G/DL (33.0-37.0); MEAN CORPUSCULAR VOLUME 86.5 FL (80.0-94.0); PLATELET COUNT 261 /CUMM (130-400); RBC DISTRIBUTION WIDTH 19.6 % (11.5-14.5); RED BLOOD CELL CT 3.76 /CUMM (4.70-6.10); WHITE BLOOD CELL COUNT 7.4 /CUMM (4.8-10.8)
--- NOTE | 2017-03-14 19:59 | CT SCAN REPORT ---
EXAMINATION: CT HEAD WITHOUT CONTRAST CT CERVICAL SPINE WITHOUT CONTRAST CLINICAL INFORMATION: Fall. Laceration of forehead. COMPARISON: CT head 03/06/2017 TECHNIQUE: Imaging was performed from the skull base to vertex without intravenous administration of contrast. In addition, helical noncontrast CT imaging was acquired through the cervical spine and source images were reviewed along with axial reconstructions and sagittal and coronal MPRs. DLP: 891.75 mGy-cm FINDINGS: HEAD: No intracranial mass, hemorrhage, or midline shift is visualized. There is atrophy with prominence of the ventricles and the sulci and hypodensity of the periventricular white matter due to chronic small vessel ischemic disease. There is lacunar infarct in the bilateral basal ganglia and right heath radiata. Stable old right cerebellar infarct. There is vascular calcifications of the internal carotid arteries and vertebral arteries bilaterally. No extra-axial collections are identified. The paranasal sinuses and mastoid air cells are well aerated. CERVICAL SPINE: There is no evidence of acute cervical spine fracture. No prevertebral soft tissue swelling. There is marked degenerative change of the spine with disc height narrowing and endplate spurs and facet joint arthrosis. No significant disc height narrowing C5-C6. The facet joint disease is most significant at the upper cervical spine bilaterally. Limited assessment of the lung apices is unremarkable. There is heavy vascular calcification of the carotid artery bifurcation involving the right and left carotid vessels IMPRESSION: 1. No acute intracranial pathology. 2. No CT evidence of acute cervical spine fracture or traumatic subluxation. Degenerative disc disease of cervical spine.
--- NOTE | 2017-03-14 20:08 | CT SCAN REPORT ---
EXAMINATION: CT CHEST WITHOUT CONTRAST CLINICAL INFORMATION: Fall. Laceration of forehead. Dementia. COMPARISON: CT chest 03/06/2017 TECHNIQUE: Multidetector volumetric CT imaging of the chest was done. Axial MIP volume rendering provided. Sagittal and coronal reformatted images were obtained. DLP: 308.15 mGy-cm FINDINGS: LUNGS: Bibasilar atelectasis/infiltrate at both lung bases. Bibasilar airspace disease has slightly improved since the CAT scan of 03/06/2017. There is marked emphysematous lucency of lungs. MEDIASTINUM: Shotty subcentimeter lymph nodes in the pretracheal retrovascular space and AP window and subcarinal. Lymph nodes unchanged since CAT scan 03/06/2017. These could be reactive to airspace disease. There is vascular wall calcifications of aorta. Vascular calcification of coronary arteries. There is calcification of the mitral valve annulus. PLEURA: Small dependent bilateral pleural effusions. Volume of the pleural effusions has increased since CAT scan of 03/06/2017. AXILLA: No lymphadenopathy. UPPER ABDOMEN: 1.6 cm pedunculated cyst at the upper pole of left kidney. Adrenal glands normal. Visualized portions of liver, spleen, and pancreas are unremarkable. OSSEOUS STRUCTURES: No acute abnormality. No fracture. Multilevel degenerative change of the spine with disc height narrowing and endplate spurs of the vertebrae. Degenerative spurs of the right and left humeral head at the glenohumeral joint. IMPRESSION: Dependent infiltrate/atelectasis at lung bases with small bilateral pleural effusions. Shotty mediastinal lymph nodes . Marked emphysematous change of lungs.
[2017-03-14 22:06] VITALS: BP 142/65
== END 2017-03-14 22:52 ==
LOC: ERH 18:37
PROVIDERS: Physician Assistant
DX: S01.81XA Laceration without foreign body of other part of head, initial encounter (principal); W19.XXXA Unspecified fall, initial encounter; Y92.129 Unspecified place in nursing home as the place of occurrence of the external cause
CPT/HCPCS: 87040; 93005; 93010